=== PATIENT | male | born 1985 | race Caucasian/White ===

== ENCOUNTER 2020-07-16 12:15 | Emergency (ER) | payer MEDICAID, SELFPAY ==
[2020-07-16 12:56] VITALS: BP 149/74; PULSE 115; RESP 18; TEMP 36.8; O2SAT 96; BMI 38.0
[2020-07-16 13:19] LABS: Glucose Urine UA NEG (NEG); Leukocyte Esterase Urine NEG (NEG); Nitrite Urine NEG (NEG); Specific Gravity - Urine 1.025 (1.005-1.025); Urine Blood TRACE (NEG); Urine Ketones NEG (NEG); Urine Protein 1+ MG/DL (NEG-TRACE)
[2020-07-16 13:23] LABS: Appearance Urine HAZY; Color Urine YELLOW
[2020-07-16 13:30] LABS: Mucus Urine TRACE /LPF; RBC Urine 0-2 /HPF (0); Squamous Epithelial Cell Urine TRACE /LPF
--- NOTE | 2020-07-16 13:32 | ED_ITS ---
HPI - Male Genitourinary General Chief complaint: Urogenital-Male Stated complaint: penile discharge Time Seen by Provider: 07/16/20 13:25 Source: patient Mode of arrival: ambulatory Limitations: no limitations History of Present Illness HPI Narrative: 34-year-old male here with penile discharge and dysuria x3 days. No testicular pain, nausea, vomiting, fevers, chills. Had unprotected sex 2 weeks ago and is concerned for STD exposure MD Complaint: penile discharge and dysuria Onset (ago): day(s) Duration: intermittent Relieving factors: none Exacerbating factors: urination Associated symptoms: Reports discharge Related Data Previous Rx's Medication Instructions Recorded doxycycline monohydrate 100 mg PO BID #14 cap 07/16/20 Allergies Allergy/AdvReac Type Severity Reaction Status Date / Time No Known Allergies Allergy Verified 07/16/20 12:56 [No Known Allergies*] Review of Systems Review of Systems: Yes all other systems are reviewed and are negative Constitutional: Constitutional: Reports no additional constitutional complaints, Denies body ache(s), Denies chills, Denies fever(s), Denies headache(s) and Denies weakness Eyes: Eyes: Reports no additional eye complaints and Denies change in vision ENT: Reports system reviewed and no additional complaints, except as do cumented, Denies dizziness, Denies headache(s), Denies nasal congestion, Denies nasal discharge and Denies neck pain Cardiovascular: Cardiovascular: Reports no additional cardiovascular complaints, Denies chest pain, Denies leg edema and Denies dyspnea Respiratory: Respiratory: Reports no additional respiratory complaints, Denies cough and Denies dyspnea Gastrointestinal: Gastrointestinal: Reports no additional gastrointestinal complaints, Denies abdominal pain, Denies diarrhea, Denies nausea and Denies vomiting Genitourinary: Genitourinary: Reports dysuria, Denies flank pain, Reports penile discharge, Denies testicular pain, Denies urinary frequency, Denies urinary hesitancy, Denies urinary incontinence and Denies urinary urgency Musculoskeletal: Musculoskeletal: Reports no additional musculoskeletal complaints, Denies back pain, Denies arthralgias, Denies joint swelling, Denies neck pain, Denies numbness and Denies tingling Integumentary/Breasts: Skin/Breast: Reports system reviewed and no additional complaints, except as docu and Denies rash Neurologic: Reports system reviewed and no additional complaints, except as documented, Denies Abnormal speech present, Denies dizziness, Denies headache(s), Denies numbness, Denies tingling and Denies weakness PMFSH Past Medical History Attestation statement: The following information was validated with the patient. Source: old records reviewed and nursing notes reviewed Medical History HTN (hypertension) Social History Social History Advance Directives: No Advance Directives Information Provided: No Physical Exam Vital Signs: Vital Signs: Last Vital Signs Temp 98.3 F 07/16/20 12:56 Pulse 115 H 07/16/20 12:56 Resp 18 07/16/20 12:56 BP 149/74 H 07/16/20 12:56 Pulse Ox 96 07/16/20 12:56 Body Mass Index 38.0 Const: General: cooperative, healthy appearing, comfortable and no acute distress Orientation/consciousness: patient oriented x3 Limitations: no limitations HENMT: Head: Yes normal to inspection Ears: hearing grossly normal bilaterally General nose exam: Normal external nose present Face and sinus: Yes normal facial exam Mouth: Normal oral and palatal mucosa present Throat: Yes posterior oropharynx normal Eyes: General: appearance normal, both eyes and all related structures Pupils: Equal, round and reactive pupils present Neck: Neck: Yes normal visual inspection Chest: Chest palpation & inspection: normal inspection of the chest Resp: Effort & Inspection: normal respiratory effort Auscultation: clear to auscultation bilaterally Cardio: Rate: regular rate Rhythm: regular rhythm Peripheral pulses: Peripheral pulses 2+ throughout GI: Inspection: Yes normal to inspection Palpation (GI): Soft to palpation and nontender Auscultation: normal bowel sounds : Other: Deferred exam Back/Spine/Pelvis: Thoracic/Lumbar Spine: thoracic and lumbar spine normal to inspection Skin: General skin exam: no rashes or lesions noted Neuro: General: patient oriented x3, no focal motor deficits and normal sensation to monofilament Cranial nerves: Yes Equal, round and reactive pupils present Cognition (Neuro): normal cognition Speech: No Abnormal speech present Gait exam (Neuro): Normal gait present Motor exam (neuro): 5/5 motor strength present throughout Extrem: General: Yes normal to inspection Course Course Course Narrative: 34-year-old male here with penile discharge and dysuria x3 days. UA and STD testing sent. Deferrred exam. Treated with ceftriaxone 500mg IM, doxycyline 100mg PO. Sent home with doxycycline 100 mg twice daily for 7 days. Reviewed worrisome signs and symptoms of when to return to the emergency department. Comfortable discharge home. MDM - Male Genitourinary Medical Records Attestation: I reviewed the patient's medical records. Lab Data Attestation: I reviewed the patient's lab results. Labs: Lab Results 07/16/20 Range/Units 13:01 Urine Color YELLOW Urine Appearance HAZY Urine pH 6.0 (5.0-8.0) Ur Specific [place] 1.025 (1.005-1.025) Urine Protein 1+ H (NEG-TRACE) MG/DL Urine Glucose (UA) NEG (NEG) MG/DL Urine Ketones NEG (NEG) MG/DL Urine Blood TRACE (NEG) Urine Nitrite NEG (NEG) Ur Leukocyte Esterase NEG (NEG) Urine RBC 0-2 (0) /HPF Urine WBC 1-4 (0-4) /HPF Ur Squamous Epith Cells TRACE /LPF Urine Bacteria NONE /LPF Urine Mucus TRACE /LPF Discharge Plan Discharge Clinical Impression: Concern about STD in male without diagnosis Patient Disposition: Home, Self-Care Instructions: Sexually Transmitted Diseases (ED) Additional Instructions: We will call you in 1-2 days if your results are positive. If her test result is positive I recommend doing a repeat test in 7 days at [facility] to make sure that you have cleared the infection No sex for 7 days Take all of the antibiotics until gone Prescriptions: New doxycycline monohydrate 100 mg capsule 100 mg PO BID Qty: 14 RF: 0 Referrals: [facility] [Primary Care Provider] - 2 days Interventions: ED Discharge Assessment Last Done: 07/16/20 13:47 Discharge Date/Time: 07/16/20 13:48
[2020-07-16] MEDS: cefTRIAXone sodium 500 MG VIAL IM (13:37)
[2020-07-17 21:42] LABS: C. trachomatis RNA TMA NOT DETECTED (NOT DETECTED); N. gonorrhoeae RNA TMA NOT DETECTED (NOT DETECTED)
== END 2020-07-16 13:48 | disposition home or self-care (01) ==
PROVIDERS: Emergency Provider Emergency Medicine
DX: Z20.2 Contact with and (suspected) exposure to infections with a predominantly sexual mode of transmission (principal); R36.9 Urethral discharge, unspecified; R30.0 Dysuria
CPT/HCPCS: 36415; 81001; 87491; 87591; 96372; 99283; 99284; J0696

== ENCOUNTER 2020-08-02 11:31 | Inpatient (IN) | payer MEDICAID, SELFPAY ==
[2020-08-02] VITALS (11 sets, daily range): BP systolic 113–137; BP diastolic 68–100; PULSE 11–132; RESP 16–29; TEMP 36.6–37.9; O2SAT 90–99; BMI 30.4
--- NOTE | 2020-08-02 | CT_ITS ---
EXAMINATION: CT CHEST WITHOUT CONTRAST CLINICAL INFORMATION: Pneumonia COMPARISON: Chest film dated 08/02/2020 TECHNIQUE: Multidetector volumetric CT imaging of the chest was done. Axial MIP volume rendering provided. Sagittal and coronal reformatted images were obtained. This CT examination was performed using dose optimization techniques as appropriate, variously including the following: *Automated exposure control *Adjustment of mA and/or kV according to patient size (this includes techniques or standardized protocols for targeted exams where dose is matched to indication/reason for exam; i.e. extremities or head) *Use of iterative reconstruction technique DLP: 354 mGy-cm FINDINGS: [employer]: Unremarkable LUNGS: There are scattered areas of groundglass change. Left greater than right lung. MEDIASTINUM: No bulky adenopathy. Some shotty nodes. PLEURA: There is no pleural effusion. No pleural mass or thickening. AXILLA: No lymphadenopathy. UPPER ABDOMEN: Low attenuation in the visualized liver likely fatty change. OSSEOUS STRUCTURES: Unremarkable. CT/CT chest wo con IMPRESSION: Exam does demonstrate scattered areas of groundglass opacity in the left greater than right lung. Certainly atypical pneumonitis viral would be a consideration.
--- NOTE | 2020-08-02 12:24 | ED.ABDPAIN ---
HPI - Abdominal Pain General Chief Complaint: Abdominal Pain Stated Complaint: abd pain Time Seen by Provider: 08/02/20 12:03 Source: patient Mode of arrival: ambulatory Limitations: no limitations History of Present Illness HPI narrative: 34 yo male previously healthy here with complaints of nausea, vomiting, diarrhea, abdominal cramping x4 days. Initially had tactile temps and chills but that is not resolved. Is feeling general malaise and lightheadedness with position changes. No sob, cough, chest pain, body aches, rash. Tested negative for COVID 2 days ago. at home has similar symptoms and she also tested negative. MD elicited complaint: abdominal pain Onset (ago): day(s) Pain Consistency: intermittent Location: diffuse (abdomen ) Severity: mild Quality: cramping Radiation: none Migration to: no migration Exacerbating factors: eating Relieving factors: nothing Associated symptoms: nausea, vomiting and diarrhea Related Data Home Medications Medication Instructions Recorded Confirmed hydroxyzine HCl 25 mg PO DAILY PRN 08/02/20 08/02/20 lisinopril 20 mg PO DAILY 08/02/20 08/02/20 metoprolol succinate [Toprol XL] 50 mg PO DAILY 08/02/20 08/02/20 sertraline 100 mg PO DAILY 08/02/20 08/02/20 Allergies Allergy/AdvReac Type Severity Reaction Status Date / Time No Known Allergies Allergy Verified 07/16/20 12:56 [No Known Allergies*] Review of Systems Review of Systems Yes all other systems are reviewed and are negative Constitutional: Reports no additional constitutional complaints, Denies body ache(s), Reports chills, Denies fever(s), Denies headache(s) and Denies weakness Eyes: Reports no additional eye complaints and Denies change in vision Reports system reviewed and no additional complaints, except as documented, Reports dizziness (lightheadeness ), Denies headache(s), Denies nasal congestion, Denies nasal discharge and Denies neck pain Cardiovascular: Reports no additional cardiovascular complaints, Denies chest pain, Denies leg edema and Denies dyspnea Respiratory: Reports no additional respiratory complaints, Denies cough and Denies dyspnea Gastrointestinal: Reports no additional gastrointestinal complaints, Reports abdominal pain, Reports diarrhea, Reports nausea and Reports vomiting Genitourinary: Denies urinary incontinence Musculoskeletal: Reports no additional musculoskeletal complaints, Denies back pain, Denies arthralgias, Denies joint swelling, Denies neck pain, Denies numbness and Denies tingling Skin/Breast: Reports system reviewed and no additional complaints, except as docu and Denies rash Reports system reviewed and no additional complaints, except as documented, Denies Abnormal speech present, Reports dizziness (lightheadeness ), Denies headache(s), Denies numbness, Denies tingling and Denies weakness Physical Exam Vital Signs: Vital Signs: Last Vital Signs Temp 98.2 F 08/02/20 17:49 Pulse 113 H 08/02/20 17:49 Resp 18 08/02/20 17:49 BP 113/75 08/02/20 17:49 Pulse Ox 97 08/02/20 17:49 Body Mass Index 30.4 Const: General: cooperative, healthy appearing, comfortable and no acute distress Orientation/consciousness: patient oriented x3 Limitations: no limitations HENMT: Head: Yes normal to inspection Ears: hearing grossly normal bilaterally General nose exam: Normal external nose present Face and sinus: Yes normal facial exam Mouth: Normal oral and palatal mucosa present Throat: Yes posterior oropharynx normal Eyes: General: appearance normal, both eyes and all related structures Pupils: Equal, round and reactive pupils present Neck: Neck: Yes normal visual inspection Chest: Chest palpation & inspection: normal inspection of the chest Resp: Effort & Inspection: normal respiratory effort Auscultation: clear to auscultation bilaterally Cardio: Rate: regular rate Rhythm: regular rhythm Peripheral pulses: Peripheral pulses 2+ throughout GI: Other: Mild diffuse tenderness. No focal tenderness, rebound or guarding Inspection: Yes normal to inspection Palpation (GI): Soft to palpation Auscultation: normal bowel sounds Back/Spine/Pelvis: Thoracic/Lumbar Spine: thoracic and lumbar spine normal to inspection Skin: General skin exam: no rashes or lesions noted Neuro: General: patient oriented x3, no focal motor deficits and normal sensation to monofilament Cranial nerves: Yes Equal, round and reactive pupils present Cognition (Neuro): normal cognition Speech: No Abnormal speech present Gait exam (Neuro): Normal gait present Motor exam (neuro): 5/5 motor strength present throughout Extrem: General: Yes normal to inspection Course Course Course Narrative: 34-year-old male here with intermittent abdominal cramping, vomiting, diarrhea x4 days. Initially had fevers and chills which are now resolved. Is complaining of malaise and lightheadedness with position changes. at home has similar symptoms. Tested negative for COVID 2 days ago. Will check labs, UA, orthostatic vital signs. No focal abdominal pain on exam. Likely viral. Drinking in the room during exam. 1300-+orthostatics. NSB ordered. 1345-glucose 1025. No history of diabetes. Elevated gap with bicarb 15. Corrected sodium 139. ALBERT. Add on VBG and acetone, blood cultures, lactic acid, troponin. Chest x-ray and UA to rule out infection. COVID swab for admission. Additional 1 L normal saline bolus ordered. Potassium is sufficient so 10 of IV insulin was ordered. 1540-chest x-ray unremarkable. UA negative for infection. Troponin less than 3.5 with no EKG changes. Lactic acid 2.1 secondary to dehydration and not underlying infection. Discussed patient with Dr. Amado from ICU. Insulin drip ordered. 1610-COVID Positive. Nursing aware. MDM - Abdominal Pain MDM Narrative Medical decision making narrative: Viral syndrome, viral gastroenteritis, electrolyte abnormality, orthostatic hypotension, new onset diabetes, acs, underlying infectious process Medical Records Attestation: I reviewed the patient's medical records. Lab Data Attestation: I reviewed the patient's lab results. Result diagrams: 08/02/20 17:41 08/02/20 17:41 Labs: Lab Results 08/02/20 08/02/20 08/02/20 Range/Units 12:53 12:53 12:53 WBC 7.4 (4.8-10.8) X10*3/uL RBC 5.64 (4.60-5.80) X10*6/uL Hgb 15.1 (14.0-18.0) g/dl Hct 47.8 (42-52) % MCV 84.8 (80-98) fL MCH 26.8 L (27.0-33.0) pg MCHC 31.6 (31.0-36.0) g/dl RDW 13.4 (11.0-16.0) % Plt Count 196 (160-400) X10*3/uL MPV 11.2 (9.4-12.4) fL Immature Gran % (Auto) 0.7 H (0.0-0.4) % Neut % (Auto) 69.8 (45-73) % Lymph % (Auto) 18.5 L (20-40) % Chambers % (Auto) 10.7 (2-11) % Eos % (Auto) 0.0 (0-4) % Baso % (Auto) 0.3 (0-2) % Lymph # (Auto) 1.4 (1.2-4.9) X10*3/uL Chambers # (Auto) 0.8 (0.1-1.2) X10*3/uL Eos # (Auto) 0.0 (0.0-0.4) X10*3/uL Baso # (Auto) 0.0 (0.0-0.2) X10*3/uL Abs Immat Gran (auto) 0.05 H (0.00-0.03) X10*3/uL Absolute Neuts (auto) 5.1 (2.0-8.3) X10*3/uL Absolute Nucleated RBC 0.000 (0.0-0.012) X10*3/uL Nucleated RBC % (auto) 0.0 (0.0-0.2) /100WBC D-Dimer NG/ML Hold Blue Top SEE NOTE VBG pH (7.32-7.43) VBG pCO2 mmHg VBG pO2 mmHg VBG HCO3 mmol/L VBG O2 Saturation % VBG Base Excess mmol/L Sodium 124 L (135-145) mmol/L Potassium 5.7 H (3.3-5.1) mmol/l Chloride 81 L (96-108) mmol/L Carbon Dioxide 15 L (22-29) mmol/L Anion Gap 34 H (12-20) BUN 52 H (9-16) mg/dL Creatinine 2.90 H (0.5-1.4) mg/dL Estim Creat Clear Calc 38.8 Estimated GFR 25 POC Glucose (60-115) mg/dL Random Glucose 1025 H* (60-115) mg/dL Lactic Acid (0.5-2.0) mmol/L Lactic Acid Fup @ 2Hr (0.5-2.0) mmol/L Calcium 9.0 (8.4-10.2) mg/dL Phosphorus (2.7-4.5) mg/dL Magnesium 3.3 H (1.6-2.6) mg/dL Total Bilirubin 0.4 (0.0-1.0) mg/dL Direct Bilirubin 0.2 (0.0-0.5) mg/dL AST 43 H (5-37) U/L ALT 83 H (0-40) U/L Alkaline Phosphatase 102 (39-117) U/L Lactate Dehydrogenase (118-273) U/L Total Creatine Kinase (38-174) U/L Troponin I High Sens (<3.5-35.0) ng/L C-Reactive Protein (< or = 0.50) mg/dL Total Protein 8.4 H (6.5-8.0) g/dL Albumin 4.4 (3.5-5.0) g/dL Procalcitonin ng/mL Urine Color Urine Appearance Urine pH (5.0-8.0) Ur Specific [place] (1.005-1.025) Urine Protein (NEG-TRACE) MG/DL Urine Glucose (UA) (NEG) MG/DL Urine Ketones (NEG) MG/DL Urine Blood (NEG) Urine Nitrite (NEG) Ur Leukocyte Esterase (NEG) Urine RBC (0) /HPF Urine WBC (0-4) /HPF Ur Squamous Epith Cells /LPF Urine Bacteria /LPF Urine Opiates Screen (Not Detect) Ur Barbiturates Screen (Not Detect) Ur Phencyclidine Scrn (Not Detect) Ur Amphetamines Screen (Not Detect) U Benzodiazepines Scrn (Not Detect) Urine Cocaine Screen (Not Detect) U Marijuana (THC) Screen (Not Detect) Acetone, Qual (Negative) Coronavirus (PCR) (Negative) COVID-19 (ENE) COVID-19 Clin Com Influenza Type A (PCR) (Negative) Influenza Type B (PCR) (Negative) RSV RNA Qual (PCR) (Negative) 08/02/20 08/02/20 08/02/20 Range/Units 12:59 13:11 14:43 WBC (4.8-10.8) X10*3/uL RBC (4.60-5.80) X10*6/uL Hgb (14.0-18.0) g/dl Hct (42-52) % MCV (80-98) fL MCH (27.0-33.0) pg MCHC (31.0-36.0) g/dl RDW (11.0-16.0) % Plt Count (160-400) X10*3/uL MPV (9.4-12.4) fL Immature Gran % (Auto) (0.0-0.4) % Neut % (Auto) (45-73) % Lymph % (Auto) (20-40) % Chambers % (Auto) (2-11) % Eos % (Auto) (0-4) % Baso % (Auto) (0-2) % Lymph # (Auto) (1.2-4.9) X10*3/uL Chambers # (Auto) (0.1-1.2) X10*3/uL Eos # (Auto) (0.0-0.4) X10*3/uL Baso # (Auto) (0.0-0.2) X10*3/uL Abs Immat Gran (auto) (0.00-0.03) X10*3/uL Absolute Neuts (auto) (2.0-8.3) X10*3/uL Absolute Nucleated RBC (0.0-0.012) X10*3/uL Nucleated RBC % (auto) (0.0-0.2) /100WBC D-Dimer NG/ML Hold Blue Top VBG pH (7.32-7.43) VBG pCO2 mmHg VBG pO2 mmHg VBG HCO3 mmol/L VBG O2 Saturation % VBG Base Excess mmol/L Sodium (135-145) mmol/L Potassium (3.3-5.1) mmol/l Chloride (96-108) mmol/L Carbon Dioxide (22-29) mmol/L Anion Gap (12-20) BUN (9-16) mg/dL Creatinine (0.5-1.4) mg/dL Estim Creat Clear Calc Estimated GFR POC Glucose (60-115) mg/dL Random Glucose (60-115) mg/dL Lactic Acid (0.5-2.0) mmol/L Lactic Acid Fup @ 2Hr (0.5-2.0) mmol/L Calcium (8.4-10.2) mg/dL Phosphorus (2.7-4.5) mg/dL Magnesium (1.6-2.6) mg/dL Total Bilirubin (0.0-1.0) mg/dL Direct Bilirubin (0.0-0.5) mg/dL AST (5-37) U/L ALT (0-40) U/L Alkaline Phosphatase (39-117) U/L Lactate Dehydrogenase (118-273) U/L Total Creatine Kinase (38-174) U/L Troponin I High Sens (<3.5-35.0) ng/L C-Reactive Protein (< or = 0.50) mg/dL Total Protein (6.5-8.0) g/dL Albumin (3.5-5.0) g/dL Procalcitonin ng/mL Urine Color YELLOW Urine Appearance CLEAR Urine pH 5.5 (5.0-8.0) Ur Specific [place] 1.010 (1.005-1.025) Urine Protein NEG (NEG-TRACE) MG/DL Urine Glucose (UA) >=1000 H (NEG) MG/DL Urine Ketones 40 (NEG) MG/DL Urine Blood TRACE (NEG) Urine Nitrite NEG (NEG) Ur Leukocyte Esterase NEG (NEG) Urine RBC 0-2 (0) /HPF Urine WBC 0-2 (0-4) /HPF Ur Squamous Epith Cells TRACE /LPF Urine Bacteria TRACE /LPF Urine Opiates Screen (Not Detect) Ur Barbiturates Screen (Not Detect) Ur Phencyclidine Scrn (Not Detect) Ur Amphetamines Screen (Not Detect) U Benzodiazepines Scrn (Not Detect) Urine Cocaine Screen (Not Detect) U Marijuana (THC) Screen (Not Detect) Acetone, Qual Moderate H (Negative) Coronavirus (PCR) (Negative) COVID-19 (ENE) Cancelled COVID-19 Clin Com Cancelled Influenza Type A (PCR) (Negative) Influenza Type B (PCR) (Negative) RSV RNA Qual (PCR) (Negative) 08/02/20 08/02/20 08/02/20 Range/Units 14:43 14:43 14:43 WBC (4.8-10.8) X10*3/uL RBC (4.60-5.80) X10*6/uL Hgb (14.0-18.0) g/dl Hct (42-52) % MCV (80-98) fL MCH (27.0-33.0) pg MCHC (31.0-36.0) g/dl RDW (11.0-16.0) % Plt Count (160-400) X10*3/uL MPV (9.4-12.4) fL Immature Gran % (Auto) (0.0-0.4) % Neut % (Auto) (45-73) % Lymph % (Auto) (20-40) % Chambers % (Auto) (2-11) % Eos % (Auto) (0-4) % Baso % (Auto) (0-2) % Lymph # (Auto) (1.2-4.9) X10*3/uL Chambers # (Auto) (0.1-1.2) X10*3/uL Eos # (Auto) (0.0-0.4) X10*3/uL Baso # (Auto) (0.0-0.2) X10*3/uL Abs Immat Gran (auto) (0.00-0.03) X10*3/uL Absolute Neuts (auto) (2.0-8.3) X10*3/uL Absolute Nucleated RBC (0.0-0.012) X10*3/uL Nucleated RBC % (auto) (0.0-0.2) /100WBC D-Dimer NG/ML Hold Blue Top VBG pH 7.21 L (7.32-7.43) VBG pCO2 31 mmHg VBG pO2 46 mmHg VBG HCO3 13 mmol/L VBG O2 Saturation 70.0 % VBG Base Excess -13.5 mmol/L Sodium (135-145) mmol/L Potassium (3.3-5.1) mmol/l Chloride (96-108) mmol/L Carbon Dioxide (22-29) mmol/L Anion Gap (12-20) BUN (9-16) mg/dL Creatinine (0.5-1.4) mg/dL Estim Creat Clear Calc Estimated GFR POC Glucose (60-115) mg/dL Random Glucose (60-115) mg/dL Lactic Acid 2.1 H* (0.5-2.0) mmol/L Lactic Acid Fup @ 2Hr (0.5-2.0) mmol/L Calcium (8.4-10.2) mg/dL Phosphorus (2.7-4.5) mg/dL Magnesium (1.6-2.6) mg/dL Total Bilirubin (0.0-1.0) mg/dL Direct Bilirubin (0.0-0.5) mg/dL AST (5-37) U/L ALT (0-40) U/L Alkaline Phosphatase (39-117) U/L Lactate Dehydrogenase (118-273) U/L Total Creatine Kinase (38-174) U/L Troponin I High Sens < 3.5 (<3.5-35.0) ng/L C-Reactive Protein (< or = 0.50) mg/dL Total Protein (6.5-8.0) g/dL Albumin (3.5-5.0) g/dL Procalcitonin ng/mL Urine Color Urine Appearance Urine pH (5.0-8.0) Ur Specific [place] (1.005-1.025) Urine Protein (NEG-TRACE) MG/DL Urine Glucose (UA) (NEG) MG/DL Urine Ketones (NEG) MG/DL Urine Blood (NEG) Urine Nitrite (NEG) Ur Leukocyte Esterase (NEG) Urine RBC (0) /HPF Urine WBC (0-4) /HPF Ur Squamous Epith Cells /LPF Urine Bacteria /LPF Urine Opiates Screen (Not Detect) Ur Barbiturates Screen (Not Detect) Ur Phencyclidine Scrn (Not Detect) Ur Amphetamines Screen (Not Detect) U Benzodiazepines Scrn (Not Detect) Urine Cocaine Screen (Not Detect) U Marijuana (THC) Screen (Not Detect) Acetone, Qual (Negative) Coronavirus (PCR) (Negative) COVID-19 (ENE) COVID-19 Clin Com Influenza Type A (PCR) (Negative) Influenza Type B (PCR) (Negative) RSV RNA Qual (PCR) (Negative) 08/02/20 08/02/20 08/02/20 Range/Units 15:07 15:52 17:03 WBC (4.8-10.8) X10*3/uL RBC (4.60-5.80) X10*6/uL Hgb (14.0-18.0) g/dl Hct (42-52) % MCV (80-98) fL MCH (27.0-33.0) pg MCHC (31.0-36.0) g/dl RDW (11.0-16.0) % Plt Count (160-400) X10*3/uL MPV (9.4-12.4) fL Immature Gran % (Auto) (0.0-0.4) % Neut % (Auto) (45-73) % Lymph % (Auto) (20-40) % Chambers % (Auto) (2-11) % Eos % (Auto) (0-4) % Baso % (Auto) (0-2) % Lymph # (Auto) (1.2-4.9) X10*3/uL Chambers # (Auto) (0.1-1.2) X10*3/uL Eos # (Auto) (0.0-0.4) X10*3/uL Baso # (Auto) (0.0-0.2) X10*3/uL Abs Immat Gran (auto) (0.00-0.03) X10*3/uL Absolute Neuts (auto) (2.0-8.3) X10*3/uL Absolute Nucleated RBC (0.0-0.012) X10*3/uL Nucleated RBC % (auto) (0.0-0.2) /100WBC D-Dimer NG/ML Hold Blue Top VBG pH (7.32-7.43) VBG pCO2 mmHg VBG pO2 mmHg VBG HCO3 mmol/L VBG O2 Saturation % VBG Base Excess mmol/L Sodium (135-145) mmol/L Potassium (3.3-5.1) mmol/l Chloride (96-108) mmol/L Carbon Dioxide (22-29) mmol/L Anion Gap (12-20) BUN (9-16) mg/dL Creatinine (0.5-1.4) mg/dL Estim Creat Clear Calc Estimated GFR POC Glucose > 600 H* > 600 H* (60-115) mg/dL Random Glucose (60-115) mg/dL Lactic Acid (0.5-2.0) mmol/L Lactic Acid Fup @ 2Hr (0.5-2.0) mmol/L Calcium (8.4-10.2) mg/dL Phosphorus (2.7-4.5) mg/dL Magnesium (1.6-2.6) mg/dL Total Bilirubin (0.0-1.0) mg/dL Direct Bilirubin (0.0-0.5) mg/dL AST (5-37) U/L ALT (0-40) U/L Alkaline Phosphatase (39-117) U/L Lactate Dehydrogenase (118-273) U/L Total Creatine Kinase (38-174) U/L Troponin I High Sens (<3.5-35.0) ng/L C-Reactive Protein (< or = 0.50) mg/dL Total Protein (6.5-8.0) g/dL Albumin (3.5-5.0) g/dL Procalcitonin ng/mL Urine Color Urine Appearance Urine pH (5.0-8.0) Ur Specific [place] (1.005-1.025) Urine Protein (NEG-TRACE) MG/DL Urine Glucose (UA) (NEG) MG/DL Urine Ketones (NEG) MG/DL Urine Blood (NEG) Urine Nitrite (NEG) Ur Leukocyte Esterase (NEG) Urine RBC (0) /HPF Urine WBC (0-4) /HPF Ur Squamous Epith Cells /LPF Urine Bacteria /LPF Urine Opiates Screen (Not Detect) Ur Barbiturates Screen (Not Detect) Ur Phencyclidine Scrn (Not Detect) Ur Amphetamines Screen (Not Detect) U Benzodiazepines Scrn (Not Detect) Urine Cocaine Screen (Not Detect) U Marijuana (THC) Screen (Not Detect) Acetone, Qual (Negative) Coronavirus (PCR) POSITIVE A (Negative) COVID-19 (ENE) COVID-19 Clin Com Influenza Type A (PCR) NEGATIVE (Negative) Influenza Type B (PCR) NEGATIVE (Negative) RSV RNA Qual (PCR) NEGATIVE (Negative) 08/02/20 08/02/20 08/02/20 Range/Units 17:41 17:41 17:41 WBC 8.2 (4.8-10.8) X10*3/uL RBC 5.51 (4.60-5.80) X10*6/uL Hgb 14.8 (14.0-18.0) g/dl Hct 44.8 (42-52) % MCV 81.3 (80-98) fL MCH 26.9 L (27.0-33.0) pg MCHC 33.0 (31.0-36.0) g/dl RDW 13.2 (11.0-16.0) % Plt Count 199 (160-400) X10*3/uL MPV 10.8 (9.4-12.4) fL Immature Gran % (Auto) 0.5 H (0.0-0.4) % Neut % (Auto) 69.2 (45-73) % Lymph % (Auto) 24.2 (20-40) % Chambers % (Auto) 5.8 (2-11) % Eos % (Auto) 0.1 (0-4) % Baso % (Auto) 0.2 (0-2) % Lymph # (Auto) 2.0 (1.2-4.9) X10*3/uL Chambers # (Auto) 0.5 (0.1-1.2) X10*3/uL Eos # (Auto) 0.0 (0.0-0.4) X10*3/uL Baso # (Auto) 0.0 (0.0-0.2) X10*3/uL Abs Immat Gran (auto) 0.04 H (0.00-0.03) X10*3/uL Absolute Neuts (auto) 5.7 (2.0-8.3) X10*3/uL Absolute Nucleated RBC 0.000 (0.0-0.012) X10*3/uL Nucleated RBC % (auto) 0.0 (0.0-0.2) /100WBC D-Dimer 377 NG/ML Hold Blue Top VBG pH (7.32-7.43) VBG pCO2 mmHg VBG pO2 mmHg VBG HCO3 mmol/L VBG O2 Saturation % VBG Base Excess mmol/L Sodium (135-145) mmol/L Potassium (3.3-5.1) mmol/l Chloride (96-108) mmol/L Carbon Dioxide (22-29) mmol/L Anion Gap (12-20) BUN (9-16) mg/dL Creatinine (0.5-1.4) mg/dL Estim Creat Clear Calc Estimated GFR POC Glucose (60-115) mg/dL Random Glucose Cancelled (60-115) mg/dL Lactic Acid (0.5-2.0) mmol/L Lactic Acid Fup @ 2Hr (0.5-2.0) mmol/L Calcium (8.4-10.2) mg/dL Phosphorus 4.4 (2.7-4.5) mg/dL Magnesium 3.3 H (1.6-2.6) mg/dL Total Bilirubin (0.0-1.0) mg/dL Direct Bilirubin (0.0-0.5) mg/dL AST (5-37) U/L ALT (0-40) U/L Alkaline Phosphatase (39-117) U/L Lactate Dehydrogenase 192 (118-273) U/L Total Creatine Kinase 173 (38-174) U/L Troponin I High Sens (<3.5-35.0) ng/L C-Reactive Protein 2.76 H (< or = 0.50) mg/dL Total Protein (6.5-8.0) g/dL Albumin (3.5-5.0) g/dL Procalcitonin ng/mL Urine Color Urine Appearance Urine pH (5.0-8.0) Ur Specific [place] (1.005-1.025) Urine Protein (NEG-TRACE) MG/DL Urine Glucose (UA) (NEG) MG/DL Urine Ketones (NEG) MG/DL Urine Blood (NEG) Urine Nitrite (NEG) Ur Leukocyte Esterase (NEG) Urine RBC (0) /HPF Urine WBC (0-4) /HPF Ur Squamous Epith Cells /LPF Urine Bacteria /LPF Urine Opiates Screen (Not Detect) Ur Barbiturates Screen (Not Detect) Ur Phencyclidine Scrn (Not Detect) Ur Amphetamines Screen (Not Detect) U Benzodiazepines Scrn (Not Detect) Urine Cocaine Screen (Not Detect) U Marijuana (THC) Screen (Not Detect) Acetone, Qual (Negative) Coronavirus (PCR) (Negative) COVID-19 (ENE) COVID-19 Clin Com Influenza Type A (PCR) (Negative) Influenza Type B (PCR) (Negative) RSV RNA Qual (PCR) (Negative) 08/02/20 08/02/20 08/02/20 Range/Units 17:41 17:41 17:41 WBC (4.8-10.8) X10*3/uL RBC (4.60-5.80) X10*6/uL Hgb (14.0-18.0) g/dl Hct (42-52) % MCV (80-98) fL MCH (27.0-33.0) pg MCHC (31.0-36.0) g/dl RDW (11.0-16.0) % Plt Count (160-400) X10*3/uL MPV (9.4-12.4) fL Immature Gran % (Auto) (0.0-0.4) % Neut % (Auto) (45-73) % Lymph % (Auto) (20-40) % Chambers % (Auto) (2-11) % Eos % (Auto) (0-4) % Baso % (Auto) (0-2) % Lymph # (Auto) (1.2-4.9) X10*3/uL Chambers # (Auto) (0.1-1.2) X10*3/uL Eos # (Auto) (0.0-0.4) X10*3/uL Baso # (Auto) (0.0-0.2) X10*3/uL Abs Immat Gran (auto) (0.00-0.03) X10*3/uL Absolute Neuts (auto) (2.0-8.3) X10*3/uL Absolute Nucleated RBC (0.0-0.012) X10*3/uL Nucleated RBC % (auto) (0.0-0.2) /100WBC D-Dimer NG/ML Hold Blue Top VBG pH (7.32-7.43) VBG pCO2 mmHg VBG pO2 mmHg VBG HCO3 mmol/L VBG O2 Saturation % VBG Base Excess mmol/L Sodium 130 L (135-145) mmol/L Potassium 5.0 (3.3-5.1) mmol/l Chloride 92 L (96-108) mmol/L Carbon Dioxide 16 L (22-29) mmol/L Anion Gap 27 H (12-20) BUN 45 H (9-16) mg/dL Creatinine 2.45 H (0.5-1.4) mg/dL Estim Creat Clear Calc 46.0 Estimated GFR 30 POC Glucose (60-115) mg/dL Random Glucose 684 H* (60-115) mg/dL Lactic Acid (0.5-2.0) mmol/L Lactic Acid Fup @ 2Hr 1.7 (0.5-2.0) mmol/L Calcium 8.7 (8.4-10.2) mg/dL Phosphorus (2.7-4.5) mg/dL Magnesium (1.6-2.6) mg/dL Total Bilirubin (0.0-1.0) mg/dL Direct Bilirubin (0.0-0.5) mg/dL AST (5-37) U/L ALT (0-40) U/L Alkaline Phosphatase (39-117) U/L Lactate Dehydrogenase (118-273) U/L Total Creatine Kinase (38-174) U/L Troponin I High Sens (<3.5-35.0) ng/L C-Reactive Protein (< or = 0.50) mg/dL Total Protein (6.5-8.0) g/dL Albumin (3.5-5.0) g/dL Procalcitonin 0.54 ng/mL Urine Color Urine Appearance Urine pH (5.0-8.0) Ur Specific [place] (1.005-1.025) Urine Protein (NEG-TRACE) MG/DL Urine Glucose (UA) (NEG) MG/DL Urine Ketones (NEG) MG/DL Urine Blood (NEG) Urine Nitrite (NEG) Ur Leukocyte Esterase (NEG) Urine RBC (0) /HPF Urine WBC (0-4) /HPF Ur Squamous Epith Cells /LPF Urine Bacteria /LPF Urine Opiates Screen (Not Detect) Ur Barbiturates Screen (Not Detect) Ur Phencyclidine Scrn (Not Detect) Ur Amphetamines Screen (Not Detect) U Benzodiazepines Scrn (Not Detect) Urine Cocaine Screen (Not Detect) U Marijuana (THC) Screen (Not Detect) Acetone, Qual (Negative) Coronavirus (PCR) (Negative) COVID-19 (ENE) COVID-19 Clin Com Influenza Type A (PCR) (Negative) Influenza Type B (PCR) (Negative) RSV RNA Qual (PCR) (Negative) 08/02/20 08/02/20 Range/Units 17:41 18:22 WBC (4.8-10.8) X10*3/uL RBC (4.60-5.80) X10*6/uL Hgb (14.0-18.0) g/dl Hct (42-52) % MCV (80-98) fL MCH (27.0-33.0) pg MCHC (31.0-36.0) g/dl RDW (11.0-16.0) % Plt Count (160-400) X10*3/uL MPV (9.4-12.4) fL Immature Gran % (Auto) (0.0-0.4) % Neut % (Auto) (45-73) % Lymph % (Auto) (20-40) % Chambers % (Auto) (2-11) % Eos % (Auto) (0-4) % Baso % (Auto) (0-2) % Lymph # (Auto) (1.2-4.9) X10*3/uL [place] # (Auto) (0.1-1.2) X10*3/uL Eos # (Auto) (0.0-0.4) X10*3/uL Baso # (Auto) (0.0-0.2) X10*3/uL Abs Immat Gran (auto) (0.00-0.03) X10*3/uL Absolute Neuts (auto) (2.0-8.3) X10*3/uL Absolute Nucleated RBC (0.0-0.012) X10*3/uL Nucleated RBC % (auto) (0.0-0.2) /100WBC D-Dimer NG/ML Hold Blue Top VBG pH (7.32-7.43) VBG pCO2 mmHg VBG pO2 mmHg VBG HCO3 mmol/L VBG O2 Saturation % VBG Base Excess mmol/L Sodium (135-145) mmol/L Potassium (3.3-5.1) mmol/l Chloride (96-108) mmol/L Carbon Dioxide (22-29) mmol/L Anion Gap (12-20) BUN (9-16) mg/dL Creatinine (0.5-1.4) mg/dL Estim Creat Clear Calc Estimated GFR POC Glucose > 600 H* (60-115) mg/dL Random Glucose (60-115) mg/dL Lactic Acid (0.5-2.0) mmol/L Lactic Acid Fup @ 2Hr (0.5-2.0) mmol/L Calcium (8.4-10.2) mg/dL Phosphorus (2.7-4.5) mg/dL Magnesium (1.6-2.6) mg/dL Total Bilirubin (0.0-1.0) mg/dL Direct Bilirubin (0.0-0.5) mg/dL AST (5-37) U/L ALT (0-40) U/L Alkaline Phosphatase (39-117) U/L Lactate Dehydrogenase (118-273) U/L Total Creatine Kinase (38-174) U/L Troponin I High Sens (<3.5-35.0) ng/L C-Reactive Protein (< or = 0.50) mg/dL Total Protein (6.5-8.0) g/dL Albumin (3.5-5.0) g/dL Procalcitonin ng/mL Urine Color Urine Appearance Urine pH (5.0-8.0) Ur Specific [place] (1.005-1.025) Urine Protein (NEG-TRACE) MG/DL Urine Glucose (UA) (NEG) MG/DL Urine Ketones (NEG) MG/DL Urine Blood (NEG) Urine Nitrite (NEG) Ur Leukocyte Esterase (NEG) Urine RBC (0) /HPF Urine WBC (0-4) /HPF Ur Squamous Epith Cells /LPF Urine Bacteria /LPF Urine Opiates Screen Not Detected (Not Detect) Ur Barbiturates Screen Not Detected (Not Detect) Ur Phencyclidine Scrn Not Detected (Not Detect) Ur Amphetamines Screen Not Detected (Not Detect) U Benzodiazepines Scrn Not Detected (Not Detect) Urine Cocaine Screen Not Detected (Not Detect) U Marijuana (THC) Screen Not Detected (Not Detect) Acetone, Qual (Negative) Coronavirus (PCR) (Negative) COVID-19 (ENE) COVID-19 Clin Com Influenza Type A (PCR) (Negative) Influenza Type B (PCR) (Negative) RSV RNA Qual (PCR) (Negative) Imaging Data Chest x-ray: Attestation: I personally reviewed and interpreted this imaging study as follows: Radiologist's impression: EXAMINATION: XR CHEST CLINICAL INFORMATION: Rule out pneumonia COMPARISON: Previous chest x-ray most recent October 2017 TECHNIQUE: 2 views of the chest were obtained. FINDINGS: The right hemidiaphragm is elevated. The cardiac and mediastinal contours are unremarkable. The lungs are clear. There is no pleural effusion or pneumothorax. There are degenerative changes of the spine. XR/XR chest 2V IMPRESSION: Elevated right hemidiaphragm. No evidence of pneumonia. ECG Data Attestation: I personally reviewed and interpreted this ECG as follows: ECG interpretation date: 08/02/20 ECG interpretation time: 14:21 Interpretation: Normal sinus rhythm with a rate of 86,early repolarization, normal MD, normal QRS, normal QT Critical Care Time Critical Care Time Critical Care Time: Yes Total Critical Care Time: 30 Attestation: Abnormal renal function with fluid management, normal glucose with management with insulin drip, discussion with septic cleaner for admission Discharge Plan Discharge Clinical Impression: Diabetic ketoacidosis associated with diabetes mellitus due to underlying condition, Acute renal failure, COVID-19 Patient Disposition: Admitted As Inpatient [facility] Past Medical History Attestation statement: The following information was validated with the patient. Source: old records reviewed and nursing notes reviewed Medical History HTN (hypertension) Social History Social History Alcohol intake: never Smoking Status: Never smoker Use of substances other than those prescribed or required for medical reasons: No Advance Directives: No Advance Directives Information Provided: No
[2020-08-02] MEDS: Dicyclomine HCl 10 MG CAPSULE 20 MG PO (12:58)
[2020-08-02] MEDS: 0.9 % Sodium Chloride 1,000 ML 999 ML IV ×2 (12:58→14:33)
[2020-08-02] MEDS: ondansetron HCL 4 MG/2 ML VIAL IVPUSH (12:58)
[2020-08-02 13:01] LABS: MANUAL DIFF FLAG NO
[2020-08-02 13:06] LABS: Basophils Percent Auto 0.3 % (0-2); Hematocrit 47.8 % (42-52); Hemoglobin 15.1 g/dl (14.0-18.0); Imm Gran Abs Auto 0.05 X10*3/uL (0.00-0.03); Imm Gran Pct Auto 0.7 % (0.0-0.4); Lymphocytes Absolute Auto 1.4 X10*3/uL (1.2-4.9); Lymphocytes Percent Auto 18.5 % (20-40); Mean Corpuscular HGB Conc 31.6 g/dl (31.0-36.0); Mean Corpuscular Hemoglobin 26.8 pg (27.0-33.0); Mean Corpuscular Volume 84.8 fL (80-98); Mean Platelet Volume 11.2 fL (9.4-12.4); Monocytes Absolute Auto 0.8 X10*3/uL (0.1-1.2); Monocytes Percent Auto 10.7 % (2-11); Neutrophils Absolute Auto 5.1 X10*3/uL (2.0-8.3); Neutrophils Percent Auto 69.8 % (45-73); Platelet Count 196 X10*3/uL (160-400); Red Blood Count 5.64 X10*6/uL (4.60-5.80); Red Cell Distribution Width 13.4 % (11.0-16.0); White Blood Count 7.4 X10*3/uL (4.8-10.8)
--- NOTE | 2020-08-02 13:08 | PC.NURSE ---
iv inserted, labs drawn, orthostats performed, urine obtained, pt medicated per order,will continue to monitor.
[2020-08-02 13:24] LABS: Glucose Urine UA >=1000 MG/DL (NEG); Leukocyte Esterase Urine NEG (NEG); Nitrite Urine NEG (NEG); PH 5.5 (5.0-8.0); Urine Blood TRACE (NEG); Urine Ketones 40 MG/DL (NEG); Urine Protein NEG (NEG-TRACE)
[2020-08-02 13:31] LABS: Appearance Urine CLEAR; Color Urine YELLOW
[2020-08-02 13:37] LABS: Bacteria Urine TRACE /LPF; RBC Urine 0-2 /HPF (0); Squamous Epithelial Cell Urine TRACE /LPF; WBC Urine 0-2 /HPF (0-4)
[2020-08-02 13:48] LABS: Alanine Aminotransferase 83 U/L (0-40); Albumin Level 4.4 g/dL (3.5-5.0); Alkaline Phosphatase 102 U/L (39-117); Anion Gap 34 (12-20); Aspartate Amino Transferase 43 U/L (5-37); Bilirubin Direct 0.2 mg/dL (0.0-0.5); Bilirubin Total 0.4 mg/dL (0.0-1.0); Blood Urea Nitrogen 52 mg/dL (9-16); Carbon Dioxide 15 mmol/L (22-29); Chloride 81 mmol/L (96-108); Creatinine Clr Calc Pharmacy 38.8; Estimated Glomerular Filt Rate 25; Glucose Random 1025 mg/dL (60-115); Magnesium 3.3 mg/dL (1.6-2.6); Potassium 5.7 mmol/l (3.3-5.1); Sodium 124 mmol/L (135-145); Total Protein 8.4 g/dL (6.5-8.0)
--- NOTE | 2020-08-02 13:53 | ECG_ITS ---
Test Reason : DIZZYNESS Blood Pressure : / mmHG Vent. Rate : 086 BPM Atrial Rate : 086 BPM P-R Int : 132 ms QRS Dur : 092 ms QT Int : 362 ms P-R-T Axes : 056 026 026 degrees QTc Int : 433 ms Normal sinus rhythm Early repolarization Normal ECG When compared with ECG of 04-NOV-2017 20:54, No significant change was found Referred By: Mariam Santacruz Electronically Signed By:BRENNAN MCCORMICK
--- NOTE | 2020-08-02 13:53 | XR_ITS ---
EXAMINATION: XR CHEST CLINICAL INFORMATION: Rule out pneumonia COMPARISON: Previous chest x-ray most recent October 2017 TECHNIQUE: 2 views of the chest were obtained. FINDINGS: The right hemidiaphragm is elevated. The cardiac and mediastinal contours are unremarkable. The lungs are clear. There is no pleural effusion or pneumothorax. There are degenerative changes of the spine. XR/XR chest 2V IMPRESSION: Elevated right hemidiaphragm. No evidence of pneumonia.
[2020-08-02 14:20] LABS: Acetone, serum QL Moderate (Negative)
[2020-08-02] MEDS: Insulin Regular, Human 100 UNIT/ML 3 ML VIAL 10 UNIT IVPUSH (14:33)
--- NOTE | 2020-08-02 14:48 | PC.NURSE ---
ekg performed, labs drawn, pt medicated per order, will continue to monitor.
[2020-08-02 14:59] LABS: Base Excess VBG -13.5 mmol/L; HCO3 VBG 13 mmol/L; PCO2 VBG 31 mmHg; PO2 VBG 46 mmHg; pH VBG 7.21 (7.32-7.43)
[2020-08-02 15:24] LABS: Lactic Acid 2.1 mmol/L (0.5-2.0)
[2020-08-02 15:26] LABS: Troponin-I High Sensitivity < 3.5 ng/L (<3.5-35.0)
[2020-08-02 15:49] LABS: Influenza A PCR NEGATIVE (Negative); Influenza B PCR NEGATIVE (Negative); Resp Syncy Virus RNA Qual PCR NEGATIVE (Negative); SARS COV2 PCR INHOUSE POSITIVE (Negative)
[2020-08-02] MEDS: Insulin Regular/NS 100 UNIT/100 ML PLAST..BAG 10 UNIT IVCONT (16:00)
--- NOTE | 2020-08-02 16:05 | PC.NURSE ---
INSULIN DRIP STARTED PER ORDER
[2020-08-02 16:06] LABS: Glucose, Whole Blood > 600 mg/dL (60-115)
--- NOTE | 2020-08-02 16:22 | PM.CCHP ---
History of Present Illness Date of Service: 08/02/20 Chief Complaint: Fever chills abdominal discomfort 34-year-old male with new onset of fever chills abdominal discomfort and weakness and and on blood work was found to have hyponatremia and hyperkalemia with marked hyperglycemia at a 1000 and by calculation is both hyperosmolar and has a positive anion gap metabolic acidosis along with moderate acetone consistent with diabetic ketoacidosis and therefore is a new onset diabetic with both complications The COVID PCR is positive and therefore he has a dry CT scan of his chest that is pending apparently not at this point hypoxic In addition he is in acute stage III renal failure with current creatinine at 2.9 BUN in 52 and of course pseudo hyponatremia which fully corrects to 140 Review of Systems Review of Systems: Yes all other systems are reviewed and are negative [facility] Past Medical History Medical History HTN (hypertension) Social History Social History Alcohol intake: never Smoking Status: Never smoker Use of substances other than those prescribed or required for medical reasons: No Advance Directives: No Advance Directives Information Provided: No Meds Allergies Allergy/AdvReac Type Severity Reaction Status Date / Time No Known Allergies Allergy Verified 07/16/20 12:56 [No Known Allergies*] Home Medications Medication Instructions Recorded Confirmed Type hydroxyzine HCl 25 mg PO DAILY PRN 08/02/20 08/02/20 History lisinopril 20 mg PO DAILY 08/02/20 08/02/20 History metoprolol succinate [Toprol XL] 50 mg PO DAILY 08/02/20 08/02/20 History sertraline 100 mg PO DAILY 08/02/20 08/02/20 History Physical Exam Vital Signs: Vital Signs: Last Vital Signs Temp 98.2 F 08/02/20 13:12 Pulse 96 08/02/20 13:12 Resp 18 08/02/20 13:12 BP 128/72 08/02/20 13:12 Pulse Ox 96 08/02/20 13:12 Body Mass Index 30.4 On physical exam he is awake and alert and nonfocal neurologically Neck veins flat with adequate bilateral carotid upstrokes but status post 2 L of IV normal saline and has no underlying murmurs or gallops Chest percussed equally no clinical pleural effusion no adventitious sounds Abdomen benign nondistended with bowel sounds no organomegaly Skin is intact no peripheral edema no acrocyanosis Results Labs CBC and Chem 7: 08/02/20 12:53 08/02/20 12:53 Labs: Laboratory Results - last 24 hr 08/02/20 08/02/20 08/02/20 12:53 12:53 12:53 MCV 84.8 MCH 26.8 L MCHC 31.6 RDW 13.4 Plt Count 196 MPV 11.2 Immature Gran % (Auto) 0.7 H Neut % (Auto) 69.8 Lymph % (Auto) 18.5 L [place] % (Auto) 10.7 Eos % (Auto) 0.0 Baso % (Auto) 0.3 Lymph # (Auto) 1.4 [place] # (Auto) 0.8 Eos # (Auto) 0.0 Baso # (Auto) 0.0 Abs Immat Gran (auto) 0.05 H Absolute Neuts (auto) 5.1 Absolute Nucleated RBC 0.000 Nucleated RBC % (auto) 0.0 Hold Blue Top SEE NOTE VBG pH VBG pCO2 VBG pO2 VBG HCO3 VBG O2 Saturation VBG Base Excess Anion Gap 34 H Estim Creat Clear Calc 38.8 Estimated GFR 25 POC Glucose Random Glucose 1025 H* Lactic Acid Calcium 9.0 Magnesium 3.3 H Total Bilirubin 0.4 Direct Bilirubin 0.2 AST 43 H ALT 83 H Alkaline Phosphatase 102 Troponin I High Sens Total Protein 8.4 H Albumin 4.4 Urine Color Urine Appearance Urine pH Ur Specific [place] Urine Protein Urine Glucose (UA) Urine Ketones Urine Blood Urine Nitrite Ur Leukocyte Esterase Urine RBC Urine WBC Ur Squamous Epith Cells Urine Bacteria Acetone, Qual Coronavirus (PCR) COVID-19 (ENE) COVID-19 Clin Com Influenza Type A (PCR) Influenza Type B (PCR) RSV RNA Qual (PCR) 08/02/20 08/02/20 08/02/20 12:59 13:11 14:43 MCV MCH MCHC RDW Plt Count MPV Immature Gran % (Auto) Neut % (Auto) Lymph % (Auto) [place] % (Auto) Eos % (Auto) Baso % (Auto) Lymph # (Auto) [place] # (Auto) Eos # (Auto) Baso # (Auto) Abs Immat Gran (auto) Absolute Neuts (auto) Absolute Nucleated RBC Nucleated RBC % (auto) Hold Blue Top VBG pH VBG pCO2 VBG pO2 VBG HCO3 VBG O2 Saturation VBG Base Excess Anion Gap Estim Creat Clear Calc Estimated GFR POC Glucose Random Glucose Lactic Acid Calcium Magnesium Total Bilirubin Direct Bilirubin AST ALT Alkaline Phosphatase Troponin I High Sens Total Protein Albumin Urine Color YELLOW Urine Appearance CLEAR Urine pH 5.5 Ur Specific [place] 1.010 Urine Protein NEG Urine Glucose (UA) >=1000 H Urine Ketones 40 Urine Blood TRACE Urine Nitrite NEG Ur Leukocyte Esterase NEG Urine RBC 0-2 Urine WBC 0-2 Ur Squamous Epith Cells TRACE Urine Bacteria TRACE Acetone, Qual Moderate H Coronavirus (PCR) COVID-19 (ENE) Cancelled COVID-19 Clin Com Cancelled Influenza Type A (PCR) Influenza Type B (PCR) RSV RNA Qual (PCR) 08/02/20 08/02/20 08/02/20 14:43 14:43 14:43 MCV MCH MCHC RDW Plt Count MPV Immature Gran % (Auto) Neut % (Auto) Lymph % (Auto) [place] % (Auto) Eos % (Auto) Baso % (Auto) Lymph # (Auto) [place] # (Auto) Eos # (Auto) Baso # (Auto) Abs Immat Gran (auto) Absolute Neuts (auto) Absolute Nucleated RBC Nucleated RBC % (auto) Hold Blue Top VBG pH 7.21 L VBG pCO2 31 VBG pO2 46 VBG HCO3 13 VBG O2 Saturation 70.0 VBG Base Excess -13.5 Anion Gap Estim Creat Clear Calc Estimated GFR POC Glucose Random Glucose Lactic Acid 2.1 H* Calcium Magnesium Total Bilirubin Direct Bilirubin AST ALT Alkaline Phosphatase Troponin I High Sens < 3.5 Total Protein Albumin Urine Color Urine Appearance Urine pH Ur Specific [place] Urine Protein Urine Glucose (UA) Urine Ketones Urine Blood Urine Nitrite Ur Leukocyte Esterase Urine RBC Urine WBC Ur Squamous Epith Cells Urine Bacteria Acetone, Qual Coronavirus (PCR) COVID-19 (ENE) COVID-19 Clin Com Influenza Type A (PCR) Influenza Type B (PCR) RSV RNA Qual (PCR) 08/02/20 08/02/20 15:07 15:52 MCV MCH MCHC RDW Plt Count MPV Immature Gran % (Auto) Neut % (Auto) Lymph % (Auto) [place] % (Auto) Eos % (Auto) Baso % (Auto) Lymph # (Auto) [place] # (Auto) Eos # (Auto) Baso # (Auto) Abs Immat Gran (auto) Absolute Neuts (auto) Absolute Nucleated RBC Nucleated RBC % (auto) Hold Blue Top VBG pH VBG pCO2 VBG pO2 VBG HCO3 VBG O2 Saturation VBG Base Excess Anion Gap Estim Creat Clear Calc Estimated GFR POC Glucose > 600 H* Random Glucose Lactic Acid Calcium Magnesium Total Bilirubin Direct Bilirubin AST ALT Alkaline Phosphatase Troponin I High Sens Total Protein Albumin Urine Color Urine Appearance Urine pH Ur Specific [place] Urine Protein Urine Glucose (UA) Urine Ketones Urine Blood Urine Nitrite Ur Leukocyte Esterase Urine RBC Urine WBC Ur Squamous Epith Cells Urine Bacteria Acetone, Qual Coronavirus (PCR) POSITIVE A COVID-19 (ENE) COVID-19 Clin Com Influenza Type A (PCR) NEGATIVE Influenza Type B (PCR) NEGATIVE RSV RNA Qual (PCR) NEGATIVE Imaging Radiologist's Impressions: Impressions Chest X-Ray 08/02/20 13:53 IMPRESSION: Elevated right hemidiaphragm. No evidence of pneumonia. Assessment and Plan (1) Diabetic ketoacidosis associated with diabetes mellitus due to underlying condition: Status: Acute (2) Hyperosmolar hyponatremia: Status: Acute (3) Hyponatremia: Status: Acute (4) Hyperkalemia: Status: Acute (5) Acute renal failure: Status: Acute (6) COVID-19: Status: Acute At this point and will continue with normal saline watching for development of hyperchloremia will recheck every 4-6 hours on his chemistry and his venous blood gas and will obtain a dry CT scan and at this point to check for early signs of COVID pneumonitis but will hold off on any definitive treatment pending results of the chest CT scan and as well as awaiting resolution of his renal insufficiency So he will remain on normal saline at an aggressive level along with IV insulin therapy
[2020-08-02 16:50] LABS: Reflex Lactate? Lactic Acid Added
[2020-08-02 17:23] LABS: Glucose, Whole Blood > 600 mg/dL (60-115)
[2020-08-02] MEDS: 0.9 % Sodium Chloride 1,000 ML 150 ML IVCONT ×2 (17:43→23:40)
[2020-08-02 17:48] LABS: MANUAL DIFF FLAG NO
[2020-08-02 17:49] LABS: Basophils Percent Auto 0.2 % (0-2); Eosinophils Percent Auto 0.1 % (0-4); Hematocrit 44.8 % (42-52); Hemoglobin 14.8 g/dl (14.0-18.0); Imm Gran Abs Auto 0.04 X10*3/uL (0.00-0.03); Imm Gran Pct Auto 0.5 % (0.0-0.4); Lymphocytes Percent Auto 24.2 % (20-40); Mean Corpuscular Hemoglobin 26.9 pg (27.0-33.0); Mean Corpuscular Volume 81.3 fL (80-98); Mean Platelet Volume 10.8 fL (9.4-12.4); Monocytes Absolute Auto 0.5 X10*3/uL (0.1-1.2); Monocytes Percent Auto 5.8 % (2-11); Neutrophils Absolute Auto 5.7 X10*3/uL (2.0-8.3); Neutrophils Percent Auto 69.2 % (45-73); Platelet Count 199 X10*3/uL (160-400); Red Blood Count 5.51 X10*6/uL (4.60-5.80); Red Cell Distribution Width 13.2 % (11.0-16.0); White Blood Count 8.2 X10*3/uL (4.8-10.8)
--- NOTE | 2020-08-02 17:50 | PC.NURSE ---
labs drawn, urine obtained, vss, ivf started per order, will continue to monitor.
[2020-08-02 17:59] LABS: D Dimer 377 NG/ML
[2020-08-02 18:03] LABS: ~Lactic Acid-LAB USE ONLY 1.7 mmol/L (0.5-2.0)
[2020-08-02 18:19] LABS: Amphetamine Screen Urine Not Detected (Not Detect); Barbiturates, Urine Not Detected (Not Detect); Benzodiazepines Screen Urine Not Detected (Not Detect); C Reactive Protein 2.76 mg/dL (< or = 0.50); Cannabinoid Screen Urine Not Detected (Not Detect); Cocaine Screen Urine Not Detected (Not Detect); Lactate Dehydrogenase 192 U/L (118-273); Magnesium 3.3 mg/dL (1.6-2.6); Opiate Screen Urine Not Detected (Not Detect); Phencyclidine Screen Urine Not Detected (Not Detect); Phosphorus 4.4 mg/dL (2.7-4.5)
[2020-08-02 18:25] LABS: Glucose, Whole Blood > 600 mg/dL (60-115)
[2020-08-02 18:29] LABS: Anion Gap 27 (12-20); Blood Urea Nitrogen 45 mg/dL (9-16); Calcium 8.7 mg/dL (8.4-10.2); Carbon Dioxide 16 mmol/L (22-29); Chloride 92 mmol/L (96-108); Estimated Glomerular Filt Rate 30; Procalcitonin 0.54 ng/mL; Sodium 130 mmol/L (135-145)
[2020-08-02 18:31] LABS: Glucose Random 684 mg/dL (60-115)
[2020-08-02] MEDS: Thiamine HCL 200 MG in 0.9 % Sodium Chloride 100 ML 204 MG IV (18:55)
[2020-08-02] MEDS: Enoxaparin Sodium 40 MG/0.4 ML SYRINGE SUBCUT (18:59)
--- NOTE | 2020-08-02 19:49 | PC.NURSE ---
ICU CALLED, WILL CALL US BACK TO GET REPORT
--- NOTE | 2020-08-02 20:01 | PC.NURSE ---
insulin drip changed to 8ml/hr
--- NOTE | 2020-08-02 20:04 | PC.NURSE ---
patient a&ox3, watching tv, associate designer sinus tach, vss, will continue to monitor.
[2020-08-02 20:33] LABS: Glucose, Whole Blood 486 mg/dL (60-115)
--- NOTE | 2020-08-02 20:53 | PC.NURSE ---
report called to icu
[2020-08-02 22:11] LABS: Glucose, Whole Blood 422 mg/dL (60-115)
[2020-08-02 22:25] LABS: Base Excess VBG -7.5 mmol/L; HCO3 VBG 18 mmol/L; PCO2 VBG 37 mmHg; PO2 VBG 54 mmHg; pH VBG 7.29 (7.32-7.43)
[2020-08-02 22:54] LABS: Glucose, Whole Blood 402 mg/dL (60-115)
[2020-08-02 23:26] LABS: Anion Gap 21 (12-20); Blood Urea Nitrogen 36 mg/dL (9-16); Calcium 8.4 mg/dL (8.4-10.2); Carbon Dioxide 18 mmol/L (22-29); Chloride 99 mmol/L (96-108); Creatinine Clr Calc Pharmacy 56.3; Estimated Glomerular Filt Rate 38; Glucose Random 438 mg/dL (60-115); Phosphorus 2.6 mg/dL (2.7-4.5); Potassium 4.2 mmol/l (3.3-5.1); Sodium 134 mmol/L (135-145)
[2020-08-02] MEDS: 0.9 % Sodium Chloride Flush 3 ML SYRINGE IVFLUSH (23:40)
[2020-08-02 23:50] LABS: Glucose, Whole Blood 333 mg/dL (60-115)
[2020-08-03] VITALS (24 sets, daily range): BP systolic 104–142; BP diastolic 52–86; PULSE 87–132; RESP 13–36; TEMP 37.3–37.8; O2SAT 89–96; BMI 39.5; BMI 40.0
[2020-08-03 01:05] LABS: Glucose, Whole Blood 308 mg/dL (60-115)
[2020-08-03 02:16] LABS: Glucose, Whole Blood 304 mg/dL (60-115)
[2020-08-03] MEDS: Insulin Regular/NS 100 UNIT/100 ML PLAST..BAG 6 UNIT IVCONT (03:36)
[2020-08-03 03:52] LABS: Glucose, Whole Blood 273 mg/dL (60-115)
[2020-08-03] MEDS: Acetaminophen 325 MG TABLET 650 MG PO ×2 (04:35→17:42)
[2020-08-03] MEDS: Insulin Regular/NS 100 UNIT/100 ML PLAST..BAG 7 UNIT IVCONT (05:42)
[2020-08-03 05:49] LABS: Glucose, Whole Blood 193 mg/dL (60-115)
[2020-08-03] MEDS: Omeprazole 40 MG CAPSULE.DR PO (05:49)
[2020-08-03] MEDS: 0.9 % Sodium Chloride 1,000 ML 150 ML IVCONT (05:49)
[2020-08-03] MEDS: Thiamine HCL 200 MG in 0.9 % Sodium Chloride 100 ML 204 MG IV ×2 (05:50→17:15)
--- NOTE | 2020-08-03 06:34 | PC.NURSE ---
PT TO ICU AT 2130 IN NO ACUTE DISTRESS, A&O X3. INSULIN DRIP AT 10 UNITS/HR. POC 422 AND DRIP DECREASED TO 8 UNITS/HR. NS INFUSING AT 150 ML/HR. PT DENIES COMPLAINTS. NO N/V/D. NO ABD PAIN OR CRAMPING. VITALS STABLE. INSULIN DRIP DOWN TO 6 UNITS/HR AT 2330 WHEN POC 308, DOWN FROM 422 AT 2230. DRIP CONTINUED AT 6 UNITS/HR UNTIL 0400 WHEN POC 273 AND WAS INCREASED TO 9 UNITS/HR. AT 0540, POC 193 AND DRIP DOWN TO 7 UNITS/HR AND IV NS CHANGED TO D51/2NS. PA YUKO AWARE OF CHANGES AND OF LABS DRAWN AT 2200, BMPF, PHOS ANF VBG'S WHICH WERE ALL IMPROVED. PT TAKING PO H20 WITHOUT ILL EFFECT. SLEPT MOSTLY IN NAPS. TYLENOL GIVEN FOR HEADACHE WITH GOOD EFFECT. VITAL SIGNS STABLE. LEVOPHED WEANED FROM 0.7 MCG/KG/MIN TO 0.04 MCG/KG/MIN.
[2020-08-03 06:53] LABS: Glucose, Whole Blood 201 mg/dL (60-115)
[2020-08-03 06:57] LABS: MANUAL DIFF FLAG NO
[2020-08-03 07:15] LABS: Basophils Percent Auto 0.1 % (0-2); Eosinophils Percent Auto 0.5 % (0-4); Hematocrit 38.1 % (42-52); Hemoglobin 12.8 g/dl (14.0-18.0); Imm Gran Abs Auto 0.03 X10*3/uL (0.00-0.03); Imm Gran Pct Auto 0.4 % (0.0-0.4); Lymphocytes Absolute Auto 2.2 X10*3/uL (1.2-4.9); Lymphocytes Percent Auto 27.3 % (20-40); Mean Corpuscular HGB Conc 33.6 g/dl (31.0-36.0); Mean Corpuscular Hemoglobin 27.1 pg (27.0-33.0); Mean Corpuscular Volume 80.5 fL (80-98); Mean Platelet Volume 10.6 fL (9.4-12.4); Monocytes Absolute Auto 0.8 X10*3/uL (0.1-1.2); Monocytes Percent Auto 9.7 % (2-11); Neutrophils Absolute Auto 4.9 X10*3/uL (2.0-8.3); Platelet Count 170 X10*3/uL (160-400); Red Blood Count 4.73 X10*6/uL (4.60-5.80); Red Cell Distribution Width 13.3 % (11.0-16.0); White Blood Count 7.9 X10*3/uL (4.8-10.8)
[2020-08-03] MEDS: KCl 20 mEq in 0.45% Sod 20 MEQ/1,000 ML IV.SOLN 125 MEQ IVCONT ×3 (07:34→22:19)
[2020-08-03 07:39] LABS: D Dimer 388 NG/ML
[2020-08-03 07:45] LABS: C Reactive Protein 3.09 mg/dL (< or = 0.50); Glucose Random 199 mg/dL (60-115); Lactate Dehydrogenase 171 U/L (118-273); Magnesium 2.5 mg/dL (1.6-2.6)
[2020-08-03 07:52] LABS: Glucose, Whole Blood 213 mg/dL (60-115)
[2020-08-03 07:58] LABS: Phosphorus 2.1 mg/dL (2.7-4.5)
[2020-08-03 08:14] LABS: Procalcitonin 0.41 ng/mL
[2020-08-03] MEDS: 0.9 % Sodium Chloride Flush 3 ML SYRINGE IVFLUSH ×2 (08:27→17:13)
[2020-08-03 08:57] LABS: Glucose, Whole Blood 185 mg/dL (60-115)
[2020-08-03 09:39] LABS: Base Excess VBG -3.1 mmol/L; HCO3 VBG 22 mmol/L; PCO2 VBG 40 mmHg; PO2 VBG 101 mmHg; pH VBG 7.34 (7.32-7.43)
[2020-08-03 09:44] LABS: INTERNATIONAL NORM RATIO 1.1 (0.9-1.1); Prothrombin Time 12.9 SEC (10.8-13.0)
[2020-08-03 10:00] LABS: Glucose, Whole Blood 260 mg/dL (60-115)
[2020-08-03 10:05] LABS: Alanine Aminotransferase 57 U/L (0-40); Albumin Level 3.7 g/dL (3.5-5.0); Anion Gap 14 (12-20); Aspartate Amino Transferase 38 U/L (5-37); Bilirubin Direct 0.2 mg/dL (0.0-0.5); Bilirubin Total 0.3 mg/dL (0.0-1.0); Blood Urea Nitrogen 22 mg/dL (9-16); Carbon Dioxide 22 mmol/L (22-29); Chloride 105 mmol/L (96-108); Creatinine Clr Calc Pharmacy 87.5; Estimated Glomerular Filt Rate 54; Glucose Random 198 mg/dL (60-115); Potassium 3.7 mmol/l (3.3-5.1); Sodium 137 mmol/L (135-145)
[2020-08-03 10:15] LABS: Alkaline Phosphatase 68 U/L (39-117); Calcium 7.5 mg/dL (8.4-10.2); Total Protein 6.7 g/dL (6.5-8.0)
[2020-08-03 11:49] LABS: Glucose, Whole Blood 330 mg/dL (60-115)
[2020-08-03 12:11] LABS: Glucose, Whole Blood 369 mg/dL (60-115)
[2020-08-03 13:18] LABS: Glucose, Whole Blood 353 mg/dL (60-115)
[2020-08-03] MEDS: Insulin Regular/NS 100 UNIT/100 ML PLAST..BAG 20 UNIT IVCONT ×2 (13:32→17:32)
[2020-08-03] MEDS: Remdesivir 200 MG in 0.9 % Sodium Chloride 210 ML 105 MG IV (13:33)
[2020-08-03 14:09] LABS: Glucose, Whole Blood 338 mg/dL (60-115)
[2020-08-03 15:35] LABS: Glucose, Whole Blood 289 mg/dL (60-115)
--- NOTE | 2020-08-03 15:58 | PM.CCPN ---
Subjective Subjective Date of Service: 08/03/20 Interval History: 34-year-old presenting with new onset diabetes manifested by both diabetic ketoacidosis and hyperosmolarity and glucose over a 1000 and the inciting issue apparently a febrile illness for 2 days resulting in COVID-[address] of his chest indicating bilateral ground-glass nodular infiltrates but initially not hypoxic but O2 saturations today were slowly dropping on room air down to about 90% and he was placed on supplemental nasal cannula and remdesivir was started and Decadron was started and his negative base excess today has dropped down to 3.1 pH is 7.34 so he is nearly completely compensated but his anion gap is only 14 Physical Exam Vital Signs: Vital Signs: Last Vital Signs Temp 100.0 F 08/03/20 11:00 Pulse 109 H 08/03/20 15:00 Resp 21 H 08/03/20 15:00 BP 128/80 08/03/20 15:00 Pulse Ox 91 L 08/03/20 15:00 Body Mass Index 40.0 Const: Other: Awake alert nonfocal neurologically Cardiovascular normal with normal S1 and normal S2 and no gallops no murmurs no gap and no neck vein distension and good bilateral carotid upstrokes Abdomen benign with no organomegaly good bowel sounds Chest clear with no adventitious sounds Skin intact no cellulitis no acrocyanosis Objective Data Labs CBC & Chem 7: 08/03/20 06:45 08/03/20 09:30 Labs: Laboratory Results - last 24 hr 08/02/20 08/02/20 08/02/20 15:52 17:03 17:41 WBC 8.2 RBC 5.51 Hgb 14.8 Hct 44.8 MCV 81.3 MCH 26.9 L MCHC 33.0 RDW 13.2 Plt Count 199 MPV 10.8 Immature Gran % (Auto) 0.5 H Neut % (Auto) 69.2 Lymph % (Auto) 24.2 Banks % (Auto) 5.8 Eos % (Auto) 0.1 Baso % (Auto) 0.2 Lymph # (Auto) 2.0 Banks # (Auto) 0.5 Eos # (Auto) 0.0 Baso # (Auto) 0.0 Abs Immat Gran (auto) 0.04 H Absolute Neuts (auto) 5.7 Absolute Nucleated RBC 0.000 Nucleated RBC % (auto) 0.0 PT INR D-Dimer VBG pH VBG pCO2 VBG pO2 VBG HCO3 VBG O2 Saturation VBG Base Excess Sodium Potassium Chloride Carbon Dioxide Anion Gap BUN Creatinine Estim Creat Clear Calc Estimated GFR POC Glucose > 600 H* > 600 H* Random Glucose Lactic Acid Fup @ 2Hr Calcium Phosphorus Magnesium Total Bilirubin Direct Bilirubin AST ALT Alkaline Phosphatase Lactate Dehydrogenase Total Creatine Kinase C-Reactive Protein Total Protein Albumin Procalcitonin Urine Opiates Screen Ur Barbiturates Screen Ur Phencyclidine Scrn Ur Amphetamines Screen U Benzodiazepines Scrn Urine Cocaine Screen U Marijuana (THC) Screen 08/02/20 08/02/20 08/02/20 17:41 17:41 17:41 WBC RBC Hgb Hct MCV MCH MCHC RDW Plt Count MPV Immature Gran % (Auto) Neut % (Auto) Lymph % (Auto) Banks % (Auto) Eos % (Auto) Baso % (Auto) Lymph # (Auto) Banks # (Auto) Eos # (Auto) Baso # (Auto) Abs Immat Gran (auto) Absolute Neuts (auto) Absolute Nucleated RBC Nucleated RBC % (auto) PT INR D-Dimer 377 VBG pH VBG pCO2 VBG pO2 VBG HCO3 VBG O2 Saturation VBG Base Excess Sodium Potassium Chloride Carbon Dioxide Anion Gap BUN Creatinine Estim Creat Clear Calc Estimated GFR POC Glucose Random Glucose Cancelled Lactic Acid Fup @ 2Hr Calcium Phosphorus 4.4 Magnesium 3.3 H Total Bilirubin Direct Bilirubin AST ALT Alkaline Phosphatase Lactate Dehydrogenase 192 Total Creatine Kinase 173 C-Reactive Protein 2.76 H Total Protein Albumin Procalcitonin 0.54 Urine Opiates Screen Ur Barbiturates Screen Ur Phencyclidine Scrn Ur Amphetamines Screen U Benzodiazepines Scrn Urine Cocaine Screen U Marijuana (THC) Screen 08/02/20 08/02/20 08/02/20 17:41 17:41 17:41 WBC RBC Hgb Hct MCV MCH MCHC RDW Plt Count MPV Immature Gran % (Auto) Neut % (Auto) Lymph % (Auto) Banks % (Auto) Eos % (Auto) Baso % (Auto) Lymph # (Auto) Banks # (Auto) Eos # (Auto) Baso # (Auto) Abs Immat Gran (auto) Absolute Neuts (auto) Absolute Nucleated RBC Nucleated RBC % (auto) PT INR D-Dimer VBG pH VBG pCO2 VBG pO2 VBG HCO3 VBG O2 Saturation VBG Base Excess Sodium 130 L Potassium 5.0 Chloride 92 L Carbon Dioxide 16 L Anion Gap 27 H BUN 45 H Creatinine 2.45 H Estim Creat Clear Calc 46.0 Estimated GFR 30 POC Glucose Random Glucose 684 H* Lactic Acid Fup @ 2Hr 1.7 Calcium 8.7 Phosphorus Magnesium Total Bilirubin Direct Bilirubin AST ALT Alkaline Phosphatase Lactate Dehydrogenase Total Creatine Kinase C-Reactive Protein Total Protein Albumin Procalcitonin Urine Opiates Screen Not Detected Ur Barbiturates Screen Not Detected Ur Phencyclidine Scrn Not Detected Ur Amphetamines Screen Not Detected U Benzodiazepines Scrn Not Detected Urine Cocaine Screen Not Detected U Marijuana (THC) Screen Not Detected 08/02/20 08/02/20 08/02/20 18:22 19:47 21:35 WBC RBC Hgb Hct MCV MCH MCHC RDW Plt Count MPV Immature Gran % (Auto) Neut % (Auto) Lymph % (Auto) Banks % (Auto) Eos % (Auto) Baso % (Auto) Lymph # (Auto) Banks # (Auto) Eos # (Auto) Baso # (Auto) Abs Immat Gran (auto) Absolute Neuts (auto) Absolute Nucleated RBC Nucleated RBC % (auto) PT INR D-Dimer VBG pH VBG pCO2 VBG pO2 VBG HCO3 VBG O2 Saturation VBG Base Excess Sodium Potassium Chloride Carbon Dioxide Anion Gap BUN Creatinine Estim Creat Clear Calc Estimated GFR POC Glucose > 600 H* 486 H* 422 H* Random Glucose Lactic Acid Fup @ 2Hr Calcium Phosphorus Magnesium Total Bilirubin Direct Bilirubin AST ALT Alkaline Phosphatase Lactate Dehydrogenase Total Creatine Kinase C-Reactive Protein Total Protein Albumin Procalcitonin Urine Opiates Screen Ur Barbiturates Screen Ur Phencyclidine Scrn Ur Amphetamines Screen U Benzodiazepines Scrn Urine Cocaine Screen U Marijuana (THC) Screen 08/02/20 08/02/20 08/02/20 22:15 22:15 22:35 WBC RBC Hgb Hct MCV MCH MCHC RDW Plt Count MPV Immature Gran % (Auto) Neut % (Auto) Lymph % (Auto) Banks % (Auto) Eos % (Auto) Baso % (Auto) Lymph # (Auto) Banks # (Auto) Eos # (Auto) Baso # (Auto) Abs Immat Gran (auto) Absolute Neuts (auto) Absolute Nucleated RBC Nucleated RBC % (auto) PT INR D-Dimer VBG pH 7.29 L VBG pCO2 37 VBG pO2 54 VBG HCO3 18 VBG O2 Saturation 83.0 VBG Base Excess -7.5 Sodium 134 L Potassium 4.2 Chloride 99 Carbon Dioxide 18 L Anion Gap 21 H BUN 36 H Creatinine 2.00 H Estim Creat Clear Calc 56.3 Estimated GFR 38 POC Glucose 402 H* Random Glucose 438 H* Lactic Acid Fup @ 2Hr Calcium 8.4 Phosphorus 2.6 L Magnesium 3.0 H Total Bilirubin Direct Bilirubin AST ALT Alkaline Phosphatase Lactate Dehydrogenase Total Creatine Kinase C-Reactive Protein Total Protein Albumin Procalcitonin Urine Opiates Screen Ur Barbiturates Screen Ur Phencyclidine Scrn Ur Amphetamines Screen U Benzodiazepines Scrn Urine Cocaine Screen U Marijuana (THC) Screen 08/02/20 08/03/20 08/03/20 23:43 00:56 02:09 WBC RBC Hgb Hct MCV MCH MCHC RDW Plt Count MPV Immature Gran % (Auto) Neut % (Auto) Lymph % (Auto) Banks % (Auto) Eos % (Auto) Baso % (Auto) Lymph # (Auto) Banks # (Auto) Eos # (Auto) Baso # (Auto) Abs Immat Gran (auto) Absolute Neuts (auto) Absolute Nucleated RBC Nucleated RBC % (auto) PT INR D-Dimer VBG pH VBG pCO2 VBG pO2 VBG HCO3 VBG O2 Saturation VBG Base Excess Sodium Potassium Chloride Carbon Dioxide Anion Gap BUN Creatinine Estim Creat Clear Calc Estimated GFR POC Glucose 333 H 308 H 304 H Random Glucose Lactic Acid Fup @ 2Hr Calcium Phosphorus Magnesium Total Bilirubin Direct Bilirubin AST ALT Alkaline Phosphatase Lactate Dehydrogenase Total Creatine Kinase C-Reactive Protein Total Protein Albumin Procalcitonin Urine Opiates Screen Ur Barbiturates Screen Ur Phencyclidine Scrn Ur Amphetamines Screen U Benzodiazepines Scrn Urine Cocaine Screen U Marijuana (THC) Screen 08/03/20 08/03/20 08/03/20 03:46 05:44 06:44 WBC RBC Hgb Hct MCV MCH MCHC RDW Plt Count MPV Immature Gran % (Auto) Neut % (Auto) Lymph % (Auto) Banks % (Auto) Eos % (Auto) Baso % (Auto) Lymph # (Auto) Banks # (Auto) Eos # (Auto) Baso # (Auto) Abs Immat Gran (auto) Absolute Neuts (auto) Absolute Nucleated RBC Nucleated RBC % (auto) PT INR D-Dimer VBG pH VBG pCO2 VBG pO2 VBG HCO3 VBG O2 Saturation VBG Base Excess Sodium Potassium Chloride Carbon Dioxide Anion Gap BUN Creatinine Estim Creat Clear Calc Estimated GFR POC Glucose 273 H 193 H Random Glucose Lactic Acid Fup @ 2Hr Calcium Phosphorus Magnesium Total Bilirubin Direct Bilirubin AST ALT Alkaline Phosphatase Lactate Dehydrogenase Total Creatine Kinase C-Reactive Protein Total Protein Albumin Procalcitonin 0.41 Urine Opiates Screen Ur Barbiturates Screen Ur Phencyclidine Scrn Ur Amphetamines Screen U Benzodiazepines Scrn Urine Cocaine Screen U Marijuana (THC) Screen 08/03/20 08/03/20 08/03/20 06:45 06:45 06:45 WBC 7.9 RBC 4.73 Hgb 12.8 L Hct 38.1 L MCV 80.5 MCH 27.1 MCHC 33.6 RDW 13.3 Plt Count 170 MPV 10.6 Immature Gran % (Auto) 0.4 Neut % (Auto) 62.0 Lymph % (Auto) 27.3 Banks % (Auto) 9.7 Eos % (Auto) 0.5 Baso % (Auto) 0.1 Lymph # (Auto) 2.2 Banks # (Auto) 0.8 Eos # (Auto) 0.0 Baso # (Auto) 0.0 Abs Immat Gran (auto) 0.03 Absolute Neuts (auto) 4.9 Absolute Nucleated RBC 0.000 Nucleated RBC % (auto) 0.0 PT INR D-Dimer 388 VBG pH VBG pCO2 VBG pO2 VBG HCO3 VBG O2 Saturation VBG Base Excess Sodium Potassium Chloride Carbon Dioxide Anion Gap BUN Creatinine Estim Creat Clear Calc Estimated GFR POC Glucose Random Glucose 199 H D Lactic Acid Fup @ 2Hr Calcium Phosphorus 2.1 L Magnesium 2.5 Total Bilirubin Direct Bilirubin AST ALT Alkaline Phosphatase Lactate Dehydrogenase 171 Total Creatine Kinase 512 H D C-Reactive Protein 3.09 H Total Protein Albumin Procalcitonin Urine Opiates Screen Ur Barbiturates Screen Ur Phencyclidine Scrn Ur Amphetamines Screen U Benzodiazepines Scrn Urine Cocaine Screen U Marijuana (THC) Screen 08/03/20 08/03/20 08/03/20 06:49 07:49 08:53 WBC RBC Hgb Hct MCV MCH MCHC RDW Plt Count MPV Immature Gran % (Auto) Neut % (Auto) Lymph % (Auto) Banks % (Auto) Eos % (Auto) Baso % (Auto) Lymph # (Auto) Banks # (Auto) Eos # (Auto) Baso # (Auto) Abs Immat Gran (auto) Absolute Neuts (auto) Absolute Nucleated RBC Nucleated RBC % (auto) PT INR D-Dimer VBG pH VBG pCO2 VBG pO2 VBG HCO3 VBG O2 Saturation VBG Base Excess Sodium Potassium Chloride Carbon Dioxide Anion Gap BUN Creatinine Estim Creat Clear Calc Estimated GFR POC Glucose 201 H 213 H 185 H Random Glucose Lactic Acid Fup @ 2Hr Calcium Phosphorus Magnesium Total Bilirubin Direct Bilirubin AST ALT Alkaline Phosphatase Lactate Dehydrogenase Total Creatine Kinase C-Reactive Protein Total Protein Albumin Procalcitonin Urine Opiates Screen Ur Barbiturates Screen Ur Phencyclidine Scrn Ur Amphetamines Screen U Benzodiazepines Scrn Urine Cocaine Screen U Marijuana (THC) Screen 08/03/20 08/03/20 08/03/20 09:30 09:30 09:30 WBC RBC Hgb Hct MCV MCH MCHC RDW Plt Count MPV Immature Gran % (Auto) Neut % (Auto) Lymph % (Auto) Banks % (Auto) Eos % (Auto) Baso % (Auto) Lymph # (Auto) Banks # (Auto) Eos # (Auto) Baso # (Auto) Abs Immat Gran (auto) Absolute Neuts (auto) Absolute Nucleated RBC Nucleated RBC % (auto) PT 12.9 INR 1.1 D-Dimer VBG pH 7.34 VBG pCO2 40 VBG pO2 101 VBG HCO3 22 VBG O2 Saturation 98.0 VBG Base Excess -3.1 Sodium 137 Potassium 3.7 Chloride 105 Carbon Dioxide 22 Anion Gap 14 BUN 22 H Creatinine 1.48 H Estim Creat Clear Calc 87.5 Estimated GFR 54 POC Glucose Random Glucose 198 H Lactic Acid Fup @ 2Hr Calcium 7.5 L D Phosphorus Magnesium Total Bilirubin 0.3 Direct Bilirubin 0.2 AST 38 H ALT 57 H Alkaline Phosphatase 68 D Lactate Dehydrogenase Total Creatine Kinase C-Reactive Protein Total Protein 6.7 D Albumin 3.7 Procalcitonin Urine Opiates Screen Ur Barbiturates Screen Ur Phencyclidine Scrn Ur Amphetamines Screen U Benzodiazepines Scrn Urine Cocaine Screen U Marijuana (THC) Screen 08/03/20 08/03/20 08/03/20 09:54 11:03 12:05 WBC RBC Hgb Hct MCV MCH MCHC RDW Plt Count MPV Immature Gran % (Auto) Neut % (Auto) Lymph % (Auto) Banks % (Auto) Eos % (Auto) Baso % (Auto) Lymph # (Auto) Banks # (Auto) Eos # (Auto) Baso # (Auto) Abs Immat Gran (auto) Absolute Neuts (auto) Absolute Nucleated RBC Nucleated RBC % (auto) PT INR D-Dimer VBG pH VBG pCO2 VBG pO2 VBG HCO3 VBG O2 Saturation VBG Base Excess Sodium Potassium Chloride Carbon Dioxide Anion Gap BUN Creatinine Estim Creat Clear Calc Estimated GFR POC Glucose 260 H 330 H 369 H* Random Glucose Lactic Acid Fup @ 2Hr Calcium Phosphorus Magnesium Total Bilirubin Direct Bilirubin AST ALT Alkaline Phosphatase Lactate Dehydrogenase Total Creatine Kinase C-Reactive Protein Total Protein Albumin Procalcitonin Urine Opiates Screen Ur Barbiturates Screen Ur Phencyclidine Scrn Ur Amphetamines Screen U Benzodiazepines Scrn Urine Cocaine Screen U Marijuana (THC) Screen 08/03/20 08/03/20 08/03/20 13:14 14:04 15:30 WBC RBC Hgb Hct MCV MCH MCHC RDW Plt Count MPV Immature Gran % (Auto) Neut % (Auto) Lymph % (Auto) Banks % (Auto) Eos % (Auto) Baso % (Auto) Lymph # (Auto) Banks # (Auto) Eos # (Auto) Baso # (Auto) Abs Immat Gran (auto) Absolute Neuts (auto) Absolute Nucleated RBC Nucleated RBC % (auto) PT INR D-Dimer VBG pH VBG pCO2 VBG pO2 VBG HCO3 VBG O2 Saturation VBG Base Excess Sodium Potassium Chloride Carbon Dioxide Anion Gap BUN Creatinine Estim Creat Clear Calc Estimated GFR POC Glucose 353 H* 338 H 289 H Random Glucose Lactic Acid Fup @ 2Hr Calcium Phosphorus Magnesium Total Bilirubin Direct Bilirubin AST ALT Alkaline Phosphatase Lactate Dehydrogenase Total Creatine Kinase C-Reactive Protein Total Protein Albumin Procalcitonin Urine Opiates Screen Ur Barbiturates Screen Ur Phencyclidine Scrn Ur Amphetamines Screen U Benzodiazepines Scrn Urine Cocaine Screen U Marijuana (THC) Screen Progress Note: A&P Assessment and plan (1) COVID-19: Status: Acute (2) Acute renal failure: Status: Acute (3) Hyperkalemia: Status: Acute (4) Hyponatremia: Status: Acute (5) Hyperosmolar hyponatremia: Status: Acute (6) Diabetic ketoacidosis associated with diabetes mellitus due to underlying condition: Status: Acute Assessment and Plan: Were continuing with hydration and potassium maintenance and very high dose IV insulin drip and over 20 units/hour because of intractable hyperglycemia and today introducing remdesivir and Decadron Time Spent With Patient Time: Total time spent is greater than 50% in coordination of care (as documented) at patient's floor/unit and/or counseling patient: Total time spent with greater than 50% in coordination of care (as documented) at patient's floor/unit and/or counseling patient:: 34
[2020-08-03 16:33] LABS: PCO2 VBG 36 mmHg; PO2 VBG 155 mmHg; pH VBG 7.36 (7.32-7.43)
[2020-08-03 16:34] LABS: Base Excess VBG -3.7 mmol/L; HCO3 VBG 21 mmol/L
[2020-08-03 16:45] LABS: Glucose, Whole Blood 265 mg/dL (60-115)
[2020-08-03 16:49] LABS: Anion Gap 12 (12-20); Blood Urea Nitrogen 19 mg/dL (9-16); Calcium 7.3 mg/dL (8.4-10.2); Carbon Dioxide 22 mmol/L (22-29); Chloride 102 mmol/L (96-108); Creatinine Clr Calc Pharmacy 89.3; Estimated Glomerular Filt Rate 55; Glucose Random 280 mg/dL (60-115); Potassium 3.7 mmol/l (3.3-5.1); Sodium 132 mmol/L (135-145)
[2020-08-03] MEDS: dexAMETHasone sod phosphate 4 MG/ML VIAL 6 MG IVPUSH (17:12)
[2020-08-03] MEDS: Enoxaparin Sodium 40 MG/0.4 ML SYRINGE SUBCUT (17:15)
[2020-08-03 17:43] LABS: Glucose, Whole Blood 310 mg/dL (60-115)
--- NOTE | 2020-08-03 18:15 | PC.NURSE ---
Patient remains on insulin gtt. Anion gap closed. Patient started on diet, tolerating food. Vitals stable. T max 100.1F. Started on Remdesevir and decadron. Will continue to monitor.
[2020-08-03 18:32] LABS: Glucose, Whole Blood 329 mg/dL (60-115)
[2020-08-03 19:28] LABS: Glucose, Whole Blood 274 mg/dL (60-115)
[2020-08-03] MEDS: Insulin Regular/NS 100 UNIT/100 ML PLAST..BAG 26 UNIT IVCONT (20:32)
[2020-08-03 20:50] LABS: Glucose, Whole Blood 206 mg/dL (60-115)
[2020-08-03] MEDS: Insulin Regular, Human 100 UNIT/ML 3 ML VIAL IVPUSH (22:04)
[2020-08-03] MEDS: Insulin Glargine,Hum.rec.anlog 100 UNIT/ML 10 ML VIAL 60 UNIT SUBCUT (22:05)
[2020-08-03 22:07] LABS: Glucose, Whole Blood 212 mg/dL (60-115)
--- NOTE | 2020-08-03 22:14 | P.CNID_ITS ---
History of Present Illness Data of Consult Service Date: 08/03/20 Requesting physician: Latha Amado Primary Care Provider: [facility] Reason for consult: COVID,DKA He presents to hospital with nausea,vomiting and diarrhea for four days He has negative COVID test 2 days ago with similar symptoms and negative too. He was found to have DKA and transferred to ICU COVID test positive 08/02 Review of Systems Respiratory: Respiratory: Reports cough PMFSH Past Medical History Medical History HTN (hypertension) Family History Family history: reviewed and not pertinent Social History Social History Household Members: Significant Other Alcohol intake: never Smoking Status: Never smoker Second Hand Smoke Exposure: No service: No Current occupational status: unemployed Meds Allergies Allergy/AdvReac Type Severity Reaction Status Date / Time No Known Allergies Allergy Verified 07/16/20 12:56 [No Known Allergies*] Home Medications Medication Instructions Recorded Confirmed Type hydroxyzine HCl 25 mg PO DAILY PRN 08/02/20 08/02/20 History lisinopril 20 mg PO DAILY 08/02/20 08/02/20 History metoprolol succinate [Toprol XL] 50 mg PO DAILY 08/02/20 08/02/20 History sertraline 100 mg PO DAILY 08/02/20 08/02/20 History Physical Exam Vital Signs: Vital Signs: Last Vital Signs Temp 99.2 F 08/03/20 20:00 Pulse 105 H 08/03/20 21:00 Resp 26 H 08/03/20 21:00 BP 104/52 L 08/03/20 21:00 Pulse Ox 94 08/03/20 21:00 Body Mass Index 40.0 Const: General: cooperative HENMT: Head: Yes normal to inspection Mouth: Normal oral and palatal mucosa present Eyes: General: appearance normal, both eyes and all related structures Resp: Effort & Inspection: nasal flaring and respiratory distress Cardio: Rate: regular rate Rhythm: regular rhythm GI: Palpation (GI): Soft to palpation and nontender Skin: General skin exam: no rashes or lesions noted Assessment and Plan (1) COVID-19: Status: Acute Would continue Remdesivir Would give Dexamethasone as can improve mortality Oxygen supplementation (2) Diabetic ketoacidosis associated with diabetes mellitus due to underlying condition: Status: Acute Results Labs CBC & Chem 7: 08/06/20 05:23 08/06/20 05:23 Labs: Short CBC 08/03/20 Range/Units 06:45 WBC 7.9 (4.8-10.8) X10*3/uL Hgb 12.8 L (14.0-18.0) g/dl Hct 38.1 L (42-52) % Plt Count 170 (160-400) X10*3/uL BMP 08/02/20 08/03/20 08/03/20 22:15 09:30 16:10 Sodium 134 L 137 132 L Potassium 4.2 3.7 3.7 Chloride 99 105 102 Carbon Dioxide 18 L 22 22 BUN 36 H 22 H 19 H Creatinine 2.00 H 1.48 H 1.45 H Calcium 8.4 7.5 L D 7.3 L Cardiac Enzymes 08/03/20 Range/Units 06:45 Total Creatine Kinase 512 H D (38-174) U/L Liver Function 08/03/20 Range/Units 09:30 Total Bilirubin 0.3 (0.0-1.0) mg/dL Direct Bilirubin 0.2 (0.0-0.5) mg/dL AST 38 H (5-37) U/L ALT 57 H (0-40) U/L Alkaline Phosphatase 68 D (39-117) U/L Albumin 3.7 (3.5-5.0) g/dL Microbiology Microbiology Results: Microbiology 08/02/20 15:07 Blood - Venous Blood Culture - Preliminary No growth after 24 hours. 08/02/20 14:43 Blood - Venous Blood Culture - Preliminary No growth after 24 hours.
[2020-08-03 23:44] LABS: Glucose, Whole Blood 190 mg/dL (60-115)
[2020-08-04] VITALS (23 sets, daily range): BP systolic 116–164; BP diastolic 74–110; PULSE 82–129; RESP 16–33; TEMP 36.6–37.3; O2SAT 89–97; BMI 41.4
[2020-08-04 02:13] LABS: Glucose, Whole Blood 315 mg/dL (60-115)
[2020-08-04] MEDS: Insulin Regular, Human 100 UNIT/ML 3 ML VIAL IVPUSH (02:15)
[2020-08-04] MEDS: 0.9 % Sodium Chloride Flush 3 ML SYRINGE IVFLUSH ×3 (02:27→15:32)
--- NOTE | 2020-08-04 02:43 | PC.NURSE ---
ASSUMED CARE OF PT AT 190. ON INSULIN DRIP AT THIS TIME AT A RATE OF 24 UNITS/HR. POC AT 1922...274 AND DRIP INCREASED TO 26 UNITS/HR. AT 2034, POC 206. MADAN ROJO AWARE OF POC AND DIRECTING INSULIN DRIP. AT 2145, POC WAS 212 AND MADAN HUNTLEY ORDERED DRIP D/C'D AND LANTUS 60 UNITS SQ GIVEN WITH A BOLUS OF REG INSULIN 5 UNITS IV. POC AT 2344 WAS 190...NO CHANGES. NEXT ORDERED AT 020...315 AND ANOTHER 5 UNITS REG INSULIN IV GIVEN. WILL REPEAT POC IN 1 HOUR. TEACHING DONE ALONG THE WAY WITH PT REGARDING INSULIN ADMINISTRATION. DIFFERENT SITES REVIEWED WITH PT AND THE DIFFERENCES IN LANTUS AND REG INSULIN. REINFORCEMENT AND FURTHER INSTRUCTION NEEDED.
[2020-08-04 03:20] LABS: Glucose, Whole Blood 352 mg/dL (60-115)
[2020-08-04] MEDS: Insulin Regular, Human 100 UNIT/ML 3 ML VIAL 8 UNIT IVPUSH (03:20)
--- NOTE | 2020-08-04 05:00 | XR_ITS ---
EXAMINATION: XR CHEST CLINICAL INFORMATION: Covid COMPARISON: 08/02/2020 TECHNIQUE: Frontal view of the chest was obtained. FINDINGS: Redemonstrated mild elevation of the right hemidiaphragm. There is mild patchy opacity in the left upper lung, though overall the scattered groundglass opacities seen on recent CT are not as well demonstrated radiographically. No evidence of pneumothorax, pleural effusion, or pulmonary edema. The cardiomediastinal contour is unremarkable. No acute osseous findings are seen. XR/XR chest 1V IMPRESSION: Mild patchy opacity in the left upper lung, though overall the scattered groundglass opacities seen on recent CT are not as well demonstrated radiographically, and there has been no significant interval change.
[2020-08-04] MEDS: Insulin Regular, Human 100 UNIT/ML 3 ML VIAL 10 UNIT IVPUSH (05:05)
[2020-08-04 05:07] LABS: Glucose, Whole Blood 377 mg/dL (60-115)
[2020-08-04 05:33] LABS: MANUAL DIFF FLAG NO
[2020-08-04] MEDS: Thiamine HCL 200 MG in 0.9 % Sodium Chloride 100 ML 204 MG IV (05:33)
[2020-08-04] MEDS: Omeprazole 40 MG CAPSULE.DR PO (05:33)
[2020-08-04 05:35] LABS: Base Excess VBG -7.2 mmol/L; HCO3 VBG 16 mmol/L; PCO2 VBG 29 mmHg; PO2 VBG 75 mmHg; pH VBG 7.35 (7.32-7.43)
[2020-08-04 05:40] LABS: Hematocrit 36.6 % (42-52); Hemoglobin 12.1 g/dl (14.0-18.0); Imm Gran Abs Auto 0.05 X10*3/uL (0.00-0.03); Imm Gran Pct Auto 0.8 % (0.0-0.4); Lymphocytes Percent Auto 16.5 % (20-40); Mean Corpuscular HGB Conc 33.1 g/dl (31.0-36.0); Mean Corpuscular Hemoglobin 26.6 pg (27.0-33.0); Mean Corpuscular Volume 80.4 fL (80-98); Mean Platelet Volume 10.6 fL (9.4-12.4); Monocytes Absolute Auto 0.1 X10*3/uL (0.1-1.2); Monocytes Percent Auto 2.1 % (2-11); Neutrophils Absolute Auto 4.9 X10*3/uL (2.0-8.3); Neutrophils Percent Auto 80.6 % (45-73); Platelet Count 142 X10*3/uL (160-400); Red Blood Count 4.55 X10*6/uL (4.60-5.80); Red Cell Distribution Width 13.1 % (11.0-16.0); White Blood Count 6.1 X10*3/uL (4.8-10.8)
[2020-08-04 05:54] LABS: D Dimer 495 NG/ML
[2020-08-04 06:06] LABS: Estimated Average Glucose 321 mg/dL; Hemoglobin A1c % 12.8 %
[2020-08-04 06:18] LABS: Anion Gap 16 (12-20); Blood Urea Nitrogen 14 mg/dL (9-16); Calcium 7.5 mg/dL (8.4-10.2); Carbon Dioxide 16 mmol/L (22-29); Chloride 103 mmol/L (96-108); Creatinine Clr Calc Pharmacy 110.7; Estimated Glomerular Filt Rate > 60; Glucose Random 372 mg/dL (60-115); Lactate Dehydrogenase 195 U/L (118-273); Magnesium 1.9 mg/dL (1.6-2.6); Phosphorus 1.2 mg/dL (2.7-4.5); Sodium 131 mmol/L (135-145)
[2020-08-04] MEDS: KCl 20 mEq in 0.45% Sod 20 MEQ/1,000 ML IV.SOLN 125 MEQ IVCONT (06:21)
[2020-08-04 06:50] LABS: Glucose, Whole Blood 334 mg/dL (60-115)
[2020-08-04 07:14] LABS: Ferritin 2366 ng/mL (20-250)
--- NOTE | 2020-08-04 07:16 | PC.NURSE ---
PT REMAINS OFF INSULIN DRIP. PLEASE REFER TO INSULIN INFUSION FLOW SHEET. POC OVER 300 AND PT HAS BEEN GETTING BOLUSES OF REGULAR INSULIN IV. PT SLEPT IN NAPS. DENIES C/O PAIN OR NAUSEA. 1/2 NS WITH 20 MEQ KCL INFUSING ORDERED. U/O GOOD. VETAL SIGNS STABLE. BP CREEPING UP. WILL QUESTION ABOUT RESTARTING PT'S BP MEDS AT HOME.
[2020-08-04] MEDS: Lactated Ringers 1,000 ML 125 ML IVCONT ×3 (08:03→21:55)
[2020-08-04 08:07] LABS: Glucose, Whole Blood 295 mg/dL (60-115)
[2020-08-04] MEDS: dexAMETHasone sod phosphate 4 MG/ML VIAL 6 MG IVPUSH (08:17)
[2020-08-04 09:00] LABS: Glucose, Whole Blood 291 mg/dL (60-115)
[2020-08-04] MEDS: Metoprolol Tartrate 25 MG TABLET PO ×2 (09:33→21:53)
[2020-08-04] MEDS: Insulin Regular/NS 100 UNIT/100 ML PLAST..BAG 15 UNIT IVCONT (09:37)
[2020-08-04 09:38] LABS: Alanine Aminotransferase 46 U/L (0-40); Albumin Level 3.5 g/dL (3.5-5.0); Alkaline Phosphatase 65 U/L (39-117); Aspartate Amino Transferase 34 U/L (5-37); Bilirubin Direct 0.2 mg/dL (0.0-0.5); Bilirubin Total 0.3 mg/dL (0.0-1.0); Total Protein 6.2 g/dL (6.5-8.0)
[2020-08-04 10:03] LABS: Glucose, Whole Blood 368 mg/dL (60-115)
[2020-08-04 10:58] LABS: Glucose, Whole Blood 361 mg/dL (60-115)
[2020-08-04 10:58] LABS: Glucose, Whole Blood 365 mg/dL (60-115)
[2020-08-04] MEDS: Remdesivir 100 MG in 0.9 % Sodium Chloride 230 ML 115 MG IV (11:08)
[2020-08-04 11:57] LABS: Glucose, Whole Blood 289 mg/dL (60-115)
[2020-08-04 12:45] LABS: Anion Gap 15 (12-20); Blood Urea Nitrogen 13 mg/dL (9-16); Calcium 7.7 mg/dL (8.4-10.2); Carbon Dioxide 22 mmol/L (22-29); Chloride 103 mmol/L (96-108); Creatinine Clr Calc Pharmacy 123.3; Estimated Glomerular Filt Rate > 60; Glucose Random 293 mg/dL (60-115); Potassium 3.8 mmol/l (3.3-5.1); Sodium 136 mmol/L (135-145)
[2020-08-04 12:57] LABS: Glucose, Whole Blood 257 mg/dL (60-115)
[2020-08-04] MEDS: Potassium Phosphate 30 MMOL in 0.9 % Sodium Chloride 500 ML 85 MMOL IV (13:53)
[2020-08-04 13:58] LABS: Glucose, Whole Blood 325 mg/dL (60-115)
[2020-08-04] MEDS: Insulin Regular/NS 100 UNIT/100 ML PLAST..BAG 25 UNIT IVCONT ×2 (14:12→17:54)
--- NOTE | 2020-08-04 14:35 | P.PNCC_ITS ---
Subjective Subjective Date of Service: 08/04/20 Interval History: 34-year-old presented as new onset diabetes with both ketoacidosis as well as hyperosmolarity and a glucose over a 1000 with the inciting issue being a 2-day-old febrile illness which we now know is COVID-19 pneumonitis and on the 1st day in the hospital started to develop a drop in his oxygen saturation still within a comfortable range but support was added with 2 L of nasal cannula oxygen and therefore remdesivir was introduced and he was started on DVT VT prophylaxis with heparin and part of the presentation was an acute stage III renal failure which has since resolved with volume and his anion gap has closed and is hyperosmolarity has resolved but he still requires high dose nearly 25 units/hour of IV insulin and continued hydration and today were using Ringer's lactate but last night's attempt at changing his insulin from IV to subcutaneous resulted in recurrent acidosis so that has now been corrected Physical Exam Vital Signs: Vital Signs: Last Vital Signs Temp 98.5 F 08/04/20 12:00 Pulse 96 08/04/20 14:00 Resp 25 H 08/04/20 14:00 BP 129/78 08/04/20 14:00 Pulse Ox 94 08/04/20 14:00 Body Mass Index 41.4 Const: Other: Awake and oriented and nonfocal neurologically Cardiac Krupa exam with no gallops and he has no neck vein distension but has good bilateral carotid upstrokes Chest no adventitious sounds and percusses equally Abdomen benign with no organomegaly and good bowel sounds and nondistended Skin intact Objective Data Labs CBC & Chem 7: 08/04/20 05:25 08/04/20 12:15 Labs: Laboratory Results - last 24 hr 08/03/20 08/03/20 08/03/20 15:30 16:10 16:10 WBC RBC Hgb Hct MCV MCH MCHC RDW Plt Count MPV Immature Gran % (Auto) Neut % (Auto) Lymph % (Auto) [place] % (Auto) Eos % (Auto) Baso % (Auto) Lymph # (Auto) [place] # (Auto) Eos # (Auto) Baso # (Auto) Abs Immat Gran (auto) Absolute Neuts (auto) Absolute Nucleated RBC Nucleated RBC % (auto) D-Dimer VBG pH 7.36 VBG pCO2 36 VBG pO2 155 VBG HCO3 21 VBG O2 Saturation 99.0 VBG Base Excess -3.7 Sodium 132 L Potassium 3.7 Chloride 102 Carbon Dioxide 22 Anion Gap 12 BUN 19 H Creatinine 1.45 H Estim Creat Clear Calc 89.3 Estimated GFR 55 POC Glucose 289 H Random Glucose 280 H D Estimat Average Glucose Hemoglobin A1c % Calcium 7.3 L Phosphorus Magnesium Ferritin Total Bilirubin Direct Bilirubin AST ALT Alkaline Phosphatase Lactate Dehydrogenase Total Protein Albumin 08/03/20 08/03/20 08/03/20 16:33 17:27 18:26 WBC RBC Hgb Hct MCV MCH MCHC RDW Plt Count MPV Immature Gran % (Auto) Neut % (Auto) Lymph % (Auto) [place] % (Auto) Eos % (Auto) Baso % (Auto) Lymph # (Auto) [place] # (Auto) Eos # (Auto) Baso # (Auto) Abs Immat Gran (auto) Absolute Neuts (auto) Absolute Nucleated RBC Nucleated RBC % (auto) D-Dimer VBG pH VBG pCO2 VBG pO2 VBG HCO3 VBG O2 Saturation VBG Base Excess Sodium Potassium Chloride Carbon Dioxide Anion Gap BUN Creatinine Estim Creat Clear Calc Estimated GFR POC Glucose 265 H 310 H 329 H Random Glucose Estimat Average Glucose Hemoglobin A1c % Calcium Phosphorus Magnesium Ferritin Total Bilirubin Direct Bilirubin AST ALT Alkaline Phosphatase Lactate Dehydrogenase Total Protein Albumin 08/03/20 08/03/20 08/03/20 19:23 20:35 21:46 WBC RBC Hgb Hct MCV MCH MCHC RDW Plt Count MPV Immature Gran % (Auto) Neut % (Auto) Lymph % (Auto) [place] % (Auto) Eos % (Auto) Baso % (Auto) Lymph # (Auto) [place] # (Auto) Eos # (Auto) Baso # (Auto) Abs Immat Gran (auto) Absolute Neuts (auto) Absolute Nucleated RBC Nucleated RBC % (auto) D-Dimer VBG pH VBG pCO2 VBG pO2 VBG HCO3 VBG O2 Saturation VBG Base Excess Sodium Potassium Chloride Carbon Dioxide Anion Gap BUN Creatinine Estim Creat Clear Calc Estimated GFR POC Glucose 274 H 206 H 212 H Random Glucose Estimat Average Glucose Hemoglobin A1c % Calcium Phosphorus Magnesium Ferritin Total Bilirubin Direct Bilirubin AST ALT Alkaline Phosphatase Lactate Dehydrogenase Total Protein Albumin 08/03/20 08/04/20 08/04/20 23:36 02:01 03:11 WBC RBC Hgb Hct MCV MCH MCHC RDW Plt Count MPV Immature Gran % (Auto) Neut % (Auto) Lymph % (Auto) [place] % (Auto) Eos % (Auto) Baso % (Auto) Lymph # (Auto) [place] # (Auto) Eos # (Auto) Baso # (Auto) Abs Immat Gran (auto) Absolute Neuts (auto) Absolute Nucleated RBC Nucleated RBC % (auto) D-Dimer VBG pH VBG pCO2 VBG pO2 VBG HCO3 VBG O2 Saturation VBG Base Excess Sodium Potassium Chloride Carbon Dioxide Anion Gap BUN Creatinine Estim Creat Clear Calc Estimated GFR POC Glucose 190 H 315 H 352 H* Random Glucose Estimat Average Glucose Hemoglobin A1c % Calcium Phosphorus Magnesium Ferritin Total Bilirubin Direct Bilirubin AST ALT Alkaline Phosphatase Lactate Dehydrogenase Total Protein Albumin 08/04/20 08/04/20 08/04/20 04:58 05:25 05:25 WBC 6.1 RBC 4.55 L Hgb 12.1 L Hct 36.6 L MCV 80.4 MCH 26.6 L MCHC 33.1 RDW 13.1 Plt Count 142 L MPV 10.6 Immature Gran % (Auto) 0.8 H Neut % (Auto) 80.6 H Lymph % (Auto) 16.5 L [place] % (Auto) 2.1 Eos % (Auto) 0.0 Baso % (Auto) 0.0 Lymph # (Auto) 1.0 L [place] # (Auto) 0.1 Eos # (Auto) 0.0 Baso # (Auto) 0.0 Abs Immat Gran (auto) 0.05 H Absolute Neuts (auto) 4.9 Absolute Nucleated RBC 0.000 Nucleated RBC % (auto) 0.0 D-Dimer 495 VBG pH VBG pCO2 VBG pO2 VBG HCO3 VBG O2 Saturation VBG Base Excess Sodium Potassium Chloride Carbon Dioxide Anion Gap BUN Creatinine Estim Creat Clear Calc Estimated GFR POC Glucose 377 H* Random Glucose Estimat Average Glucose Hemoglobin A1c % Calcium Phosphorus Magnesium Ferritin Total Bilirubin Direct Bilirubin AST ALT Alkaline Phosphatase Lactate Dehydrogenase Total Protein Albumin 08/04/20 08/04/20 08/04/20 05:25 05:25 05:25 WBC RBC Hgb Hct MCV MCH MCHC RDW Plt Count MPV Immature Gran % (Auto) Neut % (Auto) Lymph % (Auto) [place] % (Auto) Eos % (Auto) Baso % (Auto) Lymph # (Auto) [place] # (Auto) Eos # (Auto) Baso # (Auto) Abs Immat Gran (auto) Absolute Neuts (auto) Absolute Nucleated RBC Nucleated RBC % (auto) D-Dimer VBG pH 7.35 VBG pCO2 29 VBG pO2 75 VBG HCO3 16 VBG O2 Saturation 96.0 VBG Base Excess -7.2 Sodium 131 L Potassium 4.0 Chloride 103 Carbon Dioxide 16 L Anion Gap 16 BUN 14 Creatinine 1.17 Estim Creat Clear Calc 110.7 Estimated GFR > 60 POC Glucose Random Glucose 372 H* Estimat Average Glucose 321 Hemoglobin A1c % 12.8 Calcium 7.5 L Phosphorus 1.2 L Magnesium 1.9 Ferritin 2366 H Total Bilirubin 0.3 Direct Bilirubin 0.2 AST 34 ALT 46 H Alkaline Phosphatase 65 Lactate Dehydrogenase 195 Total Protein 6.2 L Albumin 3.5 08/04/20 08/04/20 08/04/20 06:24 08:03 08:56 WBC RBC Hgb Hct MCV MCH MCHC RDW Plt Count MPV Immature Gran % (Auto) Neut % (Auto) Lymph % (Auto) [place] % (Auto) Eos % (Auto) Baso % (Auto) Lymph # (Auto) [place] # (Auto) Eos # (Auto) Baso # (Auto) Abs Immat Gran (auto) Absolute Neuts (auto) Absolute Nucleated RBC Nucleated RBC % (auto) D-Dimer VBG pH VBG pCO2 VBG pO2 VBG HCO3 VBG O2 Saturation VBG Base Excess Sodium Potassium Chloride Carbon Dioxide Anion Gap BUN Creatinine Estim Creat Clear Calc Estimated GFR POC Glucose 334 H 295 H 291 H Random Glucose Estimat Average Glucose Hemoglobin A1c % Calcium Phosphorus Magnesium Ferritin Total Bilirubin Direct Bilirubin AST ALT Alkaline Phosphatase Lactate Dehydrogenase Total Protein Albumin 08/04/20 08/04/20 08/04/20 09:59 10:53 10:55 WBC RBC Hgb Hct MCV MCH MCHC RDW Plt Count MPV Immature Gran % (Auto) Neut % (Auto) Lymph % (Auto) [place] % (Auto) Eos % (Auto) Baso % (Auto) Lymph # (Auto) [place] # (Auto) Eos # (Auto) Baso # (Auto) Abs Immat Gran (auto) Absolute Neuts (auto) Absolute Nucleated RBC Nucleated RBC % (auto) D-Dimer VBG pH VBG pCO2 VBG pO2 VBG HCO3 VBG O2 Saturation VBG Base Excess Sodium Potassium Chloride Carbon Dioxide Anion Gap BUN Creatinine Estim Creat Clear Calc Estimated GFR POC Glucose 368 H* 365 H* 361 H* Random Glucose Estimat Average Glucose Hemoglobin A1c % Calcium Phosphorus Magnesium Ferritin Total Bilirubin Direct Bilirubin AST ALT Alkaline Phosphatase Lactate Dehydrogenase Total Protein Albumin 08/04/20 08/04/20 08/04/20 11:53 12:15 12:53 WBC RBC Hgb Hct MCV MCH MCHC RDW Plt Count MPV Immature Gran % (Auto) Neut % (Auto) Lymph % (Auto) [place] % (Auto) Eos % (Auto) Baso % (Auto) Lymph # (Auto) [place] # (Auto) Eos # (Auto) Baso # (Auto) Abs Immat Gran (auto) Absolute Neuts (auto) Absolute Nucleated RBC Nucleated RBC % (auto) D-Dimer VBG pH VBG pCO2 VBG pO2 VBG HCO3 VBG O2 Saturation VBG Base Excess Sodium 136 Potassium 3.8 Chloride 103 Carbon Dioxide 22 Anion Gap 15 BUN 13 Creatinine 1.07 Estim Creat Clear Calc 123.3 Estimated GFR > 60 POC Glucose 289 H 257 H Random Glucose 293 H Estimat Average Glucose Hemoglobin A1c % Calcium 7.7 L Phosphorus Magnesium Ferritin Total Bilirubin Direct Bilirubin AST ALT Alkaline Phosphatase Lactate Dehydrogenase Total Protein Albumin 08/04/20 13:53 WBC RBC Hgb Hct MCV MCH MCHC RDW Plt Count MPV Immature Gran % (Auto) Neut % (Auto) Lymph % (Auto) [place] % (Auto) Eos % (Auto) Baso % (Auto) Lymph # (Auto) [place] # (Auto) Eos # (Auto) Baso # (Auto) Abs Immat Gran (auto) Absolute Neuts (auto) Absolute Nucleated RBC Nucleated RBC % (auto) D-Dimer VBG pH VBG pCO2 VBG pO2 VBG HCO3 VBG O2 Saturation VBG Base Excess Sodium Potassium Chloride Carbon Dioxide Anion Gap BUN Creatinine Estim Creat Clear Calc Estimated GFR POC Glucose 325 H Random Glucose Estimat Average Glucose Hemoglobin A1c % Calcium Phosphorus Magnesium Ferritin Total Bilirubin Direct Bilirubin AST ALT Alkaline Phosphatase Lactate Dehydrogenase Total Protein Albumin Microbiology Microbiology Results: Microbiology 08/02/20 15:07 Blood - Venous Blood Culture - Preliminary No growth after 24 hours. 08/02/20 14:43 Blood - Venous Blood Culture - Preliminary No growth after 24 hours. Progress Note: A&P Assessment and plan (1) COVID-19: Problem details: He has tachypnea and is starting to have oxygen requirements He has no signs of bacterial infection Status: Acute (2) Acute renal failure: Status: Acute (3) Hyperkalemia: Status: Acute (4) Hyponatremia: Status: Acute (5) Hyperosmolar hyponatremia: Status: Acute (6) Diabetic ketoacidosis associated with diabetes mellitus due to underlying condition: Status: Acute Assessment and Plan: Plan for now we is to continue the IV insulin drip as he has very high insulin requirements and possibly convert to subcutaneous in the morning when his metabolic state is more secure Time Spent With Patient Time: Total time spent is greater than 50% in coordination of care (as documented) at patient's floor/unit and/or counseling patient: Total time spent with greater than 50% in coordination of care (as documented) at patient's floor/unit and/or counseling patient:: 30
[2020-08-04 15:46] LABS: Glucose, Whole Blood 253 mg/dL (60-115)
[2020-08-04 17:12] LABS: Glucose, Whole Blood 290 mg/dL (60-115)
[2020-08-04 17:37] LABS: Glucose, Whole Blood 298 mg/dL (60-115)
[2020-08-04] MEDS: Enoxaparin Sodium 40 MG/0.4 ML SYRINGE SUBCUT (17:54)
[2020-08-04] MEDS: Thiamine HCL 200 MG in 0.9 % Sodium Chloride 100 ML 102 MG IV (17:54)
--- NOTE | 2020-08-04 18:13 | PC.NURSE ---
Patient more acidotic today. LR started. Remains on insulin gtt for high blood sugars. MD did not want to start Lantus today. Tolerating diet. Diabetes teaching done today. This nurse provided patient with info on type 1 DM and DKA and discussed. Further education would be beneficial. Patient started back on home dose of metoprolol and lisinopril. Will continue to monitor.
[2020-08-04 18:29] LABS: Glucose, Whole Blood 279 mg/dL (60-115)
[2020-08-04 19:02] LABS: Glucose, Whole Blood 293 mg/dL (60-115)
[2020-08-04 20:33] LABS: Anion Gap 14 (12-20); Blood Urea Nitrogen 13 mg/dL (9-16); Calcium 7.7 mg/dL (8.4-10.2); Carbon Dioxide 21 mmol/L (22-29); Chloride 105 mmol/L (96-108); Creatinine Clr Calc Pharmacy 129.4; Estimated Glomerular Filt Rate > 60; Glucose Random 293 mg/dL (60-115); Potassium 4.2 mmol/l (3.3-5.1); Sodium 136 mmol/L (135-145)
[2020-08-04 21:19] LABS: Glucose, Whole Blood 262 mg/dL (60-115)
[2020-08-04] MEDS: Insulin Regular/NS 100 UNIT/100 ML PLAST..BAG 30 UNIT IVCONT (21:54)
[2020-08-04] MEDS: Acetaminophen 325 MG TABLET 650 MG PO (22:09)
[2020-08-04 22:37] LABS: Glucose, Whole Blood 230 mg/dL (60-115)
[2020-08-04] MEDS: Insulin Regular/NS 100 UNIT/100 ML PLAST..BAG 32 UNIT IVCONT (22:54)
[2020-08-05] VITALS (17 sets, daily range): BP systolic 124–172; BP diastolic 75–121; PULSE 82–105; RESP 13–30; TEMP 36.1–36.9; O2SAT 92–99; BMI 42.1
[2020-08-05 00:18] LABS: Glucose, Whole Blood 192 mg/dL (60-115)
[2020-08-05 00:20] LABS: D Dimer 493 NG/ML
[2020-08-05] MEDS: Insulin Regular/NS 100 UNIT/100 ML PLAST..BAG 32 UNIT IVCONT (00:49)
[2020-08-05] MEDS: Dextrose 5 % and Lactated Ring 1,000 ML 125 ML IVCONT (02:20)
[2020-08-05 02:27] LABS: Glucose, Whole Blood 109 mg/dL (60-115)
[2020-08-05 03:06] LABS: Glucose, Whole Blood 87 mg/dL (60-115)
[2020-08-05] MEDS: Insulin Regular/NS 100 UNIT/100 ML PLAST..BAG 14 UNIT IVCONT (03:18)
--- NOTE | 2020-08-05 04:44 | PC.NURSE ---
CARE ASSUMED 23;15...AWAKE..ALERT..ORIENTED X3..SKIN WARM/DRY...RESPIRATIONS EASY ON ROOM AIR..AT HS LR 125 CC/HR AND ISULIN DRIP 32 UNITS/HR (SEE EMAR/PAPER FLOW-SHEET)..2AM POC [id number]=950 ...ASYMPTOMATIC ICU PA PRESENT..INSULIN DRIP TO 28 UNITS/HR AND IV CHANGED TO D5LR 125 CC/HR...3AM POC=81...ASYMPTOMATIC...PER PA INSULIN DRIP TO 14 UNITS/HR AND SNACK OF JUANITA CRACKERS AND APPLEJUICE...04:15 POC ICLQUIA=335...INSULIN MAINTAINED 12 UNITS/HR...FOR AM BLOOD-WORK PER CPOE...RESTFUL..DENIES/OFFERS NO COMPLAINTS
[2020-08-05 05:16] LABS: Glucose, Whole Blood 165 mg/dL (60-115)
[2020-08-05 05:16] LABS: Glucose, Whole Blood 150 mg/dL (60-115)
[2020-08-05 05:37] LABS: Base Excess VBG -1.2 mmol/L; HCO3 VBG 22 mmol/L; PCO2 VBG 35 mmHg; PO2 VBG 69 mmHg; pH VBG 7.41 (7.32-7.43)
[2020-08-05 05:39] LABS: Basophils Percent Auto 0.2 % (0-2); Hematocrit 37.6 % (42-52); Hemoglobin 12.5 g/dl (14.0-18.0); Imm Gran Abs Auto 0.18 X10*3/uL (0.00-0.03); Imm Gran Pct Auto 1.8 % (0.0-0.4); Lymphocytes Absolute Auto 2.4 X10*3/uL (1.2-4.9); Lymphocytes Percent Auto 24.3 % (20-40); MANUAL DIFF FLAG NO; Mean Corpuscular HGB Conc 33.2 g/dl (31.0-36.0); Mean Corpuscular Hemoglobin 26.6 pg (27.0-33.0); Monocytes Percent Auto 10.1 % (2-11); Neutrophils Absolute Auto 6.4 X10*3/uL (2.0-8.3); Neutrophils Percent Auto 63.6 % (45-73); Platelet Count 179 X10*3/uL (160-400); Red Cell Distribution Width 13.2 % (11.0-16.0)
[2020-08-05 06:22] LABS: Anion Gap 16 (12-20); Blood Urea Nitrogen 11 mg/dL (9-16); Calcium 7.9 mg/dL (8.4-10.2); Carbon Dioxide 21 mmol/L (22-29); Chloride 106 mmol/L (96-108); Creatinine Clr Calc Pharmacy 155.3; Estimated Glomerular Filt Rate > 60; Glucose Random 166 mg/dL (60-115); Phosphorus 1.9 mg/dL (2.7-4.5); Potassium 3.6 mmol/l (3.3-5.1); Sodium 139 mmol/L (135-145)
[2020-08-05 07:02] LABS: Glucose, Whole Blood 173 mg/dL (60-115)
[2020-08-05 07:56] LABS: Glucose, Whole Blood 162 mg/dL (60-115)
[2020-08-05 08:05] LABS: Glucose, Whole Blood 367 mg/dL (60-115)
[2020-08-05 08:08] LABS: Glucose, Whole Blood > 600 mg/dL (60-115)
[2020-08-05] MEDS: Thiamine HCL 200 MG in 0.9 % Sodium Chloride 100 ML 102 MG IV (08:23)
[2020-08-05] MEDS: dexAMETHasone sod phosphate 4 MG/ML VIAL 6 MG IVPUSH (08:24)
[2020-08-05] MEDS: Omeprazole 40 MG CAPSULE.DR PO (08:24)
[2020-08-05] MEDS: Metoprolol Tartrate 25 MG TABLET PO (08:24)
[2020-08-05] MEDS: 0.9 % Sodium Chloride Flush 3 ML SYRINGE IVFLUSH ×2 (08:28→13:50)
[2020-08-05] MEDS: Insulin Glargine,Hum.rec.anlog 100 UNIT/ML 10 ML VIAL 50 UNIT SUBCUT (08:29)
[2020-08-05 08:55] LABS: Glucose, Whole Blood 140 mg/dL (60-115)
[2020-08-05 10:01] LABS: Glucose, Whole Blood 179 mg/dL (60-115)
[2020-08-05] MEDS: Remdesivir 100 MG in 0.9 % Sodium Chloride 230 ML 115 MG IV (10:57)
[2020-08-05 11:40] LABS: Glucose, Whole Blood 381 mg/dL (60-115)
[2020-08-05] MEDS: Insulin Lispro 100 UNIT/ML 3 ML VIAL SUBCUT ×3 (11:59→20:41)
--- NOTE | 2020-08-05 12:09 | PC.NURSE ---
Addendum entered by Cielo Carrillo RN 08/05/20 17:45: 1630 POC 381. NOTIFIED VIA [facility]. INSTRUCTED TO GIVE 12 UNITS OF SLIDING SCALE INSULIN. WILL CONTINUE TO MONITOR. AFEBRILE. VSS. SR/ST ON TELE. OOB TO RECLINER MOST OF THE DAY. ATE 100% OF MEALS X 3. VOIDING IN URINAL AND BM X 2 ON COMMODE. C/O VERY MILD ABDOMINAL PAIN. 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 Addendum entered by Cielo Carrillo RN 08/05/20 13:19: 1200 LABS - CRITICAL GLUCOSE 464MD NOTIFIED. ADDITIONAL 10 UNITS OF LANTUS ORDERED AND ADMINISTERED. Original Note: D5LR TURNED OFF AT 0830. LANTUS 50 UNITS ADMINISTERED AT 0840. INSULIN GTT TURNED OFF AT 0930. POC AT 1130 = 381, NOTIFIED. 12 UNITS OF SLIDING SCALE INSULIN ADMINISTERED. 1200 LABS TO BE DRAWN. WILL CONTINUE TO MONITOR.
[2020-08-05 12:58] LABS: Anion Gap 14 (12-20); Blood Urea Nitrogen 12 mg/dL (9-16); Calcium 7.5 mg/dL (8.4-10.2); Carbon Dioxide 21 mmol/L (22-29); Chloride 104 mmol/L (96-108); Creatinine Clr Calc Pharmacy 144.8; Estimated Glomerular Filt Rate > 60; Glucose Random 464 mg/dL (60-115); Potassium 3.9 mmol/l (3.3-5.1); Sodium 135 mmol/L (135-145)
[2020-08-05] MEDS: Insulin Glargine,Hum.rec.anlog 100 UNIT/ML 10 ML VIAL 10 UNIT SUBCUT (13:24)
--- NOTE | 2020-08-05 13:37 | MHC.CM.PN ---
Call placed to pt to discuss d/c planning: Pt states he resides with family and is independent with all care needs: He does not have services or use medical equipment at this time. Pt goes to [facility] - he cannot recall the name of his PCP but states she's female. Call placed to make a complex pt appointment and to verify MD. Message left: awaiting callback Pt states he may need transportation home - discussed his inability to transfer home with Uber or taxi d/t his + COVID dx. CM will follow for ? assistance.
--- NOTE | 2020-08-05 14:01 | PM.CCPN ---
Subjective Subjective Date of Service: 08/05/20 Interval History: 34-year-old gentleman with underlying obesity hypertension admitted on 08/01/2020 with abdominal discomfort secondary to newly diagnosed diabetes ketoacidosis further complicated by acute kidney injury and COVID-19 requiring insulin drip intensive care level of monitoring. He has been treated with remdesivir and dexamethasone secondary to acute hypoxic respiratory failure. No events overnight. This a.m. titrated off insulin drip. Tolerating p.o. diet. Physical Exam Vital Signs: Vital Signs: Last Vital Signs Temp 97.1 F 08/05/20 12:00 Pulse 99 08/05/20 13:00 Resp 25 H 08/05/20 13:00 BP 127/75 08/05/20 13:00 Pulse Ox 92 08/05/20 13:00 Body Mass Index 42.1 Const: General: no acute distress, alert and awake Eyes: Sclerae: sclerae normal EOM: EOMs intact bilaterally Neck: Neck: Yes no lymphadenopathy, Yes trachea midline and Yes supple Resp: Effort & Inspection: normal respiratory effort and no respiratory distress Auscultation: clear to auscultation bilaterally Cardio: Rate: regular rate Rhythm: regular rhythm Heart sounds: no gallops, no murmurs and no rubs GI: Palpation (GI): Soft to palpation and Other GI palpation findings present ( Nontender) Auscultation: normal bowel sounds Extrem: General: Yes no pedal edema, No clubbing and No cyanosis Objective Data Labs CBC & Chem 7: 08/05/20 05:22 08/05/20 12:07 Labs: Laboratory Results - last 24 hr 08/02/20 08/03/20 08/04/20 15:53 12:06 15:40 WBC RBC Hgb Hct MCV MCH MCHC RDW Plt Count MPV Immature Gran % (Auto) Neut % (Auto) Lymph % (Auto) [place] % (Auto) Eos % (Auto) Baso % (Auto) Lymph # (Auto) [place] # (Auto) Eos # (Auto) Baso # (Auto) Abs Immat Gran (auto) Absolute Neuts (auto) Absolute Nucleated RBC Nucleated RBC % (auto) D-Dimer VBG pH VBG pCO2 VBG pO2 VBG HCO3 VBG O2 Saturation VBG Base Excess Sodium Potassium Chloride Carbon Dioxide Anion Gap BUN Creatinine Estim Creat Clear Calc Estimated GFR POC Glucose > 600 H* 367 H* 253 H Random Glucose Calcium Phosphorus Magnesium 08/04/20 08/04/20 08/04/20 16:30 17:31 18:25 WBC RBC Hgb Hct MCV MCH MCHC RDW Plt Count MPV Immature Gran % (Auto) Neut % (Auto) Lymph % (Auto) [place] % (Auto) Eos % (Auto) Baso % (Auto) Lymph # (Auto) [place] # (Auto) Eos # (Auto) Baso # (Auto) Abs Immat Gran (auto) Absolute Neuts (auto) Absolute Nucleated RBC Nucleated RBC % (auto) D-Dimer VBG pH VBG pCO2 VBG pO2 VBG HCO3 VBG O2 Saturation VBG Base Excess Sodium Potassium Chloride Carbon Dioxide Anion Gap BUN Creatinine Estim Creat Clear Calc Estimated GFR POC Glucose 290 H 298 H 279 H Random Glucose Calcium Phosphorus Magnesium 08/04/20 08/04/20 08/04/20 18:58 19:34 21:12 WBC RBC Hgb Hct MCV MCH MCHC RDW Plt Count MPV Immature Gran % (Auto) Neut % (Auto) Lymph % (Auto) [place] % (Auto) Eos % (Auto) Baso % (Auto) Lymph # (Auto) [place] # (Auto) Eos # (Auto) Baso # (Auto) Abs Immat Gran (auto) Absolute Neuts (auto) Absolute Nucleated RBC Nucleated RBC % (auto) D-Dimer VBG pH VBG pCO2 VBG pO2 VBG HCO3 VBG O2 Saturation VBG Base Excess Sodium 136 Potassium 4.2 Chloride 105 Carbon Dioxide 21 L Anion Gap 14 BUN 13 Creatinine 1.02 Estim Creat Clear Calc 129.4 Estimated GFR > 60 POC Glucose 293 H 262 H Random Glucose 293 H Calcium 7.7 L Phosphorus Magnesium 08/04/20 08/04/20 08/04/20 22:03 23:40 23:59 WBC RBC Hgb Hct MCV MCH MCHC RDW Plt Count MPV Immature Gran % (Auto) Neut % (Auto) Lymph % (Auto) [place] % (Auto) Eos % (Auto) Baso % (Auto) Lymph # (Auto) [place] # (Auto) Eos # (Auto) Baso # (Auto) Abs Immat Gran (auto) Absolute Neuts (auto) Absolute Nucleated RBC Nucleated RBC % (auto) D-Dimer 493 VBG pH VBG pCO2 VBG pO2 VBG HCO3 VBG O2 Saturation VBG Base Excess Sodium Potassium Chloride Carbon Dioxide Anion Gap BUN Creatinine Estim Creat Clear Calc Estimated GFR POC Glucose 230 H 192 H Random Glucose Calcium Phosphorus Magnesium 08/05/20 08/05/20 08/05/20 02:00 02:55 04:12 WBC RBC Hgb Hct MCV MCH MCHC RDW Plt Count MPV Immature Gran % (Auto) Neut % (Auto) Lymph % (Auto) [place] % (Auto) Eos % (Auto) Baso % (Auto) Lymph # (Auto) [place] # (Auto) Eos # (Auto) Baso # (Auto) Abs Immat Gran (auto) Absolute Neuts (auto) Absolute Nucleated RBC Nucleated RBC % (auto) D-Dimer VBG pH VBG pCO2 VBG pO2 VBG HCO3 VBG O2 Saturation VBG Base Excess Sodium Potassium Chloride Carbon Dioxide Anion Gap BUN Creatinine Estim Creat Clear Calc Estimated GFR POC Glucose 109 87 150 H Random Glucose Calcium Phosphorus Magnesium 08/05/20 08/05/20 08/05/20 05:07 05:22 05:22 WBC 10.0 RBC 4.70 Hgb 12.5 L Hct 37.6 L MCV 80.0 MCH 26.6 L MCHC 33.2 RDW 13.2 Plt Count 179 D MPV 11.0 Immature Gran % (Auto) 1.8 H Neut % (Auto) 63.6 Lymph % (Auto) 24.3 [place] % (Auto) 10.1 Eos % (Auto) 0.0 Baso % (Auto) 0.2 Lymph # (Auto) 2.4 [place] # (Auto) 1.0 Eos # (Auto) 0.0 Baso # (Auto) 0.0 Abs Immat Gran (auto) 0.18 H Absolute Neuts (auto) 6.4 Absolute Nucleated RBC 0.000 Nucleated RBC % (auto) 0.0 D-Dimer VBG pH VBG pCO2 VBG pO2 VBG HCO3 VBG O2 Saturation VBG Base Excess Sodium 139 Potassium 3.6 Chloride 106 Carbon Dioxide 21 L Anion Gap 16 BUN 11 Creatinine 0.85 Estim Creat Clear Calc 155.3 Estimated GFR > 60 POC Glucose 165 H Random Glucose 166 H D Calcium 7.9 L Phosphorus 1.9 L Magnesium 2.0 08/05/20 08/05/20 08/05/20 05:22 06:59 07:52 WBC RBC Hgb Hct MCV MCH MCHC RDW Plt Count MPV Immature Gran % (Auto) Neut % (Auto) Lymph % (Auto) [place] % (Auto) Eos % (Auto) Baso % (Auto) Lymph # (Auto) [place] # (Auto) Eos # (Auto) Baso # (Auto) Abs Immat Gran (auto) Absolute Neuts (auto) Absolute Nucleated RBC Nucleated RBC % (auto) D-Dimer VBG pH 7.41 VBG pCO2 35 VBG pO2 69 VBG HCO3 22 VBG O2 Saturation 95.0 VBG Base Excess -1.2 Sodium Potassium Chloride Carbon Dioxide Anion Gap BUN Creatinine Estim Creat Clear Calc Estimated GFR POC Glucose 173 H 162 H Random Glucose Calcium Phosphorus Magnesium 08/05/20 08/05/20 08/05/20 08:51 09:50 11:35 WBC RBC Hgb Hct MCV MCH MCHC RDW Plt Count MPV Immature Gran % (Auto) Neut % (Auto) Lymph % (Auto) [place] % (Auto) Eos % (Auto) Baso % (Auto) Lymph # (Auto) [place] # (Auto) Eos # (Auto) Baso # (Auto) Abs Immat Gran (auto) Absolute Neuts (auto) Absolute Nucleated RBC Nucleated RBC % (auto) D-Dimer VBG pH VBG pCO2 VBG pO2 VBG HCO3 VBG O2 Saturation VBG Base Excess Sodium Potassium Chloride Carbon Dioxide Anion Gap BUN Creatinine Estim Creat Clear Calc Estimated GFR POC Glucose 140 H 179 H 381 H* Random Glucose Calcium Phosphorus Magnesium 08/05/20 12:07 WBC RBC Hgb Hct MCV MCH MCHC RDW Plt Count MPV Immature Gran % (Auto) Neut % (Auto) Lymph % (Auto) [place] % (Auto) Eos % (Auto) Baso % (Auto) Lymph # (Auto) [place] # (Auto) Eos # (Auto) Baso # (Auto) Abs Immat Gran (auto) Absolute Neuts (auto) Absolute Nucleated RBC Nucleated RBC % (auto) D-Dimer VBG pH VBG pCO2 VBG pO2 VBG HCO3 VBG O2 Saturation VBG Base Excess Sodium 135 Potassium 3.9 Chloride 104 Carbon Dioxide 21 L Anion Gap 14 BUN 12 Creatinine 0.92 Estim Creat Clear Calc 144.8 Estimated GFR > 60 POC Glucose Random Glucose 464 H* Calcium 7.5 L Phosphorus Magnesium Microbiology Microbiology Results: Microbiology 08/02/20 15:07 Blood - Venous Blood Culture - Preliminary No growth after 48 hours. 08/02/20 14:43 Blood - Venous Blood Culture - Preliminary No growth after 48 hours. Progress Note: A&P Assessment and plan (1) Diabetic ketoacidosis associated with diabetes mellitus due to underlying condition: Status: Acute Assessment and Plan: Assessment: 34-year-old gentleman with new diagnosis of diabetic ketoacidosis now titrated off insulin drip, hospital course further complicated by acute kidney injury, COVID-19, and hypertension. Plan: Neuro: No acute issues. Cardiac: Hypertension, increase lisinopril to 40 mg daily. Pulmonary: COVID-19, improving slowly, acute hypoxic respiratory failure resolved. Now on room air. Renal: Acute renal failure secondary to diabetic ketoacidosis, resolved. Endo: Diabetic ketoacidosis, resolved, gap closed. Titrated off insulin drip. GI: No acute issues. ID: COVID [id number], to complete 10 days of dexamethasone and 5 doses of remdesivir, now on day 3for both. Heme/Onc: No acute issues. Psych: No acute issues. Miscellaneous: No acute issues. Prophylaxis: Lovenox Diet: Diabetic Critical care time spent: 0 (2) COVID-19: Status: Acute (3) Acute renal failure: Status: Acute Time Spent With Patient Total time spent with greater than 50% in coordination of care (as documented) at patient's floor/unit and/or counseling patient:: 40
[2020-08-05 14:33] LABS: Glucose, Whole Blood 353 mg/dL (60-115)
[2020-08-05 16:33] LABS: Glucose, Whole Blood 381 mg/dL (60-115)
[2020-08-05] MEDS: Enoxaparin Sodium 40 MG/0.4 ML SYRINGE SUBCUT (17:31)
[2020-08-05] MEDS: Insulin Glargine,Hum.rec.anlog 100 UNIT/ML 10 ML VIAL 60 UNIT SUBCUT (20:41)
[2020-08-05 23:41] LABS: Glucose, Whole Blood 384 mg/dL (60-115)
[2020-08-06] VITALS (7 sets, daily range): BP systolic 125–169; BP diastolic 56–102; PULSE 78–110; RESP 16–22; TEMP 36.4–37; O2SAT 90–94; BMI 41.7
[2020-08-06 05:35] LABS: MANUAL DIFF FLAG NO
[2020-08-06 05:44] LABS: Basophils Percent Auto 0.2 % (0-2); Eosinophils Percent Auto 0.3 % (0-4); Hematocrit 35.3 % (42-52); Hemoglobin 11.7 g/dl (14.0-18.0); Imm Gran Abs Auto 0.21 X10*3/uL (0.00-0.03); Imm Gran Pct Auto 2.4 % (0.0-0.4); Lymphocytes Absolute Auto 3.1 X10*3/uL (1.2-4.9); Mean Corpuscular HGB Conc 33.1 g/dl (31.0-36.0); Mean Corpuscular Hemoglobin 26.8 pg (27.0-33.0); Mean Corpuscular Volume 80.8 fL (80-98); Mean Platelet Volume 11.2 fL (9.4-12.4); Monocytes Absolute Auto 0.8 X10*3/uL (0.1-1.2); Monocytes Percent Auto 8.7 % (2-11); Neutrophils Absolute Auto 4.7 X10*3/uL (2.0-8.3); Neutrophils Percent Auto 53.4 % (45-73); Platelet Count 190 X10*3/uL (160-400); Red Blood Count 4.37 X10*6/uL (4.60-5.80); Red Cell Distribution Width 13.4 % (11.0-16.0); White Blood Count 8.7 X10*3/uL (4.8-10.8)
[2020-08-06] MEDS: Omeprazole 40 MG CAPSULE.DR PO (05:47)
[2020-08-06 06:15] LABS: Anion Gap 14 (12-20); Blood Urea Nitrogen 14 mg/dL (9-16); Calcium 7.2 mg/dL (8.4-10.2); Carbon Dioxide 23 mmol/L (22-29); Chloride 105 mmol/L (96-108); Estimated Glomerular Filt Rate > 60; Glucose Random 245 mg/dL (60-115); Magnesium 2.1 mg/dL (1.6-2.6); Phosphorus 2.3 mg/dL (2.7-4.5); Potassium 3.4 mmol/l (3.3-5.1); Sodium 139 mmol/L (135-145)
[2020-08-06 07:16] LABS: Glucose, Whole Blood 216 mg/dL (60-115)
[2020-08-06] MEDS: Insulin Lispro 100 UNIT/ML 3 ML VIAL SUBCUT ×4 (07:40→20:12)
[2020-08-06] MEDS: dexAMETHasone sod phosphate 4 MG/ML VIAL IVPUSH (07:40)
[2020-08-06] MEDS: 0.9 % Sodium Chloride Flush 3 ML SYRINGE IVFLUSH ×2 (07:43→15:23)
[2020-08-06] MEDS: Insulin Glargine,Hum.rec.anlog 100 UNIT/ML 10 ML VIAL 60 UNIT SUBCUT ×2 (07:43→20:12)
[2020-08-06] MEDS: Remdesivir 100 MG in 0.9 % Sodium Chloride 230 ML 115 MG IV (10:25)
[2020-08-06 11:52] LABS: Glucose, Whole Blood 321 mg/dL (60-115)
--- NOTE | 2020-08-06 14:31 | P.PNIM_ITS ---
Subjective Subjective Date of Service: 08/06/20 Interval History: New onset diabetic/hyperglycemia, COVID infection Review of Systems Says shortness of breath santa seems improving, has some cough otherwise denies any chest pain or abdominal pain or fever chills. Physical Exam Vital Signs: Vital Signs: Last Vital Signs Temp 98.6 F 08/06/20 12:00 Pulse 98 08/06/20 12:00 Resp 18 08/06/20 12:00 BP 143/92 H 08/06/20 12:00 Pulse Ox 93 08/06/20 12:00 Body Mass Index 41.7 Physical exam: Constitutional: Not in acute distress Eyes anicteric, no discharge Cvs: rrr, [id number] , no murmur res: clear to auscultation ,no rhonchii or wheezing abd: no rebound or guarding ,nt, bs present. ext :pulses present , no cyanosis neuro: axo3 , nonfocal. Objective Data Current Medications Generic Name Dose Route Start Last Admin Trade Name Freq PRN Reason Stop Dose Admin Acetaminophen 650 mg 08/03/20 04:07 08/04/20 22:09 Acetaminophen 325 Mg Tablet PO 650 mg Q6H PRN Administration Headache Dexamethasone Sodium Phosphate 4 mg 08/06/20 09:00 08/06/20 07:40 Dexamethasone Sod Phosphate 4 Mg/Ml Vial IVPUSH 4 mg DAILY ADRIANA Administration Enoxaparin Sodium 40 mg 08/02/20 18:00 08/05/20 17:31 Enoxaparin Sodium 40 Mg/0.4 Ml Syringe SUBCUT 40 mg Q24H ADRIANA Administration Remdesivir 100 mg/ Sodium 230 mls @ 115 mls/hr 08/04/20 11:00 08/06/20 12:34 Chloride IV 08/07/20 12:59 Infused Q24H ADRIANA Infusion Insulin Glargine 60 unit 08/05/20 21:00 08/06/20 07:43 Insulin Glargine,Hum.Rec.Anlog 100 Unit/Ml 10 Ml Vial SUBCUT 60 unit BID ADRIANA Administration Insulin Human Lispro 0 unit 08/05/20 16:30 08/06/20 12:15 Insulin Lispro 100 Unit/Ml 3 Ml Vial SUBCUT 8 unit QIDACHS ADRIANA Administration Protocol Lisinopril 40 mg 08/06/20 09:00 08/06/20 07:41 Lisinopril 40 Mg Tablet PO 40 mg DAILY [facility] Administration Protocol Omeprazole 40 mg 08/03/20 06:30 08/06/20 05:47 Omeprazole 40 Mg Capsule.Dr PO 40 mg DAILY@0630 [facility] Administration Pharmacy Consult 1 each 08/02/20 13:49 Consult Rx Perform Med Rec MISCELLANE ONCE PRN Consult order Sodium Chloride 3 ml 08/03/20 00:00 08/06/20 07:43 0.9 % Sodium Chloride Flush 3 Ml Syringe IVFLUSH 3 ml QSHIFT [facility] Administration Labs CBC & Chem 7: 08/06/20 05:23 08/06/20 05:23 Microbiology Microbiology Results: Microbiology 08/02/20 15:07 Blood - Venous Blood Culture - Preliminary No growth after 48 hours. 08/02/20 14:43 Blood - Venous Blood Culture - Preliminary No growth after 48 hours. Assessment and Plan (1) COVID-19: Status: Acute (2) Acute renal failure: Status: Acute (3) Diabetic ketoacidosis associated with diabetes mellitus due to underlying condition: Status: Acute Assessment and Plan: 1. covid pna: sob seems improving Taper oxygen, dexamethasone , remdesvir . 2. New onset diabetes:uncontrolled: 200-300 range Treated in ICU with insulin drip for diabetic ketoacidosis, seem improved. Continue Lantus and sliding scale coverage. 3. Elevated Blood pressure acceptable on lisinopril .
[2020-08-06 17:01] LABS: Glucose, Whole Blood 368 mg/dL (60-115)
[2020-08-06] MEDS: Enoxaparin Sodium 40 MG/0.4 ML SYRINGE SUBCUT (17:28)
--- NOTE | 2020-08-06 18:00 | PC.NURSE ---
Throughout nursing shift patient educated on new diagnosis of Diabetes. Educated patient on disease process, indication/difference between Lantus and Humlalog, signs/symptoms of hyperglycemia and hypoglycemia, how to check blood sugars and how often. Educated patient on how to self-administer insulin. Patient verbalized understanding and provided return demonstration of insulin administration. Reinforcement needed as this is a new condition for the patient. Notified that diabetes education was initiated. Will continue to educate patient and evaluate learning needs.
[2020-08-06 20:07] LABS: Glucose, Whole Blood 354 mg/dL (60-115)
[2020-08-07] VITALS (8 sets, daily range): BP systolic 135–148; BP diastolic 91–99; PULSE 90–125; RESP 18–24; TEMP 36–37; O2SAT 90–95
[2020-08-07] MEDS: 0.9 % Sodium Chloride Flush 3 ML SYRINGE IVFLUSH (01:13)
[2020-08-07] MEDS: Acetaminophen 325 MG TABLET 650 MG PO (01:17)
[2020-08-07] MEDS: hydrOXYzine HCL 25 MG TABLET PO (01:17)
[2020-08-07] MEDS: Sertraline HCL 100 MG TABLET PO ×2 (01:17→07:41)
--- NOTE | 2020-08-07 05:00 | PC.NURSE ---
CARE ASSUMED 23:15...AWAKE..ALERT..ORIENTED X3..RESPIRATIONS EASY ON ROOM AIR...NSR..NO ECTOPY...VOIDING YELLOW URINE...C/O MILD LOW BACK ACHE FROM PROLONGED BEDREST & MILD ANXIETY..PRN TYLENOL GIVEN---ATARAX AND SERTRALINE TAKEN AT HOME REORDERED BY ...RESTFUL POST TYLENOL/ATARAX/SERTRALINE...DENIED ANY DISCOMFORT...DENIES/OFFERS NO COMPLAINTS AT PRESENT
[2020-08-07 07:21] LABS: Glucose, Whole Blood 168 mg/dL (60-115)
[2020-08-07] MEDS: Omeprazole 40 MG CAPSULE.DR PO (07:41)
[2020-08-07] MEDS: dexAMETHasone sod phosphate 4 MG/ML VIAL IVPUSH (07:41)
[2020-08-07] MEDS: Insulin Lispro 100 UNIT/ML 3 ML VIAL SUBCUT ×2 (07:42→12:05)
[2020-08-07] MEDS: Insulin Glargine,Hum.rec.anlog 100 UNIT/ML 10 ML VIAL 60 UNIT SUBCUT (07:42)
[2020-08-07 11:02] LABS: Glucose, Whole Blood 276 mg/dL (60-115)
[2020-08-07] MEDS: Remdesivir 100 MG in 0.9 % Sodium Chloride 230 ML 115 MG IV (12:32)
[2020-08-07] MEDS: Metoprolol Tartrate 50 MG TABLET PO (13:56)
--- NOTE | 2020-08-07 15:30 | PC.NURSE ---
Throughout nursing shift this RN continued to provide patient educated on new diagnosis of Diabetes. Educated patient on disease process, indication/difference between Lantus and Humlalog, signs/symptoms of hyperglycemia and hypoglycemia, how to check blood sugars and how often as well as when to administer Insulin. Expressed importance of calling doctor or coming back to ED for hyperglycemia. Expressed importance of not administering insulin for low blood sugars and to report them to his doctor. Educated patient on how to self-administer insulin. Patient verbalized understanding and provided return demonstration of insulin administration. Reinforcement needed as this is a new condition for the patient. Notified that diabetes education was continued and more education was needed. This RN coordinated setting up an appointment with new PCP at [facility] for Diabetes management with case management. Appointment was made with Batsheva Pike on 08/12/20 at 1:30 pm via telephone. This RN gave appointment information to patient and patient verbalized understanding of importance of follow up appointment. Patient previously provided with printed diabetes education. Will continue to educate patient and evaluate learning needs, patient pending discharge per . Will Report off to oncoming RN.
--- NOTE | 2020-08-08 11:54 | PM.DS ---
DS: Providers Provider Date of Service: 08/08/20 Date of admission: 08/02/20 19:13 Primary care physician: [facility] Consults: 08/02/20 17:22 Consult to Infectious Diseases Stat Consulting Provider: Carmen Seay Reason for consultation: start remdesevir for pneumonia Has provider been notified: Yes DS: Diagnosis Discharge Diagnosis (1) COVID-19: Status: Acute (2) Acute renal failure: Status: Acute (3) Diabetic ketoacidosis associated with diabetes mellitus due to underlying condition: Status: Acute DS: Medications Discharge Medications Home Medications: Home Medications Medication Instructions Recorded Confirmed hydroxyzine HCl 25 mg PO DAILY PRN 08/02/20 08/02/20 lisinopril 20 mg PO DAILY 08/02/20 08/02/20 metoprolol succinate [Toprol XL] 50 mg PO DAILY 08/02/20 08/02/20 sertraline 100 mg PO DAILY 08/02/20 08/02/20 Previous Rx's Medication Instructions Recorded dexamethasone 4 mg PO DAILY #5 tab 08/07/20 insulin glargine [Lantus U-100 60 unit SUBCUT BID #40 ml 08/07/20 Insulin] insulin lispro [Humalog U-100 1 unit SUBCUT QIDACHS #10 ml 08/07/20 Insulin] omeprazole 40 mg PO DAILY@0630 #30 cap 08/07/20 DS: Summary Hospital Course Hospital Course: 34-year-old male with new onset of fever chills abdominal discomfort and weakness and and on blood work was found to have hyponatremia and hyperkalemia with marked hyperglycemia at a 1000 and by calculation is both hyperosmolar and has a positive anion gap metabolic acidosis along with moderate acetone consistent with diabetic ketoacidosis and therefore is a new onset diabetic with both complications The COVID PCR is positive and therefore he has a dry CT scan of his chest that is pending apparently not at this point hypoxic In addition he is in acute stage III renal failure with current creatinine at 2.9 BUN in 52 and of course pseudo hyponatremia which fully corrects to 140. hosptial course problem [place]: Patient came with hypoxemic respiratory failure secondary to COVID infection and also found to have DKA with new onset diabetes. Subsequently patient was started on IV insulin as well as com remdesivir and dexamethasone for COVID. Patient completed remdesivir, breathing fine not on any oxygen walking in the room fine. His DKA and ALBERT also resolved with IV insulin and hydration. Patient is going to go home with will Musa-he was advised to follow diabetic diet and diabetic education was given. Patient's prescriptions and diabetic supplies were conveyed to patient's pharmacy by calling them over the phone. Also made them aware that we are sending dexamethasone prescription. Patient also has PCP appointment, monitor renal function and electrolytes outpatient with PCP. Above management discussed with the patient in detail length he understand and in agreement with the above plan, time spent 50 minutes and 50% time spent on counseling. Significant findings: As above. Procedures performed: None. Treatment and response: As above. Complications: None. Time Spent with Patient Time attestation: Total time spent providing and/or coordinating discharge services: Discharge coordination time: Greater than 30 minutes Physical Exam Vital Signs: Vital Signs: Last Vital Signs Temp 98.6 F 08/07/20 15:44 Pulse 93 08/07/20 15:44 Resp 18 08/07/20 15:44 BP 141/99 H 08/07/20 15:44 Pulse Ox 93 08/07/20 15:44 Body Mass Index 41.7 Physical exam: Constitutional: Not in acute distress Cvs: [id number], [id number] , no murmur res: clear to auscultation ,no rhonchii or wheezing abd: no rebound or guarding ,nt, bs present. ext pulses present , no cyanosis neuro: axo3 , nonfocal. DS: Data Data Completed and Pending Labs on day of discharge: Laboratory Tests 08/02/20 08/02/20 08/02/20 12:53 12:53 12:53 WBC 7.4 RBC 5.64 Hgb 15.1 Hct 47.8 MCV 84.8 MCH 26.8 L MCHC 31.6 RDW 13.4 Plt Count 196 MPV 11.2 Immature Gran % (Auto) 0.7 H Neut % (Auto) 69.8 Lymph % (Auto) 18.5 L [place] % (Auto) 10.7 Eos % (Auto) 0.0 Baso % (Auto) 0.3 Lymph # (Auto) 1.4 [place] # (Auto) 0.8 Eos # (Auto) 0.0 Baso # (Auto) 0.0 Abs Immat Gran (auto) 0.05 H Absolute Neuts (auto) 5.1 Absolute Nucleated RBC 0.000 Nucleated RBC % (auto) 0.0 PT INR D-Dimer Hold Blue Top SEE NOTE VBG pH VBG pCO2 VBG pO2 VBG HCO3 VBG O2 Saturation VBG Base Excess Sodium 124 L Potassium 5.7 H Chloride 81 L Carbon Dioxide 15 L Anion Gap 34 H BUN 52 H Creatinine 2.90 H Estim Creat Clear Calc 38.8 Estimated GFR 25 POC Glucose Random Glucose 1025 H* Estimat Average Glucose Hemoglobin A1c % Lactic Acid Lactic Acid Fup @ 2Hr Calcium 9.0 Phosphorus Magnesium 3.3 H Ferritin Total Bilirubin 0.4 Direct Bilirubin 0.2 AST 43 H ALT 83 H Alkaline Phosphatase 102 Lactate Dehydrogenase Total Creatine Kinase Troponin I High Sens C-Reactive Protein Total Protein 8.4 H Albumin 4.4 Procalcitonin Urine Color Urine Appearance Urine pH Ur Specific [place] Urine Protein Urine Glucose (UA) Urine Ketones Urine Blood Urine Nitrite Ur Leukocyte Esterase Urine RBC Urine WBC Ur Squamous Epith Cells Urine Bacteria Urine Opiates Screen Ur Barbiturates Screen Ur Phencyclidine Scrn Ur Amphetamines Screen U Benzodiazepines Scrn Urine Cocaine Screen U Marijuana (THC) Screen Acetone, Qual Coronavirus (PCR) COVID-19 (ENE) COVID-19 Clin Com Influenza Type A (PCR) Influenza Type B (PCR) RSV RNA Qual (PCR) 08/02/20 08/02/20 08/02/20 12:59 13:11 14:43 WBC RBC Hgb Hct MCV MCH MCHC RDW Plt Count MPV Immature Gran % (Auto) Neut % (Auto) Lymph % (Auto) [place] % (Auto) Eos % (Auto) Baso % (Auto) Lymph # (Auto) [place] # (Auto) Eos # (Auto) Baso # (Auto) Abs Immat Gran (auto) Absolute Neuts (auto) Absolute Nucleated RBC Nucleated RBC % (auto) PT INR D-Dimer Hold Blue Top VBG pH VBG pCO2 VBG pO2 VBG HCO3 VBG O2 Saturation VBG Base Excess Sodium Potassium Chloride Carbon Dioxide Anion Gap BUN Creatinine Estim Creat Clear Calc Estimated GFR POC Glucose Random Glucose Estimat Average Glucose Hemoglobin A1c % Lactic Acid Lactic Acid Fup @ 2Hr Calcium Phosphorus Magnesium Ferritin Total Bilirubin Direct Bilirubin AST ALT Alkaline Phosphatase Lactate Dehydrogenase Total Creatine Kinase Troponin I High Sens C-Reactive Protein Total Protein Albumin Procalcitonin Urine Color YELLOW Urine Appearance CLEAR Urine pH 5.5 Ur Specific [place] 1.010 Urine Protein NEG Urine Glucose (UA) >=1000 H Urine Ketones 40 Urine Blood TRACE Urine Nitrite NEG Ur Leukocyte Esterase NEG Urine RBC 0-2 Urine WBC 0-2 Ur Squamous Epith Cells TRACE Urine Bacteria TRACE Urine Opiates Screen Ur Barbiturates Screen Ur Phencyclidine Scrn Ur Amphetamines Screen U Benzodiazepines Scrn Urine Cocaine Screen U Marijuana (THC) Screen Acetone, Qual Moderate H Coronavirus (PCR) COVID-19 (ENE) Cancelled COVID-19 Clin Com Cancelled Influenza Type A (PCR) Influenza Type B (PCR) RSV RNA Qual (PCR) 08/02/20 08/02/20 08/02/20 14:43 14:43 14:43 WBC RBC Hgb Hct MCV MCH MCHC RDW Plt Count MPV Immature Gran % (Auto) Neut % (Auto) Lymph % (Auto) [place] % (Auto) Eos % (Auto) Baso % (Auto) Lymph # (Auto) [place] # (Auto) Eos # (Auto) Baso # (Auto) Abs Immat Gran (auto) Absolute Neuts (auto) Absolute Nucleated RBC Nucleated RBC % (auto) PT INR D-Dimer Hold Blue Top VBG pH 7.21 L VBG pCO2 31 VBG pO2 46 VBG HCO3 13 VBG O2 Saturation 70.0 VBG Base Excess -13.5 Sodium Potassium Chloride Carbon Dioxide Anion Gap BUN Creatinine Estim Creat Clear Calc Estimated GFR POC Glucose Random Glucose Estimat Average Glucose Hemoglobin A1c % Lactic Acid 2.1 H* Lactic Acid Fup @ 2Hr Calcium Phosphorus Magnesium Ferritin Total Bilirubin Direct Bilirubin AST ALT Alkaline Phosphatase Lactate Dehydrogenase Total Creatine Kinase Troponin I High Sens < 3.5 C-Reactive Protein Total Protein Albumin Procalcitonin Urine Color Urine Appearance Urine pH Ur Specific [place] Urine Protein Urine Glucose (UA) Urine Ketones Urine Blood Urine Nitrite Ur Leukocyte Esterase Urine RBC Urine WBC Ur Squamous Epith Cells Urine Bacteria Urine Opiates Screen Ur Barbiturates Screen Ur Phencyclidine Scrn Ur Amphetamines Screen U Benzodiazepines Scrn Urine Cocaine Screen U Marijuana (THC) Screen Acetone, Qual Coronavirus (PCR) COVID-19 (ENE) COVID-19 Clin Com Influenza Type A (PCR) Influenza Type B (PCR) RSV RNA Qual (PCR) 08/02/20 08/02/20 08/02/20 15:07 15:52 15:53 WBC RBC Hgb Hct MCV MCH MCHC RDW Plt Count MPV Immature Gran % (Auto) Neut % (Auto) Lymph % (Auto) [place] % (Auto) Eos % (Auto) Baso % (Auto) Lymph # (Auto) [place] # (Auto) Eos # (Auto) Baso # (Auto) Abs Immat Gran (auto) Absolute Neuts (auto) Absolute Nucleated RBC Nucleated RBC % (auto) PT INR D-Dimer Hold Blue Top VBG pH VBG pCO2 VBG pO2 VBG HCO3 VBG O2 Saturation VBG Base Excess Sodium Potassium Chloride Carbon Dioxide Anion Gap BUN Creatinine Estim Creat Clear Calc Estimated GFR POC Glucose > 600 H* > 600 H* Random Glucose Estimat Average Glucose Hemoglobin A1c % Lactic Acid Lactic Acid Fup @ 2Hr Calcium Phosphorus Magnesium Ferritin Total Bilirubin Direct Bilirubin AST ALT Alkaline Phosphatase Lactate Dehydrogenase Total Creatine Kinase Troponin I High Sens C-Reactive Protein Total Protein Albumin Procalcitonin Urine Color Urine Appearance Urine pH Ur Specific [place] Urine Protein Urine Glucose (UA) Urine Ketones Urine Blood Urine Nitrite Ur Leukocyte Esterase Urine RBC Urine WBC Ur Squamous Epith Cells Urine Bacteria Urine Opiates Screen Ur Barbiturates Screen Ur Phencyclidine Scrn Ur Amphetamines Screen U Benzodiazepines Scrn Urine Cocaine Screen U Marijuana (THC) Screen Acetone, Qual Coronavirus (PCR) POSITIVE A COVID-19 (ENE) COVID-19 Clin Com Influenza Type A (PCR) NEGATIVE Influenza Type B (PCR) NEGATIVE RSV RNA Qual (PCR) NEGATIVE 08/02/20 08/02/20 08/02/20 17:03 17:41 17:41 WBC 8.2 RBC 5.51 Hgb 14.8 Hct 44.8 MCV 81.3 MCH 26.9 L MCHC 33.0 RDW 13.2 Plt Count 199 MPV 10.8 Immature Gran % (Auto) 0.5 H Neut % (Auto) 69.2 Lymph % (Auto) 24.2 [place] % (Auto) 5.8 Eos % (Auto) 0.1 Baso % (Auto) 0.2 Lymph # (Auto) 2.0 [place] # (Auto) 0.5 Eos # (Auto) 0.0 Baso # (Auto) 0.0 Abs Immat Gran (auto) 0.04 H Absolute Neuts (auto) 5.7 Absolute Nucleated RBC 0.000 Nucleated RBC % (auto) 0.0 PT INR D-Dimer 377 Hold Blue Top VBG pH VBG pCO2 VBG pO2 VBG HCO3 VBG O2 Saturation VBG Base Excess Sodium Potassium Chloride Carbon Dioxide Anion Gap BUN Creatinine Estim Creat Clear Calc Estimated GFR POC Glucose > 600 H* Random Glucose Estimat Average Glucose Hemoglobin A1c % Lactic Acid Lactic Acid Fup @ 2Hr Calcium Phosphorus Magnesium Ferritin Total Bilirubin Direct Bilirubin AST ALT Alkaline Phosphatase Lactate Dehydrogenase Total Creatine Kinase Troponin I High Sens C-Reactive Protein Total Protein Albumin Procalcitonin Urine Color Urine Appearance Urine pH Ur Specific [place] Urine Protein Urine Glucose (UA) Urine Ketones Urine Blood Urine Nitrite Ur Leukocyte Esterase Urine RBC Urine WBC Ur Squamous Epith Cells Urine Bacteria Urine Opiates Screen Ur Barbiturates Screen Ur Phencyclidine Scrn Ur Amphetamines Screen U Benzodiazepines Scrn Urine Cocaine Screen U Marijuana (THC) Screen Acetone, Qual Coronavirus (PCR) COVID-19 (ENE) COVID-19 Clin Com Influenza Type A (PCR) Influenza Type B (PCR) RSV RNA Qual (PCR) 08/02/20 08/02/20 08/02/20 17:41 17:41 17:41 WBC RBC Hgb Hct MCV MCH MCHC RDW Plt Count MPV Immature Gran % (Auto) Neut % (Auto) Lymph % (Auto) [place] % (Auto) Eos % (Auto) Baso % (Auto) Lymph # (Auto) [place] # (Auto) Eos # (Auto) Baso # (Auto) Abs Immat Gran (auto) Absolute Neuts (auto) Absolute Nucleated RBC Nucleated RBC % (auto) PT INR D-Dimer Hold Blue Top VBG pH VBG pCO2 VBG pO2 VBG HCO3 VBG O2 Saturation VBG Base Excess Sodium Potassium Chloride Carbon Dioxide Anion Gap BUN Creatinine Estim Creat Clear Calc Estimated GFR POC Glucose Random Glucose Cancelled Estimat Average Glucose Hemoglobin A1c % Lactic Acid Lactic Acid Fup @ 2Hr 1.7 Calcium Phosphorus 4.4 Magnesium 3.3 H Ferritin Total Bilirubin Direct Bilirubin AST ALT Alkaline Phosphatase Lactate Dehydrogenase 192 Total Creatine Kinase 173 Troponin I High Sens C-Reactive Protein 2.76 H Total Protein Albumin Procalcitonin 0.54 Urine Color Urine Appearance Urine pH Ur Specific [place] Urine Protein Urine Glucose (UA) Urine Ketones Urine Blood Urine Nitrite Ur Leukocyte Esterase Urine RBC Urine WBC Ur Squamous Epith Cells Urine Bacteria Urine Opiates Screen Ur Barbiturates Screen Ur Phencyclidine Scrn Ur Amphetamines Screen U Benzodiazepines Scrn Urine Cocaine Screen U Marijuana (THC) Screen Acetone, Qual Coronavirus (PCR) COVID-19 (ENE) COVID-19 Clin Com Influenza Type A (PCR) Influenza Type B (PCR) RSV RNA Qual (PCR) 08/02/20 08/02/20 08/02/20 17:41 17:41 18:22 WBC RBC Hgb Hct MCV MCH MCHC RDW Plt Count MPV Immature Gran % (Auto) Neut % (Auto) Lymph % (Auto) [place] % (Auto) Eos % (Auto) Baso % (Auto) Lymph # (Auto) [place] # (Auto) Eos # (Auto) Baso # (Auto) Abs Immat Gran (auto) Absolute Neuts (auto) Absolute Nucleated RBC Nucleated RBC % (auto) PT INR D-Dimer Hold Blue Top VBG pH VBG pCO2 VBG pO2 VBG HCO3 VBG O2 Saturation VBG Base Excess Sodium 130 L Potassium 5.0 Chloride 92 L Carbon Dioxide 16 L Anion Gap 27 H BUN 45 H Creatinine 2.45 H Estim Creat Clear Calc 46.0 Estimated GFR 30 POC Glucose > 600 H* Random Glucose 684 H* Estimat Average Glucose Hemoglobin A1c % Lactic Acid Lactic Acid Fup @ 2Hr Calcium 8.7 Phosphorus Magnesium Ferritin Total Bilirubin Direct Bilirubin AST ALT Alkaline Phosphatase Lactate Dehydrogenase Total Creatine Kinase Troponin I High Sens C-Reactive Protein Total Protein Albumin Procalcitonin Urine Color Urine Appearance Urine pH Ur Specific [place] Urine Protein Urine Glucose (UA) Urine Ketones Urine Blood Urine Nitrite Ur Leukocyte Esterase Urine RBC Urine WBC Ur Squamous Epith Cells Urine Bacteria Urine Opiates Screen Not Detected Ur Barbiturates Screen Not Detected Ur Phencyclidine Scrn Not Detected Ur Amphetamines Screen Not Detected U Benzodiazepines Scrn Not Detected Urine Cocaine Screen Not Detected U Marijuana (THC) Screen Not Detected Acetone, Qual Coronavirus (PCR) COVID-19 (ENE) COVID-19 Clin Com Influenza Type A (PCR) Influenza Type B (PCR) RSV RNA Qual (PCR) 08/02/20 08/02/20 08/02/20 19:47 21:35 22:15 WBC RBC Hgb Hct MCV MCH MCHC RDW Plt Count MPV Immature Gran % (Auto) Neut % (Auto) Lymph % (Auto) [place] % (Auto) Eos % (Auto) Baso % (Auto) Lymph # (Auto) [place] # (Auto) Eos # (Auto) Baso # (Auto) Abs Immat Gran (auto) Absolute Neuts (auto) Absolute Nucleated RBC Nucleated RBC % (auto) PT INR D-Dimer Hold Blue Top VBG pH VBG pCO2 VBG pO2 VBG HCO3 VBG O2 Saturation VBG Base Excess Sodium 134 L Potassium 4.2 Chloride 99 Carbon Dioxide 18 L Anion Gap 21 H BUN 36 H Creatinine 2.00 H Estim Creat Clear Calc 56.3 Estimated GFR 38 POC Glucose 486 H* 422 H* Random Glucose 438 H* Estimat Average Glucose Hemoglobin A1c % Lactic Acid Lactic Acid Fup @ 2Hr Calcium 8.4 Phosphorus 2.6 L Magnesium 3.0 H Ferritin Total Bilirubin Direct Bilirubin AST ALT Alkaline Phosphatase Lactate Dehydrogenase Total Creatine Kinase Troponin I High Sens C-Reactive Protein Total Protein Albumin Procalcitonin Urine Color Urine Appearance Urine pH Ur Specific [place] Urine Protein Urine Glucose (UA) Urine Ketones Urine Blood Urine Nitrite Ur Leukocyte Esterase Urine RBC Urine WBC Ur Squamous Epith Cells Urine Bacteria Urine Opiates Screen Ur Barbiturates Screen Ur Phencyclidine Scrn Ur Amphetamines Screen U Benzodiazepines Scrn Urine Cocaine Screen U Marijuana (THC) Screen Acetone, Qual Coronavirus (PCR) COVID-19 (ENE) COVID-19 Clin Com Influenza Type A (PCR) Influenza Type B (PCR) RSV RNA Qual (PCR) 08/02/20 08/02/20 08/02/20 22:15 22:35 23:43 WBC RBC Hgb Hct MCV MCH MCHC RDW Plt Count MPV Immature Gran % (Auto) Neut % (Auto) Lymph % (Auto) [place] % (Auto) Eos % (Auto) Baso % (Auto) Lymph # (Auto) [place] # (Auto) Eos # (Auto) Baso # (Auto) Abs Immat Gran (auto) Absolute Neuts (auto) Absolute Nucleated RBC Nucleated RBC % (auto) PT INR D-Dimer Hold Blue Top VBG pH 7.29 L VBG pCO2 37 VBG pO2 54 VBG HCO3 18 VBG O2 Saturation 83.0 VBG Base Excess -7.5 Sodium Potassium Chloride Carbon Dioxide Anion Gap BUN Creatinine Estim Creat Clear Calc Estimated GFR POC Glucose 402 H* 333 H Random Glucose Estimat Average Glucose Hemoglobin A1c % Lactic Acid Lactic Acid Fup @ 2Hr Calcium Phosphorus Magnesium Ferritin Total Bilirubin Direct Bilirubin AST ALT Alkaline Phosphatase Lactate Dehydrogenase Total Creatine Kinase Troponin I High Sens C-Reactive Protein Total Protein Albumin Procalcitonin Urine Color Urine Appearance Urine pH Ur Specific [place] Urine Protein Urine Glucose (UA) Urine Ketones Urine Blood Urine Nitrite Ur Leukocyte Esterase Urine RBC Urine WBC Ur Squamous Epith Cells Urine Bacteria Urine Opiates Screen Ur Barbiturates Screen Ur Phencyclidine Scrn Ur Amphetamines Screen U Benzodiazepines Scrn Urine Cocaine Screen U Marijuana (THC) Screen Acetone, Qual Coronavirus (PCR) COVID-19 (ENE) COVID-19 Clin Com Influenza Type A (PCR) Influenza Type B (PCR) RSV RNA Qual (PCR) 08/03/20 08/03/20 08/03/20 00:56 02:09 03:46 WBC RBC Hgb Hct MCV MCH MCHC RDW Plt Count MPV Immature Gran % (Auto) Neut % (Auto) Lymph % (Auto) [place] % (Auto) Eos % (Auto) Baso % (Auto) Lymph # (Auto) [place] # (Auto) Eos # (Auto) Baso # (Auto) Abs Immat Gran (auto) Absolute Neuts (auto) Absolute Nucleated RBC Nucleated RBC % (auto) PT INR D-Dimer Hold Blue Top VBG pH VBG pCO2 VBG pO2 VBG HCO3 VBG O2 Saturation VBG Base Excess Sodium Potassium Chloride Carbon Dioxide Anion Gap BUN Creatinine Estim Creat Clear Calc Estimated GFR POC Glucose 308 H 304 H 273 H Random Glucose Estimat Average Glucose Hemoglobin A1c % Lactic Acid Lactic Acid Fup @ 2Hr Calcium Phosphorus Magnesium Ferritin Total Bilirubin Direct Bilirubin AST ALT Alkaline Phosphatase Lactate Dehydrogenase Total Creatine Kinase Troponin I High Sens C-Reactive Protein Total Protein Albumin Procalcitonin Urine Color Urine Appearance Urine pH Ur Specific [place] Urine Protein Urine Glucose (UA) Urine Ketones Urine Blood Urine Nitrite Ur Leukocyte Esterase Urine RBC Urine WBC Ur Squamous Epith Cells Urine Bacteria Urine Opiates Screen Ur Barbiturates Screen Ur Phencyclidine Scrn Ur Amphetamines Screen U Benzodiazepines Scrn Urine Cocaine Screen U Marijuana (THC) Screen Acetone, Qual Coronavirus (PCR) COVID-19 (ENE) COVID-19 Clin Com Influenza Type A (PCR) Influenza Type B (PCR) RSV RNA Qual (PCR) 08/03/20 08/03/20 08/03/20 05:44 06:44 06:45 WBC 7.9 RBC 4.73 Hgb 12.8 L Hct 38.1 L MCV 80.5 MCH 27.1 MCHC 33.6 RDW 13.3 Plt Count 170 MPV 10.6 Immature Gran % (Auto) 0.4 Neut % (Auto) 62.0 Lymph % (Auto) 27.3 [place] % (Auto) 9.7 Eos % (Auto) 0.5 Baso % (Auto) 0.1 Lymph # (Auto) 2.2 [place] # (Auto) 0.8 Eos # (Auto) 0.0 Baso # (Auto) 0.0 Abs Immat Gran (auto) 0.03 Absolute Neuts (auto) 4.9 Absolute Nucleated RBC 0.000 Nucleated RBC % (auto) 0.0 PT INR D-Dimer Hold Blue Top VBG pH VBG pCO2 VBG pO2 VBG HCO3 VBG O2 Saturation VBG Base Excess Sodium Potassium Chloride Carbon Dioxide Anion Gap BUN Creatinine Estim Creat Clear Calc Estimated GFR POC Glucose 193 H Random Glucose Estimat Average Glucose Hemoglobin A1c % Lactic Acid Lactic Acid Fup @ 2Hr Calcium Phosphorus Magnesium Ferritin Total Bilirubin Direct Bilirubin AST ALT Alkaline Phosphatase Lactate Dehydrogenase Total Creatine Kinase Troponin I High Sens C-Reactive Protein Total Protein Albumin Procalcitonin 0.41 Urine Color Urine Appearance Urine pH Ur Specific [place] Urine Protein Urine Glucose (UA) Urine Ketones Urine Blood Urine Nitrite Ur Leukocyte Esterase Urine RBC Urine WBC Ur Squamous Epith Cells Urine Bacteria Urine Opiates Screen Ur Barbiturates Screen Ur Phencyclidine Scrn Ur Amphetamines Screen U Benzodiazepines Scrn Urine Cocaine Screen U Marijuana (THC) Screen Acetone, Qual Coronavirus (PCR) COVID-19 (ENE) COVID-19 Clin Com Influenza Type A (PCR) Influenza Type B (PCR) RSV RNA Qual (PCR) 08/03/20 08/03/20 08/03/20 06:45 06:45 06:49 WBC RBC Hgb Hct MCV MCH MCHC RDW Plt Count MPV Immature Gran % (Auto) Neut % (Auto) Lymph % (Auto) [place] % (Auto) Eos % (Auto) Baso % (Auto) Lymph # (Auto) [place] # (Auto) Eos # (Auto) Baso # (Auto) Abs Immat Gran (auto) Absolute Neuts (auto) Absolute Nucleated RBC Nucleated RBC % (auto) PT INR D-Dimer 388 Hold Blue Top VBG pH VBG pCO2 VBG pO2 VBG HCO3 VBG O2 Saturation VBG Base Excess Sodium Potassium Chloride Carbon Dioxide Anion Gap BUN Creatinine Estim Creat Clear Calc Estimated GFR POC Glucose 201 H Random Glucose 199 H D Estimat Average Glucose Hemoglobin A1c % Lactic Acid Lactic Acid Fup @ 2Hr Calcium Phosphorus 2.1 L Magnesium 2.5 Ferritin Total Bilirubin Direct Bilirubin AST ALT Alkaline Phosphatase Lactate Dehydrogenase 171 Total Creatine Kinase 512 H D Troponin I High Sens C-Reactive Protein 3.09 H Total Protein Albumin Procalcitonin Urine Color Urine Appearance Urine pH Ur Specific [place] Urine Protein Urine Glucose (UA) Urine Ketones Urine Blood Urine Nitrite Ur Leukocyte Esterase Urine RBC Urine WBC Ur Squamous Epith Cells Urine Bacteria Urine Opiates Screen Ur Barbiturates Screen Ur Phencyclidine Scrn Ur Amphetamines Screen U Benzodiazepines Scrn Urine Cocaine Screen U Marijuana (THC) Screen Acetone, Qual Coronavirus (PCR) COVID-19 (ENE) COVID-19 Clin Com Influenza Type A (PCR) Influenza Type B (PCR) RSV RNA Qual (PCR) 08/03/20 08/03/20 08/03/20 07:49 08:53 09:30 WBC RBC Hgb Hct MCV MCH MCHC RDW Plt Count MPV Immature Gran % (Auto) Neut % (Auto) Lymph % (Auto) [place] % (Auto) Eos % (Auto) Baso % (Auto) Lymph # (Auto) [place] # (Auto) Eos # (Auto) Baso # (Auto) Abs Immat Gran (auto) Absolute Neuts (auto) Absolute Nucleated RBC Nucleated RBC % (auto) PT INR D-Dimer Hold Blue Top VBG pH VBG pCO2 VBG pO2 VBG HCO3 VBG O2 Saturation VBG Base Excess Sodium 137 Potassium 3.7 Chloride 105 Carbon Dioxide 22 Anion Gap 14 BUN 22 H Creatinine 1.48 H Estim Creat Clear Calc 87.5 Estimated GFR 54 POC Glucose 213 H 185 H Random Glucose 198 H Estimat Average Glucose Hemoglobin A1c % Lactic Acid Lactic Acid Fup @ 2Hr Calcium 7.5 L D Phosphorus Magnesium Ferritin Total Bilirubin 0.3 Direct Bilirubin 0.2 AST 38 H ALT 57 H Alkaline Phosphatase 68 D Lactate Dehydrogenase Total Creatine Kinase Troponin I High Sens C-Reactive Protein Total Protein 6.7 D Albumin 3.7 Procalcitonin Urine Color Urine Appearance Urine pH Ur Specific [place] Urine Protein Urine Glucose (UA) Urine Ketones Urine Blood Urine Nitrite Ur Leukocyte Esterase Urine RBC Urine WBC Ur Squamous Epith Cells Urine Bacteria Urine Opiates Screen Ur Barbiturates Screen Ur Phencyclidine Scrn Ur Amphetamines Screen U Benzodiazepines Scrn Urine Cocaine Screen U Marijuana (THC) Screen Acetone, Qual Coronavirus (PCR) COVID-19 (ENE) COVID-19 Clin Com Influenza Type A (PCR) Influenza Type B (PCR) RSV RNA Qual (PCR) 08/03/20 08/03/20 08/03/20 09:30 09:30 09:54 WBC RBC Hgb Hct MCV MCH MCHC RDW Plt Count MPV Immature Gran % (Auto) Neut % (Auto) Lymph % (Auto) [place] % (Auto) Eos % (Auto) Baso % (Auto) Lymph # (Auto) [place] # (Auto) Eos # (Auto) Baso # (Auto) Abs Immat Gran (auto) Absolute Neuts (auto) Absolute Nucleated RBC Nucleated RBC % (auto) PT 12.9 INR 1.1 D-Dimer Hold Blue Top VBG pH 7.34 VBG pCO2 40 VBG pO2 101 VBG HCO3 22 VBG O2 Saturation 98.0 VBG Base Excess -3.1 Sodium Potassium Chloride Carbon Dioxide Anion Gap BUN Creatinine Estim Creat Clear Calc Estimated GFR POC Glucose 260 H Random Glucose Estimat Average Glucose Hemoglobin A1c % Lactic Acid Lactic Acid Fup @ 2Hr Calcium Phosphorus Magnesium Ferritin Total Bilirubin Direct Bilirubin AST ALT Alkaline Phosphatase Lactate Dehydrogenase Total Creatine Kinase Troponin I High Sens C-Reactive Protein Total Protein Albumin Procalcitonin Urine Color Urine Appearance Urine pH Ur Specific [place] Urine Protein Urine Glucose (UA) Urine Ketones Urine Blood Urine Nitrite Ur Leukocyte Esterase Urine RBC Urine WBC Ur Squamous Epith Cells Urine Bacteria Urine Opiates Screen Ur Barbiturates Screen Ur Phencyclidine Scrn Ur Amphetamines Screen U Benzodiazepines Scrn Urine Cocaine Screen U Marijuana (THC) Screen Acetone, Qual Coronavirus (PCR) COVID-19 (ENE) COVID-19 Clin Com Influenza Type A (PCR) Influenza Type B (PCR) RSV RNA Qual (PCR) 08/03/20 08/03/20 08/03/20 11:03 12:05 12:06 WBC RBC Hgb Hct MCV MCH MCHC RDW Plt Count MPV Immature Gran % (Auto) Neut % (Auto) Lymph % (Auto) [place] % (Auto) Eos % (Auto) Baso % (Auto) Lymph # (Auto) [place] # (Auto) Eos # (Auto) Baso # (Auto) Abs Immat Gran (auto) Absolute Neuts (auto) Absolute Nucleated RBC Nucleated RBC % (auto) PT INR D-Dimer Hold Blue Top VBG pH VBG pCO2 VBG pO2 VBG HCO3 VBG O2 Saturation VBG Base Excess Sodium Potassium Chloride Carbon Dioxide Anion Gap BUN Creatinine Estim Creat Clear Calc Estimated GFR POC Glucose 330 H 369 H* 367 H* Random Glucose Estimat Average Glucose Hemoglobin A1c % Lactic Acid Lactic Acid Fup @ 2Hr Calcium Phosphorus Magnesium Ferritin Total Bilirubin Direct Bilirubin AST ALT Alkaline Phosphatase Lactate Dehydrogenase Total Creatine Kinase Troponin I High Sens C-Reactive Protein Total Protein Albumin Procalcitonin Urine Color Urine Appearance Urine pH Ur Specific [place] Urine Protein Urine Glucose (UA) Urine Ketones Urine Blood Urine Nitrite Ur Leukocyte Esterase Urine RBC Urine WBC Ur Squamous Epith Cells Urine Bacteria Urine Opiates Screen Ur Barbiturates Screen Ur Phencyclidine Scrn Ur Amphetamines Screen U Benzodiazepines Scrn Urine Cocaine Screen U Marijuana (THC) Screen Acetone, Qual Coronavirus (PCR) COVID-19 (ENE) COVID-19 Clin Com Influenza Type A (PCR) Influenza Type B (PCR) RSV RNA Qual (PCR) 08/03/20 08/03/20 08/03/20 13:14 14:04 15:30 WBC RBC Hgb Hct MCV MCH MCHC RDW Plt Count MPV Immature Gran % (Auto) Neut % (Auto) Lymph % (Auto) [place] % (Auto) Eos % (Auto) Baso % (Auto) Lymph # (Auto) [place] # (Auto) Eos # (Auto) Baso # (Auto) Abs Immat Gran (auto) Absolute Neuts (auto) Absolute Nucleated RBC Nucleated RBC % (auto) PT INR D-Dimer Hold Blue Top VBG pH VBG pCO2 VBG pO2 VBG HCO3 VBG O2 Saturation VBG Base Excess Sodium Potassium Chloride Carbon Dioxide Anion Gap BUN Creatinine Estim Creat Clear Calc Estimated GFR POC Glucose 353 H* 338 H 289 H Random Glucose Estimat Average Glucose Hemoglobin A1c % Lactic Acid Lactic Acid Fup @ 2Hr Calcium Phosphorus Magnesium Ferritin Total Bilirubin Direct Bilirubin AST ALT Alkaline Phosphatase Lactate Dehydrogenase Total Creatine Kinase Troponin I High Sens C-Reactive Protein Total Protein Albumin Procalcitonin Urine Color Urine Appearance Urine pH Ur Specific [place] Urine Protein Urine Glucose (UA) Urine Ketones Urine Blood Urine Nitrite Ur Leukocyte Esterase Urine RBC Urine WBC Ur Squamous Epith Cells Urine Bacteria Urine Opiates Screen Ur Barbiturates Screen Ur Phencyclidine Scrn Ur Amphetamines Screen U Benzodiazepines Scrn Urine Cocaine Screen U Marijuana (THC) Screen Acetone, Qual Coronavirus (PCR) COVID-19 (ENE) COVID-19 Clin Com Influenza Type A (PCR) Influenza Type B (PCR) RSV RNA Qual (PCR) 08/03/20 08/03/20 08/03/20 16:10 16:10 16:33 WBC RBC Hgb Hct MCV MCH MCHC RDW Plt Count MPV Immature Gran % (Auto) Neut % (Auto) Lymph % (Auto) [place] % (Auto) Eos % (Auto) Baso % (Auto) Lymph # (Auto) [place] # (Auto) Eos # (Auto) Baso # (Auto) Abs Immat Gran (auto) Absolute Neuts (auto) Absolute Nucleated RBC Nucleated RBC % (auto) PT INR D-Dimer Hold Blue Top VBG pH 7.36 VBG pCO2 36 VBG pO2 155 VBG HCO3 21 VBG O2 Saturation 99.0 VBG Base Excess -3.7 Sodium 132 L Potassium 3.7 Chloride 102 Carbon Dioxide 22 Anion Gap 12 BUN 19 H Creatinine 1.45 H Estim Creat Clear Calc 89.3 Estimated GFR 55 POC Glucose 265 H Random Glucose 280 H D Estimat Average Glucose Hemoglobin A1c % Lactic Acid Lactic Acid Fup @ 2Hr Calcium 7.3 L Phosphorus Magnesium Ferritin Total Bilirubin Direct Bilirubin AST ALT Alkaline Phosphatase Lactate Dehydrogenase Total Creatine Kinase Troponin I High Sens C-Reactive Protein Total Protein Albumin Procalcitonin Urine Color Urine Appearance Urine pH Ur Specific [place] Urine Protein Urine Glucose (UA) Urine Ketones Urine Blood Urine Nitrite Ur Leukocyte Esterase Urine RBC Urine WBC Ur Squamous Epith Cells Urine Bacteria Urine Opiates Screen Ur Barbiturates Screen Ur Phencyclidine Scrn Ur Amphetamines Screen U Benzodiazepines Scrn Urine Cocaine Screen U Marijuana (THC) Screen Acetone, Qual Coronavirus (PCR) COVID-19 (ENE) COVID-19 Clin Com Influenza Type A (PCR) Influenza Type B (PCR) RSV RNA Qual (PCR) 08/03/20 08/03/20 08/03/20 17:27 18:26 19:23 WBC RBC Hgb Hct MCV MCH MCHC RDW Plt Count MPV Immature Gran % (Auto) Neut % (Auto) Lymph % (Auto) [place] % (Auto) Eos % (Auto) Baso % (Auto) Lymph # (Auto) [place] # (Auto) Eos # (Auto) Baso # (Auto) Abs Immat Gran (auto) Absolute Neuts (auto) Absolute Nucleated RBC Nucleated RBC % (auto) PT INR D-Dimer Hold Blue Top VBG pH VBG pCO2 VBG pO2 VBG HCO3 VBG O2 Saturation VBG Base Excess Sodium Potassium Chloride Carbon Dioxide Anion Gap BUN Creatinine Estim Creat Clear Calc Estimated GFR POC Glucose 310 H 329 H 274 H Random Glucose Estimat Average Glucose Hemoglobin A1c % Lactic Acid Lactic Acid Fup @ 2Hr Calcium Phosphorus Magnesium Ferritin Total Bilirubin Direct Bilirubin AST ALT Alkaline Phosphatase Lactate Dehydrogenase Total Creatine Kinase Troponin I High Sens C-Reactive Protein Total Protein Albumin Procalcitonin Urine Color Urine Appearance Urine pH Ur Specific [place] Urine Protein Urine Glucose (UA) Urine Ketones Urine Blood Urine Nitrite Ur Leukocyte Esterase Urine RBC Urine WBC Ur Squamous Epith Cells Urine Bacteria Urine Opiates Screen Ur Barbiturates Screen Ur Phencyclidine Scrn Ur Amphetamines Screen U Benzodiazepines Scrn Urine Cocaine Screen U Marijuana (THC) Screen Acetone, Qual Coronavirus (PCR) COVID-19 (ENE) COVID-19 Clin Com Influenza Type A (PCR) Influenza Type B (PCR) RSV RNA Qual (PCR) 08/03/20 08/03/20 08/03/20 20:35 21:46 23:36 WBC RBC Hgb Hct MCV MCH MCHC RDW Plt Count MPV Immature Gran % (Auto) Neut % (Auto) Lymph % (Auto) [place] % (Auto) Eos % (Auto) Baso % (Auto) Lymph # (Auto) [place] # (Auto) Eos # (Auto) Baso # (Auto) Abs Immat Gran (auto) Absolute Neuts (auto) Absolute Nucleated RBC Nucleated RBC % (auto) PT INR D-Dimer Hold Blue Top VBG pH VBG pCO2 VBG pO2 VBG HCO3 VBG O2 Saturation VBG Base Excess Sodium Potassium Chloride Carbon Dioxide Anion Gap BUN Creatinine Estim Creat Clear Calc Estimated GFR POC Glucose 206 H 212 H 190 H Random Glucose Estimat Average Glucose Hemoglobin A1c % Lactic Acid Lactic Acid Fup @ 2Hr Calcium Phosphorus Magnesium Ferritin Total Bilirubin Direct Bilirubin AST ALT Alkaline Phosphatase Lactate Dehydrogenase Total Creatine Kinase Troponin I High Sens C-Reactive Protein Total Protein Albumin Procalcitonin Urine Color Urine Appearance Urine pH Ur Specific [place] Urine Protein Urine Glucose (UA) Urine Ketones Urine Blood Urine Nitrite Ur Leukocyte Esterase Urine RBC Urine WBC Ur Squamous Epith Cells Urine Bacteria Urine Opiates Screen Ur Barbiturates Screen Ur Phencyclidine Scrn Ur Amphetamines Screen U Benzodiazepines Scrn Urine Cocaine Screen U Marijuana (THC) Screen Acetone, Qual Coronavirus (PCR) COVID-19 (ENE) COVID-19 Clin Com Influenza Type A (PCR) Influenza Type B (PCR) RSV RNA Qual (PCR) 08/04/20 08/04/20 08/04/20 02:01 03:11 04:58 WBC RBC Hgb Hct MCV MCH MCHC RDW Plt Count MPV Immature Gran % (Auto) Neut % (Auto) Lymph % (Auto) [place] % (Auto) Eos % (Auto) Baso % (Auto) Lymph # (Auto) [place] # (Auto) Eos # (Auto) Baso # (Auto) Abs Immat Gran (auto) Absolute Neuts (auto) Absolute Nucleated RBC Nucleated RBC % (auto) PT INR D-Dimer Hold Blue Top VBG pH VBG pCO2 VBG pO2 VBG HCO3 VBG O2 Saturation VBG Base Excess Sodium Potassium Chloride Carbon Dioxide Anion Gap BUN Creatinine Estim Creat Clear Calc Estimated GFR POC Glucose 315 H 352 H* 377 H* Random Glucose Estimat Average Glucose Hemoglobin A1c % Lactic Acid Lactic Acid Fup @ 2Hr Calcium Phosphorus Magnesium Ferritin Total Bilirubin Direct Bilirubin AST ALT Alkaline Phosphatase Lactate Dehydrogenase Total Creatine Kinase Troponin I High Sens C-Reactive Protein Total Protein Albumin Procalcitonin Urine Color Urine Appearance Urine pH Ur Specific [place] Urine Protein Urine Glucose (UA) Urine Ketones Urine Blood Urine Nitrite Ur Leukocyte Esterase Urine RBC Urine WBC Ur Squamous Epith Cells Urine Bacteria Urine Opiates Screen Ur Barbiturates Screen Ur Phencyclidine Scrn Ur Amphetamines Screen U Benzodiazepines Scrn Urine Cocaine Screen U Marijuana (THC) Screen Acetone, Qual Coronavirus (PCR) COVID-19 (ENE) COVID-19 Clin Com Influenza Type A (PCR) Influenza Type B (PCR) RSV RNA Qual (PCR) 08/04/20 08/04/20 08/04/20 05:25 05:25 05:25 WBC 6.1 RBC 4.55 L Hgb 12.1 L Hct 36.6 L MCV 80.4 MCH 26.6 L MCHC 33.1 RDW 13.1 Plt Count 142 L MPV 10.6 Immature Gran % (Auto) 0.8 H Neut % (Auto) 80.6 H Lymph % (Auto) 16.5 L [place] % (Auto) 2.1 Eos % (Auto) 0.0 Baso % (Auto) 0.0 Lymph # (Auto) 1.0 L [place] # (Auto) 0.1 Eos # (Auto) 0.0 Baso # (Auto) 0.0 Abs Immat Gran (auto) 0.05 H Absolute Neuts (auto) 4.9 Absolute Nucleated RBC 0.000 Nucleated RBC % (auto) 0.0 PT INR D-Dimer 495 Hold Blue Top VBG pH VBG pCO2 VBG pO2 VBG HCO3 VBG O2 Saturation VBG Base Excess Sodium 131 L Potassium 4.0 Chloride 103 Carbon Dioxide 16 L Anion Gap 16 BUN 14 Creatinine 1.17 Estim Creat Clear Calc 110.7 Estimated GFR > 60 POC Glucose Random Glucose 372 H* Estimat Average Glucose Hemoglobin A1c % Lactic Acid Lactic Acid Fup @ 2Hr Calcium 7.5 L Phosphorus 1.2 L Magnesium 1.9 Ferritin 2366 H Total Bilirubin 0.3 Direct Bilirubin 0.2 AST 34 ALT 46 H Alkaline Phosphatase 65 Lactate Dehydrogenase 195 Total Creatine Kinase Troponin I High Sens C-Reactive Protein Total Protein 6.2 L Albumin 3.5 Procalcitonin Urine Color Urine Appearance Urine pH Ur Specific [place] Urine Protein Urine Glucose (UA) Urine Ketones Urine Blood Urine Nitrite Ur Leukocyte Esterase Urine RBC Urine WBC Ur Squamous Epith Cells Urine Bacteria Urine Opiates Screen Ur Barbiturates Screen Ur Phencyclidine Scrn Ur Amphetamines Screen U Benzodiazepines Scrn Urine Cocaine Screen U Marijuana (THC) Screen Acetone, Qual Coronavirus (PCR) COVID-19 (ENE) COVID-19 Clin Com Influenza Type A (PCR) Influenza Type B (PCR) RSV RNA Qual (PCR) 08/04/20 08/04/20 08/04/20 05:25 05:25 06:24 WBC RBC Hgb Hct MCV MCH MCHC RDW Plt Count MPV Immature Gran % (Auto) Neut % (Auto) Lymph % (Auto) [place] % (Auto) Eos % (Auto) Baso % (Auto) Lymph # (Auto) [place] # (Auto) Eos # (Auto) Baso # (Auto) Abs Immat Gran (auto) Absolute Neuts (auto) Absolute Nucleated RBC Nucleated RBC % (auto) PT INR D-Dimer Hold Blue Top VBG pH 7.35 VBG pCO2 29 VBG pO2 75 VBG HCO3 16 VBG O2 Saturation 96.0 VBG Base Excess -7.2 Sodium Potassium Chloride Carbon Dioxide Anion Gap BUN Creatinine Estim Creat Clear Calc Estimated GFR POC Glucose 334 H Random Glucose Estimat Average Glucose 321 Hemoglobin A1c % 12.8 Lactic Acid Lactic Acid Fup @ 2Hr Calcium Phosphorus Magnesium Ferritin Total Bilirubin Direct Bilirubin AST ALT Alkaline Phosphatase Lactate Dehydrogenase Total Creatine Kinase Troponin I High Sens C-Reactive Protein Total Protein Albumin Procalcitonin Urine Color Urine Appearance Urine pH Ur Specific [place] Urine Protein Urine Glucose (UA) Urine Ketones Urine Blood Urine Nitrite Ur Leukocyte Esterase Urine RBC Urine WBC Ur Squamous Epith Cells Urine Bacteria Urine Opiates Screen Ur Barbiturates Screen Ur Phencyclidine Scrn Ur Amphetamines Screen U Benzodiazepines Scrn Urine Cocaine Screen U Marijuana (THC) Screen Acetone, Qual Coronavirus (PCR) COVID-19 (ENE) COVID-19 Clin Com Influenza Type A (PCR) Influenza Type B (PCR) RSV RNA Qual (PCR) 08/04/20 08/04/20 08/04/20 08:03 08:56 09:59 WBC RBC Hgb Hct MCV MCH MCHC RDW Plt Count MPV Immature Gran % (Auto) Neut % (Auto) Lymph % (Auto) [place] % (Auto) Eos % (Auto) Baso % (Auto) Lymph # (Auto) [place] # (Auto) Eos # (Auto) Baso # (Auto) Abs Immat Gran (auto) Absolute Neuts (auto) Absolute Nucleated RBC Nucleated RBC % (auto) PT INR D-Dimer Hold Blue Top VBG pH VBG pCO2 VBG pO2 VBG HCO3 VBG O2 Saturation VBG Base Excess Sodium Potassium Chloride Carbon Dioxide Anion Gap BUN Creatinine Estim Creat Clear Calc Estimated GFR POC Glucose 295 H 291 H 368 H* Random Glucose Estimat Average Glucose Hemoglobin A1c % Lactic Acid Lactic Acid Fup @ 2Hr Calcium Phosphorus Magnesium Ferritin Total Bilirubin Direct Bilirubin AST ALT Alkaline Phosphatase Lactate Dehydrogenase Total Creatine Kinase Troponin I High Sens C-Reactive Protein Total Protein Albumin Procalcitonin Urine Color Urine Appearance Urine pH Ur Specific [place] Urine Protein Urine Glucose (UA) Urine Ketones Urine Blood Urine Nitrite Ur Leukocyte Esterase Urine RBC Urine WBC Ur Squamous Epith Cells Urine Bacteria Urine Opiates Screen Ur Barbiturates Screen Ur Phencyclidine Scrn Ur Amphetamines Screen U Benzodiazepines Scrn Urine Cocaine Screen U Marijuana (THC) Screen Acetone, Qual Coronavirus (PCR) COVID-19 (ENE) COVID-19 Clin Com Influenza Type A (PCR) Influenza Type B (PCR) RSV RNA Qual (PCR) 08/04/20 08/04/20 08/04/20 10:53 10:55 11:53 WBC RBC Hgb Hct MCV MCH MCHC RDW Plt Count MPV Immature Gran % (Auto) Neut % (Auto) Lymph % (Auto) [place] % (Auto) Eos % (Auto) Baso % (Auto) Lymph # (Auto) [place] # (Auto) Eos # (Auto) Baso # (Auto) Abs Immat Gran (auto) Absolute Neuts (auto) Absolute Nucleated RBC Nucleated RBC % (auto) PT INR D-Dimer Hold Blue Top VBG pH VBG pCO2 VBG pO2 VBG HCO3 VBG O2 Saturation VBG Base Excess Sodium Potassium Chloride Carbon Dioxide Anion Gap BUN Creatinine Estim Creat Clear Calc Estimated GFR POC Glucose 365 H* 361 H* 289 H Random Glucose Estimat Average Glucose Hemoglobin A1c % Lactic Acid Lactic Acid Fup @ 2Hr Calcium Phosphorus Magnesium Ferritin Total Bilirubin Direct Bilirubin AST ALT Alkaline Phosphatase Lactate Dehydrogenase Total Creatine Kinase Troponin I High Sens C-Reactive Protein Total Protein Albumin Procalcitonin Urine Color Urine Appearance Urine pH Ur Specific [place] Urine Protein Urine Glucose (UA) Urine Ketones Urine Blood Urine Nitrite Ur Leukocyte Esterase Urine RBC Urine WBC Ur Squamous Epith Cells Urine Bacteria Urine Opiates Screen Ur Barbiturates Screen Ur Phencyclidine Scrn Ur Amphetamines Screen U Benzodiazepines Scrn Urine Cocaine Screen U Marijuana (THC) Screen Acetone, Qual Coronavirus (PCR) COVID-19 (ENE) COVID-19 Clin Com Influenza Type A (PCR) Influenza Type B (PCR) RSV RNA Qual (PCR) 08/04/20 08/04/20 08/04/20 12:15 12:53 13:53 WBC RBC Hgb Hct MCV MCH MCHC RDW Plt Count MPV Immature Gran % (Auto) Neut % (Auto) Lymph % (Auto) [place] % (Auto) Eos % (Auto) Baso % (Auto) Lymph # (Auto) [place] # (Auto) Eos # (Auto) Baso # (Auto) Abs Immat Gran (auto) Absolute Neuts (auto) Absolute Nucleated RBC Nucleated RBC % (auto) PT INR D-Dimer Hold Blue Top VBG pH VBG pCO2 VBG pO2 VBG HCO3 VBG O2 Saturation VBG Base Excess Sodium 136 Potassium 3.8 Chloride 103 Carbon Dioxide 22 Anion Gap 15 BUN 13 Creatinine 1.07 Estim Creat Clear Calc 123.3 Estimated GFR > 60 POC Glucose 257 H 325 H Random Glucose 293 H Estimat Average Glucose Hemoglobin A1c % Lactic Acid Lactic Acid Fup @ 2Hr Calcium 7.7 L Phosphorus Magnesium Ferritin Total Bilirubin Direct Bilirubin AST ALT Alkaline Phosphatase Lactate Dehydrogenase Total Creatine Kinase Troponin I High Sens C-Reactive Protein Total Protein Albumin Procalcitonin Urine Color Urine Appearance Urine pH Ur Specific [place] Urine Protein Urine Glucose (UA) Urine Ketones Urine Blood Urine Nitrite Ur Leukocyte Esterase Urine RBC Urine WBC Ur Squamous Epith Cells Urine Bacteria Urine Opiates Screen Ur Barbiturates Screen Ur Phencyclidine Scrn Ur Amphetamines Screen U Benzodiazepines Scrn Urine Cocaine Screen U Marijuana (THC) Screen Acetone, Qual Coronavirus (PCR) COVID-19 (ENE) COVID-19 Clin Com Influenza Type A (PCR) Influenza Type B (PCR) RSV RNA Qual (PCR) 08/04/20 08/04/20 08/04/20 15:40 16:30 17:31 WBC RBC Hgb Hct MCV MCH MCHC RDW Plt Count MPV Immature Gran % (Auto) Neut % (Auto) Lymph % (Auto) [place] % (Auto) Eos % (Auto) Baso % (Auto) Lymph # (Auto) [place] # (Auto) Eos # (Auto) Baso # (Auto) Abs Immat Gran (auto) Absolute Neuts (auto) Absolute Nucleated RBC Nucleated RBC % (auto) PT INR D-Dimer Hold Blue Top VBG pH VBG pCO2 VBG pO2 VBG HCO3 VBG O2 Saturation VBG Base Excess Sodium Potassium Chloride Carbon Dioxide Anion Gap BUN Creatinine Estim Creat Clear Calc Estimated GFR POC Glucose 253 H 290 H 298 H Random Glucose Estimat Average Glucose Hemoglobin A1c % Lactic Acid Lactic Acid Fup @ 2Hr Calcium Phosphorus Magnesium Ferritin Total Bilirubin Direct Bilirubin AST ALT Alkaline Phosphatase Lactate Dehydrogenase Total Creatine Kinase Troponin I High Sens C-Reactive Protein Total Protein Albumin Procalcitonin Urine Color Urine Appearance Urine pH Ur Specific [place] Urine Protein Urine Glucose (UA) Urine Ketones Urine Blood Urine Nitrite Ur Leukocyte Esterase Urine RBC Urine WBC Ur Squamous Epith Cells Urine Bacteria Urine Opiates Screen Ur Barbiturates Screen Ur Phencyclidine Scrn Ur Amphetamines Screen U Benzodiazepines Scrn Urine Cocaine Screen U Marijuana (THC) Screen Acetone, Qual Coronavirus (PCR) COVID-19 (ENE) COVID-19 Clin Com Influenza Type A (PCR) Influenza Type B (PCR) RSV RNA Qual (PCR) 08/04/20 08/04/20 08/04/20 18:25 18:58 19:34 WBC RBC Hgb Hct MCV MCH MCHC RDW Plt Count MPV Immature Gran % (Auto) Neut % (Auto) Lymph % (Auto) [place] % (Auto) Eos % (Auto) Baso % (Auto) Lymph # (Auto) [place] # (Auto) Eos # (Auto) Baso # (Auto) Abs Immat Gran (auto) Absolute Neuts (auto) Absolute Nucleated RBC Nucleated RBC % (auto) PT INR D-Dimer Hold Blue Top VBG pH VBG pCO2 VBG pO2 VBG HCO3 VBG O2 Saturation VBG Base Excess Sodium 136 Potassium 4.2 Chloride 105 Carbon Dioxide 21 L Anion Gap 14 BUN 13 Creatinine 1.02 Estim Creat Clear Calc 129.4 Estimated GFR > 60 POC Glucose 279 H 293 H Random Glucose 293 H Estimat Average Glucose Hemoglobin A1c % Lactic Acid Lactic Acid Fup @ 2Hr Calcium 7.7 L Phosphorus Magnesium Ferritin Total Bilirubin Direct Bilirubin AST ALT Alkaline Phosphatase Lactate Dehydrogenase Total Creatine Kinase Troponin I High Sens C-Reactive Protein Total Protein Albumin Procalcitonin Urine Color Urine Appearance Urine pH Ur Specific [place] Urine Protein Urine Glucose (UA) Urine Ketones Urine Blood Urine Nitrite Ur Leukocyte Esterase Urine RBC Urine WBC Ur Squamous Epith Cells Urine Bacteria Urine Opiates Screen Ur Barbiturates Screen Ur Phencyclidine Scrn Ur Amphetamines Screen U Benzodiazepines Scrn Urine Cocaine Screen U Marijuana (THC) Screen Acetone, Qual Coronavirus (PCR) COVID-19 (ENE) COVID-19 Clin Com Influenza Type A (PCR) Influenza Type B (PCR) RSV RNA Qual (PCR) 08/04/20 08/04/20 08/04/20 21:12 22:03 23:40 WBC RBC Hgb Hct MCV MCH MCHC RDW Plt Count MPV Immature Gran % (Auto) Neut % (Auto) Lymph % (Auto) [place] % (Auto) Eos % (Auto) Baso % (Auto) Lymph # (Auto) [place] # (Auto) Eos # (Auto) Baso # (Auto) Abs Immat Gran (auto) Absolute Neuts (auto) Absolute Nucleated RBC Nucleated RBC % (auto) PT INR D-Dimer 493 Hold Blue Top VBG pH VBG pCO2 VBG pO2 VBG HCO3 VBG O2 Saturation VBG Base Excess Sodium Potassium Chloride Carbon Dioxide Anion Gap BUN Creatinine Estim Creat Clear Calc Estimated GFR POC Glucose 262 H 230 H Random Glucose Estimat Average Glucose Hemoglobin A1c % Lactic Acid Lactic Acid Fup @ 2Hr Calcium Phosphorus Magnesium Ferritin Total Bilirubin Direct Bilirubin AST ALT Alkaline Phosphatase Lactate Dehydrogenase Total Creatine Kinase Troponin I High Sens C-Reactive Protein Total Protein Albumin Procalcitonin Urine Color Urine Appearance Urine pH Ur Specific [place] Urine Protein Urine Glucose (UA) Urine Ketones Urine Blood Urine Nitrite Ur Leukocyte Esterase Urine RBC Urine WBC Ur Squamous Epith Cells Urine Bacteria Urine Opiates Screen Ur Barbiturates Screen Ur Phencyclidine Scrn Ur Amphetamines Screen U Benzodiazepines Scrn Urine Cocaine Screen U Marijuana (THC) Screen Acetone, Qual Coronavirus (PCR) COVID-19 (ENE) COVID-19 Clin Com Influenza Type A (PCR) Influenza Type B (PCR) RSV RNA Qual (PCR) 08/04/20 08/05/20 08/05/20 23:59 02:00 02:55 WBC RBC Hgb Hct MCV MCH MCHC RDW Plt Count MPV Immature Gran % (Auto) Neut % (Auto) Lymph % (Auto) [place] % (Auto) Eos % (Auto) Baso % (Auto) Lymph # (Auto) [place] # (Auto) Eos # (Auto) Baso # (Auto) Abs Immat Gran (auto) Absolute Neuts (auto) Absolute Nucleated RBC Nucleated RBC % (auto) PT INR D-Dimer Hold Blue Top VBG pH VBG pCO2 VBG pO2 VBG HCO3 VBG O2 Saturation VBG Base Excess Sodium Potassium Chloride Carbon Dioxide Anion Gap BUN Creatinine Estim Creat Clear Calc Estimated GFR POC Glucose 192 H 109 87 Random Glucose Estimat Average Glucose Hemoglobin A1c % Lactic Acid Lactic Acid Fup @ 2Hr Calcium Phosphorus Magnesium Ferritin Total Bilirubin Direct Bilirubin AST ALT Alkaline Phosphatase Lactate Dehydrogenase Total Creatine Kinase Troponin I High Sens C-Reactive Protein Total Protein Albumin Procalcitonin Urine Color Urine Appearance Urine pH Ur Specific [place] Urine Protein Urine Glucose (UA) Urine Ketones Urine Blood Urine Nitrite Ur Leukocyte Esterase Urine RBC Urine WBC Ur Squamous Epith Cells Urine Bacteria Urine Opiates Screen Ur Barbiturates Screen Ur Phencyclidine Scrn Ur Amphetamines Screen U Benzodiazepines Scrn Urine Cocaine Screen U Marijuana (THC) Screen Acetone, Qual Coronavirus (PCR) COVID-19 (ENE) COVID-19 Clin Com Influenza Type A (PCR) Influenza Type B (PCR) RSV RNA Qual (PCR) 08/05/20 08/05/20 08/05/20 04:12 05:07 05:22 WBC 10.0 RBC 4.70 Hgb 12.5 L Hct 37.6 L MCV 80.0 MCH 26.6 L MCHC 33.2 RDW 13.2 Plt Count 179 D MPV 11.0 Immature Gran % (Auto) 1.8 H Neut % (Auto) 63.6 Lymph % (Auto) 24.3 [place] % (Auto) 10.1 Eos % (Auto) 0.0 Baso % (Auto) 0.2 Lymph # (Auto) 2.4 [place] # (Auto) 1.0 Eos # (Auto) 0.0 Baso # (Auto) 0.0 Abs Immat Gran (auto) 0.18 H Absolute Neuts (auto) 6.4 Absolute Nucleated RBC 0.000 Nucleated RBC % (auto) 0.0 PT INR D-Dimer Hold Blue Top VBG pH VBG pCO2 VBG pO2 VBG HCO3 VBG O2 Saturation VBG Base Excess Sodium Potassium Chloride Carbon Dioxide Anion Gap BUN Creatinine Estim Creat Clear Calc Estimated GFR POC Glucose 150 H 165 H Random Glucose Estimat Average Glucose Hemoglobin A1c % Lactic Acid Lactic Acid Fup @ 2Hr Calcium Phosphorus Magnesium Ferritin Total Bilirubin Direct Bilirubin AST ALT Alkaline Phosphatase Lactate Dehydrogenase Total Creatine Kinase Troponin I High Sens C-Reactive Protein Total Protein Albumin Procalcitonin Urine Color Urine Appearance Urine pH Ur Specific [place] Urine Protein Urine Glucose (UA) Urine Ketones Urine Blood Urine Nitrite Ur Leukocyte Esterase Urine RBC Urine WBC Ur Squamous Epith Cells Urine Bacteria Urine Opiates Screen Ur Barbiturates Screen Ur Phencyclidine Scrn Ur Amphetamines Screen U Benzodiazepines Scrn Urine Cocaine Screen U Marijuana (THC) Screen Acetone, Qual Coronavirus (PCR) COVID-19 (ENE) COVID-19 Clin Com Influenza Type A (PCR) Influenza Type B (PCR) RSV RNA Qual (PCR) 08/05/20 08/05/20 08/05/20 05:22 05:22 06:59 WBC RBC Hgb Hct MCV MCH MCHC RDW Plt Count MPV Immature Gran % (Auto) Neut % (Auto) Lymph % (Auto) [place] % (Auto) Eos % (Auto) Baso % (Auto) Lymph # (Auto) [place] # (Auto) Eos # (Auto) Baso # (Auto) Abs Immat Gran (auto) Absolute Neuts (auto) Absolute Nucleated RBC Nucleated RBC % (auto) PT INR D-Dimer Hold Blue Top VBG pH 7.41 VBG pCO2 35 VBG pO2 69 VBG HCO3 22 VBG O2 Saturation 95.0 VBG Base Excess -1.2 Sodium 139 Potassium 3.6 Chloride 106 Carbon Dioxide 21 L Anion Gap 16 BUN 11 Creatinine 0.85 Estim Creat Clear Calc 155.3 Estimated GFR > 60 POC Glucose 173 H Random Glucose 166 H D Estimat Average Glucose Hemoglobin A1c % Lactic Acid Lactic Acid Fup @ 2Hr Calcium 7.9 L Phosphorus 1.9 L Magnesium 2.0 Ferritin Total Bilirubin Direct Bilirubin AST ALT Alkaline Phosphatase Lactate Dehydrogenase Total Creatine Kinase Troponin I High Sens C-Reactive Protein Total Protein Albumin Procalcitonin Urine Color Urine Appearance Urine pH Ur Specific [place] Urine Protein Urine Glucose (UA) Urine Ketones Urine Blood Urine Nitrite Ur Leukocyte Esterase Urine RBC Urine WBC Ur Squamous Epith Cells Urine Bacteria Urine Opiates Screen Ur Barbiturates Screen Ur Phencyclidine Scrn Ur Amphetamines Screen U Benzodiazepines Scrn Urine Cocaine Screen U Marijuana (THC) Screen Acetone, Qual Coronavirus (PCR) COVID-19 (ENE) COVID-19 Clin [facility] Influenza Type A (PCR) Influenza Type B (PCR) RSV RNA Qual (PCR) 08/05/20 08/05/20 08/05/20 07:52 08:51 09:50 WBC RBC Hgb Hct MCV MCH MCHC RDW Plt Count MPV Immature Gran % (Auto) Neut % (Auto) Lymph % (Auto) [place] % (Auto) Eos % (Auto) Baso % (Auto) Lymph # (Auto) [place] # (Auto) Eos # (Auto) Baso # (Auto) Abs Immat Gran (auto) Absolute Neuts (auto) Absolute Nucleated RBC Nucleated RBC % (auto) PT INR D-Dimer Hold Blue Top VBG pH VBG pCO2 VBG pO2 VBG HCO3 VBG O2 Saturation VBG Base Excess Sodium Potassium Chloride Carbon Dioxide Anion Gap BUN Creatinine Estim Creat Clear Calc Estimated GFR POC Glucose 162 H 140 H 179 H Random Glucose Estimat Average Glucose Hemoglobin A1c % Lactic Acid Lactic Acid Fup @ 2Hr Calcium Phosphorus Magnesium Ferritin Total Bilirubin Direct Bilirubin AST ALT Alkaline Phosphatase Lactate Dehydrogenase Total Creatine Kinase Troponin I High Sens C-Reactive Protein Total Protein Albumin Procalcitonin Urine Color Urine Appearance Urine pH Ur Specific [place] Urine Protein Urine Glucose (UA) Urine Ketones Urine Blood Urine Nitrite Ur Leukocyte Esterase Urine RBC Urine WBC Ur Squamous Epith Cells Urine Bacteria Urine Opiates Screen Ur Barbiturates Screen Ur Phencyclidine Scrn Ur Amphetamines Screen U Benzodiazepines Scrn Urine Cocaine Screen U Marijuana (THC) Screen Acetone, Qual Coronavirus (PCR) COVID-19 (ENE) COVID-19 Clin Com Influenza Type A (PCR) Influenza Type B (PCR) RSV RNA Qual (PCR) 08/05/20 08/05/20 08/05/20 11:35 11:36 12:07 WBC RBC Hgb Hct MCV MCH MCHC RDW Plt Count MPV Immature Gran % (Auto) Neut % (Auto) Lymph % (Auto) [place] % (Auto) Eos % (Auto) Baso % (Auto) Lymph # (Auto) [place] # (Auto) Eos # (Auto) Baso # (Auto) Abs Immat Gran (auto) Absolute Neuts (auto) Absolute Nucleated RBC Nucleated RBC % (auto) PT INR D-Dimer Hold Blue Top VBG pH VBG pCO2 VBG pO2 VBG HCO3 VBG O2 Saturation VBG Base Excess Sodium 135 Potassium 3.9 Chloride 104 Carbon Dioxide 21 L Anion Gap 14 BUN 12 Creatinine 0.92 Estim Creat Clear Calc 144.8 Estimated GFR > 60 POC Glucose 381 H* 353 H* Random Glucose 464 H* Estimat Average Glucose Hemoglobin A1c % Lactic Acid Lactic Acid Fup @ 2Hr Calcium 7.5 L Phosphorus Magnesium Ferritin Total Bilirubin Direct Bilirubin AST ALT Alkaline Phosphatase Lactate Dehydrogenase Total Creatine Kinase Troponin I High Sens C-Reactive Protein Total Protein Albumin Procalcitonin Urine Color Urine Appearance Urine pH Ur Specific [place] Urine Protein Urine Glucose (UA) Urine Ketones Urine Blood Urine Nitrite Ur Leukocyte Esterase Urine RBC Urine WBC Ur Squamous Epith Cells Urine Bacteria Urine Opiates Screen Ur Barbiturates Screen Ur Phencyclidine Scrn Ur Amphetamines Screen U Benzodiazepines Scrn Urine Cocaine Screen U Marijuana (THC) Screen Acetone, Qual Coronavirus (PCR) COVID-19 (ENE) COVID-19 Clin Com Influenza Type A (PCR) Influenza Type B (PCR) RSV RNA Qual (PCR) 08/05/20 08/05/20 08/06/20 16:29 20:45 05:23 WBC 8.7 RBC 4.37 L Hgb 11.7 L Hct 35.3 L MCV 80.8 MCH 26.8 L MCHC 33.1 RDW 13.4 Plt Count 190 MPV 11.2 Immature Gran % (Auto) 2.4 H Neut % (Auto) 53.4 Lymph % (Auto) 35.0 [place] % (Auto) 8.7 Eos % (Auto) 0.3 Baso % (Auto) 0.2 Lymph # (Auto) 3.1 [place] # (Auto) 0.8 Eos # (Auto) 0.0 Baso # (Auto) 0.0 Abs Immat Gran (auto) 0.21 H Absolute Neuts (auto) 4.7 Absolute Nucleated RBC 0.000 Nucleated RBC % (auto) 0.0 PT INR D-Dimer Hold Blue Top VBG pH VBG pCO2 VBG pO2 VBG HCO3 VBG O2 Saturation VBG Base Excess Sodium Potassium Chloride Carbon Dioxide Anion Gap BUN Creatinine Estim Creat Clear Calc Estimated GFR POC Glucose 381 H* 384 H* Random Glucose Estimat Average Glucose Hemoglobin A1c % Lactic Acid Lactic Acid Fup @ 2Hr Calcium Phosphorus Magnesium Ferritin Total Bilirubin Direct Bilirubin AST ALT Alkaline Phosphatase Lactate Dehydrogenase Total Creatine Kinase Troponin I High Sens C-Reactive Protein Total Protein Albumin Procalcitonin Urine Color Urine Appearance Urine pH Ur Specific [place] Urine Protein Urine Glucose (UA) Urine Ketones Urine Blood Urine Nitrite Ur Leukocyte Esterase Urine RBC Urine WBC Ur Squamous Epith Cells Urine Bacteria Urine Opiates Screen Ur Barbiturates Screen Ur Phencyclidine Scrn Ur Amphetamines Screen U Benzodiazepines Scrn Urine Cocaine Screen U Marijuana (THC) Screen Acetone, Qual Coronavirus (PCR) COVID-19 (ENE) COVID-19 Clin Com Influenza Type A (PCR) Influenza Type B (PCR) RSV RNA Qual (PCR) 08/06/20 08/06/20 08/06/20 05:23 07:09 11:45 WBC RBC Hgb Hct MCV MCH MCHC RDW Plt Count MPV Immature Gran % (Auto) Neut % (Auto) Lymph % (Auto) [place] % (Auto) Eos % (Auto) Baso % (Auto) Lymph # (Auto) [place] # (Auto) Eos # (Auto) Baso # (Auto) Abs Immat Gran (auto) Absolute Neuts (auto) Absolute Nucleated RBC Nucleated RBC % (auto) PT INR D-Dimer Hold Blue Top VBG pH VBG pCO2 VBG pO2 VBG HCO3 VBG O2 Saturation VBG Base Excess Sodium 139 Potassium 3.4 Chloride 105 Carbon Dioxide 23 Anion Gap 14 BUN 14 Creatinine 0.77 Estim Creat Clear Calc 173.0 Estimated GFR > 60 POC Glucose 216 H 321 H Random Glucose 245 H D Estimat Average Glucose Hemoglobin A1c % Lactic Acid Lactic Acid Fup @ 2Hr Calcium 7.2 L Phosphorus 2.3 L Magnesium 2.1 Ferritin Total Bilirubin Direct Bilirubin AST ALT Alkaline Phosphatase Lactate Dehydrogenase Total Creatine Kinase Troponin I High Sens C-Reactive Protein Total Protein Albumin Procalcitonin Urine Color Urine Appearance Urine pH Ur Specific [place] Urine Protein Urine Glucose (UA) Urine Ketones Urine Blood Urine Nitrite Ur Leukocyte Esterase Urine RBC Urine WBC Ur Squamous Epith Cells Urine Bacteria Urine Opiates Screen Ur Barbiturates Screen Ur Phencyclidine Scrn Ur Amphetamines Screen U Benzodiazepines Scrn Urine Cocaine Screen U Marijuana (THC) Screen Acetone, Qual Coronavirus (PCR) COVID-19 (ENE) COVID-19 Clin Com Influenza Type A (PCR) Influenza Type B (PCR) RSV RNA Qual (PCR) 08/06/20 08/06/20 08/07/20 16:53 20:04 07:11 WBC RBC Hgb Hct MCV MCH MCHC RDW Plt Count MPV Immature Gran % (Auto) Neut % (Auto) Lymph % (Auto) [place] % (Auto) Eos % (Auto) Baso % (Auto) Lymph # (Auto) [place] # (Auto) Eos # (Auto) Baso # (Auto) Abs Immat Gran (auto) Absolute Neuts (auto) Absolute Nucleated RBC Nucleated RBC % (auto) PT INR D-Dimer Hold Blue Top VBG pH VBG pCO2 VBG pO2 VBG HCO3 VBG O2 Saturation VBG Base Excess Sodium Potassium Chloride Carbon Dioxide Anion Gap BUN Creatinine Estim Creat Clear Calc Estimated GFR POC Glucose 368 H* 354 H* 168 H Random Glucose Estimat Average Glucose Hemoglobin A1c % Lactic Acid Lactic Acid Fup @ 2Hr Calcium Phosphorus Magnesium Ferritin Total Bilirubin Direct Bilirubin AST ALT Alkaline Phosphatase Lactate Dehydrogenase Total Creatine Kinase Troponin I High Sens C-Reactive Protein Total Protein Albumin Procalcitonin Urine Color Urine Appearance Urine pH Ur Specific [place] Urine Protein Urine Glucose (UA) Urine Ketones Urine Blood Urine Nitrite Ur Leukocyte Esterase Urine RBC Urine WBC Ur Squamous Epith Cells Urine Bacteria Urine Opiates Screen Ur Barbiturates Screen Ur Phencyclidine Scrn Ur Amphetamines Screen U Benzodiazepines Scrn Urine Cocaine Screen U Marijuana (THC) Screen Acetone, Qual Coronavirus (PCR) COVID-19 (ENE) COVID-19 Clin Com Influenza Type A (PCR) Influenza Type B (PCR) RSV RNA Qual (PCR) 08/07/20 10:53 WBC RBC Hgb Hct MCV MCH MCHC RDW Plt Count MPV Immature Gran % (Auto) Neut % (Auto) Lymph % (Auto) [place] % (Auto) Eos % (Auto) Baso % (Auto) Lymph # (Auto) [place] # (Auto) Eos # (Auto) Baso # (Auto) Abs Immat Gran (auto) Absolute Neuts (auto) Absolute Nucleated RBC Nucleated RBC % (auto) PT INR D-Dimer Hold Blue Top VBG pH VBG pCO2 VBG pO2 VBG HCO3 VBG O2 Saturation VBG Base Excess Sodium Potassium Chloride Carbon Dioxide Anion Gap BUN Creatinine Estim Creat Clear Calc Estimated GFR POC Glucose 276 H Random Glucose Estimat Average Glucose Hemoglobin A1c % Lactic Acid Lactic Acid Fup @ 2Hr Calcium Phosphorus Magnesium Ferritin Total Bilirubin Direct Bilirubin AST ALT Alkaline Phosphatase Lactate Dehydrogenase Total Creatine Kinase Troponin I High Sens C-Reactive Protein Total Protein Albumin Procalcitonin Urine Color Urine Appearance Urine pH Ur Specific [place] Urine Protein Urine Glucose (UA) Urine Ketones Urine Blood Urine Nitrite Ur Leukocyte Esterase Urine RBC Urine WBC Ur Squamous Epith Cells Urine Bacteria Urine Opiates Screen Ur Barbiturates Screen Ur Phencyclidine Scrn Ur Amphetamines Screen U Benzodiazepines Scrn Urine Cocaine Screen U Marijuana (THC) Screen Acetone, Qual Coronavirus (PCR) COVID-19 (ENE) COVID-19 Clin Com Influenza Type A (PCR) Influenza Type B (PCR) RSV RNA Qual (PCR) Discharge Plan Discharge Patient Disposition: Home, Self-Care Referrals: Batsheva Farmer, [facility] [Nurse Practitioner] - 1 Week (TELE VISIT 08/12/20 with Tray Solomon NP. [facility] will call you to discuss your hospital stay.) Discharge Medications: New omeprazole 40 mg Capsule,Delayed Release(Dr/Ec) 40 mg PO DAILY@0630 Qty: 30 RF: 0 Lantus U-100 Insulin 100 unit/mL Solution 60 unit subcut BID Qty: 40 RF: 0 insulin lispro [Humalog U-100 Insulin] 100 unit/mL Solution 1 unit subcut QIDACHS Qty: 10 RF: 0 dexamethasone 4 mg tablet 4 mg PO DAILY Qty: 5 RF: 0 Continued metoprolol succinate [Toprol XL] 50 mg Tablet Extended Release 24 Hr 50 mg PO DAILY RF: 0 lisinopril 20 mg Tablet 20 mg PO DAILY RF: 0 sertraline 100 mg Tablet 100 mg PO DAILY RF: 0 hydroxyzine HCl 25 mg Tablet 25 mg PO DAILY PRN (Reason: Anxiety) RF: 0 Discharge Orders: Discharge Order (Routine); Ordered 08/07/20 Ordered By: Marcelo Eastman Diet: advance to usual diet and diabetic diet Activity on Discharge: As tolerated Stand Alone Forms: Patient Portal Discharge page Visit Report Forms: Patient Portal Discharge page Care Plan Goals: Patient came with hypoxemic respiratory failure secondary to COVID infection and also found to have DKA with new onset diabetes. Subsequently patient was started on IV insulin as well as com remdesivir and dexamethasone for COVID. Patient completed remdesivir, breathing fine not on any oxygen walking in the room fine. His DKA and ALBERT also resolved with IV insulin and hydration. Patient is going to go home with will Lanieus-he was advised to follow diabetic diet and diabetic education was given. Patient's prescriptions and diabetic supplies were conveyed to patient's pharmacy by calling them over the phone. Also made them aware that we are sending dexamethasone prescription. Patient also has PCP appointment, monitor renal function and electrolytes outpatient with PCP. Health Concerns: As above. Plan of Treatment: As above. Discharge Date/Time: 08/07/20 16:40
== END 2020-08-07 16:40 | disposition home or self-care (01) | DRG 137 ==
LOC: HO.ED 16:42 → HO.ICU 19:34
PROVIDERS: Internal Medicine Pulmonary Disease; Nurse Practitioner Family; Physician Assistant; Admitting Provider Internal Medicine Cardiovascular Disease; Emergency Provider Internal Medicine; PCP Registered Nurse; Visit Provider Internal Medicine
DX: U07.1 COVID-19 (principal); J12.82 Pneumonia due to coronavirus disease 2019; E11.10 Type 2 diabetes mellitus with ketoacidosis without coma; E86.0 Dehydration; N17.9 Acute kidney failure, unspecified; E87.1 Hypo-osmolality and hyponatremia; E87.5 Hyperkalemia; Z79.4 Long term (current) use of insulin; Z79.899 Other long term (current) drug therapy
CPT/HCPCS: 0241U; 36415; 71045; 71046; 71250; 80048; 80076; 80307; 81001; 82009; 82550; 82728; 82803; 82947; 83036; 83605; 83615; 83735; 84100; 84145; 84484; 85025; 85379; 85610; 86140; 87040; 87635; 93005; 96361; 96365; 96366; 96375; 99285; 99291; C1758; J1100; J1650; J2405; J3411; J3490

== ENCOUNTER → 2020-09-18 14:53 | Outpatient (REF) | payer MEDICAID, SELFPAY | LOC: HO.SL 14:53 | PROVIDERS: Visit Provider Emergency Medicine | DX: G47.9 Sleep disorder, unspecified (principal) | CPT/HCPCS: 95806 ==

== ENCOUNTER 2020-11-04 08:42 | Emergency (ER) | payer MEDICAID, SELFPAY ==
--- NOTE | ~2020-11-04 | XR_ITS ---
EXAMINATION: XR CHEST CLINICAL INFORMATION: Chest pain COMPARISON: Chest x-ray 08/04/2020. CT chest 08/02/2020. TECHNIQUE: Frontal view of the chest was obtained. FINDINGS: Stable cardiac and mediastinal silhouette. Stable right hemidiaphragm elevation. Mild central vascular prominence, unchanged from previous. No overt pulmonary edema. Patchy opacity in the left upper lung, slightly improved from previous.. Additional scattered opacities seen on the prior CT scan are not evident on x-ray. No pneumothorax. XR/XR chest 1V IMPRESSION: Patchy opacity in the left upper lung, slightly improved from previous, with the additional scattered groundglass opacities seen on the prior CT scan not evident by radiograph.
--- NOTE | 2020-11-04 08:48 | ECG_ITS ---
Test Reason : CHEST PAIN Blood Pressure : / mmHG Vent. Rate : 085 BPM Atrial Rate : 085 BPM P-R Int : 144 ms QRS Dur : 086 ms QT Int : 336 ms P-R-T Axes : 048 019 027 degrees QTc Int : 399 ms Normal sinus rhythm Early repolarization Normal ECG When compared with ECG of 02-AUG-2020 14:21, No significant change was found Referred By: Phuong Nguyễn Electronically Signed By:HELENA RASMUSSEN MD
--- NOTE | 2020-11-04 08:56 | ED_ITS ---
HPI - Chest Pain General Chief Complaint: Chest Pain Stated Complaint: chest pain Time Seen by Provider: 11/04/20 08:49 Source: patient and old records reviewed Mode of arrival: ambulatory Limitations: no limitations History of Present Illness HPI narrative: 35 yo male with hx of DM, COVID in July resulting in DKA and ALBERT that resolved comes in today with c/o chest pain that started at 530AM with no associated dyspnea/n/v it is worse with moving or lifting, no fam hx of CAD in family in 30s he denies cocaine abuse MD complaint: chest pain Onset (ago): hour(s) (530am) Timing of current episode: constant Onset: during rest Pain location: left chest Pain radiation: none Severity: moderate Quality: aching Relieving factors: nothing Exacerbating factors: palpation and movement Treatment prior to arrival: none Related Data Home Medications Medication Instructions Recorded Confirmed hydroxyzine HCl 25 mg PO DAILY PRN 08/02/20 08/02/20 lisinopril 20 mg PO DAILY 08/02/20 08/02/20 metoprolol succinate [Toprol XL] 50 mg PO DAILY 08/02/20 08/02/20 sertraline 100 mg PO DAILY 08/02/20 08/02/20 Previous Rx's Medication Instructions Recorded dexamethasone 4 mg PO DAILY #5 tab 08/07/20 insulin glargine [Lantus U-100 60 unit SUBCUT BID #40 ml 08/07/20 Insulin] insulin lispro [Humalog U-100 1 unit SUBCUT QIDACHS #10 ml 08/07/20 Insulin] omeprazole 40 mg PO DAILY@0630 #30 cap 08/07/20 cyclobenzaprine 10 mg PO TID PRN #14 tab 11/04/20 doxycycline hyclate 100 mg PO BID 7 Days #14 cap 11/04/20 Allergies Allergy/AdvReac Type Severity Reaction Status Date / Time No Known Allergies Allergy Verified 07/16/20 12:56 [No Known Allergies*] Review of Systems Review of Systems: Constitutional : No Weight loss, No Fever, No Chills ENT/Mouth : No sore throat, No Rhinorrhea Eyes: No Eye Pain, No Swelling Cardiovascular : pos Chest Pain, no SOB, no Dyspnea on Exertion, No Orthopnea, No Edema, No Palpitations Respiratory : No Cough, No Sputum Gastrointestinal : no Nausea, No Vomiting, No Diarrhea, No abdominal Pain, No Hematochezia, No Melena Genitourinary : No Dysuria, No Urinary Frequency Musculoskeletal : No joint pain, No Myalgias, No Joint Swelling Skin : No Skin Lesions, No rash Neuro : No Weakness, No Numbness, No Dizziness, No Headache Psych : No Anxiety/Panic, No Depression Heme/Lymph: No Bruising, No Lymphadenopathy Endocrine : No Polyuria, No Polydipsia All other systems reviewed and are negative REPLACED BY [facility] Past Medical History Attestation statement: The following information was validated with the patient. Medical History Diabetes HTN (hypertension) Social History Social History Household Members: Significant Other Alcohol intake: never Smoking Status: Never smoker Second Hand Smoke Exposure: No Advance Directives: No Advance Directives Information Provided: No service: No Current occupational status: unemployed Physical Exam Vital Signs: Vital Signs: Last Vital Signs Temp 98 F 11/04/20 08:57 Pulse 66 11/04/20 10:19 Resp 21 H 11/04/20 10:19 BP 123/82 11/04/20 10:19 Pulse Ox 97 11/04/20 10:19 Body Mass Index 38.0 Appearance: Alert. Oriented X3. No acute distress. Eyes: Pupils equal, round and reactive to light. ENT: Pharynx normal. Neck: Normal inspection. Neck supple. CVS: Normal heart rate and rhythm. Pulses normal. Chest: ttp along L chest wall that reproduces pain, pain with ROM of L arm Respiratory: No respiratory distress. Breath sounds normal. Abdomen: Soft and nontender. Fem pulses intact and symmetric Skin: Skin warm and dry. Normal skin color. Normal skin turgor. Extremities: No lower extremity edema. No calf ttp Neuro: Oriented X 3. No motor deficit. No sensory deficit. Course Course Course Narrative: patient also c/o penile drainage after unprotected sex, no other rashes wants treatment for STI - given rocephin and doxy will send off G+C improved CXR, negative troponin x 2 stable for DC MDM - Chest Pain MDM Narrative Medical decision making narrative: 35 yo male with hx of DM, COVID in July resulting in DKA and ALBERT that resolved comes in today with c/o chest pain that started at 530AM with no associated dyspnea/n/v it is worse with moving or lifting, no fam hx of CAD in family in 30s he denies cocaine abuse at this time will need labs troponin x 2, CXR, PERC negative, fem pulses intact not toxic appearing doubt dissection, seems MSK in nature Lab Data Result diagrams: 11/04/20 09:13 11/04/20 09:13 Labs: Lab Results 11/04/20 11/04/20 11/04/20 Range/Units 09:13 09:13 09:13 WBC 6.9 (4.8-10.8) X10*3/uL RBC 5.19 (4.60-5.80) X10*6/uL Hgb 13.7 L (14.0-18.0) g/dl Hct 42.4 D (42-52) % MCV 81.7 (80-98) fL MCH 26.4 L (27.0-33.0) pg MCHC 32.3 (31.0-36.0) g/dl RDW 13.2 (11.0-16.0) % Plt Count 275 D (160-400) X10*3/uL MPV 9.2 L (9.4-12.4) fL Immature Gran % (Auto) 0.4 (0.0-0.4) % Neut % (Auto) 54.3 (45-73) % Lymph % (Auto) 35.2 (20-40) % [place] % (Auto) 8.9 (2-11) % Eos % (Auto) 0.9 (0-4) % Baso % (Auto) 0.3 (0-2) % Lymph # (Auto) 2.4 (1.2-4.9) X10*3/uL [place] # (Auto) 0.6 (0.1-1.2) X10*3/uL Eos # (Auto) 0.1 (0.0-0.4) X10*3/uL Baso # (Auto) 0.0 (0.0-0.2) X10*3/uL Abs Immat Gran (auto) 0.03 (0.00-0.03) X10*3/uL Absolute Neuts (auto) 3.7 (2.0-8.3) X10*3/uL Absolute Nucleated RBC 0.000 (0.0-0.012) X10*3/uL Nucleated RBC % (auto) 0.0 (0.0-0.2) /100WBC Hold Blue Top SEE NOTE Sodium 139 (135-145) mmol/L Potassium 4.4 (3.3-5.1) mmol/L Chloride 103 (96-108) mmol/L Carbon Dioxide 29 (22-29) mmol/L Anion Gap 11 L (12-20) BUN 14 (9-16) mg/dL Creatinine 0.77 (0.5-1.4) mg/dL Estim Creat Clear Calc 162.0 Estimated GFR > 60 Random Glucose 63 D (60-115) mg/dL Calcium 10.0 D (8.4-10.2) mg/dL Troponin I High Sens (<3.5-35.0) ng/L 11/04/20 11/04/20 Range/Units 09:13 10:32 WBC (4.8-10.8) X10*3/uL RBC (4.60-5.80) X10*6/uL Hgb (14.0-18.0) g/dl Hct (42-52) % MCV (80-98) fL MCH (27.0-33.0) pg MCHC (31.0-36.0) g/dl RDW (11.0-16.0) % Plt Count (160-400) X10*3/uL MPV (9.4-12.4) fL Immature Gran % (Auto) (0.0-0.4) % Neut % (Auto) (45-73) % Lymph % (Auto) (20-40) % [place] % (Auto) (2-11) % Eos % (Auto) (0-4) % Baso % (Auto) (0-2) % Lymph # (Auto) (1.2-4.9) X10*3/uL [place] # (Auto) (0.1-1.2) X10*3/uL Eos # (Auto) (0.0-0.4) X10*3/uL Baso # (Auto) (0.0-0.2) X10*3/uL Abs Immat Gran (auto) (0.00-0.03) X10*3/uL Absolute Neuts (auto) (2.0-8.3) X10*3/uL Absolute Nucleated RBC (0.0-0.012) X10*3/uL Nucleated RBC % (auto) (0.0-0.2) /100WBC Hold Blue Top Sodium (135-145) mmol/L Potassium (3.3-5.1) mmol/L Chloride (96-108) mmol/L Carbon Dioxide (22-29) mmol/L Anion Gap (12-20) BUN (9-16) mg/dL Creatinine (0.5-1.4) mg/dL Estim Creat Clear Calc Estimated GFR Random Glucose (60-115) mg/dL Calcium (8.4-10.2) mg/dL Troponin I High Sens < 3.5 < 3.5 (<3.5-35.0) ng/L ECG Data ECG #1: Attestation: I personally reviewed and interpreted this ECG as follows: ECG interpretation date: 11/04/20 ECG interpretation time: 09:08 Interpretation: Rate: 85 Rhythm: NSR [place]: normal Normal P waves. Normal [place]. Normal QRS complex. ST T wave : early repolarization qTC: normal prior studies: no acute ischemia no change 2020 The study has been interpreted contemporaneously by me. . Discharge Plan Discharge Clinical Impression: Atypical chest pain, Exposure to STD Patient Disposition: Home, Self-Care Instructions: Chest Pain (ED), Sexually Transmitted Diseases (ED) Additional Instructions: return to ED for any worsening symptoms or concerns Prescriptions: New cyclobenzaprine 10 mg tablet 10 mg PO TID PRN (Reason: muscle spasm) Qty: 14 RF: 0 doxycycline hyclate 100 mg capsule 100 mg PO BID 7 Days Qty: 14 RF: 0 No Action metoprolol succinate [Toprol XL] 50 mg Tablet Extended Release 24 Hr 50 mg PO DAILY RF: 0 lisinopril 20 mg Tablet 20 mg PO DAILY RF: 0 sertraline 100 mg Tablet 100 mg PO DAILY RF: 0 hydroxyzine HCl 25 mg Tablet 25 mg PO DAILY PRN (Reason: Anxiety) RF: 0 omeprazole 40 mg Capsule,Delayed Release(Dr/Ec) 40 mg PO DAILY@0630 Qty: 30 RF: 0 Lantus U-100 Insulin 100 unit/mL Solution 60 unit subcut BID Qty: 40 RF: 0 insulin lispro [Humalog U-100 Insulin] 100 unit/mL Solution 1 unit subcut QIDACHS Qty: 10 RF: 0 dexamethasone 4 mg tablet 4 mg PO DAILY Qty: 5 RF: 0 Referrals: [facility] [Primary Care Provider] - 2 days (you still have some evidence of damage to your lungs repeat CT scan post COVID) Stand Alone Forms: Work/School Release
[2020-11-04 08:57] VITALS: BP 131/84; PULSE 90; RESP 14; TEMP 36.6; O2SAT 96; BMI 38.0
[2020-11-04 09:17] LABS: MANUAL DIFF FLAG NO
[2020-11-04 09:18] LABS: Eosinophils Percent Auto 0.9 % (0-4); Hematocrit 42.4 % (42-52); Hemoglobin 13.7 g/dl (14.0-18.0); Imm Gran Pct Auto 0.4 % (0.0-0.4); Lymphocytes Percent Auto 35.2 % (20-40); Mean Corpuscular HGB Conc 32.3 g/dl (31.0-36.0); Mean Corpuscular Hemoglobin 26.4 pg (27.0-33.0); Mean Corpuscular Volume 81.7 fL (80-98); Mean Platelet Volume 9.2 fL (9.4-12.4); Monocytes Percent Auto 8.9 % (2-11); Neutrophils Percent Auto 54.3 % (45-73); Platelet Count 275 X10*3/uL (160-400); Red Blood Count 5.19 X10*6/uL (4.60-5.80); Red Cell Distribution Width 13.2 % (11.0-16.0); White Blood Count 6.9 X10*3/uL (4.8-10.8)
[2020-11-04 09:19] LABS: Basophils Percent Auto 0.3 % (0-2); Eosinophils Absolute Auto 0.1 X10*3/uL (0.0-0.4); Imm Gran Abs Auto 0.03 X10*3/uL (0.00-0.03); Lymphocytes Absolute Auto 2.4 X10*3/uL (1.2-4.9); Monocytes Absolute Auto 0.6 X10*3/uL (0.1-1.2); Neutrophils Absolute Auto 3.7 X10*3/uL (2.0-8.3)
[2020-11-04] MEDS: cefTRIAXone sodium 500 MG, Lidocaine HCl 1 % MPF 1 ML IM (09:23)
[2020-11-04] MEDS: Cyclobenzaprine HCl 10 MG TABLET PO (09:24)
[2020-11-04 09:47] LABS: Anion Gap 11 (12-20); Blood Urea Nitrogen 14 mg/dL (9-16); Carbon Dioxide 29 mmol/L (22-29); Chloride 103 mmol/L (96-108); Estimated Glomerular Filt Rate > 60; Glucose Random 63 mg/dL (60-115); Potassium 4.4 mmol/L (3.3-5.1); Sodium 139 mmol/L (135-145)
[2020-11-04 09:52] LABS: Troponin-I High Sensitivity < 3.5 ng/L (<3.5-35.0)
[2020-11-04 10:19] VITALS: BP 123/82; PULSE 66; RESP 21; O2SAT 97
[2020-11-04 11:09] LABS: Troponin-I High Sensitivity < 3.5 ng/L (<3.5-35.0)
[2020-11-04 12:36] LABS: CT PCR NOT DETECTED (Not Detect.); NG PCR NOT DETECTED (Not Detect.)
== END 2020-11-04 11:31 | disposition home or self-care (01) ==
PROVIDERS: Emergency Provider Emergency Medicine
DX: R07.89 Other chest pain (principal); Z11.3 Encounter for screening for infections with a predominantly sexual mode of transmission; E11.9 Type 2 diabetes mellitus without complications; I10 Essential (primary) hypertension; Z86.16 Personal history of COVID-19
CPT/HCPCS: 36415; 71045; 80048; 84484; 85025; 87491; 87591; 93005; 96372; 99284; 99285; J0696

== ENCOUNTER 2021-02-04 07:23 | Emergency (ER) | payer MEDICAID, SELFPAY ==
--- NOTE | 2021-02-04 | ECG_ITS ---
Test Reason : DIZZINESS Blood Pressure : / mmHG Vent. Rate : 089 BPM Atrial Rate : 089 BPM P-R Int : 136 ms QRS Dur : 082 ms QT Int : 334 ms P-R-T Axes : 043 013 023 degrees QTc Int : 406 ms Normal sinus rhythm Normal ECG When compared with ECG of 04-NOV-2020 08:52, No significant change was found Referred By: Generic ED Physician Electronically Signed By:BRENNAN MCCORMICK
[2021-02-04 09:22] VITALS: BP 126/76; PULSE 91; RESP 19; TEMP 36.6; O2SAT 100; BMI 38.0
[2021-02-04 10:19] VITALS: BP 128/69; PULSE 88; RESP 17; O2SAT 97
--- NOTE | 2021-02-04 10:19 | ED_ITS ---
HPI - General Adult General Chief complaint: Dizziness Stated complaint: dizziness Time Seen by Provider: 02/04/21 10:05 Source: patient Mode of arrival: ambulatory Limitations: no limitations History of Present Illness HPI narrative: 35-year-old male who presents emergency department for evaluation of dizziness, chest pain, abdominal pain and diarrhea. The patient states that he has been experiencing intermittent, left-sided chest pain for 1 month. He states that the pain is a sharp stabbing pain that will last seconds. He states he will get multiple episodes a day. He states that he has had 3-4 episodes over the last 2 days. Patient also states that over the past 2 days he has had a lightheaded sensation the feels like the room is spinning. This is not related to position change. He does not feel off balance. Patient states that he ate some hamburger meat that his [id number] apparent last night. He states that 4:00 a.m. he developed diarrhea. He describes the diarrhea as watery with no blood in it. He has had at least 4-5 episodes of diarrhea. Is also complaining of abdominal pain. He points was left lower quadrant when asked to localize the pain. The pain is a constant, sharp pain which is 8/10 at its worst. He denied fever, chills, shortness of breath, dyspnea on exertion, nausea or vomiting, frequency, urgency or dysuria. Related Data Home Medications Medication Instructions Recorded Confirmed hydroxyzine HCl 25 mg PO DAILY PRN 08/02/20 08/02/20 lisinopril 20 mg PO DAILY 08/02/20 08/02/20 metoprolol succinate [Toprol XL] 50 mg PO DAILY 08/02/20 08/02/20 sertraline 100 mg PO DAILY 08/02/20 08/02/20 Previous Rx's Medication Instructions Recorded dexamethasone 4 mg PO DAILY #5 tab 08/07/20 insulin glargine [Lantus U-100 60 unit SUBCUT BID #40 ml 08/07/20 Insulin] insulin lispro [Humalog U-100 1 unit SUBCUT QIDACHS #10 ml 08/07/20 Insulin] omeprazole 40 mg PO DAILY@0630 #30 cap 08/07/20 cyclobenzaprine 10 mg PO TID PRN #14 tab 11/04/20 doxycycline hyclate 100 mg PO BID 7 Days #14 cap 11/04/20 Allergies Allergy/AdvReac Type Severity Reaction Status Date / Time No Known Allergies Allergy Verified 02/04/21 09:21 [No Known Allergies*] Review of Systems Review of Systems: Yes all other systems are reviewed and are negative [facility] Past Medical History [facility] Narrative: Past medical history: Diabetes, DKA, hypertension, electrolyte abnormalities (hypokalemia, hypomagnesemia . Social history: Patient is . He denies tobacco, alcohol and drug use. Medical History Diabetes HTN (hypertension) Social History Social History Household Members: Significant Other Household Members Other:: GIRLFRIEND Do you presently have visiting nurse or other home services: No Alcohol intake: never Patient Tobacco Use Status: Never used Tobacco Second Hand Smoke Exposure: No Use of substances other than those prescribed or required for medical reasons: No Advance Directives: No Advance Directives Information Provided: No service: No Current occupational status: unemployed Physical Exam Vital Signs: Vital Signs: Last Vital Signs Temp 97.9 F 02/04/21 09:22 Pulse 96 02/04/21 13:07 Resp 16 02/04/21 13:07 BP 124/78 02/04/21 13:07 Pulse Ox 99 02/04/21 13:07 Body Mass Index 38.0 Const: General: cooperative and healthy appearing Orientation/consciousness: oriented to person and oriented to place Limitations: no limitations HENMT: Head: Yes normal to inspection, Yes normocephalic and Yes atraumatic Ears: external ears normal General nose exam: Normal external nose present Face and sinus: Yes normal facial exam Mouth: Normal oral and palatal mucosa present Throat: Yes posterior oropharynx normal Eyes: Periorbital: periorbital findings normal Eyelids: Yes eyelids normal Conjunctivae: conjunctivae normal Sclerae: sclerae normal Corneas: corneas normal Pupils: Equal, round and reactive pupils present Direct Ophthalmoscopy: normal light reflex Neck: Neck: Yes full ROM, Yes no lymphadenopathy, Yes no meningeal signs, Yes trachea midline and Yes supple Chest: Chest palpation & inspection: normal inspection of the chest and normal palpation of entire chest wall Resp: Effort & Inspection: normal respiratory effort and able to speak in complete sentences Auscultation: clear to auscultation bilaterally Cardio: Rate: regular rate Rhythm: regular rhythm Heart sounds: S1 normal heart sound present, S2 normal heart sound present and no murmurs GI: Inspection: Yes normal to inspection Palpation (GI): Soft to palpation, nontender, no guarding, not rigid and No hepatosplenomegaly present : General: Yes no CVA tenderness Back/Spine/Pelvis: Back: no CVA tenderness Cervical Spine: normal cervical lordosis Thoracic/Lumbar Spine: thoracic and lumbar spine normal to i nspection Skin: Lesions: no lesions Rashes: no rashes Wounds: no wounds Neuro: General: oriented to person, oriented to place and no meningeal signs Cranial nerves: Yes CN's II-XII intact bilaterally and Yes Equal, round and reactive pupils present Cognition (Neuro): normal cognition Motor exam (neuro): 5/5 motor strength present throughout Extrem: General: Yes normal to inspection and Yes full ROM Psych: Appearance: well kempt Mental Status: mental status grossly normal Speech and movement: Normal speech and movement present Affect: normal affect Attitude: cooperative Thought process: Normal thought process pr esent Thought content: Normal thought content present Course Course Course Narrative: 35-year-old male who presents emergency department for evaluation of multiple complaints including dizziness, left-sided chest pain, lower abdominal pain, and diarrhea. Patient's vital signs were normal. Physical examination was unremarkable. I did order a CBC, CMP, lipase, troponin and urinalysis. Patient's abdominal pain will be treated with Toradol 15 mg IV and normal saline x1 L. 1328: The patient's laboratory evaluation was unremarkable except for a low glucose of 57. The patient was asymptomatic and he was given some food to eat to bring up his glucose. Patient's troponin was below detectable limits. Twelve EKG was unremarkable and unchanged from his previous EKG. Patient is feeling better after the above treatment. Patient most likely has a viral syndrome versus food poisoning is the cause of his symptoms. I did discuss this with the patient. The patient has not had any diarrhea since he has been in the emergency department. He was advised to take Imodium as directed for continued diarrhea. The patient was given verbal and printed instructions prior to discha rge. The patient was advised to follow-up with his PCP in 2 days and to return to the emergency department if his symptoms get worse or if they develop any new symptoms that are concerning to him. Medical Decision Making Lab Data Result diagrams: 02/04/21 10:22 02/04/21 10:22 Labs: Lab Results 02/04/21 02/04/21 02/04/21 Range/Units 10:22 10:22 10:22 WBC 9.3 (4.8-10.8) X10*3/uL RBC 5.66 (4.60-5.80) X10*6/uL Hgb 14.4 (14.0-18.0) g/dl Hct 45.4 (42-52) % MCV 80.2 (80-98) fL MCH 25.4 L (27.0-33.0) pg MCHC 31.7 (31.0-36.0) g/dl RDW 14.1 (11.0-16.0) % Plt Count 256 (160-400) X10*3/uL MPV 9.5 (9.4-12.4) fL Immature Gran % (Auto) 0.3 (0.0-0.4) % Neut % (Auto) 77.4 H (45-73) % Lymph % (Auto) 12.9 L (20-40) % [place] % (Auto) 8.4 (2-11) % Eos % (Auto) 0.8 (0-4) % Baso % (Auto) 0.2 (0-2) % Lymph # (Auto) 1.2 (1.2-4.9) X10*3/uL [place] # (Auto) 0.8 (0.1-1.2) X10*3/uL Eos # (Auto) 0.1 (0.0-0.4) X10*3/uL Baso # (Auto) 0.0 (0.0-0.2) X10*3/uL Abs Immat Gran (auto) 0.03 (0.00-0.03) X10*3/uL Absolute Neuts (auto) 7.2 (2.0-8.3) X10*3/uL Absolute Nucleated RBC 0.000 (0.0-0.012) X10*3/uL Nucleated RBC % (auto) 0.0 (0.0-0.2) /100WBC Sodium 140 (135-145) mmol/L Potassium 4.7 (3.3-5.1) mmol/L Chloride 103 (96-108) mmol/L Carbon Dioxide 29 (22-29) mmol/L Anion Gap 13 (12-20) BUN 14 (9-16) mg/dL Creatinine 0.89 (0.5-1.4) mg/dL Estim Creat Clear Calc 140.2 Estimated GFR > 60 Random Glucose 57 L* (60-115) mg/dL Calcium 9.9 (8.4-10.2) mg/dL Total Bilirubin 0.4 (0.0-1.0) mg/dL AST 21 (5-37) U/L ALT 14 (0-40) U/L Alkaline Phosphatase 67 (39-117) U/L Troponin I High Sens < 3.5 (<3.5-35.0) ng/L Total Protein 8.4 H D (6.5-8.0) g/dL Albumin 4.7 D (3.5-5.0) g/dL Lipase 32 (8-78) U/L ECG Data Attestation: I personally reviewed and interpreted this ECG as follows: Interpretation: 0933: Normal sinus rhythm with a rate of 89, normal NC interval, QRS duration and QTC interval, no ST segment elevation, no ST segment depression, no PACs or PVCs, compared to EKG dated 11/04/2020 no significant change noted. Discharge Plan Discharge Clinical Impression: Dizziness, Acute dehydration Diarrhea Qualifiers: Diarrhea type: unspecified type Qualified Code(s): R19.7 - Diarrhea, unspecified Patient Disposition: Home, Self-Care Instructions: Loperamide (By mouth), Acute Diarrhea (ED) Additional Instructions: Your laboratory evaluation was unremarkable except for a slightly low glucose of 57. Your symptoms are consistent with either a viral infection or food poisoning. Do not eat any of the hamburger if you have any left over. Increase your fluid intake. Take Imodium as directed on the package if you continue to have diarrhea. Follow-up with your doctor in 2 days. Please return to the emergency department if your symptoms get worse or if you develop any symptoms that are concerning to you. Prescriptions: No Action cyclobenzaprine 10 mg tablet 10 mg PO TID PRN (Reason: muscle spasm) Qty: 14 RF: 0 doxycycline hyclate 100 mg capsule 100 mg PO BID 7 Days Qty: 14 RF: 0 metoprolol succinate [Toprol XL] 50 mg Tablet Extended Release 24 Hr 50 mg PO DAILY RF: 0 lisinopril 20 mg Tablet 20 mg PO DAILY RF: 0 sertraline 100 mg Tablet 100 mg PO DAILY RF: 0 hydroxyzine HCl 25 mg Tablet 25 mg PO DAILY PRN (Reason: Anxiety) RF: 0 omeprazole 40 mg Capsule,Delayed Release(Dr/Ec) 40 mg PO DAILY@0630 Qty: 30 RF: 0 Lantus U-100 Insulin 100 unit/mL Solution 60 unit subcut BID Qty: 40 RF: 0 insulin lispro [Humalog U-100 Insulin] 100 unit/mL Solution 1 unit subcut QIDACHS Qty: 10 RF: 0 dexamethasone 4 mg tablet 4 mg PO DAILY Qty: 5 RF: 0 Stand Alone Forms: Work/School Release
[2021-02-04] MEDS: 0.9 % Sodium Chloride 1,000 ML 999 ML IV (10:30)
[2021-02-04] MEDS: Ketorolac Tromethamine 15 MG/ML VIAL IVPUSH (10:34)
[2021-02-04 10:35] LABS: MANUAL DIFF FLAG NO
[2021-02-04 10:39] LABS: Basophils Percent Auto 0.2 % (0-2); Eosinophils Absolute Auto 0.1 X10*3/uL (0.0-0.4); Eosinophils Percent Auto 0.8 % (0-4); Hematocrit 45.4 % (42-52); Hemoglobin 14.4 g/dl (14.0-18.0); Imm Gran Abs Auto 0.03 X10*3/uL (0.00-0.03); Imm Gran Pct Auto 0.3 % (0.0-0.4); Lymphocytes Absolute Auto 1.2 X10*3/uL (1.2-4.9); Lymphocytes Percent Auto 12.9 % (20-40); Mean Corpuscular HGB Conc 31.7 g/dl (31.0-36.0); Mean Corpuscular Hemoglobin 25.4 pg (27.0-33.0); Mean Corpuscular Volume 80.2 fL (80-98); Mean Platelet Volume 9.5 fL (9.4-12.4); Monocytes Absolute Auto 0.8 X10*3/uL (0.1-1.2); Monocytes Percent Auto 8.4 % (2-11); Neutrophils Absolute Auto 7.2 X10*3/uL (2.0-8.3); Neutrophils Percent Auto 77.4 % (45-73); Platelet Count 256 X10*3/uL (160-400); Red Blood Count 5.66 X10*6/uL (4.60-5.80); Red Cell Distribution Width 14.1 % (11.0-16.0); White Blood Count 9.3 X10*3/uL (4.8-10.8)
--- NOTE | 2021-02-04 11:11 | PC.NURSE ---
Patient states he is not dizzy currently. pt does complain of lower abdominal pain. Patient also requesting something to eat. Pt encouraged to wait for test results.
[2021-02-04 11:12] LABS: Troponin-I High Sensitivity < 3.5 ng/L (<3.5-35.0)
--- NOTE | 2021-02-04 11:14 | PC.NURSE ---
Lab called with critical lab result of a glusose reading of 57. Pt is alert and oriented. A sandwich and juice given. Doctor notified of results
[2021-02-04 11:17] LABS: Anion Gap 13 (12-20); Blood Urea Nitrogen 14 mg/dL (9-16); Carbon Dioxide 29 mmol/L (22-29); Chloride 103 mmol/L (96-108); Potassium 4.7 mmol/L (3.3-5.1); Sodium 140 mmol/L (135-145)
[2021-02-04 11:18] LABS: Alanine Aminotransferase 14 U/L (0-40); Albumin Level 4.7 g/dL (3.5-5.0); Alkaline Phosphatase 67 U/L (39-117); Aspartate Amino Transferase 21 U/L (5-37); Bilirubin Total 0.4 mg/dL (0.0-1.0); Calcium 9.9 mg/dL (8.4-10.2); Creatinine Clr Calc Pharmacy 140.2; Estimated Glomerular Filt Rate > 60; Glucose Random 57 mg/dL (60-115); Lipase 32 U/L (8-78); Total Protein 8.4 g/dL (6.5-8.0)
[2021-02-04 11:35] VITALS: BP 125/78; PULSE 99; RESP 18; O2SAT 98
--- NOTE | 2021-02-04 13:06 | PC.NURSE ---
Patient remains alert and oriented. Denies dizziness. Pt eating a sandwich and drinking milk after fsbs 76
[2021-02-04 13:07] VITALS: BP 124/78; PULSE 96; RESP 16; O2SAT 99
[2021-02-04 13:39] LABS: Glucose, Whole Blood 88 mg/dL (60-115)
[2021-02-04 13:39] LABS: Glucose, Whole Blood 76 mg/dL (60-115)
== END 2021-02-04 14:13 | disposition home or self-care (01) ==
PROVIDERS: Emergency Provider Emergency Medicine Emergency Medical Services
DX: R42 Dizziness and giddiness (principal); R19.7 Diarrhea, unspecified; E86.0 Dehydration; E11.9 Type 2 diabetes mellitus without complications; I10 Essential (primary) hypertension; Z79.4 Long term (current) use of insulin; Z79.899 Other long term (current) drug therapy
CPT/HCPCS: 36415; 80053; 82947; 83690; 84484; 85025; 93005; 96361; 96374; 99285; J1885

== ENCOUNTER 2021-04-22 06:30 | Emergency (ER) | payer MEDICAID, SELFPAY ==
[2021-04-22 06:37] VITALS: BP 141/94; PULSE 109; RESP 18; TEMP 36; O2SAT 97; BMI 41.1
--- NOTE | 2021-04-22 07:23 | ED_ITS ---
HPI - Extremity Injury (Lower) General Chief Complaint: Extremity Injury, Lower Stated Complaint: Leg Swelling/Pain Time Seen by Provider: 04/22/21 07:23 Source: patient Mode of arrival: ambulatory Limitations: no limitations History of Present Illness MD complaint: leg injury Onset (ago): day(s) (3) Type of Injury: other (works on feet alot) Place: work Severity: mild Relieving factors: nothing Exacerbating factors: weight bearing Context: other (on his feet all night) Associated symptoms: other (hurts at work) Other symptoms: none Related Data Home Medications Medication Instructions Recorded Confirmed hydroxyzine HCl 25 mg tablet 25 mg PO DAILY PRN 08/02/20 08/02/20 lisinopril 20 mg tablet 20 mg PO DAILY 08/02/20 08/02/20 metoprolol succinate 50 mg 50 mg PO DAILY 08/02/20 08/02/20 tablet,extended release 24 hr (Toprol XL) sertraline 100 mg tablet 100 mg PO DAILY 08/02/20 08/02/20 Previous Rx's Medication Instructions Recorded dexamethasone 4 mg tablet 4 mg PO DAILY #5 tab 08/07/20 insulin glargine 100 unit/mL 60 unit SUBCUT BID #40 ml 08/07/20 subcutaneous solution (Lantus U-100 Insulin) insulin lispro 100 unit/mL 1 unit SUBCUT QIDACHS #10 ml 08/07/20 subcutaneous solution (Humalog U-100 Insulin) omeprazole 40 mg capsule,delayed 40 mg PO DAILY@0630 #30 cap 08/07/20 release cyclobenzaprine 10 mg tablet 10 mg PO TID PRN #14 tab 11/04/20 doxycycline hyclate 100 mg capsule 100 mg PO BID 7 Days #14 cap 11/04/20 Allergies Allergy/AdvReac Type Severity Reaction Status Date / Time No Known Allergies Allergy Verified 02/04/21 09:21 [No Known Allergies*] Review of Systems Review of Systems: Constitutional : No Fever, No Chills Cardiovascular : No Chest Pain, No SOB Respiratory : No Cough, No Dyspnea Gastrointestinal : No Nausea, No Vomiting, No Diarrhea, No abdominal Pain Genitourinary : No Dysuria, No Hematuria Musculoskeletal : no joint pain, pos Myalgias, No Joint Swelling Skin : No Skin lacerations, No rash Neuro : No Weakness, No Numbness, No Loss of Consciousness, No All other systems reviewed and are negative [facility] Past Medical History Attestation statement: The following information was validated with the patient. Medical History Diabetes HTN (hypertension) Social History Social History Household Members: Significant Other Household Members Other:: GIRLFRIEND Do you presently have visiting nurse or other home services: No Alcohol intake: never Patient Tobacco Use Status: Never used Tobacco Second Hand Smoke Exposure: No Advance Directives: No Advance Directives Information Provided: No service: No Current occupational status: unemployed Physical Exam Vital Signs: Vital Signs: Last Vital Signs Temp 96.8 F 04/22/21 06:37 Pulse 109 H 04/22/21 06:37 Resp 18 04/22/21 06:37 BP 141/94 H 04/22/21 06:37 Pulse Ox 97 04/22/21 06:37 Body Mass Index 41.1 Appearance: Alert. Oriented X3. No acute distress. Eyes: Pupils equal, round and reactive to light. ENT: Pharynx normal. Neck: Normal inspection. Neck supple. CVS: Normal heart rate and rhythm. Pulses normal. Respiratory: No respiratory distress. Breath sounds normal. Abdomen: Soft and nontender. Skin: Skin warm and dry. Normal skin color. Normal skin turgor. Extremities: No lower extremity edema. No calf ttp L leg reports pain over anterior tibia but no color changes, normal skin, distal NV intact, no engorged veins no swelling normal exam no posterior complaints Neuro: Oriented X 3. No motor deficit. No sensory deficit. MDM - Extremity Injury (Lower) MDM Narrative Medical decision making narrative: 35 yo male with 3 days of intermittent L anterior mota pain while at work - no posterior issues no celllulitis doubt DVT - likely poor shoes at work causing strain stable for DC. NO trauma reported, distal NV intact Discharge Plan Discharge Clinical Impression: Muscle strain of left lower extremity Qualifiers: Encounter type: initial encounter Qualified Code(s): S86.912A - Strain of unspecified muscle(s) and tendon(s) at lower leg level, left leg, initial encounter Patient Disposition: Home, Self-Care Instructions: Muscle Strain (ED) Additional Instructions: return to ED for any worsening symptoms or concerns you need more supportive shoes at work Prescriptions: No Action cyclobenzaprine 10 mg tablet 10 mg PO TID PRN (Reason: muscle spasm) Qty: 14 RF: 0 doxycycline hyclate 100 mg capsule 100 mg PO BID 7 Days Qty: 14 RF: 0 metoprolol succinate [Toprol XL] 50 mg Tablet Extended Release 24 Hr 50 mg PO DAILY RF: 0 lisinopril 20 mg Tablet 20 mg PO DAILY RF: 0 sertraline 100 mg Tablet 100 mg PO DAILY RF: 0 hydroxyzine HCl 25 mg Tablet 25 mg PO DAILY PRN (Reason: Anxiety) RF: 0 omeprazole 40 mg Capsule,Delayed Release(Dr/Ec) 40 mg PO DAILY@0630 Qty: 30 RF: 0 Lantus U-100 Insulin 100 unit/mL Solution 60 unit subcut BID Qty: 40 RF: 0 insulin lispro [Humalog U-100 Insulin] 100 unit/mL Solution 1 unit subcut QIDACHS Qty: 10 RF: 0 dexamethasone 4 mg tablet 4 mg PO DAILY Qty: 5 RF: 0 Stand Alone Forms: Work/School Release
== END 2021-04-22 07:35 | disposition home or self-care (01) ==
PROVIDERS: Emergency Provider Emergency Medicine
DX: S86.912A Strain of unspecified muscle(s) and tendon(s) at lower leg level, left leg, initial encounter (principal); R60.0 Localized edema; X50.3XXA Overexertion from repetitive movements, initial encounter; M79.605 Pain in left leg; Y93.9 Activity, unspecified; Y92.9 Unspecified place or not applicable; Y99.0 Civilian activity done for income or pay; Z79.899 Other long term (current) drug therapy
CPT/HCPCS: 99283

== ENCOUNTER 2021-05-01 13:19 | Outpatient (REF) | payer MEDICAID, SELFPAY ==
[2021-05-01 13:59] LABS: COVID-19 Test Negative (Negative)
== END 2021-05-01 13:20 | disposition home or self-care (01) ==
LOC: HO.LAB 13:19
PROVIDERS: Visit Provider Internal Medicine
DX: Z20.822 Contact with and (suspected) exposure to COVID-19 (principal)
CPT/HCPCS: 36415; 87635; C9803

== ENCOUNTER 2021-05-31 15:47 | Emergency (ER) | payer MEDICAID, SELFPAY ==
[2021-05-31 15:55] VITALS: BP 131/89; PULSE 101; RESP 18; TEMP 36.9; O2SAT 95; BMI 39.5
[2021-05-31 16:07] LABS: Glucose, Whole Blood 131 mg/dL (60-115)
--- NOTE | 2021-05-31 16:45 | ED_ITS ---
HPI - General Adult General Chief complaint: General Medical Stated complaint: Medication refill Time Seen by Provider: 05/31/21 16:45 History of Present Illness HPI narrative: Patient is a 35-year-old male presents today with having ran out of his Lantus insulin. Patient has a long history of diabetes. His prescription was sent to a different pharmacy does closed during the weekend. Patient presents to the emergency department for help with his prescription. He takes 60 units of Lantus insulin twice a day. He has no specific complaints. Related Data Home Medications Medication Instructions Recorded Confirmed hydroxyzine HCl 25 mg tablet 25 mg PO DAILY PRN 08/02/20 08/02/20 lisinopril 20 mg tablet 20 mg PO DAILY 08/02/20 08/02/20 metoprolol succinate 50 mg 50 mg PO DAILY 08/02/20 08/02/20 tablet,extended release 24 hr (Toprol XL) sertraline 100 mg tablet 100 mg PO DAILY 08/02/20 08/02/20 Previous Rx's Medication Instructions Recorded dexamethasone 4 mg tablet 4 mg PO DAILY #5 tab 08/07/20 omeprazole 40 mg capsule,delayed 40 mg PO DAILY@0630 #30 cap 08/07/20 release cyclobenzaprine 10 mg tablet 10 mg PO TID PRN #14 tab 11/04/20 doxycycline hyclate 100 mg capsule 100 mg PO BID 7 Days #14 cap 11/04/20 insulin glargine 100 unit/mL (3 60 unit (0.6 mL) SUBCUT BID 25 05/31/21 mL) subcutaneous pen (Lantus Days #30 ml Solostar U-100 Insulin) insulin glargine 100 unit/mL 60 unit (0.6 mL) SUBCUT BID #10 ml 05/31/21 subcutaneous solution (Lantus U-100 Insulin) insulin glargine 100 unit/mL 60 unit (0.6 mL) SUBCUT BID 30 05/31/21 subcutaneous solution (Lantus Days #36 ml U-100 Insulin) insulin lispro 100 unit/mL 1 unit SUBCUT QIDACHS #10 ml 05/31/21 subcutaneous solution (Humalog U-100 Insulin) insulin syringe-needle U-100 1 mL #100 ea 05/31/21 31 gauge x 5/16 (BD Insulin Syringe Ultra-Fine) Allergies Allergy/AdvReac Type Severity Reaction Status Date / Time No Known Allergies Allergy Verified 02/04/21 09:21 [No Known Allergies*] Review of Systems Review of Systems: No fever no chills no chest pain or shortness of breath no nausea no vomiting Yes all other systems are reviewed and are negative [facility] Past Medical History Attestation statement: The following information was validated with the patient. Medical History Diabetes Diabetes mellitus HTN (hypertension) Social History Social History Household Members: Significant Other Household Members Other:: GIRLFRIEND Do you presently have visiting nurse or other home services: No Alcohol intake: never Patient Tobacco Use Status: Never used Tobacco Second Hand Smoke Exposure: No Advance Directives: No Advance Directives Information Provided: Yes service: No Current occupational status: unemployed Physical Exam Vital Signs: Vital Signs: Last Vital Signs Temp 98.4 F 05/31/21 15:55 Pulse 101 H 05/31/21 15:55 Resp 18 05/31/21 15:55 BP 131/89 05/31/21 15:55 Pulse Ox 95 05/31/21 15:55 Body Mass Index 39.5 Appearance: Alert. Oriented X3. No acute distress. Eyes: Pupils equal, round and reactive to light. ENT: Pharynx normal. Neck: Normal inspection. Neck supple. No lymph nodes noted. No crepitus CVS: Normal heart rate and rhythm. Pulses normal. Normal S1 and S2 Respiratory: No respiratory distress. Breath sounds normal. No Wheezing. No rales Abdomen: Soft and nontender. No rigidity. No distention. good BS x4 Skin: Skin warm and dry. Normal skin color. Normal skin turgor. Extremities: No lower extremity edema. Neurovascular intact to all extremities. No Lacerations. No Rash Neuro: Oriented X 3. No motor deficit. No sensory deficit. Moving all extermities. No slurred speech Medical Decision Making MDM Narrative Medical decision making narrative: Will send patient's prescription to a different pharmacy and discharge patient. His sugars less than 200 patient is in stable condition. Lab Data Labs: Lab Results 05/31/21 Range/Units 16:04 POC Glucose 131 H (60-115) mg/dL Discharge Plan Discharge Clinical Impression: Diabetes mellitus Patient Disposition: Home, Self-Care Instructions: How to Give an Insulin Injection (ED), How to Check your Blood Sugar (ED) Prescriptions: New Lantus U-100 Insulin 100 unit/mL solution 60 unit subcut BID Qty: 10 RF: 0 No Action insulin lispro [Humalog U-100 Insulin] 100 unit/mL solution 1 unit subcut QIDACHS Qty: 10 RF: 0 Lantus U-100 Insulin 100 unit/mL solution 60 unit subcut BID 30 Days Qty: 36 RF: 0 (DME) insulin syringe-needle U-100 [BD Insulin Syringe Ultra-Fine] 1 mL 31 gauge x 5/16 syringe See Rx Instructions .Route Qty: 100 RF: 0 Lantus Solostar U-100 Insulin 100 unit/mL (3 mL) insulin pen 60 unit subcut BID 25 Days Qty: 30 RF: 0 cyclobenzaprine 10 mg tablet 10 mg PO TID PRN (Reason: muscle spasm) Qty: 14 RF: 0 doxycycline hyclate 100 mg capsule 100 mg PO BID 7 Days Qty: 14 RF: 0 metoprolol succinate [Toprol XL] 50 mg Tablet Extended Release 24 Hr 50 mg PO DAILY RF: 0 lisinopril 20 mg Tablet 20 mg PO DAILY RF: 0 sertraline 100 mg Tablet 100 mg PO DAILY RF: 0 hydroxyzine HCl 25 mg Tablet 25 mg PO DAILY PRN (Reason: Anxiety) RF: 0 omeprazole 40 mg Capsule,Delayed Release(Dr/Ec) 40 mg PO DAILY@0630 Qty: 30 RF: 0 dexamethasone 4 mg tablet 4 mg PO DAILY Qty: 5 RF: 0 Referrals: [facility] [Primary Care Provider] - 2 days
== END 2021-05-31 16:53 | disposition home or self-care (01) ==
PROVIDERS: Emergency Provider Emergency Medicine Emergency Medical Services
DX: Z76.0 Encounter for issue of repeat prescription (principal); E11.9 Type 2 diabetes mellitus without complications; I10 Essential (primary) hypertension
CPT/HCPCS: 82947; 99283

== ENCOUNTER 2021-06-01 20:03 | Emergency (ER) | payer MEDICAID, SELFPAY ==
[2021-06-01 20:07] VITALS: BP 140/83; PULSE 96; RESP 18; TEMP 36.8; O2SAT 97; BMI 39.5
[2021-06-01 20:30] LABS: Glucose, Whole Blood 163 mg/dL (60-115)
--- NOTE | 2021-06-01 20:41 | ED_ITS ---
HPI - General Adult General Chief complaint: General Medical <MADAN Cortes - Last Filed: 06/01/21 20:56> Stated complaint: pt does not have insulin <MADAN Cortes Last Filed: 06/01/21 20:56> Time Seen by Provider: 06/01/21 20:32 <MADAN Cortes - Last Filed: 06/01/21 20:56> Source: patient <MADAN Cortes - Last Filed: 06/01/21 20:56> Mode of arrival: ambulatory <MADAN Cortes Last Filed: 06/01/21 20:56> Limitations: no limitations <MADAN Cortes Last Filed: 06/01/21 20:56> History of Present Illness HPI narrative: Patient is a 35-year-old male presents today with having ran out of his Lantus insulin.? Patient has a long history of diabetes.? His prescription was sent to a different pharmacy does closed during the weekend.? Patient presents to the emergency department for help with his prescription.? He takes 60 units of Lantus insulin twice a day.? He has no specific complaints. He was seen here yesterday and still unable to successfully get his prescription <MADAN Cortes Last Filed: 06/01/21 20:56> Relieving factors: none <MADAN Cortes Last Filed: 06/01/21 20:56> Exacerbating factors: none <MADAN Cortes Last Filed: 06/01/21 20:56> Treatments prior to arrival: none <MADAN Cortes Last Filed: 06/01/21 20:56> Related Data Home medications: Home Medications Medication Instructions Recorded Confirmed hydroxyzine HCl 25 mg tablet 25 mg PO DAILY PRN 08/02/20 08/02/20 lisinopril 20 mg tablet 20 mg PO DAILY 08/02/20 08/02/20 metoprolol succinate 50 mg 50 mg PO DAILY 08/02/20 08/02/20 tablet,extended release 24 hr (Toprol XL) sertraline 100 mg tablet 100 mg PO DAILY 08/02/20 08/02/20 Previous Rx's Medication Instructions Recorded dexamethasone 4 mg tablet 4 mg PO DAILY #5 tab 08/07/20 omeprazole 40 mg capsule,delayed 40 mg PO DAILY@0630 #30 cap 08/07/20 release cyclobenzaprine 10 mg tablet 10 mg PO TID PRN #14 tab 11/04/20 doxycycline hyclate 100 mg capsule 100 mg PO BID 7 Days #14 cap 11/04/20 insulin glargine 100 unit/mL (3 60 unit (0.6 mL) SUBCUT BID 25 05/31/21 mL) subcutaneous pen (Lantus Days #30 ml Solostar U-100 Insulin) insulin glargine 100 unit/mL 60 unit (0.6 mL) SUBCUT BID #10 ml 05/31/21 subcutaneous solution (Lantus U-100 Insulin) insulin glargine 100 unit/mL 60 unit (0.6 mL) SUBCUT BID 30 05/31/21 subcutaneous solution (Lantus Days #36 ml U-100 Insulin) insulin lispro 100 unit/mL 1 unit SUBCUT QIDACHS #10 ml 05/31/21 subcutaneous solution (Humalog U-100 Insulin) insulin syringe-needle U-100 1 mL #100 ea 05/31/21 31 gauge x 5/16 (BD Insulin Syringe Ultra-Fine) insulin glargine 100 unit/mL 60 unit (0.6 mL) SUBCUT BID #10 ml 06/01/21 subcutaneous solution (Lantus U-100 Insulin) <MADAN Cortes - Last Filed: 06/01/21 20:56> Allergies/adverse reactions: Allergies Allergy/AdvReac Type Severity Reaction Status Date / Time No Known Allergies Allergy Verified 02/04/21 09:21 [No Known Allergies*] <MADNA Cortes - Last Filed: 06/01/21 20:56> Review of Systems Review of Systems: Constitutional : No Weight loss, No Fever, No Chills, No Fatigue, No Malaise ENT/Mouth : No sore throat, No Rhinorrhea Eyes: No Eye Pain, No Swelling, No Redness Cardiovascular : No Chest Pain, No SOB, No Dyspnea on Exertion, No Orthopnea, No Edema, No Palpitations Respiratory : No Cough, No Sputum, No Wheezing Gastrointestinal : No Nausea, No Vomiting, No Diarrhea, No Constipation, No abdominal Pain, No Hematochezia, No Melena Genitourinary : No Dysuria, No Urinary Frequency, No Hematuria, Musculoskeletal : No joint pain, No Myalgias, No Joint Swelling Skin : No Skin Lesions, No rash Neuro : No Weakness, No Numbness, No Dizziness, No Headache All other systems reviewed and are negative <MADAN Cortes - Last Filed: 06/01/21 20:56> [facility] Past Medical History Attestation statement: The following information was validated with the patient. <MADAN Cortes - Last Filed: 06/01/21 20:56> Source: old records reviewed and nursing notes reviewed <MADAN Cortes - Last Filed: 06/01/21 20:56> Medical History: Medical History Diabetes Diabetes mellitus HTN (hypertension) <MADAN Cortes - Last Filed: 06/01/21 20:56> Social History Social History: Social History Household Members: Significant Other Household Members Other:: GIRLFRIEND Do you presently have visiting nurse or other home services: No Alcohol intake: never Patient Tobacco Use Status: Never used Tobacco Second Hand Smoke Exposure: No Advance Directives: No Advance Directives Information Provided: Yes service: No Current occupational status: unemployed <MADAN Cortes - Last Filed: 06/01/21 20:56> Physical Exam Vital Signs: Vital Signs: Last Vital Signs Temp 98.3 F 06/01/21 20:07 Pulse 96 06/01/21 20:07 Resp 18 06/01/21 20:07 BP 140/83 H 06/01/21 20:07 Pulse Ox 97 06/01/21 20:07 Body Mass Index 39.5 <MADAN Cortes - Last Filed: 06/01/21 20:56> Vital Signs: Last Vital Signs Temp 98.3 F 06/01/21 20:07 Pulse 96 06/01/21 20:07 Resp 18 06/01/21 20:07 BP 140/83 H 06/01/21 20:07 Pulse Ox 97 06/01/21 20:07 Body Mass Index 39.5 <MADAN Plummer - Last Filed: 06/02/21 22:38> Appearance: Alert.? Oriented X3.? No acute distress.? Head: Normocephalic, atraumatic, no step-offs or deformities Eyes: Pupils equal, round and reactive to light.? ENT: Pharynx normal.? Neck: Normal inspection.? Neck supple.? CVS: Normal heart rate and rhythm.? Pulses normal.? Respiratory: No respiratory distress.? Breath sounds normal.? Abdomen: Soft and nontender.? Skin: Skin warm and dry.? Normal skin color.? Normal skin turgor.? Extremities: No lower extremity edema.? No calf ttp. 5/5 strength to bilateral upper and lower extremities Back: No midline tenderness, no C-spine tenderness, full range of motion, no CVA tenderness bilaterally Neuro: Oriented X 3.? No motor deficit.? No sensory deficit. <MADAN Cortes - Last Filed: 06/01/21 20:56> Course Course Course Narrative: agree with assessment and plan. paper Rx given <MADAN Plummer - Last Filed: 06/02/21 22:38> Reevaluation(s) Reevaluation #1: POC 163. No need for acute intervention at this time. <MADAN Cortes - Last Filed: 06/01/21 20:56> Time: 20:47 <MADAN Cortes - Last Filed: 06/01/21 20:56> Reevaluation #2: patient offers no complaints at this time. I have told patient that if he does not feel well, his sugars are uncontrolled, if he starts having abdominal pain, nausea, vomiting he should return to the emergency department. I have given him a hard copy of a printed script that way there will be no more technological issues. Patient is safe for discharge home with PCP follow-up tomorrow. <MADAN Cortes - Last Filed: 06/01/21 20:56> Time: 20:55 <MADAN Cortes - Last Filed: 06/01/21 20:56> Medical Decision Making MDM Narrative Medical decision making narrative: 2046 35-year-old male past medical history diabetes, hypertension coming to the e mergency department requesting a refill on his land his prescription. He states that his PCP did not send it to the correct pharmacy. He states he was seen yesterday and he is still unable to get the prescription. He has no specific complaints. He says since he stopped taking his insulin he has been feeling weird. Physical examination is benign. Plan at this time is to obtain a POC <MADAN Cortes - Last Filed: 06/01/21 20:56> Lab Data Labs: Lab Results 06/01/21 Range/Units 20:18 POC Glucose 163 H (60-115) mg/dL <MADAN Cortes - Last Filed: 06/01/21 20:56> Lab Results 06/01/21 Range/Units 20:18 POC Glucose 163 H (60-115) mg/dL <MADAN Plummer - Last Filed: 06/02/21 22:38> Critical Care Time Critical Care Time Critical Care Time: No <MADAN Cortes - Last Filed: 06/01/21 20:56> Discharge Plan Discharge Clinical Impression: Medication refill <MADAN Cortes - Last Filed: 06/01/21 20:56> Patient Disposition: Home, Self-Care <MADAN Cortes - Last Filed: 06/01/21 20:56> Additional Instructions: Take your medications as prescribed. Follow-up with your primary care provider tomorrow. Return to the emergency department with new or worsening symptoms. Such as vision changes, headaches, nausea, vomiting, abdominal pain, confusion and/or of your sugars are abnormal. In case of emergency call 911 <MADAN Cortes - Last Filed: 06/01/21 20:56> Prescriptions: New Lantus U-100 Insulin 100 unit/mL solution 60 unit subcut BID Qty: 10 RF: 0 No Action insulin lispro [Humalog U-100 Insulin] 100 unit/mL solution 1 unit subcut QIDACHS Qty: 10 RF: 0 Lantus U-100 Insulin 100 unit/mL solution 60 unit subcut BID 30 Days Qty: 36 RF: 0 (DME) insulin syringe-needle U-100 [BD Insulin Syringe Ultra-Fine] 1 mL 31 gauge x 5/16 syringe See Rx Instructions .Route Qty: 100 RF: 0 Lantus Solostar U-100 Insulin 100 unit/mL (3 mL) insulin pen 60 unit subcut BID 25 Days Qty: 30 RF: 0 cyclobenzaprine 10 mg tablet 10 mg PO TID PRN (Reason: muscle spasm) Qty: 14 RF: 0 doxycycline hyclate 100 mg capsule 100 mg PO BID 7 Days Qty: 14 RF: 0 metoprolol succinate [Toprol XL] 50 mg Tablet Extended Release 24 Hr 50 mg PO DAILY RF: 0 lisinopril 20 mg Tablet 20 mg PO DAILY RF: 0 sertraline 100 mg Tablet 100 mg PO DAILY RF: 0 hydroxyzine HCl 25 mg Tablet 25 mg PO DAILY PRN (Reason: Anxiety) RF: 0 omeprazole 40 mg Capsule,Delayed Release(Dr/Ec) 40 mg PO DAILY@0630 Qty: 30 RF: 0 dexamethasone 4 mg tablet 4 mg PO DAILY Qty: 5 RF: 0 Lantus U-100 Insulin 100 unit/mL solution 60 unit subcut BID Qty: 10 RF: 0 <MADAN Cortes - Last Filed: 06/01/21 20:56> Referrals: [facility] [Primary Care Provider] - 2 days <MADAN Cortes - Last Filed: 06/01/21 20:56> Stand Alone Forms: Work/School Release <MADAN Cortes - Last Filed: 06/01/21 20:56> Interventions: ED Discharge Assessment Last Done: 06/01/21 21:05 <MADAN Cortes - Last Filed: 06/01/21 20:56> Discharge Date/Time: 06/01/21 21:06 <MADAN Cortes - Last Filed: 06/01/21 20:56>
== END 2021-06-01 21:06 | disposition home or self-care (01) ==
PROVIDERS: Emergency Provider Emergency Medicine
DX: Z76.0 Encounter for issue of repeat prescription (principal); E11.9 Type 2 diabetes mellitus without complications; Z79.899 Other long term (current) drug therapy; Z79.4 Long term (current) use of insulin
CPT/HCPCS: 82947; 99283; 99284

== ENCOUNTER 2021-07-01 10:43 | Emergency (ER) | payer MEDICAID, SELFPAY ==
--- NOTE | ~2021-07-01 | XR_ITS ---
EXAMINATION: NR ANKLE, LEFT XR FOOT, LEFT CLINICAL INFORMATION: Pain ankle and foot COMPARISON: None TECHNIQUE: Left ankle is imaged in 3 views. The left foot is imaged in 3 separate views. There are total of 6 views. FINDINGS: The ankle shows no fracture or dislocation or destructive process. The malleoli are intact and the ankle mortise is symmetric. The talar dome shows no osteochondral lesion. No visible ankle capsular effusion. The subtalar joint is unremarkable. The retrocalcaneal recess is preserved. There is posterior calcaneal spur. The midfoot and forefoot show no fracture or dislocation or destructive process. There is no joint narrowing or erosive changes. XR/XR foot LT min 3V IMPRESSION: 1. No fracture, dislocation, or arthropathy. 2. Posterior calcaneal spur.
--- NOTE | ~2021-07-01 | XR_ITS ---
EXAMINATION: NR ANKLE, LEFT XR FOOT, LEFT CLINICAL INFORMATION: Pain ankle and foot COMPARISON: None TECHNIQUE: Left ankle is imaged in 3 views. The left foot is imaged in 3 separate views. There are total of 6 views. FINDINGS: The ankle shows no fracture or dislocation or destructive process. The malleoli are intact and the ankle mortise is symmetric. The talar dome shows no osteochondral lesion. No visible ankle capsular effusion. The subtalar joint is unremarkable. The retrocalcaneal recess is preserved. There is posterior calcaneal spur. The midfoot and forefoot show no fracture or dislocation or destructive process. There is no joint narrowing or erosive changes. XR/XR ankle LT 2V IMPRESSION: 1. No fracture, dislocation, or arthropathy. 2. Posterior calcaneal spur.
[2021-07-01 11:48] VITALS: BP 127/69; PULSE 98; RESP 17; TEMP 36.7; O2SAT 95; BMI 39.5
--- NOTE | 2021-07-01 11:52 | ED.GENADULT ---
HPI - General Adult General Chief complaint: Extremity Injury, Lower Stated complaint: Ankle pain Time Seen by Provider: 07/01/21 11:45 Source: patient History of Present Illness HPI narrative: Patient states for the past 2 and half weeks he has had left foot and ankle pain. He denies trauma. He denies twisting it. He states he works standing on his feet all day. He has been at this job for approximately 1 year and has had no recent activity changes. No prior history of foot pain in that area. He is an insulin-dependent diabetic for the past 6 months. He does not have a history of neuropathy. No fevers or chills. No change in skin color. No significant swelling. No weakness numbness or paresthesias No loss of sensation Related Data Home Medications Medication Instructions Recorded Confirmed hydroxyzine HCl 25 mg tablet 25 mg PO DAILY PRN 08/02/20 08/02/20 lisinopril 20 mg tablet 20 mg PO DAILY 08/02/20 08/02/20 metoprolol succinate 50 mg 50 mg PO DAILY 08/02/20 08/02/20 tablet,extended release 24 hr (Toprol XL) sertraline 100 mg tablet 100 mg PO DAILY 08/02/20 08/02/20 Previous Rx's Medication Instructions Recorded dexamethasone 4 mg tablet 4 mg PO DAILY #5 tab 08/07/20 omeprazole 40 mg capsule,delayed 40 mg PO DAILY@0630 #30 cap 08/07/20 release cyclobenzaprine 10 mg tablet 10 mg PO TID PRN #14 tab 11/04/20 doxycycline hyclate 100 mg capsule 100 mg PO BID 7 Days #14 cap 11/04/20 insulin glargine 100 unit/mL (3 60 unit (0.6 mL) SUBCUT BID 25 05/31/21 mL) subcutaneous pen (Lantus Days #30 ml Solostar U-100 Insulin) insulin glargine 100 unit/mL 60 unit (0.6 mL) SUBCUT BID #10 ml 05/31/21 subcutaneous solution (Lantus U-100 Insulin) insulin glargine 100 unit/mL 60 unit (0.6 mL) SUBCUT BID 30 05/31/21 subcutaneous solution (Lantus Days #36 ml U-100 Insulin) insulin lispro 100 unit/mL 1 unit SUBCUT QIDACHS #10 ml 05/31/21 subcutaneous solution (Humalog U-100 Insulin) insulin syringe-needle U-100 1 mL #100 ea 05/31/21 31 gauge x 5/16 (BD Insulin Syringe Ultra-Fine) insulin glargine 100 unit/mL 60 unit (0.6 mL) SUBCUT BID #10 ml 06/01/21 subcutaneous solution (Lantus U-100 Insulin) ibuprofen 800 mg tablet 800 mg PO Q8H PRN #20 tab 07/01/21 Allergies Allergy/AdvReac Type Severity Reaction Status Date / Time No Known Allergies Allergy Verified 02/04/21 09:21 [No Known Allergies*] Review of Systems Constitutional: Constitutional: Denies fatigue and Denies fever(s) Musculoskeletal: Comments: Left foot pain is described Integumentary/Breasts: Comments: No rash or skin color changes Neurologic: Comments: No weakness numbness or paresthesias Endocrine: Endocrine: Denies fatigue Hematologic/Lymphatic: Comments: No bruising or history of thromboembolic disease [facility] Past Medical History Medical History Diabetes Diabetes mellitus HTN (hypertension) Social History Social History Household Members: Significant Other Household Members Other:: GIRLFRIEND Do you presently have visiting nurse or other home services: No Alcohol intake: never Patient Tobacco Use Status: Never used Tobacco Second Hand Smoke Exposure: No Advance Directives: No Advance Directives Information Provided: No service: No Current occupational status: unemployed Physical Exam Vital Signs: Vital Signs: Last Vital Signs Temp 98.1 F 07/01/21 11:48 Pulse 98 07/01/21 11:48 Resp 17 07/01/21 11:48 BP 127/69 07/01/21 11:48 Pulse Ox 95 07/01/21 11:48 BMI result Body Mass Index 39.5 Const: Other: Awake alert no acute distress. Ambulatory Resp: Other: No respiratory distress Skin: Other: Warm pink and dry without rash. Skin over the affected foot and ankle is normal without increased warmth or erythema Neuro: Other: Distal circulation sensation and motor is intact Extrem: Other: Left foot with tenderness across the proximal dorsal forefoot into the lateral ankle. There is no crepitus deformity or swelling noted. Full range of motion of toes and ankle. Pain increases with weight-bearing but he is able to ambulate with minimal limp Course Course Course Narrative: Stress fracture from overuse Tendinitis from overuse No evidence of infection or neuropathy as cause of patient's symptoms. X-rays ordered 1:17 p.m.. X-rays show no evidence of fracture. Stable for discharge home with a final diagnosis of tendinitis secondary to overuse Discharge Plan Discharge Clinical Impression: Tendinitis of ankle or foot Patient Disposition: Home, Self-Care Instructions: Tendinitis (ED) Additional Instructions: Follow-up with spine and support. [phone] Prescriptions: New ibuprofen 800 mg tablet 800 mg PO Q8H PRN (Reason: pain) Qty: 20 RF: 0 No Action insulin lispro [Humalog U-100 Insulin] 100 unit/mL solution 1 unit subcut QIDACHS Qty: 10 RF: 0 Lantus U-100 Insulin 100 unit/mL solution 60 unit subcut BID 30 Days Qty: 36 RF: 0 (DME) insulin syringe-needle U-100 [BD Insulin Syringe Ultra-Fine] 1 mL 31 gauge x 5/16 syringe See Rx Instructions .Route Qty: 100 RF: 0 Lantus Solostar U-100 Insulin 100 unit/mL (3 mL) insulin pen 60 unit subcut BID 25 Days Qty: 30 RF: 0 cyclobenzaprine 10 mg tablet 10 mg PO TID PRN (Reason: muscle spasm) Qty: 14 RF: 0 doxycycline hyclate 100 mg capsule 100 mg PO BID 7 Days Qty: 14 RF: 0 metoprolol succinate [Toprol XL] 50 mg Tablet Extended Release 24 Hr 50 mg PO DAILY RF: 0 lisinopril 20 mg Tablet 20 mg PO DAILY RF: 0 sertraline 100 mg Tablet 100 mg PO DAILY RF: 0 hydroxyzine HCl 25 mg Tablet 25 mg PO DAILY PRN (Reason: Anxiety) RF: 0 omeprazole 40 mg Capsule,Delayed Release(Dr/Ec) 40 mg PO DAILY@0630 Qty: 30 RF: 0 dexamethasone 4 mg tablet 4 mg PO DAILY Qty: 5 RF: 0 Lantus U-100 Insulin 100 unit/mL solution 60 unit subcut BID Qty: 10 RF: 0 Lantus U-100 Insulin 100 unit/mL solution 60 unit subcut BID Qty: 10 RF: 0 Stand Alone Forms: Work/School Release Interventions: ED Discharge Assessment Last Done: 07/01/21 13:28 Discharge Date/Time: 07/01/21 13:28
== END 2021-07-01 13:28 | disposition home or self-care (01) ==
PROVIDERS: Emergency Provider Emergency Medicine
DX: M77.52 Other enthesopathy of left foot and ankle (principal); I10 Essential (primary) hypertension; E11.9 Type 2 diabetes mellitus without complications
CPT/HCPCS: 73600; 73630; 99282; 99283; 99284

== ENCOUNTER 2021-08-04 15:48 | Emergency (ER) | payer MEDICAID, SELFPAY ==
[2021-08-04 15:52] VITALS: BP 140/76; PULSE 97; RESP 18; TEMP 36.9; O2SAT 97; BMI 39.5
[2021-08-04 16:29] LABS: Appearance Urine CLEAR; Color Urine YELLOW; Glucose Urine UA 250 MG/DL (NEG); Leukocyte Esterase Urine 1+ (NEG); Nitrite Urine NEG (NEG); UACC Culture Trigger YES; Urine Blood NEG (NEG); Urine Ketones NEG (NEG); Urine Protein NEG (NEG-TRACE)
--- NOTE | 2021-08-04 16:35 | ED_ITS ---
HPI - General Adult General Chief complaint: Back Pain/Injury Stated complaint: Back pain, discharge from groin - since thur Time Seen by Provider: 08/04/21 16:08 Source: patient and police Mode of arrival: ambulatory Limitations: no limitations History of Present Illness HPI narrative: To recent female history of diabetes and chlamydia presents to ED for dysuria and peres penile discharge. Patient admits to recent unprotected sex with a new partner about a week ago and then started having symptoms. Patient secondary complaint is left-sided back pain that is worse on movement. 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 Patient denies any blunt trauma to the back, abdominal pain, nausea, vomiting, fever, hematuria or chills. Related Data Home Medications Medication Instructions Recorded Confirmed hydroxyzine HCl 25 mg tablet 25 mg PO DAILY PRN 08/02/20 08/02/20 lisinopril 20 mg tablet 20 mg PO DAILY 08/02/20 08/02/20 metoprolol succinate 50 mg 50 mg PO DAILY 08/02/20 08/02/20 tablet,extended release 24 hr (Toprol XL) sertraline 100 mg tablet 100 mg PO DAILY 08/02/20 08/02/20 Previous Rx's Medication Instructions Recorded dexamethasone 4 mg tablet 4 mg PO DAILY #5 tab 08/07/20 omeprazole 40 mg capsule,delayed 40 mg PO DAILY@0630 #30 cap 08/07/20 release cyclobenzaprine 10 mg tablet 10 mg PO TID PRN #14 tab 11/04/20 doxycycline hyclate 100 mg capsule 100 mg PO BID 7 Days #14 cap 11/04/20 insulin glargine 100 unit/mL (3 60 unit (0.6 mL) SUBCUT BID 25 05/31/21 mL) subcutaneous pen (Lantus Days #30 ml Solostar U-100 Insulin) insulin glargine 100 unit/mL 60 unit (0.6 mL) SUBCUT BID #10 05/31/21 ml subcutaneous solution (Lantus U-100 Insulin) insulin glargine 100 unit/mL 60 unit (0.6 mL) SUBCUT BID 30 05/31/21 subcutaneous solution (Lantus Days #36 ml U-100 Insulin) insulin lispro 100 unit/mL 1 unit SUBCUT QIDACHS #10 ml 05/31/21 subcutaneous solution (Humalog U-100 Insulin) insulin syringe-needle U-100 1 mL #100 ea 05/31/21 31 gauge x 5/16 (BD Insulin Syringe Ultra-Fine) insulin glargine 100 unit/mL 60 unit (0.6 mL) SUBCUT BID #10 06/01/21 ml subcutaneous solution (Lantus U-100 Insulin) ibuprofen 800 mg tablet 800 mg PO Q8H PRN #20 tab 07/01/21 doxycycline hyclate 100 mg tablet 100 mg PO BID 7 Days #14 tab 08/04/21 naproxen 500 mg tablet 500 mg PO BID PRN 10 Days #20 tab 08/04/21 Allergies Allergy/AdvReac Type Severity Reaction Status Date / Time No Known Allergies Allergy Verified 08/04/21 15:52 [No Known Allergies*] Review of Systems Verdana 4l Review of Systems: Verdana 4d Dysuria, penile discharge, Verdana 4d and back pain worse on movement Verdana 4d Yes all other systems are reviewed and are negative [facility] Past Medical History Medical History Diabetes Diabetes mellitus HTN (hypertension) Social History Social History Household Members: Significant Other Household Members Other:: GIRLFRIEND Do you presently have visiting nurse or other home services: No Alcohol intake: never Patient Tobacco Use Status: Never used Tobacco Second Hand Smoke Exposure: No Advance Directives: No Advance Directives Information Provided: Yes service: No Current occupational status: unemployed Physical Exam Verdana 4l Vital Signs: Verdana 4d Verdana 4d Vital Signs: Verdana 4d Verdana 4Bd Last Vital Signs Verdana 4d Emblem Cutter New 4d Emblem Cutter New 4d Temp 98.5 F 08/04/21 15:52 Emblem Cutter New 4d Pulse 97 08/04/21 15:52 Emblem Cutter NewNew 4d Resp 18 08/04/21 15:52 BP 140/76 H 08/04/21 15:52 Pulse Ox 97 08/04/21 15:52 BMI result Body Mass Index 39.5 Const: General: cooperative, healthy appearing, comfortable, no acute distress, well developed, alert, awake and Physically active Orientation/consciousness: oriented to person, oriented to place, oriented to time and patient oriented x3 HENMT: Head: Yes normal to inspection, Yes No palpable skull fracture present, Yes normocephalic and No atraumatic Eyes: General: appearance normal, both eyes and all related structures Neck: Neck: Yes normal visual inspection, Yes full ROM, Yes no lymphadenopathy and Yes no meningeal signs Chest: Chest palpation & inspection: normal inspection of the chest and normal palp ation of entire chest wall Resp: Effort & Inspection: normal respiratory effort and able to speak in complete sentences Auscultation: clear to auscultation bilaterally Cardio: Jugular venous distension: no JVD Heart sounds: S1 normal heart sound present and S2 normal heart sound present GI: Inspection: Yes normal to inspection and No abdominal wall ecchymosis Palpati on (GI): Soft to palpation, not firm, nontender and no guarding : General: Yes Bimanual renal exam normal bilaterally, No CVA tenderness and No no CVA tenderness Penis: normal penis and uncircumcised Meatus: meatal discharge (Peres clear) Scrotum: scrotum normal Testes: Testes normal Back/Spine/Pelvis: Other: Negative for spine tenderness Back: No no CVA tenderness, No CVA tenderness and back tenderness (Left paraspinous. Pain on range of motion.) Skin: General skin exam: no rashes or lesions noted and elasticity normal Neuro: General: oriented to person, oriented to place, oriented to time, patient orient ed x3, gait normal, no meningeal signs and CN's II-XI intact bilaterally Extrem: General: Yes normal to inspection and Yes full ROM Psych: Appearance: grossly normal, well kempt and not disheveled Course Course Course Narrative: Back patient moves quickly months going UA chlamydia gonorrhea test sent. Reevaluation(s) Reevaluation #1: Patient treated emperically for STI. Time: 18:01 Medical Decision Making [facility] Narrative Medical decision making narrative: Dysuria Lab Data Labs: Lab Results 08/04/21 Range/Units 16:10 Urine Color YELLOW Urine Appearance CLEAR Urine pH 6.0 (5.0-8.0) Ur Specific [place] 1.020 (1.005-1.025) Urine Protein NEG (NEG-TRACE) MG/DL Urine Glucose (UA) 250 H (NEG) MG/DL Urine Ketones NEG (NEG) MG/DL Urine Blood NEG (NEG) Urine Nitrite NEG (NEG) Ur Leukocyte Esterase 1+ H (NEG) Urine RBC 1-4 (0) /HPF Urine WBC 30-49 H (0-4) /HPF Ur Squamous Epith Cells NONE /LPF Urine Bacteria NONE /LPF Discharge Plan Discharge Clinical Impression: Dysuria, Concern about sexually transmitted disease in male without diagnosis, Back strain Patient Disposition: Home, Self-Care Instructions: Low Back Strain (ED), Dysuria (ED) Additional Instructions: Results take about 4-5 days to come back. You will be called if results are positive. Return to the ED for any abdominal pain, nausea, vomiting, fever, chills, penile lesions, testicular pain, testicular swelling flank pain, severe back pain, or any other concerning symptoms. Please follow-up with primary care provider Prescriptions: New naproxen 500 mg tablet 500 mg PO BID PRN (Reason: pain) 10 Days Qty: 20 RF: 0 doxycycline hyclate 100 mg tablet 100 mg PO BID 7 Days Qty: 14 RF: 0 No Action insulin lispro [Humalog U-100 Insulin] 100 unit/mL solution 1 unit subcut QIDACHS Qty: 10 RF: 0 Lantus U-100 Insulin 100 unit/mL solution 60 unit subcut BID 30 Days Qty: 36 RF: 0 (DME) insulin syringe-needle U-100 [BD Insulin Syringe Ultra-Fine] 1 mL 31 gauge x 5/16 syringe See Rx Instructions .Route Qty: 100 RF: 0 Lantus Solostar U-100 Insulin 100 unit/mL (3 mL) insulin pen 60 unit subcut BID 25 Days Qty: 30 RF: 0 cyclobenzaprine 10 mg tablet 10 mg PO TID PRN (Reason: muscle spasm) Qty: 14 RF: 0 doxycycline hyclate 100 mg capsule 100 mg PO BID 7 Days Qty: 14 RF: 0 metoprolol succinate [Toprol XL] 50 mg Tablet Extended Release 24 Hr 50 mg PO DAILY RF: 0 lisinopril 20 mg Tablet 20 mg PO DAILY RF: 0 sertraline 100 mg Tablet 100 mg PO DAILY RF: 0 hydroxyzine HCl 25 mg Tablet 25 mg PO DAILY PRN (Reason: Anxiety) RF: 0 omeprazole 40 mg Capsule,Delayed Release(Dr/Ec) 40 mg PO DAILY@0630 Qty: 30 RF: 0 dexamethasone 4 mg tablet 4 mg PO DAILY Qty: 5 RF: 0 Lantus U-100 Insulin 100 unit/mL solution 60 unit subcut BID Qty: 10 RF: 0 Lantus U-100 Insulin 100 unit/mL solution 60 unit subcut BID Qty: 10 RF: 0 ibuprofen 800 mg tablet 800 mg PO Q8H PRN (Reason: pain) Qty: 20 RF: 0 Interventions: ED Discharge Assessment Last Done: 08/04/21 18:25 Discharge Date/Time: 08/04/21 18:25 Print Language: [place]
[2021-08-04 17:56] LABS: UACC CULT YES; WBC Urine 30-49 /HPF (0-4)
[2021-08-04] MEDS: Ibuprofen 800 MG TABLET PO (17:59)
[2021-08-04] MEDS: Lidocaine HCl 1 % 20 ML VIAL SUBCUT (18:00)
[2021-08-04] MEDS: cefTRIAXone sodium 500 MG VIAL IM (18:00)
[2021-08-05 01:59] LABS: CT PCR NOT DETECTED (Not Detect.); NG PCR DETECTED (Not Detect.)
== END 2021-08-04 18:25 | disposition home or self-care (01) ==
PROVIDERS: Emergency Provider Emergency Medicine
DX: A54.09 Other gonococcal infection of lower genitourinary tract (principal); R30.0 Dysuria; S39.012A Strain of muscle, fascia and tendon of lower back, initial encounter; X58.XXXA Exposure to other specified factors, initial encounter; Y93.9 Activity, unspecified; Y92.9 Unspecified place or not applicable; Y99.9 Unspecified external cause status; E11.9 Type 2 diabetes mellitus without complications; I10 Essential (primary) hypertension; Z79.4 Long term (current) use of insulin
CPT/HCPCS: 81001; 87086; 87491; 87591; 96372; 99284; J0696

== ENCOUNTER 2021-09-17 12:14 | Emergency (ER) | payer MEDICAID, SELFPAY ==
[2021-09-17 12:18] VITALS: BP 138/88; PULSE 110; RESP 19; TEMP 37.2; O2SAT 98; BMI 39.5
--- NOTE | 2021-09-17 12:27 | ED.NAVMDI ---
HPI - Nausea/Vomiting/Diarrhea General Chief complaint: Nausea/Vomiting/Diarrhea Stated complaint: nausea headache Time Seen by Provider: 09/17/21 12:20 Source: patient Mode of arrival: ambulatory Limitations: no limitations History of Present Illness HPI Narrative: Patient comes to emergency room complaining of nausea, vomiting and diarrhea that started today. Patient also complaining of headache. Patient has not taking any medications. Patient denies visual changes, no chest pain or shortness of breath, no fever. Related Data Home Medications Medication Instructions Recorded Confirmed hydroxyzine HCl 25 mg tablet 25 mg PO DAILY PRN 08/02/20 08/02/20 lisinopril 20 mg tablet 20 mg PO DAILY 08/02/20 08/02/20 metoprolol succinate 50 mg 50 mg PO DAILY 08/02/20 08/02/20 tablet,extended release 24 hr (Toprol XL) sertraline 100 mg tablet 100 mg PO DAILY 08/02/20 08/02/20 Previous Rx's Medication Instructions Recorded dexamethasone 4 mg tablet 4 mg PO DAILY #5 tab 08/07/20 omeprazole 40 mg capsule,delayed 40 mg PO DAILY@0630 #30 cap 08/07/20 release cyclobenzaprine 10 mg tablet 10 mg PO TID PRN #14 tab 11/04/20 doxycycline hyclate 100 mg capsule 100 mg PO BID 7 Days #14 cap 11/04/20 insulin glargine 100 unit/mL 60 unit (0.6 mL) SUBCUT BID #10 ml 05/31/21 subcutaneous solution (Lantus U-100 Insulin) insulin glargine 100 unit/mL 60 unit (0.6 mL) SUBCUT BID 30 05/31/21 subcutaneous solution (Lantus Days #36 ml U-100 Insulin) insulin lispro 100 unit/mL 1 unit SUBCUT QIDACHS #10 ml 05/31/21 subcutaneous solution (Humalog U-100 Insulin) insulin syringe-needle U-100 1 mL #100 ea 05/31/21 31 gauge x 5/16 (BD Insulin Syringe Ultra-Fine) insulin glargine 100 unit/mL 60 unit (0.6 mL) SUBCUT BID #10 ml 06/01/21 subcutaneous solution (Lantus U-100 Insulin) ibuprofen 800 mg tablet 800 mg PO Q8H PRN #20 tab 07/01/21 doxycycline hyclate 100 mg tablet 100 mg PO BID 7 Days #14 tab 08/04/21 naproxen 500 mg tablet 500 mg PO BID PRN 10 Days #20 tab 08/04/21 insulin glargine 100 unit/mL (3 60 unit (0.6 mL) SUBCUT BID 25 09/12/21 mL) subcutaneous pen (Lantus Days #30 ml Solostar U-100 Insulin) ondansetron HCl 4 mg tablet 4 mg PO Q6H PRN #10 tab 09/17/21 Allergies Allergy/AdvReac Type Severity Reaction Status Date / Time No Known Allergies Allergy Verified 08/04/21 15:52 [No Known Allergies*] Review of Systems Review of Systems: Constitutional : No Weight loss, No Fever, No Chills, No Night Sweats, No Fatigue, No Malaise ENT/Mouth : No Hearing loss, No Ear Pain, No Nasal Congestion, No Sinus Pain, No Hoarseness, No sore throat, No Rhinorrhea, No Swallowing Difficulty Eyes: No Eye Pain, No Swelling, No Redness, No Foreign Body, No Discharge, No Vision Changes Cardiovascular : No Chest Pain, No SOB, No Dyspnea on Exertion, No Orthopnea, No Edema, No Palpitations Respiratory : No Cough, No Sputum, No Wheezing, No Smoke Exposure, No Dyspnea Gastrointestinal : Complaining of nausea and vomiting, 1 episode of diarrhea,No Constipation, No abdominal Pain, No Hematochezia, No Melena Genitourinary : no irregular bleeding, No Dysuria, No Urinary Frequency, No Hematuria, No Urinary Incontinence, No Urgency, No Flank Pain, No Urinary Flow Changes, No Hesitancy Musculoskeletal : No joint pain, No Myalgias, No Joint Swelling Skin : No Skin Lesions, No rash Neuro : No Weakness, No Numbness, No Paresthesias, No Loss of Consciousness, No Dizziness, No Headache Psych : No Anxiety/Panic, No Depression, No SI/HI/AH/VH, No Social Issues, Heme/Lymph: No Bruising, No Bleeding,No Lymphadenopathy Endocrine : No Polyuria, No Polydipsia, No Temperature Intolerance [facility] Past Medical History Medical History Diabetes Diabetes mellitus HTN (hypertension) Social History Social History Household Members: Significant Other Household Members Other:: GIRLFRIEND Do you presently have visiting nurse or other home services: No Alcohol intake: never Patient Tobacco Use Status: Never used Tobacco Second Hand Smoke Exposure: No Advance Directives: No Advance Directives Information Provided: No service: No Current occupational status: unemployed Physical Exam Vital Signs: Vital Signs: Last Vital Signs Temp 99 F 09/17/21 12:18 Pulse 110 H 09/17/21 12:28 Resp 19 09/17/21 12:18 BP 122/76 09/17/21 12:28 Pulse Ox 95 09/17/21 12:28 BMI result Body Mass Index 39.5 Const: Other: Appearance: Alert. Oriented X3. No acute distress. Well-appearing Eyes: Pupils equal, round and reactive to light. ENT: Pharynx normal. Neck: Normal inspection. Neck supple. No lymph nodes noted. No crepitus CVS: Normal heart rate and rhythm. Pulses normal. Normal S1 and S2 Respiratory: No respiratory distress. Breath sounds normal. No Wheezing. No rales Abdomen: Soft and nontender. No rigidity. No distention. Skin: Skin warm and dry. Normal skin color. Normal skin turgor. Extremities: No lower extremity edema. No Lacerations. No Rash Neuro: Oriented X 3. No motor deficit. No sensory deficit. Moving all extermities. No slurred speech. Course Course Course Narrative: Patient feeling better, likely viral syndrome. I discussed the labs with the patient. Patient is being discharged home MDM - Nausea/Vomiting/Diarrhea Lab Data Result diagrams: 09/17/21 12:35 09/17/21 12:35 Labs: Lab Results 09/17/21 09/17/21 Range/Units 12:35 12:35 WBC 7.9 (4.8-10.8) X10*3/uL RBC 5.49 (4.60-5.80) X10*6/uL Hgb 14.3 (14.0-18.0) g/dl Hct 44.4 (42.0-52.0) % MCV 80.9 (80.0-98.0) fL MCH 26.0 L (27.0-33.0) pg MCHC 32.2 (31.0-36.0) g/dl RDW 14.0 (11.0-16.0) % Plt Count 249 (160-400) X10*3/uL MPV 9.8 (9.4-12.4) fL Immature Gran % (Auto) 0.4 (0.0-0.4) % Neut % (Auto) 52.7 (45-73) % Lymph % (Auto) 35.6 (20-40) % [place] % (Auto) 9.4 (2-11) % Eos % (Auto) 1.4 (0-4) % Baso % (Auto) 0.5 (0-2) % Lymph # (Auto) 2.8 (1.2-4.9) X10*3/uL [place] # (Auto) 0.7 (0.1-1.2) X10*3/uL Eos # (Auto) 0.1 (0.0-0.4) X10*3/uL Baso # (Auto) 0.0 (0.0-0.2) X10*3/uL Abs Immat Gran (auto) 0.03 (0.00-0.03) X10*3/uL Absolute Neuts (auto) 4.2 (2.0-8.3) x10*3/uL Absolute Nucleated RBC 0.000 (0.0-0.012) X10*3/uL Nucleated RBC % (auto) 0.0 (0.0-0.2) /100WBC Sodium 138 (135-145) mmol/L Potassium 4.8 (3.3-5.1) mmol/L Chloride 101 (96-108) mmol/L Carbon Dioxide 31 H (22-29) mmol/L Anion Gap 11 L (12-20) BUN 14 (9-16) mg/dL Creatinine 0.95 (0.5-1.4) mg/dL Estim Creat Clear Calc 134.1 Estimated GFR > 60 Random Glucose 106 D (60-115) mg/dL Calcium 9.9 (8.4-10.2) mg/dL Total Bilirubin 0.3 (0.0-1.0) mg/dL Direct Bilirubin < 0.2 (0.0-0.5) mg/dL AST 23 (5-37) U/L ALT 22 (0-40) U/L Alkaline Phosphatase 72 (39-117) U/L Total Protein 8.1 H (6.5-8.0) g/dL Albumin 4.5 (3.5-5.0) g/dL Lipase 28 (8-78) U/L Discharge Plan Discharge Clinical Impression: Nausea vomiting and diarrhea, Acute tension headache Patient Disposition: Home, Self-Care Instructions: Acute Headache (ED), Acute Nausea and Vomiting (ED) Additional Instructions: Please follow-up with your primary care physician tomorrow. If you have any worsening or new symptoms, please return to the emergency room or call 911 Prescriptions: New ondansetron HCl 4 mg tablet 4 mg PO Q6H PRN (Reason: nausea and vomiting) Qty: 10 0RF No Action insulin lispro [Humalog U-100 Insulin] 100 unit/mL solution 1 unit subcut QIDACHS Qty: 10 0RF Protocol: Insulin Correction Scale Less than or equal to 110 ---- Give (units): 0 111 to 150 Give (units): 0 151 to 200 Give (units): 2 201 to 250 Give (units): 4 251 to 300 Give (units): 6 301 to 350 Give (units): 10 Greater than 350 Give (units): 12 Call MD if Blood Glucose > : 350 Lantus U-100 Insulin 100 unit/mL solution 60 unit subcut BID 30 Days Qty: 36 0RF (DME) insulin syringe-needle U-100 [BD Insulin Syringe Ultra-Fine] 1 mL 31 gauge x 5/16 syringe See Rx Instructions .Route Qty: 100 0RF Rx Instructions: Use 1 syringe twice a day Lantus Solostar U-100 Insulin 100 unit/mL (3 mL) insulin pen 60 unit subcut BID 25 Days Qty: 30 0RF cyclobenzaprine 10 mg tablet 10 mg PO TID PRN (Reason: muscle spasm) Qty: 14 0RF doxycycline hyclate 100 mg capsule 100 mg PO BID 7 Days Qty: 14 0RF metoprolol succinate [Toprol XL] 50 mg Tablet Extended Release 24 Hr 50 mg PO DAILY 0RF lisinopril 20 mg Tablet 20 mg PO DAILY 0RF sertraline 100 mg Tablet 100 mg PO DAILY 0RF hydroxyzine HCl 25 mg Tablet 25 mg PO DAILY PRN (Reason: Anxiety) 0RF omeprazole 40 mg Capsule,Delayed Release(Dr/Ec) 40 mg PO DAILY@0630 Qty: 30 0RF dexamethasone 4 mg tablet 4 mg PO DAILY Qty: 5 0RF Lantus U-100 Insulin 100 unit/mL solution 60 unit subcut BID Qty: 10 0RF Lantus U-100 Insulin 100 unit/mL solution 60 unit subcut BID Qty: 10 0RF naproxen 500 mg tablet 500 mg PO BID PRN (Reason: pain) 10 Days Qty: 20 0RF doxycycline hyclate 100 mg tablet 100 mg PO BID 7 Days Qty: 14 0RF ibuprofen 800 mg tablet 800 mg PO Q8H PRN (Reason: pain) Qty: 20 0RF
[2021-09-17 12:28] VITALS: BP 122/76; PULSE 110; O2SAT 95
[2021-09-17 12:39] LABS: MANUAL DIFF FLAG NO
[2021-09-17 12:43] LABS: Basophils Percent Auto 0.5 % (0-2); Eosinophils Absolute Auto 0.1 X10*3/uL (0.0-0.4); Eosinophils Percent Auto 1.4 % (0-4); Hematocrit 44.4 % (42.0-52.0); Hemoglobin 14.3 g/dl (14.0-18.0); Imm Gran Abs Auto 0.03 X10*3/uL (0.00-0.03); Imm Gran Pct Auto 0.4 % (0.0-0.4); Lymphocytes Absolute Auto 2.8 X10*3/uL (1.2-4.9); Lymphocytes Percent Auto 35.6 % (20-40); Mean Corpuscular HGB Conc 32.2 g/dl (31.0-36.0); Mean Corpuscular Volume 80.9 fL (80.0-98.0); Mean Platelet Volume 9.8 fL (9.4-12.4); Monocytes Absolute Auto 0.7 X10*3/uL (0.1-1.2); Monocytes Percent Auto 9.4 % (2-11); Neutrophils Absolute Auto 4.2 x10*3/uL (2.0-8.3); Neutrophils Percent Auto 52.7 % (45-73); Platelet Count 249 X10*3/uL (160-400); Red Blood Count 5.49 X10*6/uL (4.60-5.80); White Blood Count 7.9 X10*3/uL (4.8-10.8)
[2021-09-17 12:55] LABS: Alanine Aminotransferase 22 U/L (0-40); Albumin Level 4.5 g/dL (3.5-5.0); Alkaline Phosphatase 72 U/L (39-117); Anion Gap 11 (12-20); Aspartate Amino Transferase 23 U/L (5-37); Bilirubin Direct < 0.2 mg/dL (0.0-0.5); Bilirubin Total 0.3 mg/dL (0.0-1.0); Blood Urea Nitrogen 14 mg/dL (9-16); Calcium 9.9 mg/dL (8.4-10.2); Carbon Dioxide 31 mmol/L (22-29); Chloride 101 mmol/L (96-108); Creatinine Clr Calc Pharmacy 134.1; Estimated Glomerular Filt Rate > 60; Glucose Random 106 mg/dL (60-115); Lipase 28 U/L (8-78); Potassium 4.8 mmol/L (3.3-5.1); Sodium 138 mmol/L (135-145); Total Protein 8.1 g/dL (6.5-8.0)
[2021-09-17] MEDS: Acetaminophen 325 MG TABLET 650 MG PO (13:16)
[2021-09-17] MEDS: Ondansetron ODT 4 MG TAB.RAPDIS TRANSLINGU (13:16)
== END 2021-09-17 14:12 | disposition home or self-care (01) ==
PROVIDERS: Emergency Provider Emergency Medicine
DX: R11.2 Nausea with vomiting, unspecified (principal); R51.9 Headache, unspecified; E11.9 Type 2 diabetes mellitus without complications; Z79.899 Other long term (current) drug therapy; Z79.4 Long term (current) use of insulin
CPT/HCPCS: 36415; 80048; 80076; 83690; 85025; 99283; 99284

== ENCOUNTER 2021-10-07 06:50 | Emergency (ER) | payer MEDICAID, SELFPAY ==
--- NOTE | ~2021-10-07 | XR_ITS ---
EXAMINATION: XR CHEST CLINICAL INFORMATION: Chest pain COMPARISON: None TECHNIQUE: Frontal view of the chest was obtained. FINDINGS: No significant abnormality is noted involving the heart, lungs, mediastinum, bony thorax or soft tissues. XR/XR chest 1V IMPRESSION: Unremarkable chest examination.
[2021-10-07 07:13] VITALS: BP 132/92; PULSE 89; RESP 18; TEMP 36.5; O2SAT 96; BMI 39.5
--- NOTE | 2021-10-07 07:16 | ECG_ITS ---
Test Reason : cp Blood Pressure : / mmHG Vent. Rate : 091 BPM Atrial Rate : 091 BPM P-R Int : 132 ms QRS Dur : 086 ms QT Int : 344 ms P-R-T Axes : 039 014 018 degrees QTc Int : 423 ms Artifact in tracing Normal sinus rhythm Cannot rule out Anterior infarct , age undetermined Abnormal ECG When compared with ECG of 04-FEB-2021 09:33, No significant change was found Referred By: Generic ED Physician Electronically Signed By:BRENNAN MCCORMICK
--- NOTE | 2021-10-07 07:31 | ED.CHESTPAIN ---
HPI - Chest Pain General Chief Complaint: Chest Pain Stated Complaint: chest pain Time Seen by Provider: 10/07/21 06:56 Source: patient Mode of arrival: ambulatory Limitations: no limitations History of Present Illness MD complaint: chest pain Pertinent past history: other (HTN, DM) Onset (ago): day(s) (last night 7pm) Timing of current episode: constant Prior episodes: Yes Onset: during rest (playing video games) Pain location: left chest Pain radiation: none Severity: mild Quality: other (squeezing) Relieving factors: nothing Exacerbating factors: nothing Treatment prior to arrival: none Related Data Home Medications Medication Instructions Recorded Confirmed hydroxyzine HCl 25 mg tablet 25 mg PO DAILY PRN 08/02/20 08/02/20 lisinopril 20 mg tablet 20 mg PO DAILY 08/02/20 08/02/20 metoprolol succinate 50 mg 50 mg PO DAILY 08/02/20 08/02/20 tablet,extended release 24 hr (Toprol XL) sertraline 100 mg tablet 100 mg PO DAILY 08/02/20 08/02/20 Previous Rx's Medication Instructions Recorded dexamethasone 4 mg tablet 4 mg PO DAILY #5 tab 08/07/20 omeprazole 40 mg capsule,delayed 40 mg PO DAILY@0630 #30 cap 08/07/20 release cyclobenzaprine 10 mg tablet 10 mg PO TID PRN #14 tab 11/04/20 doxycycline hyclate 100 mg capsule 100 mg PO BID 7 Days #14 cap 11/04/20 insulin glargine 100 unit/mL 60 unit (0.6 mL) SUBCUT BID #10 ml 05/31/21 subcutaneous solution (Lantus U-100 Insulin) insulin glargine 100 unit/mL 60 unit (0.6 mL) SUBCUT BID 30 05/31/21 subcutaneous solution (Lantus Days #36 ml U-100 Insulin) insulin lispro 100 unit/mL 1 unit SUBCUT QIDACHS #10 ml 05/31/21 subcutaneous solution (Humalog U-100 Insulin) insulin syringe-needle U-100 1 mL #100 ea 05/31/21 31 gauge x 5/16 (BD Insulin Syringe Ultra-Fine) insulin glargine 100 unit/mL 60 unit (0.6 mL) SUBCUT BID #10 ml 06/01/21 subcutaneous solution (Lantus U-100 Insulin) ibuprofen 800 mg tablet 800 mg PO Q8H PRN #20 tab 07/01/21 doxycycline hyclate 100 mg tablet 100 mg PO BID 7 Days #14 tab 08/04/21 naproxen 500 mg tablet 500 mg PO BID PRN 10 Days #20 tab 08/04/21 insulin glargine 100 unit/mL (3 60 unit (0.6 mL) SUBCUT BID 25 09/12/21 mL) subcutaneous pen (Lantus Days #30 ml Solostar U-100 Insulin) ondansetron HCl 4 mg tablet 4 mg PO Q6H PRN #10 tab 09/17/21 Allergies Allergy/AdvReac Type Severity Reaction Status Date / Time No Known Allergies Allergy Verified 08/04/21 15:52 [No Known Allergies*] Review of Systems Review of Systems: Constitutional : No Weight loss, No Fever, No Chills ENT/Mouth : No sore throat, No Rhinorrhea Eyes: No Eye Pain, No Swelling Cardiovascular : pos Chest Pain, no SOB, no Dyspnea on Exertion, No Orthopnea, No Edema, No Palpitations Respiratory : No Cough, No Sputum Gastrointestinal : no Nausea, No Vomiting, No Diarrhea, No abdominal Pain, No Hematochezia, No Melena Genitourinary : No Dysuria, No Urinary Frequency Musculoskeletal : No joint pain, No Myalgias, No Joint Swelling Skin : No Skin Lesions, No rash Neuro : No Weakness, No Numbness, No Dizziness, No Headache Psych : No Anxiety/Panic, No Depression Heme/Lymph: No Bruising, No Lymphadenopathy Endocrine : No Polyuria, No Polydipsia All other systems reviewed and are negative [facility] Past Medical History Attestation statement: The following information was validated with the patient. Medical History Diabetes Diabetes mellitus HTN (hypertension) Social History Social History Household Members: Significant Other Household Members Other:: GIRLFRIEND Do you presently have visiting nurse or other home services: No Alcohol intake: never Patient Tobacco Use Status: Never used Tobacco Second Hand Smoke Exposure: No Advance Directives: No Advance Directives Information Provided: No service: No Current occupational status: unemployed Physical Exam Vital Signs: Vital Signs: Last Vital Signs Temp 97.7 F 10/07/21 07:13 Pulse 89 10/07/21 07:13 Resp 18 10/07/21 07:13 BP 132/92 H 10/07/21 07:13 Pulse Ox 96 10/07/21 07:13 BMI result Body Mass Index 39.5 Appearance: Alert. Oriented X3. No acute distress. Eyes: Pupils equal, round and reactive to light. ENT: Pharynx normal. Neck: Normal inspection. Neck supple. CVS: Normal heart rate and rhythm. Pulses normal. Respiratory: No respiratory distress. Breath sounds normal. Abdomen: Soft and non-tender. Skin: Skin warm and dry. Normal skin color. Normal skin turgor. Extremities: No lower extremity edema. No calf ttp Neuro: Oriented X 3. No motor deficit. No sensory deficit. Course Course Course Narrative: trop flat, CXR negative stable for DC MDM - Chest Pain MDM Narrative Medical decision making narrative: 35 yo male with hx of HTN, DM, no fam hx of CAD here with c/o L sided chest pain but no associated symptoms since playing video games at 7pm last night. Seems atypical in nature given lack of other symptoms has no exacerbating factors. Will obtain troponin x 1, CXR, EKG. He is PERC negative. In no distress - distal pulses intact doubt dissection. Dispo per results and findings. Lab Data Result diagrams: 10/07/21 08:19 Labs: Lab Results 10/07/21 10/07/21 10/07/21 Range/Units 08:19 08:19 08:19 WBC 8.0 (4.8-10.8) X10*3/uL RBC 5.47 (4.60-5.80) X10*6/uL Hgb 14.1 (14.0-18.0) g/dl Hct 43.7 (42.0-52.0) % MCV 79.9 L (80.0-98.0) fL MCH 25.8 L (27.0-33.0) pg MCHC 32.3 (31.0-36.0) g/dl RDW 13.8 (11.0-16.0) % Plt Count 243 (160-400) X10*3/uL MPV 9.6 (9.4-12.4) fL Absolute Nucleated RBC 0.000 (0.0-0.012) X10*3/uL Nucleated RBC % (auto) 0.0 (0.0-0.2) /100WBC Troponin I High Sens < 3.5 (<3.5-35.0) ng/L COVID-19 (ENE) Negative (Negative) COVID-19 Clin Com See Note ECG Data ECG #1: Attestation: I personally reviewed and interpreted this ECG as follows: ECG interpretation date: 10/07/21 ECG interpretation time: 07:32 Interpretation: Rate: 91 Rhythm: NSR [place]: normal Normal P waves. Normal [place]. Normal QRS complex. ST T wave : normal no YUDY artifact noted qTC: normal prior studies: no acute ischemia The study has been interpreted contemporaneously by me. . Discharge Plan Discharge Clinical Impression: Chest pain Qualifiers: Chest pain type: unspecified Qualified Code(s): R07.9 - Chest pain, unspecified Patient Disposition: Home, Self-Care Instructions: Chest Pain (ED) Additional Instructions: return to ED for any worsening symptoms or concerns follow up with your doctor for outpatient stress test Prescriptions: No Action insulin lispro [Humalog U-100 Insulin] 100 unit/mL solution 1 unit subcut QIDACHS Qty: 10 0RF Protocol: Insulin Correction Scale Less than or equal to 110 ---- Give (units): 0 111 to 150 Give (units): 0 151 to 200 Give (units): 2 201 to 250 Give (units): 4 251 to 300 Give (units): 6 301 to 350 Give (units): 10 Greater than 350 Give (units): 12 Call MD if Blood Glucose > : 350 Lantus U-100 Insulin 100 unit/mL solution 60 unit subcut BID 30 Days Qty: 36 0RF (DME) insulin syringe-needle U-100 [BD Insulin Syringe Ultra-Fine] 1 mL 31 gauge x 5/16 syringe See Rx Instructions .Route Qty: 100 0RF Rx Instructions: Use 1 syringe twice a day Lantus Solostar U-100 Insulin 100 unit/mL (3 mL) insulin pen 60 unit subcut BID 25 Days Qty: 30 0RF cyclobenzaprine 10 mg tablet 10 mg PO TID PRN (Reason: muscle spasm) Qty: 14 0RF doxycycline hyclate 100 mg capsule 100 mg PO BID 7 Days Qty: 14 0RF metoprolol succinate [Toprol XL] 50 mg Tablet Extended Release 24 Hr 50 mg PO DAILY 0RF lisinopril 20 mg Tablet 20 mg PO DAILY 0RF sertraline 100 mg Tablet 100 mg PO DAILY 0RF hydroxyzine HCl 25 mg Tablet 25 mg PO DAILY PRN (Reason: Anxiety) 0RF omeprazole 40 mg Capsule,Delayed Release(Dr/Ec) 40 mg PO DAILY@0630 Qty: 30 0RF dexamethasone 4 mg tablet 4 mg PO DAILY Qty: 5 0RF Lantus U-100 Insulin 100 unit/mL solution 60 unit subcut BID Qty: 10 0RF Lantus U-100 Insulin 100 unit/mL solution 60 unit subcut BID Qty: 10 0RF naproxen 500 mg tablet 500 mg PO BID PRN (Reason: pain) 10 Days Qty: 20 0RF doxycycline hyclate 100 mg tablet 100 mg PO BID 7 Days Qty: 14 0RF ondansetron HCl 4 mg tablet 4 mg PO Q6H PRN (Reason: nausea and vomiting) Qty: 10 0RF ibuprofen 800 mg tablet 800 mg PO Q8H PRN (Reason: pain) Qty: 20 0RF Referrals: [facility] [Primary Care Provider] - 2 days Stand Alone Forms: Work/School Release
[2021-10-07 08:26] LABS: Hematocrit 43.7 % (42.0-52.0); Hemoglobin 14.1 g/dl (14.0-18.0); Mean Corpuscular HGB Conc 32.3 g/dl (31.0-36.0); Mean Corpuscular Hemoglobin 25.8 pg (27.0-33.0); Mean Corpuscular Volume 79.9 fL (80.0-98.0); Mean Platelet Volume 9.6 fL (9.4-12.4); Platelet Count 243 X10*3/uL (160-400); Red Blood Count 5.47 X10*6/uL (4.60-5.80); Red Cell Distribution Width 13.8 % (11.0-16.0)
[2021-10-07] MEDS: Cyclobenzaprine HCl 10 MG TABLET PO (08:37)
[2021-10-07] MEDS: Acetaminophen 325 MG TABLET 650 MG PO (08:38)
[2021-10-07 08:53] LABS: COVID-19 Test Negative (Negative)
[2021-10-07 09:00] LABS: Troponin-I High Sensitivity < 3.5 ng/L (<3.5-35.0)
--- NOTE | 2021-10-07 09:22 | PC.NURSE ---
RN aware POC 69
[2021-10-07 09:26] LABS: Glucose, Whole Blood 70 mg/dL (60-115)
[2021-10-07 10:52] LABS: Anion Gap 14 (12-20); Blood Urea Nitrogen 13 mg/dL (9-16); Calcium 9.3 mg/dL (8.4-10.2); Carbon Dioxide 26 mmol/L (22-29); Chloride 104 mmol/L (96-108); Creatinine Clr Calc Pharmacy 153.5; Estimated Glomerular Filt Rate > 60; Glucose Random 73 mg/dL (60-115); Potassium 4.3 mmol/L (3.3-5.1); Sodium 140 mmol/L (135-145)
== END 2021-10-07 09:31 | disposition home or self-care (01) ==
PROVIDERS: Emergency Provider Emergency Medicine
DX: R07.9 Chest pain, unspecified (principal); I10 Essential (primary) hypertension; E11.9 Type 2 diabetes mellitus without complications; Z79.899 Other long term (current) drug therapy; Z20.822 Contact with and (suspected) exposure to COVID-19
CPT/HCPCS: 71045; 80048; 82947; 84484; 85027; 87635; 93005; 99283; 99284

== ENCOUNTER 2021-11-23 18:48 | Emergency (ER) | payer MEDICAID, SELFPAY ==
--- NOTE | ~2021-11-23 | XR_ITS ---
EXAMINATION: XR KNEE, RIGHT CLINICAL INFORMATION: Right knee pain. COMPARISON: None TECHNIQUE: Four views of the right knee. FINDINGS: No evidence of acute fracture or dislocation. Knee joint spaces are preserved. No significant degenerative changes are noted at the knee joint. No suprapatellar joint effusion. An oblong 2.8 x 0.7 x 1.0 cm sclerotic focus is noted along the posterior medial aspect of the distal femoral diaphysis. No dystrophic soft tissue calcifications. XR/XR knee RT 4V IMPRESSION: No acute osseous abnormality in the right knee. A sclerotic focus along the posterior medial cortex of the right distal femoral diaphysis has non-aggressive appearance. The finding may represent bone island or ossified fibroma. Recommend clinical correlation. If clinically deemed necessary, correlation with bone scan may be considered for further evaluation.
[2021-11-23 19:00] VITALS: BP 138/84; PULSE 110; RESP 18; TEMP 36; O2SAT 95; BMI 41.0
== END 2021-11-23 23:03 | disposition left against medical advice (07) ==
PROVIDERS: Emergency Provider Emergency Medicine
DX: M25.561 Pain in right knee (principal)
CPT/HCPCS: 73564; 99283

== ENCOUNTER 2021-12-01 06:36 | Emergency (ER) | payer MEDICAID, SELFPAY ==
[2021-12-01 06:42] VITALS: BP 124/70; PULSE 88; RESP 18; TEMP 37; O2SAT 98; BMI 39.5
--- NOTE | 2021-12-01 06:44 | ECG_ITS ---
Test Reason : chest pain Blood Pressure : / mmHG Vent. Rate : 086 BPM Atrial Rate : 086 BPM P-R Int : 138 ms QRS Dur : 096 ms QT Int : 342 ms P-R-T Axes : 138 -21 -14 degrees QTc Int : 409 ms Unusual P axis, possible ectopic atrial rhythm Abnormal ECG When compared with ECG of 07-OCT-2021 07:13, Ectopic atrial rhythm has replaced Sinus rhythm Minimal criteria for Anterior infarct are no longer Present Inverted T waves have replaced nonspecific T wave abnormality in Inferior leads Referred By: Generic ED Physician Electronically Signed By:Waqar Mcclelland
[2021-12-01 07:17] LABS: Hematocrit 43.5 % (42.0-52.0); Hemoglobin 13.9 g/dl (14.0-18.0); Mean Corpuscular Hemoglobin 25.6 pg (27.0-33.0); Mean Corpuscular Volume 80.1 fL (80.0-98.0); Mean Platelet Volume 9.7 fL (9.4-12.4); Platelet Count 247 X10*3/uL (160-400); Red Blood Count 5.43 X10*6/uL (4.60-5.80); White Blood Count 9.1 X10*3/uL (4.8-10.8)
[2021-12-01 07:33] LABS: Alanine Aminotransferase 27 U/L (0-40); Albumin Level 4.1 g/dL (3.5-5.0); Alkaline Phosphatase 68 U/L (39-117); Anion Gap 13 (12-20); Aspartate Amino Transferase 21 U/L (5-37); Bilirubin Total < 0.2 mg/dL (0.0-1.0); Blood Urea Nitrogen 14 mg/dL (9-16); Calcium 9.6 mg/dL (8.4-10.2); Carbon Dioxide 25 mmol/L (22-29); Chloride 105 mmol/L (96-108); Creatinine Clr Calc Pharmacy 157.8; Estimated Glomerular Filt Rate > 60; Glucose Random 96 mg/dL (60-115); Potassium 4.6 mmol/L (3.3-5.1); Sodium 138 mmol/L (135-145); Total Protein 7.8 g/dL (6.5-8.0)
[2021-12-01 07:36] LABS: Troponin-I High Sensitivity < 3.5 ng/L (<3.5-35.0)
--- NOTE | 2021-12-01 08:13 | ED_ITS ---
HPI - Chest Pain General Chief Complaint: Chest Pain Stated Complaint: Chest Pain Time Seen by Provider: 12/01/21 08:10 Source: patient Mode of arrival: ambulatory Limitations: no limitations History of Present Illness HPI narrative: 36-year-old male came in for evaluation of chest pain. Left-sided chest pain started since 03:00 o'clock in the morning, pain described as constant localized to the left side of his chest with no radiation, no shortness of breath, pain is worsening with movement, no recent travel, no lower extremity swelling or tenderness, pain is not exertional. Never had this pain before. Patient has a history of hypertension and diabetes, patient is nonsmoker. Related Data Home Medications Medication Instructions Recorded Confirmed hydroxyzine HCl 25 mg tablet 25 mg PO DAILY PRN 08/02/20 08/02/20 lisinopril 20 mg tablet 20 mg PO DAILY 08/02/20 08/02/20 metoprolol succinate 50 mg 50 mg PO DAILY 08/02/20 08/02/20 tablet,extended release 24 hr (Toprol XL) sertraline 100 mg tablet 100 mg PO DAILY 08/02/20 08/02/20 Previous Rx's Medication Instructions Recorded dexamethasone 4 mg tablet 4 mg PO DAILY #5 tab 08/07/20 omeprazole 40 mg capsule,delayed 40 mg PO DAILY@0630 #30 cap 08/07/20 release cyclobenzaprine 10 mg tablet 10 mg PO TID PRN #14 tab 11/04/20 doxycycline hyclate 100 mg capsule 100 mg PO BID 7 Days #14 cap 11/04/20 insulin glargine 100 unit/mL 60 unit (0.6 mL) SUBCUT BID #10 ml 05/31/21 subcutaneous solution (Lantus U-100 Insulin) insulin glargine 100 unit/mL 60 unit (0.6 mL) SUBCUT BID 30 05/31/21 subcutaneous solution (Lantus Days #36 ml U-100 Insulin) insulin lispro 100 unit/mL 1 unit SUBCUT QIDACHS #10 ml 05/31/21 subcutaneous solution (Humalog U-100 Insulin) insulin syringe-needle U-100 1 mL #100 ea 05/31/21 31 gauge x 5/16 (BD Insulin Syringe Ultra-Fine) insulin glargine 100 unit/mL 60 unit (0.6 mL) SUBCUT BID #10 ml 06/01/21 subcutaneous solution (Lantus U-100 Insulin) ibuprofen 800 mg tablet 800 mg PO Q8H PRN #20 tab 07/01/21 doxycycline hyclate 100 mg tablet 100 mg PO BID 7 Days #14 tab 08/04/21 naproxen 500 mg tablet 500 mg PO BID PRN 10 Days #20 tab 08/04/21 ondansetron HCl 4 mg tablet 4 mg PO Q6H PRN #10 tab 09/17/21 insulin glargine 100 unit/mL (3 60 unit (0.6 mL) SUBCUT BID 25 11/10/21 mL) subcutaneous pen (Lantus Days #30 ml Solostar U-100 Insulin) Allergies Allergy/AdvReac Type Severity Reaction Status Date / Time No Known Allergies Allergy Verified 08/04/21 15:52 [No Known Allergies*] Review of Systems Review of Systems: All other systems are reviewed and are negative Constitutional: Reports as per HPI and Reports no additional constitutional complaints Eyes: Reports as per HPI and Reports no additional eye complaints Reports system reviewed and no additional complaints, except as documented Cardiovascular: Reports as per HPI and Reports no additional cardiovascular complaints Respiratory: Reports as per HPI and Reports no additional respiratory complaints Gastrointestinal: Reports as per HPI and Reports no additional gastrointestinal complaints Genitourinary: Reports no additional female genitourinary complaints Musculoskeletal: Reports no additional musculoskeletal complaints Skin/Breast: Reports system reviewed and no additional complaints, except as docu Psychiatric: Reports no additional psychiatric complaints Endocrine: Reports no additional endocrine complaints Hematologic/Lymphatic: Reports no additional hematologic/lymphatic complaints Allergic/Immunologic: Reports no additional allergic/immunologic complaints Reports system reviewed and no additional complaints, except as documented and Reports Abnormal speech present [facility] Past Medical History Medical History Diabetes Diabetes mellitus HTN (hypertension) Social History Social History Household Members: Significant Other Household Members Other:: GIRLFRIEND Do you presently have visiting nurse or other home services: No Alcohol intake: never Patient Tobacco Use Status: Never used Tobacco Second Hand Smoke Exposure: No Advance Directives: No Advance Directives Information Provided: Yes service: No Current occupational status: unemployed Physical Exam Vital Signs: Vital Signs: Last Vital Signs Temp 98.2 F 12/01/21 11:23 Pulse 70 12/01/21 11:23 Resp 21 H 12/01/21 11:23 BP 120/84 12/01/21 11:23 Pulse Ox 97 12/01/21 11:23 BMI result Body Mass Index 39.5 Vital signs have been reviewed as appeared to be correct. Blood pressure normal. Heart rate normal. Respiration rate normal. Temperature normal. Oxygen saturation normal. Appearance: Alert. Oriented X3. No acute distress. Head: Normal external exam. Normocephalic. Atraumatic. No Sethi signs noted. No raccoon eyes noted Eyes: PERRLA. EOMI. Conjunctiva and sclera normal. Eyelids normal. ENT: TM's Normal. Pharynx normal. Uvula midline. Moist mucous membranes. No trismus noted. No drooling noted. No muffled voice noted. Neck: Normal inspection. Neck supple. FROM. No adenopathy. Thyroid Normal. No meningeal signs. No neck mass noted. CVS: Normal heart rate and rhythm. Heart sound normal. No murmurs noted. Pulses normal throughout. Respiratory: No respiratory distress. Painless inspiration. Breath sounds normal. No wheezes/rales/rhonchi noted. Chest area of reproducible tenderness in the left chest, no step-off or deformity.No accessory muscle usage noted or decreased air movement noted. Abdomen: Soft and nontender. Bowel sounds normal in all 4 quadrants. No distention noted. No organomegaly noted. No visible injury noted. Back: No CVA tenderness. Full range of motion noted. Skin: Skin warm and dry. Normal skin color. Normal skin turgor. No cely hes/lesions/lacerations noted. Extremities: No lower extremity edema. Extremities exhibit normal range of motion. Extremities nontender. Neuro: Oriented X 3. Cranial nerve exam: II-XII are grossly intact No motor deficit. No sensory deficit. Reflexes normal. Course Course Course Narrative: Assessment and plan. 36-year-old male came in with chest pain, physical exam is consistent with chest wall pain,HEART score is1, no risk for PE. Discharge and follow-up with PCP. [facility] - Chest Pain Lab Data Attestation: I reviewed the patient's lab results. Result diagrams: 12/01/21 07:10 12/01/21 07:10 Labs: Lab Results 12/01/21 12/01/21 12/01/21 Range/Units 07:10 07:10 07:10 WBC 9.1 (4.8-10.8) X10*3/uL RBC 5.43 (4.60-5.80) X10*6/uL Hgb 13.9 L (14.0-18.0) g/dl Hct 43.5 (42.0-52.0) % MCV 80.1 (80.0-98.0) fL MCH 25.6 L (27.0-33.0) pg MCHC 32.0 (31.0-36.0) g/dl RDW 14.0 (11.0-16.0) % Plt Count 247 (160-400) X10*3/uL MPV 9.7 (9.4-12.4) fL Absolute Nucleated RBC 0.000 (0.0-0.012) X10*3/uL Nucleated RBC % (auto) 0.0 (0.0-0.2) /100WBC Sodium 138 (135-145) mmol/L Potassium 4.6 (3.3-5.1) mmol/L Chloride 105 (96-108) mmol/L Carbon Dioxide 25 (22-29) mmol/L Anion Gap 13 (12-20) BUN 14 (9-16) mg/dL Creatinine 0.80 (0.5-1.4) mg/dL Estim Creat Clear Calc 157.8 Estimated GFR > 60 POC Glucose (60-115) mg/dL Random Glucose 96 (60-115) mg/dL Calcium 9.6 (8.4-10.2) mg/dL Total Bilirubin < 0.2 (0.0-1.0) mg/dL AST 21 (5-37) U/L ALT 27 (0-40) U/L Alkaline Phosphatase 68 (39-117) U/L Troponin I High Sens < 3.5 (<3.5-35.0) ng/L Total Protein 7.8 (6.5-8.0) g/dL Albumin 4.1 (3.5-5.0) g/dL 12/01/21 12/01/21 Range/Units 09:31 09:58 WBC (4.8-10.8) X10*3/uL RBC (4.60-5.80) X10*6/uL Hgb (14.0-18.0) g/dl Hct (42.0-52.0) % MCV (80.0-98.0) fL MCH (27.0-33.0) pg MCHC (31.0-36.0) g/dl RDW (11.0-16.0) % Plt Count (160-400) X10*3/uL MPV (9.4-12.4) fL Absolute Nucleated RBC (0.0-0.012) X10*3/uL Nucleated RBC % (auto) (0.0-0.2) /100WBC Sodium (135-145) mmol/L Potassium (3.3-5.1) mmol/L Chloride (96-108) mmol/L Carbon Dioxide (22-29) mmol/L Anion Gap (12-20) BUN (9-16) mg/dL Creatinine (0.5-1.4) mg/dL Estim Creat Clear Calc Estimated GFR POC Glucose 82 (60-115) mg/dL Random Glucose (60-115) mg/dL Calcium (8.4-10.2) mg/dL Total Bilirubin (0.0-1.0) mg/dL AST (5-37) U/L ALT (0-40) U/L Alkaline Phosphatase (39-117) U/L Troponin I High Sens < 3.5 (<3.5-35.0) ng/L Total Protein (6.5-8.0) g/dL Albumin (3.5-5.0) g/dL Imaging Data Chest x-ray: Attestation: I personally reviewed and interpreted this imaging study as follows: Radiologist's impression: No acute pathology. ECG Data ECG #1: Attestation: I personally reviewed and interpreted this ECG as follows: Interpretation: Normal sinus rhythm at 75 beats per minute, normal intervals, no ST-T changes. Discharge Plan Discharge Clinical Impression: Acute chest wall pain Patient Disposition: Home, Self-Care Instructions: Chest Wall Pain (ED) Prescriptions: No Action insulin lispro [Humalog U-100 Insulin] 100 unit/mL solution 1 unit subcut QIDACHS Qty: 10 0RF Protocol: Insulin Correction Scale Less than or equal to 110 ---- Give (units): 0 111 to 150 Give (units): 0 151 to 200 Give (units): 2 201 to 250 Give (units): 4 251 to 300 Give (units): 6 301 to 350 Give (units): 10 Greater than 350 Give (units): 12 Call MD if Blood Glucose > : 350 Lantus U-100 Insulin 100 unit/mL solution 60 unit subcut BID 30 Days Qty: 36 0RF (DME) insulin syringe-needle U-100 [BD Insulin Syringe Ultra-Fine] 1 mL 31 gauge x 5/16 syringe See Rx Instructions .Route Qty: 100 0RF Rx Instructions: Use 1 syringe twice a day Lantus Solostar U-100 Insulin 100 unit/mL (3 mL) insulin pen 60 unit subcut BID 25 Days Qty: 30 0RF cyclobenzaprine 10 mg tablet 10 mg PO TID PRN (Reason: muscle spasm) Qty: 14 0RF doxycycline hyclate 100 mg capsule 100 mg PO BID 7 Days Qty: 14 0RF metoprolol succinate [Toprol XL] 50 mg Tablet Extended Release 24 Hr 50 mg PO DAILY 0RF lisinopril 20 mg Tablet 20 mg PO DAILY 0RF sertraline 100 mg Tablet 100 mg PO DAILY 0RF hydroxyzine HCl 25 mg Tablet 25 mg PO DAILY PRN (Reason: Anxiety) 0RF omeprazole 40 mg Capsule,Delayed Release(Dr/Ec) 40 mg PO DAILY@0630 Qty: 30 0RF dexamethasone 4 mg tablet 4 mg PO DAILY Qty: 5 0RF Lantus U-100 Insulin 100 unit/mL solution 60 unit subcut BID Qty: 10 0RF Lantus U-100 Insulin 100 unit/mL solution 60 unit subcut BID Qty: 10 0RF naproxen 500 mg tablet 500 mg PO BID PRN (Reason: pain) 10 Days Qty: 20 0RF doxycycline hyclate 100 mg tablet 100 mg PO BID 7 Days Qty: 14 0RF ondansetron HCl 4 mg tablet 4 mg PO Q6H PRN (Reason: nausea and vomiting) Qty: 10 0RF ibuprofen 800 mg tablet 800 mg PO Q8H PRN (Reason: pain) Qty: 20 0RF Referrals: [place] [Primary Care Provider] - Stand Alone Forms: Work/School Release
[2021-12-01 08:25] VITALS: BP 124/88; PULSE 67; RESP 14; TEMP 36.6; O2SAT 95
[2021-12-01 09:36] LABS: Glucose, Whole Blood 82 mg/dL (60-115)
--- NOTE | 2021-12-01 10:03 | ECG_ITS ---
Test Reason : REPEAT Blood Pressure : / mmHG Vent. Rate : 075 BPM Atrial Rate : 075 BPM P-R Int : 196 ms QRS Dur : 088 ms QT Int : 364 ms P-R-T Axes : 037 017 011 degrees QTc Int : 406 ms Normal sinus rhythm Normal ECG When compared to the previous EKG of No significant changes seen Referred By: Bridget Boyce Electronically Signed By:Waqar Mcclelland
[2021-12-01 10:27] LABS: Troponin-I High Sensitivity < 3.5 ng/L (<3.5-35.0)
[2021-12-01 11:23] VITALS: BP 120/84; PULSE 70; RESP 21; TEMP 36.8; O2SAT 97
== END 2021-12-01 12:33 | disposition home or self-care (01) ==
PROVIDERS: Emergency Provider Emergency Medicine
DX: R07.89 Other chest pain (principal); E11.9 Type 2 diabetes mellitus without complications; I10 Essential (primary) hypertension; Z79.899 Other long term (current) drug therapy; Z79.4 Long term (current) use of insulin
CPT/HCPCS: 36415; 80053; 82947; 84484; 85027; 93005; 99283; 99284

== ENCOUNTER 2021-12-31 12:45 | Emergency (ER) | payer MEDICAID, SELFPAY ==
--- NOTE | ~2021-12-31 | XR_ITS ---
EXAMINATION: XR ANKLE, LEFT CLINICAL INFORMATION: Left ankle pain. Injury. COMPARISON: None TECHNIQUE: AP, lateral, and mortise views of the left ankle. FINDINGS: The bones and soft tissues are normal. No fracture. Alignment is anatomic. Joint spaces are maintained. No joint effusion. XR/XR ankle LT min 3V IMPRESSION: Unremarkable left ankle exam.
--- NOTE | 2021-12-31 13:17 | ED_ITS ---
HPI - General Adult General Chief complaint: General Medical Stated complaint: L Ankle Injury 12/30/21 Time Seen by Provider: 12/31/21 13:17 Source: patient Mode of arrival: ambulatory Limitations: no limitations History of Present Illness HPI narrative: Patient is a 36 year old male presenting to the emergency department today with left ankle pain and penile discharge. Patient states that he tripped and rolled his left ankle yesterday and has also been having some penile discharge. Patient denies any dizziness, lightheadedness, abdominal pain, nausea, vomiting, fever, chills, blurry vision, double vision, loss of vision, chest pain, difficulty breathing, shortness of breath, back pain, night sweats, pain with urination, increased urinary frequency, increased urinary urgency, blood in his urine or stool, syncope or a near syncopal episode, bowel incontinence, bladder incontinence, bowel retention, bladder retention, or any other complaints at this time. Onset (ago): day(s) (1) Location: left and lower extremity (ankle) Radiation: non-radiation Severity: mild Severity scale (1-10): 1 Quality: aching and dull Pain Consistency: constant Relieving factors: none Exacerbating factors: movement Associated symptoms: denies other symptoms Treatments prior to arrival: none Related Data Home Medications Medication Instructions Recorded Confirmed hydroxyzine HCl 25 mg tablet 25 mg PO DAILY PRN Anxiety 08/02/20 08/02/20 lisinopril 20 mg tablet 20 mg PO DAILY 08/02/20 08/02/20 metoprolol succinate 50 mg 50 mg PO DAILY 08/02/20 08/02/20 tablet,extended release 24 hr (Toprol XL) sertraline 100 mg tablet 100 mg PO DAILY 08/02/20 08/02/20 Previous Rx's Medication Instructions Recorded omeprazole 40 mg capsule,delayed 40 mg PO DAILY@0630 #30 caps 08/07/20 release insulin glargine 100 unit/mL 60 unit (0.6 mL) subcut BID 30 05/31/21 subcutaneous solution (Lantus days #36 mL U-100 Insulin) insulin syringe-needle U-100 1 mL #100 ea 05/31/21 31 gauge x 5/16 (BD Insulin Syringe Ultra-Fine) ibuprofen 800 mg tablet 800 mg PO Q8H PRN pain #20 tabs 07/01/21 insulin glargine 100 unit/mL (3 60 unit (0.6 mL) subcut BID 25 11/10/21 mL) subcutaneous pen (Lantus days #30 mL Solostar U-100 Insulin) doxycycline hyclate 150 mg tablet 150 mg PO BID 7 days #14 tabs 12/31/21 fluconazole 150 mg tablet 150 mg PO Q3D 2 doses #2 tabs 12/31/21 (Diflucan) Allergies Allergy/AdvReac Type Severity Reaction Status Date / Time No Known Allergies Allergy Verified 08/04/21 15:52 [No Known Allergies*] Review of Systems Constitutional: Constitutional: Reports no additional constitutional complaints, Denies chills, Denies fever(s) and Denies night sweats Eyes: Eyes: Reports no additional eye complaints, Denies blurry vision, Denies change in vision, Denies diplopia, Denies eye discharge, Denies loss of vision and Denies eye pain ENT: Denies dizziness Cardiovascular: Cardiovascular: Reports no additional cardiovascular complaints, Denies chest pain, Denies lightheadedness, Denies Loss of Consciousness and Denies dyspnea Respiratory: Respiratory: Reports no additional respiratory complaints and Denies dyspnea Gastrointestinal: Gastrointestinal: Reports no additional gastrointestinal complaints, Denies abdominal pain, Denies melena, Denies hematochezia, Denies change in bowel habits and Denies change in stool character Genitourinary: Genitourinary: Reports no additional male genitourinary complaints, Denies hematuria, Denies oliguria, Denies difficulty urinating, Denies dysuria, Reports penile discharge, Denies urinary frequency, Denies urinary hesitancy, Denies urinary incontinence and Denies urinary urgency Musculoskeletal: Musculoskeletal: Reports no additional musculoskeletal complaints, Denies numbness and Denies tingling Comments: left ankle pain Neurologic: Denies dizziness, Denies loss of vision, Denies numbness and Denies tingling Psychiatric: Psychiatric: Reports no additional psychiatric complaints Endocrine: Endocrine: Reports no additional endocrine complaints Hematologic/Lymphatic: Hematologic/Lymphatic: Reports no additional hematologic/lymphatic complaints Allergic/Immunologic: Allergic/Immunologic: Reports no additional allergic/immunologic complaints PMFSH Past Medical History Attestation statement: The following information was validated with the patient. Source: old records reviewed Medical History Diabetes HTN (hypertension) Social History Social History Household Members: Significant Other Household Members Other:: GIRLFRIEND Do you presently have visiting nurse or other home services: No Alcohol intake: never Patient Tobacco Use Status: Never used Tobacco Second Hand Smoke Exposure: No Advance Directives: No Advance Directives Information Provided: No service: No Current occupational status: unemployed Physical Exam ED Vital Signs: Vital Signs - 24 hr 12/31/21 13:22 Temperature 98.4 F Pulse Rate 104 H Respiratory Rate 18 Blood Pressure 139/84 Pulse Oximetry 96 Oxygen Delivery Method Room Air BMI result Body Mass Index 39.5 Const General: cooperative, no acute distress, alert and awake Nutritional Appearance: well nourished Orientation/consciousness: patient oriented x3 Limitations: no limitations HENMT Head: Yes normal to inspection and Yes atraumatic Ears: hearing grossly normal bilaterally and external ears normal General nose exam: Normal external nose present, no nasal discharge noted and no epistaxis Face and sinus: Yes normal facial exam, No abrasion and No laceration Mouth: Normal oral and palatal mucosa present, no drooling and no muffled voice Eyes General: appearance normal, both eyes and all related structures Periorbital: periorbital findings normal Eyelids: Yes eyelids normal Conjunctivae: conjunctivae normal Pupils: Equal, round and reactive pupils present EOM: EOMs intact bilaterally Neck Neck: Yes normal visual inspection, Yes full ROM and Yes no lymphadenopathy Chest Chest palpation & inspection: normal inspection of the chest Resp Effort & Inspection: normal respiratory effort and able to speak in complete sentences Auscultation: clear to auscultation bilaterally Cardio Rate: regular rate Rhythm: regular rhythm GI Inspection: Yes normal to inspection Penis: normal penis Neuro General: patient oriented x3 and moves all extremities Cranial nerves: Yes Equal, round and reactive pupils present Cognition (Neuro): normal cognition Motor exam (neuro): 5/5 motor strength present throughout Sensory Exam: Normal double simultaneous stimulation for sensation Coordination: [id number] test normal Extrem General: Yes normal to inspection, Yes full ROM and Yes capillary refill normal Psych Appearance: grossly normal Mental Status: mental status grossly normal Affect: normal affect Attitude: cooperative Thought process: Normal thought process present Thought content: Normal thought content present Insight: Good insight present (Psych) Procedures Orthopedic Splinting/Casting Injury #1: Side: left Lower Extremity Injury Location: ankle Other Orthopedic Equipment: crutches Medical Decision Making MDM Narrative Medical decision making narrative: Patient is a 36 year old male presenting to the emergency department today with left ankle pain and penile discharge. Patient's physical exam was unremarkable. Patient's urine showed no acute process. Patient's left ankle x-ray showed no acute process. I explained my physical exam findings as well as all test results to the patient. I answered all questions asked by the patient. Patient received crutches with crutch training and IM Ceftriaxone. I stressed the importance of the patient taking his medication as prescribed. I stressed the importance of the patient following up with his primary care provider and if the pain persists, an orthopedic provider. I stressed the importance of the patient returning to the emergency department immediately if his symptoms were to worsen or if he were to develop any dizziness, shortness of breath, difficulty breathing, chest pain, blurry vision, loss of vision, nausea, vomiting, abdominal pain, fever, chills, back pain, or any other complaints. Patient verbalized agreement and understanding with this treatment plan and discharge. Differential Diagnosis Differential Diagnosis: left ankle sprain, left ankle strain, STI exposure Medical Records Medical records reviewed: Yes I reviewed the patient's medical records. Lab Data Lab results reviewed: Yes I reviewed the patient's lab results. Labs: Lab Results 12/31/21 Range/Units 13:36 Urine Color YELLOW Urine Appearance CLEAR Urine pH 6.0 (5.0-8.0) Ur Specific Ernul 1.025 (1.005-1.025) Urine Protein NEG (NEG-TRACE) MG/DL Urine Glucose (UA) NEG (NEG) MG/DL Urine Ketones NEG (NEG) MG/DL Urine Blood 1+ H (NEG) Urine Nitrite NEG (NEG) Ur Leukocyte Esterase 1+ H (NEG) Urine RBC 1-4 (0) /HPF Urine WBC 1-4 (0-4) /HPF Ur Squamous Epith Cells TRACE /LPF Urine Bacteria NONE /LPF Imaging Data Left ankle x-ray: Attestation: I personally reviewed and interpreted this imaging study as follows: My impression: No acute process. Radiologist's impression: EXAMINATION: XR ANKLE, LEFT CLINICAL INFORMATION: Left ankle pain. Injury.? COMPARISON: None? TECHNIQUE: AP, lateral, and mortise views of the left ankle. FINDINGS: The bones and soft tissues are normal. No fracture. Alignment is anatomic. Joint spaces are maintained. No joint effusion.? XR/XR ankle LT min 3V IMPRESSION: Unremarkable left ankle exam. Dictated By: Rudy Elkins MD Signed By: Electronically signed by Rudy Elkins MD 12/31/21 9411 Discharge Plan Discharge Clinical Impression: Ankle sprain, Concern about STD in male without diagnosis Patient Disposition: Home, Self-Care Instructions: Male Condom Use (ED), Safe Sex Practices (ED), Ankle Sprain (ED), Crutch Instructions (ED) Additional Instructions: Follow up with your primary care provider and if the pain persists, an orthopedic provider. Return to the emergency department immediately if your symptoms worsen or if you develop any dizziness, shortness of breath, difficulty breathing, chest pain, blurry vision, loss of vision, nausea, vomiting, abdominal pain, fever, chills, back pain, or any other complaints. Prescriptions: New doxycycline hyclate 150 mg tablet 150 mg PO BID 7 Days Qty: 14 0RF fluconazole [Diflucan] 150 mg tablet 150 mg PO Q3D Qty: 2 0RF Rx Instructions: may repeat second dose 72 hrs after first dose if symptoms persist Continued Lantus U-100 Insulin 100 unit/mL solution 60 unit subcut BID 30 Days Qty: 36 0RF (DME) insulin syringe-needle U-100 [BD Insulin Syringe Ultra-Fine] 1 mL 31 gauge x 5/16 syringe See Rx Instructions .Route Qty: 100 0RF Rx Instructions: Use 1 syringe twice a day Lantus Solostar U-100 Insulin 100 unit/mL (3 mL) insulin pen 60 unit subcut BID 25 Days Qty: 30 0RF metoprolol succinate [Toprol XL] 50 mg Tablet Extended Release 24 Hr 50 mg PO DAILY lisinopril 20 mg Tablet 20 mg PO DAILY sertraline 100 mg Tablet 100 mg PO DAILY hydroxyzine HCl 25 mg Tablet 25 mg PO DAILY PRN (Reason: Anxiety) omeprazole 40 mg Capsule,Delayed Release(Dr/Ec) 40 mg PO DAILY@0630 Qty: 30 0RF ibuprofen 800 mg tablet 800 mg PO Q8H PRN (Reason: pain) Qty: 20 0RF Discontinued insulin lispro [Humalog U-100 Insulin] 100 unit/mL solution 1 unit subcut QIDACHS Qty: 10 0RF Protocol: Insulin Correction Scale Less than or equal to 110 ---- Give (units): 0 111 to 150 Give (units): 0 151 to 200 Give (units): 2 201 to 250 Give (units): 4 251 to 300 Give (units): 6 301 to 350 Give (units): 10 Greater than 350 Give (units): 12 Call MD if Blood Glucose > : 350 cyclobenzaprine 10 mg tablet 10 mg PO TID PRN (Reason: muscle spasm) Qty: 14 0RF doxycycline hyclate 100 mg capsule 100 mg PO BID 7 Days Qty: 14 0RF dexamethasone 4 mg tablet 4 mg PO DAILY Qty: 5 0RF insulin glargine [Lantus U-100 Insulin] 100 unit/mL solution 60 unit subcut BID Qty: 10 0RF insulin glargine [Lantus U-100 Insulin] 100 unit/mL solution 60 unit subcut BID Qty: 10 0RF naproxen 500 mg tablet 500 mg PO BID PRN (Reason: pain) 10 Days Qty: 20 0RF doxycycline hyclate 100 mg tablet 100 mg PO BID 7 Days Qty: 14 0RF ondansetron HCl 4 mg tablet 4 mg PO Q6H PRN (Reason: nausea and vomiting) Qty: 10 0RF Referrals: [facility] [place] [facility] [Provider Group] (If pain persists, follow up with an orthopedic provider. ) Marita Mccartney NP [Primary Care Provider] - Stand Alone Forms: Work/School Release Interventions: ED Discharge Assessment Last Done: 12/31/21 14:54 Discharge Date/Time: 12/31/21 14:57 Print Language: Belgian
[2021-12-31 13:22] VITALS: BP 139/84; PULSE 104; RESP 18; TEMP 36.9; O2SAT 96; BMI 39.5
[2021-12-31 13:45] LABS: Appearance Urine CLEAR; Color Urine YELLOW; Glucose Urine UA NEG (NEG); Leukocyte Esterase Urine 1+ (NEG); Nitrite Urine NEG (NEG); Specific Gravity - Urine 1.025 (1.005-1.025); UACC Culture Trigger YES; Urine Blood 1+ (NEG); Urine Ketones NEG (NEG); Urine Protein NEG (NEG-TRACE)
[2021-12-31 13:55] LABS: Squamous Epithelial Cell Urine TRACE /LPF
[2021-12-31] MEDS: cefTRIAXone sodium 500 MG, Lidocaine HCl 1 % MPF 1 ML IM (13:57)
[2021-12-31 15:20] LABS: CT PCR NOT DETECTED (Not Detect.); NG PCR DETECTED (Not Detect.)
== END 2021-12-31 14:57 | disposition home or self-care (01) ==
PROVIDERS: Physician Assistant Medical; Emergency Provider Emergency Medicine; PCP Nurse Practitioner Primary Care
DX: S93.402A Sprain of unspecified ligament of left ankle, initial encounter (principal); R36.9 Urethral discharge, unspecified; X50.1XXA Overexertion from prolonged static or awkward postures, initial encounter; Y93.9 Activity, unspecified; Y92.9 Unspecified place or not applicable; Y99.9 Unspecified external cause status; Z20.2 Contact with and (suspected) exposure to infections with a predominantly sexual mode of transmission; Z79.899 Other long term (current) drug therapy
CPT/HCPCS: 29515; 73610; 81001; 87086; 87491; 87591; 96372; 99283; 99284; J0696

== ENCOUNTER 2022-01-22 13:53 | Outpatient (REF) | payer MEDICAID, SELFPAY ==
--- NOTE | ~2022-01-22 | US_ITS ---
EXAMINATION: US RETROPERITONEAL COMPLETE (RENAL) CLINICAL INFORMATION: Gross hematuria, left flank pain, dysuria, ? nephrolithiasis. COMPARISON: None TECHNIQUE: Real-time imaging of the kidneys and bladder. FINDINGS: RIGHT KIDNEY: 12.6 x 5.7 x 6.5 cm (SAG x AP x TRV). The kidney is normal in size, contour, and echogenicity. Renal cortical thickness is normal. No calculi or focal parenchymal lesions. No hydronephrosis. LEFT KIDNEY: 12.7 x 6.2 x 5.9 cm (SAG x AP x TRV). The kidney is normal in size, contour, and echogenicity. Renal cortical thickness is normal. No calculi or focal parenchymal lesions. No hydronephrosis. BLADDER: Well distended and normal. Bilateral ureteral jets are demonstrated. Prevoid bladder volume is 201 mL. Postvoid bladder volume is 4 mL. OTHER: Prostate dimensions are 4.1 x 3.6 x 3.5 cm (126.7 mL).. US/US retroperitoneal comp IMPRESSION: Unremarkable examination..
== END 2022-01-22 13:54 | disposition home or self-care (01) ==
LOC: HO.HMGCX 13:53
PROVIDERS: Visit Provider Internal Medicine
DX: R30.0 Dysuria (principal); R31.0 Gross hematuria
CPT/HCPCS: 76770

== ENCOUNTER 2022-02-02 11:58 | Emergency (ER) | payer MEDICAID, SELFPAY ==
--- NOTE | 2022-02-02 12:02 | ECG_ITS ---
Test Reason : dizziness Blood Pressure : / mmHG Vent. Rate : 093 BPM Atrial Rate : 093 BPM P-R Int : 130 ms QRS Dur : 076 ms QT Int : 336 ms P-R-T Axes : 043 011 015 degrees QTc Int : 417 ms Normal sinus rhythm Normal ECG When compared with ECG of 01-DEC-2021 10:03, No significant change was found Referred By: Generic ED Physician Electronically Signed By:BRENNAN MCCORMICK
[2022-02-02 12:11] VITALS: BP 128/72; PULSE 94; RESP 18; TEMP 37.2; O2SAT 95; BMI 39.5
[2022-02-02 12:39] LABS: MANUAL DIFF FLAG NO
[2022-02-02 12:44] LABS: Basophils Absolute Auto 0.1 X10*3/uL (0.0-0.2); Basophils Percent Auto 0.6 % (0-2); Eosinophils Absolute Auto 0.2 X10*3/uL (0.0-0.4); Eosinophils Percent Auto 1.9 % (0-4); Hematocrit 41.2 % (42.0-52.0); Hemoglobin 13.3 g/dl (14.0-18.0); Imm Gran Abs Auto 0.06 X10*3/uL (0.00-0.03); Imm Gran Pct Auto 0.7 % (0.0-0.4); Lymphocytes Absolute Auto 3.3 X10*3/uL (1.2-4.9); Lymphocytes Percent Auto 37.8 % (20-40); Mean Corpuscular HGB Conc 32.3 g/dl (31.0-36.0); Mean Corpuscular Volume 80.6 fL (80.0-98.0); Monocytes Absolute Auto 0.7 X10*3/uL (0.1-1.2); Monocytes Percent Auto 8.6 % (2-11); Neutrophils Absolute Auto 4.4 x10*3/uL (2.0-8.3); Neutrophils Percent Auto 50.4 % (45-73); Platelet Count 243 X10*3/uL (160-400); Red Blood Count 5.11 X10*6/uL (4.60-5.80); Red Cell Distribution Width 14.2 % (11.0-16.0); White Blood Count 8.6 X10*3/uL (4.8-10.8)
[2022-02-02 13:12] LABS: Troponin-I High Sensitivity < 3.5 ng/L (<3.5-35.0)
[2022-02-02 13:16] LABS: Alanine Aminotransferase 21 U/L (0-40); Albumin Level 4.4 g/dL (3.5-5.0); Alkaline Phosphatase 72 U/L (39-117); Anion Gap 13 (12-20); Aspartate Amino Transferase 17 U/L (5-37); Bilirubin Total < 0.2 mg/dL (0.0-1.0); Blood Urea Nitrogen 18 mg/dL (9-16); Calcium 9.1 mg/dL (8.4-10.2); Carbon Dioxide 26 mmol/L (22-29); Chloride 105 mmol/L (96-108); Creatinine Clr Calc Pharmacy 157.7; Estimated Glomerular Filt Rate > 60; Glucose Random 104 mg/dL (60-115); Potassium 4.3 mmol/L (3.3-5.1); Sodium 140 mmol/L (135-145); Total Protein 7.8 g/dL (6.5-8.0)
--- NOTE | 2022-02-02 15:27 | ED_ITS ---
HPI - Dizziness General Chief Complaint: Dizziness Stated Complaint: dizziness/lightheadedness Time Seen by Provider: 02/02/22 15:13 Source: patient and RN notes reviewed Mode of arrival: ambulatory Limitations: no limitations History of Present Illness HPI Narrative: This is a [id number]-male, with a past medical history of diabetes, who presents today with complaints of one episode of dizziness which occurred at 11:30AM today. Patient states that he was getting up from his vehicle when he suddenly felt as if he was spinning and he sat back down in his car, and his symptoms resolved after several seconds. He denies losing consciousness or hitting his head. He states that he currently has a mild headache, but otherwise feels well and is no longer feeling dizzy. He denies any chest pain, palpitations, shortness of breath, fevers, chills, nausea, vomiting, dysuria, or hematuria. He denies history of similar symptoms in the past. He states that he tries to stay hydrated, however reports that his work has been very warm lately with the weather. No other complaints or concerns at this time. MD elicited complaint: dizziness Onset (ago): hour(s) Severity: mild Description: room spinning Context: change in body position History of similar symptoms: No Exacerbating factors: nothing Relieving factors: remaining still Associated symptoms: denies other symptoms Related Data Home Medications Medication Instructions Recorded Confirmed hydroxyzine HCl 25 mg tablet 25 mg PO DAILY PRN Anxiety 08/02/20 08/02/20 lisinopril 20 mg tablet 20 mg PO DAILY 08/02/20 08/02/20 metoprolol succinate 50 mg 50 mg PO DAILY 08/02/20 08/02/20 tablet,extended release 24 hr (Toprol XL) sertraline 100 mg tablet 100 mg PO DAILY 08/02/20 08/02/20 Previous Rx's Medication Instructions Recorded omeprazole 40 mg capsule,delayed 40 mg PO DAILY@0630 #30 caps 08/07/20 release insulin glargine 100 unit/mL 60 unit (0.6 mL) subcut BID 30 05/31/21 subcutaneous solution (Lantus days #36 mL U-100 Insulin) insulin syringe-needle U-100 1 mL #100 ea 05/31/21 31 gauge x 5/16 (BD Insulin Syringe Ultra-Fine) ibuprofen 800 mg tablet 800 mg PO Q8H PRN pain #20 tabs 07/01/21 doxycycline hyclate 150 mg tablet 150 mg PO BID 7 days #14 tabs 12/31/21 fluconazole 150 mg tablet 150 mg PO Q3D 2 doses #2 tabs 12/31/21 (Diflucan) insulin glargine 100 unit/mL (3 60 unit (0.6 mL) subcut BID 01/13/22 mL) subcutaneous pen (Lantus days #30 mL Solostar U-100 Insulin) Allergies Allergy/AdvReac Type Severity Reaction Status Date / Time No Known Allergies Allergy Verified 08/04/21 15:52 [No Known Allergies*] Review of Systems Review of Systems: Constitutional: No Fever, No Chills ENT/Mouth: No sore throat, No Rhinorrhea, No Swallowing Difficulty Eyes: No Eye Pain, No Swelling, No Redness Cardiovascular: No Chest Pain, No SOB, No Orthopnea, No Edema Respiratory: No Cough, No Sputum, No Wheezing, No dyspnea Gastrointestinal: No Nausea, No Vomiting, No Diarrhea, No abdominal Pain, No Hematochezia, No Melena Genitourinary: No Dysuria, No Urinary Frequency, No Hematuria Musculoskeletal: No joint pain, No Myalgias Skin: No Skin Lesions, No rash Neuro: +dizziness, resolved. +headache No Weakness, No Numbness Psych: No Anxiety/Panic, No Depression Heme/Lymph: No Bruising, No Lymphadenopathy Endocrine: No Polyuria, No Polydipsia PMFSH Past Medical History Medical History Diabetes Diabetes mellitus HTN (hypertension) Social History Social History Household Members: Significant Other Household Members Other:: GIRLFRIEND Do you presently have visiting nurse or other home services: No Alcohol intake: never Patient Tobacco Use Status: Never used Tobacco Second Hand Smoke Exposure: No Advance Directives: No Advance Directives Information Provided: No service: No Current occupational status: unemployed Physical Exam Vital Signs: Vital Signs: Last Vital Signs Temp 98.9 F 02/02/22 12:11 Pulse 94 02/02/22 12:11 Resp 18 02/02/22 12:11 BP 128/72 02/02/22 12:11 Pulse Ox 95 02/02/22 12:11 O2 Del Method 02/02/22 12:11 BMI result Body Mass Index 39.5 Appearance: Alert. Oriented X3. No acute distress. Eyes: Pupils equal, round and reactive to light. EOMI ENT: Pharynx normal. Tonsils are nonerythematous, nonedematous, nonexudative, uvula is midline. Tolerating secretions well. Neck: Normal inspection. Neck supple. CVS: S1S2 regular. Normal heart rate and rhythm. Pulses normal. Respiratory: Lungs clear to auscultation bilaterally, no wheezes, rhonchi or rales. No respiratory distress. Breath sounds normal. Abdomen: Soft and nontender. +BS x4 Skin: Skin warm and dry. Normal skin color. Normal skin turgor. No rashes. Extremities: No lower extremity edema. Neuro: Oriented X 3. No motor deficit. No sensory deficit. Negative Romberg test. 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 Strength 5/5 in lower extremities. CNII- XII intact. Course Course Course Narrative: This is a [id number]-male, with a past medical history of diabetes, who presents today with complaints of one episode of dizziness which occurred at 11:30AM today. Patient reports mild headache, otherwise patient is asymptomatic at this time. Vital signs are within normal limits. Patient has no neurologic findings. Labs, EKG, Orthostatics ordered. Reevaluation(s) Reevaluation #1: CBC within normal limits. BUN mildly elevated at 18, and glucose 104. Orthostatics performed and are negative. EKG is reassuring. Patient has no current symptoms and would like to be discharged home. Advised patient that his symptoms may be due to dehydration or transient hypoglycemia. Patient educated to drink plenty of fluids and continue taking his blood sugars as directed by his PCP. Patient understands and agrees with this plan. Time: 16:35 [facility] - Dizziness Lab Data Result diagrams: 02/02/22 12:36 02/02/22 12:36 Labs: Lab Results 02/02/22 02/02/22 02/02/22 Range/Units 12:36 12:36 12:36 WBC 8.6 (4.8-10.8) X10*3/uL RBC 5.11 (4.60-5.80) X10*6/uL Hgb 13.3 L (14.0-18.0) g/dl Hct 41.2 L (42.0-52.0) % MCV 80.6 (80.0-98.0) fL MCH 26.0 L (27.0-33.0) pg MCHC 32.3 (31.0-36.0) g/dl RDW 14.2 (11.0-16.0) % Plt Count 243 (160-400) X10*3/uL MPV 10.0 (9.4-12.4) fL Immature Gran % (Auto) 0.7 H (0.0-0.4) % Neut % (Auto) 50.4 (45-73) % Lymph % (Auto) 37.8 (20-40) % [place] % (Auto) 8.6 (2-11) % Eos % (Auto) 1.9 (0-4) % Baso % (Auto) 0.6 (0-2) % Lymph # (Auto) 3.3 (1.2-4.9) X10*3/uL [place] # (Auto) 0.7 (0.1-1.2) X10*3/uL Eos # (Auto) 0.2 (0.0-0.4) X10*3/uL Baso # (Auto) 0.1 (0.0-0.2) X10*3/uL Abs Immat Gran (auto) 0.06 H (0.00-0.03) X10*3/uL Absolute Neuts (auto) 4.4 (2.0-8.3) x10*3/uL Absolute Nucleated RBC 0.000 (0.0-0.012) X10*3/uL Nucleated RBC % (auto) 0.0 (0.0-0.2) /100WBC Sodium 140 (135-145) mmol/L Potassium 4.3 (3.3-5.1) mmol/L Chloride 105 (96-108) mmol/L Carbon Dioxide 26 (22-29) mmol/L Anion Gap 13 (12-20) BUN 18 H (9-16) mg/dL Creatinine 0.80 (0.5-1.4) mg/dL Estim Creat Clear Calc 157.7 Estimated GFR > 60 Random Glucose 104 (60-115) mg/dL Calcium 9.1 (8.4-10.2) mg/dL Total Bilirubin < 0.2 (0.0-1.0) mg/dL AST 17 (5-37) U/L ALT 21 (0-40) U/L Alkaline Phosphatase 72 (39-117) U/L Troponin I High Sens < 3.5 (<3.5-35.0) ng/L Total Protein 7.8 (6.5-8.0) g/dL Albumin 4.4 (3.5-5.0) g/dL ECG Data Attestation: I personally reviewed and interpreted this ECG as follows: ECG interpretation date: 02/02/22 ECG interpretation time: 12:09 Prior ECG tracings: available for review Interpretation: Normal Sinus rhythm at 93bpm, AL interval 130ms, QTC 417. No ST elevation or depression. No acute ischemic changes. Critical Care Time Critical Care Time Critical Care Time: No Discharge Plan Discharge Clinical Impression: Dizziness Patient Disposition: Home, Self-Care Instructions: Dizziness (ED) Additional Instructions: Your x-ray, labs, and chest x-ray were all normal today. Stay hydrated, make sure you are drinking plenty of water. Monitor your glucose before meals and at bedtime. If you develop new or worsening symptoms call 911 or come back to the ER for further evaluation. Prescriptions: No Action Lantus U-100 Insulin 100 unit/mL solution 60 unit subcut BID 30 Days Qty: 36 0RF (DME) insulin syringe-needle U-100 [BD Insulin Syringe Ultra-Fine] 1 mL 31 gauge x 5/16 syringe See Rx Instructions .Route Qty: 100 0RF Rx Instructions: Use 1 syringe twice a day insulin glargine [Lantus Solostar U-100 Insulin] 100 unit/mL (3 mL) insulin pen 60 unit subcut BID 25 Days Qty: 30 0RF metoprolol succinate [Toprol XL] 50 mg Tablet Extended Release 24 Hr 50 mg PO DAILY lisinopril 20 mg Tablet 20 mg PO DAILY sertraline 100 mg Tablet 100 mg PO DAILY hydroxyzine HCl 25 mg Tablet 25 mg PO DAILY PRN (Reason: Anxiety) omeprazole 40 mg Capsule,Delayed Release(Dr/Ec) 40 mg PO DAILY@0630 Qty: 30 0RF doxycycline hyclate 150 mg tablet 150 mg PO BID 7 Days Qty: 14 0RF fluconazole [Diflucan] 150 mg tablet 150 mg PO Q3D Qty: 2 0RF Rx Instructions: may repeat second dose 72 hrs after first dose if symptoms persist ibuprofen 800 mg tablet 800 mg PO Q8H PRN (Reason: pain) Qty: 20 0RF Referrals: [place] [Primary Care Provider] - Stand Alone Forms: Work/School Release
== END 2022-02-02 16:44 | disposition home or self-care (01) ==
PROVIDERS: Emergency Provider Emergency Medicine
DX: R42 Dizziness and giddiness (principal); Z79.899 Other long term (current) drug therapy
CPT/HCPCS: 36415; 80053; 84484; 85025; 93005; 99283

== ENCOUNTER 2022-02-11 08:49 | Emergency (ER) | payer MEDICAID, SELFPAY ==
--- NOTE | ~2022-02-11 | XR_ITS ---
EXAMINATION: XR CHEST CLINICAL INFORMATION: Chest pain COMPARISON: CXR from 10/07/2021 TECHNIQUE: Frontal view of the chest was obtained. FINDINGS: Lungs are well expanded and clear with exception of minimal linear opacity of scar or atelectasis of the lingula. No pulmonary edema, airspace disease or pleural effusion. No pneumothorax. Cardiac silhouette has normal size and contour. The right diaphragm is chronically, mildly elevated. The visualized bones, and upper abdomen, are unremarkable. XR/XR chest 1V IMPRESSION: No acute cardiopulmonary abnormality.
[2022-02-11 09:14] VITALS: BP 126/74; PULSE 90; RESP 18; TEMP 36.7; O2SAT 95; BMI 39.5
--- NOTE | 2022-02-11 09:16 | ECG_ITS ---
Test Reason : cp Blood Pressure : / mmHG Vent. Rate : 087 BPM Atrial Rate : 087 BPM P-R Int : 124 ms QRS Dur : 084 ms QT Int : 328 ms P-R-T Axes : 039 011 023 degrees QTc Int : 394 ms Normal sinus rhythm Normal ECG When compared with ECG of 02-FEB-2022 12:09, No significant change was found Referred By: Generic ED Physician Electronically Signed By:HELENA RASMUSSEN MD
[2022-02-11 09:42] LABS: MANUAL DIFF FLAG NO
[2022-02-11 09:49] LABS: Basophils Percent Auto 0.5 % (0-2); Eosinophils Absolute Auto 0.1 X10*3/uL (0.0-0.4); Eosinophils Percent Auto 1.2 % (0-4); Hematocrit 42.5 % (42.0-52.0); Hemoglobin 13.6 g/dl (14.0-18.0); Imm Gran Abs Auto 0.05 X10*3/uL (0.00-0.03); Imm Gran Pct Auto 0.6 % (0.0-0.4); Lymphocytes Absolute Auto 2.7 X10*3/uL (1.2-4.9); Lymphocytes Percent Auto 33.8 % (20-40); Mean Corpuscular Hemoglobin 25.8 pg (27.0-33.0); Mean Corpuscular Volume 80.6 fL (80.0-98.0); Mean Platelet Volume 9.6 fL (9.4-12.4); Monocytes Absolute Auto 0.7 X10*3/uL (0.1-1.2); Monocytes Percent Auto 8.7 % (2-11); Neutrophils Absolute Auto 4.4 x10*3/uL (2.0-8.3); Neutrophils Percent Auto 55.2 % (45-73); Platelet Count 255 X10*3/uL (160-400); Red Blood Count 5.27 X10*6/uL (4.60-5.80); Red Cell Distribution Width 14.2 % (11.0-16.0)
[2022-02-11 10:05] LABS: Troponin-I High Sensitivity < 3.5 ng/L (<3.5-35.0)
[2022-02-11 11:58] VITALS: BP 128/78; PULSE 80; RESP 16; O2SAT 97
--- NOTE | 2022-02-11 12:22 | ED.CHESTPAIN ---
HPI - Chest Pain General Chief Complaint: Chest Pain Stated Complaint: chest pain, headache Time Seen by Provider: 02/11/22 12:22 Source: patient Mode of arrival: ambulatory Limitations: no limitations History of Present Illness HPI narrative: 36-year-old male who presents emergency department for evaluation of right arm pain and chest pain. The patient states that last night at 21:00 hours while he was lying down in bed he had a gradual onset of right forearm pain. Describes his pain is a pressure-like pain which was 5/10. He then fell asleep and woke up this morning the pain was gone. States that he got radiated go to work and when he when out the door around 05:20 hours he felt a left-sided chest pain. He describes the pain as a pinching sensation which is intermittent, 4-10 at its worst. He states that will last minutes go away and then come back. He states he has been having them continually since he has been here in the emergency department. The patient denies any associated neck pain, jaw pain, arm pain or back pain associated with this chest pain. He states that he has similar pain in the past and had blood work proximal your prior without a clear etiology for his pain. The patient denied fever, chills, rhinorrhea, sore throat, cough, shortness of breath, dyspnea exertion, nausea, vomiting, diarrhea. MD complaint: chest pain Onset (ago): hour(s) (6) Timing of current episode: episodic Prior episodes: Yes Onset: during exertion Pain location: left chest Pain radiation: none Severity: moderate Pain scale (0-10): 5 Quality: other (Pinching) Relieving factors: nothing Exacerbating factors: nothing Treatment prior to arrival: none Risk Factors Coronary artery disease risk factors: diabetes and hypertension Related Data Home Medications Medication Instructions Recorded Confirmed hydroxyzine HCl 25 mg tablet 25 mg PO DAILY PRN Anxiety 08/02/20 08/02/20 lisinopril 20 mg tablet 20 mg PO DAILY 08/02/20 08/02/20 metoprolol succinate 50 mg 50 mg PO DAILY 08/02/20 08/02/20 tablet,extended release 24 hr (Toprol XL) sertraline 100 mg tablet 100 mg PO DAILY 08/02/20 08/02/20 Previous Rx's Medication Instructions Recorded omeprazole 40 mg capsule,delayed 40 mg PO DAILY@0630 #30 caps 08/07/20 release insulin glargine 100 unit/mL 60 unit (0.6 mL) subcut BID 30 05/31/21 subcutaneous solution (Lantus days #36 mL U-100 Insulin) insulin syringe-needle U-100 1 mL #100 ea 05/31/21 31 gauge x 5/16 (BD Insulin Syringe Ultra-Fine) ibuprofen 800 mg tablet 800 mg PO Q8H PRN pain #20 tabs 07/01/21 doxycycline hyclate 150 mg tablet 150 mg PO BID 7 days #14 tabs 12/31/21 fluconazole 150 mg tablet 150 mg PO Q3D 2 doses #2 tabs 12/31/21 (Diflucan) insulin glargine 100 unit/mL (3 60 unit (0.6 mL) subcut BID 25 01/13/22 mL) subcutaneous pen (Lantus days #30 mL Solostar U-100 Insulin) Allergies Allergy/AdvReac Type Severity Reaction Status Date / Time No Known Allergies Allergy Verified 08/04/21 15:52 [No Known Allergies*] Review of Systems Review of Systems: Yes all other systems are reviewed and are negative [facility] Past Medical History [facility] Narrative: Social history: Patient is a former cigarette smoker, the patient stop smoking 2017, he smoked for 10 years. He denies alcohol use. He states that he used to smoke marijuana daily but no longer uses marijuana. He denies any other drug use. Medical History Diabetes Diabetes mellitus HTN (hypertension) Social History Social History Household Members: Significant Other Household Members Other:: GIRLFRIEND Do you presently have visiting nurse or other home services: No Alcohol intake: never Patient Tobacco Use Status: Never used Tobacco Second Hand Smoke Exposure: No Advance Directives: No Advance Directives Information Provided: No service: No Current occupational status: unemployed Physical Exam Vital Signs: Vital Signs: Last Vital Signs Temp 98.0 F 02/11/22 09:14 Pulse 80 02/11/22 11:58 Resp 16 02/11/22 11:58 BP 128/78 02/11/22 11:58 Pulse Ox 97 02/11/22 11:58 O2 Del Method 02/11/22 11:58 BMI result Body Mass Index 39.5 Const: General: cooperative and no acute distress Orientation/consciousness: oriented to person and oriented to place Limitations: no limitations HEENT: Head: Yes normal to inspection, Yes normocephalic and Yes atraumatic Ears: external ears normal General nose exam: Normal external nose present Face and sinus: Yes normal facial exam Mouth: Normal oral and palatal mucosa present Throat: Yes posterior oropharynx normal Eyes: General: appearance normal, both eyes and all related structures Pupils: Equal, round and reactive pupils present Neck: Neck: Yes normal visual inspection, Yes no lymphadenopathy, Yes trachea midline and Yes supple Chest: Chest palpation & inspection: normal inspection of the chest and tenderness (Left chest) Resp: Effort & Inspection: normal respiratory effort and able to speak in complete sentences Auscultation: clear to auscultation bilaterally Cardio: Rate: regular rate Rhythm: regular rhythm Heart sounds: S1 normal heart sound present, S2 normal heart sound present and no murmurs GI: Inspection: Yes normal to inspection Palpation (GI): Soft to palpation, nontender and no guarding Auscultation: normal bowel sounds : General: Yes no CVA tenderness Back/Spine/Pelvis: Back: no CVA tenderness Skin: General skin exam: no rashes or lesions noted Neuro: General: oriented to person and oriented to place Cranial nerves: Yes CN's II-XII intact bilaterally and Yes Equal, round and reactive pupils present Cognition (Neuro): normal cognition Motor exam (neuro): 5/5 motor strength present throughout Extrem: General: Yes normal to inspection Psych: Appearance: grossly normal Speech and movement: Normal speech and movement present Affect: normal affect Attitude: cooperative Thought process: Normal thought process present Thought content: Normal thought content present Course Course Course Narrative: 36-year-old male who presents emergency department for evaluation of right forearm pain x1 episode last night that came on at rest and left-sided chest pain that started this morning at 05:30 hours. The chest pain last minutes, resolved and then would return. Patient had similar pain 1 year prior. Vital signs were normal. The patient's physical examination did reveal left-sided tenderness. Patient's with EKG was normal. The patient's CBC was normal. Troponin was below detectable limits. Chemistry panel is pending since the laboratory services down at this point and it is unclear when the lab will be able to results. Chest x-ray was normal. The patient's pain and physical findings are consistent with costochondritis. I did discuss this with the patient. The patient will be discharged home advised to take Tylenol ibuprofen. He was given printed and verbal instructions. MDM - Chest Pain Medical Records Data Attestation: I reviewed the patient's medical records. Lab Data Attestation: I reviewed the patient's lab results. Result diagrams: 02/11/22 09:33 02/11/22 09:33 Labs: Lab Results 02/11/22 02/11/22 Range/Units 09:33 09:33 WBC 8.0 (4.8-10.8) X10*3/uL RBC 5.27 (4.60-5.80) X10*6/uL Hgb 13.6 L (14.0-18.0) g/dl Hct 42.5 (42.0-52.0) % MCV 80.6 (80.0-98.0) fL MCH 25.8 L (27.0-33.0) pg MCHC 32.0 (31.0-36.0) g/dl RDW 14.2 (11.0-16.0) % Plt Count 255 (160-400) X10*3/uL MPV 9.6 (9.4-12.4) fL Immature Gran % (Auto) 0.6 H (0.0-0.4) % Neut % (Auto) 55.2 (45-73) % Lymph % (Auto) 33.8 (20-40) % [place] % (Auto) 8.7 (2-11) % Eos % (Auto) 1.2 (0-4) % Baso % (Auto) 0.5 (0-2) % Lymph # (Auto) 2.7 (1.2-4.9) X10*3/uL [place] # (Auto) 0.7 (0.1-1.2) X10*3/uL Eos # (Auto) 0.1 (0.0-0.4) X10*3/uL Baso # (Auto) 0.0 (0.0-0.2) X10*3/uL Abs Immat Gran (auto) 0.05 H (0.00-0.03) X10*3/uL Absolute Neuts (auto) 4.4 (2.0-8.3) x10*3/uL Absolute Nucleated RBC 0.000 (0.0-0.012) X10*3/uL Nucleated RBC % (auto) 0.0 (0.0-0.2) /100WBC Troponin I High Sens < 3.5 (<3.5-35.0) ng/L ECG Data ECG #1: Attestation: I personally reviewed and interpreted this ECG as follows: Interpretation: 0921: Normal sinus rhythm rate of 87, normal VT interval, normal QRS duration, normal QTC interval, no T-wave abnormalities no ST segment elevation, no ST segment depression, no PACs, no PVCs. This is a normal EKG. Discharge Plan Discharge Clinical Impression: Acute costochondritis Patient Disposition: Home, Self-Care Instructions: Costochondritis (ED) Additional Instructions: Your EKG was normal. Your chest x-ray was unremarkable. Your troponin (marker of heart damage/heart attack) was below detectable limits which is reassuring. At this time, I believe that your pain is caused by inflammation of the joints and muscles of your chest. Take ibuprofen 200 mg pills, 3 pills every 6 hours as needed for pain. Take Tylenol (acetaminophen) 500 mg pills, 2 pills every 4 to 6 hours as needed for pain. Follow-up with your doctor in 2 days. Please return to the emergency department if your symptoms get worse or if you develop any symptoms that are concerning to you. Please see work note Prescriptions: No Action Lantus U-100 Insulin 100 unit/mL solution 60 unit subcut BID 30 Days Qty: 36 0RF (DME) insulin syringe-needle U-100 [BD Insulin Syringe Ultra-Fine] 1 mL 31 gauge x 5/16 syringe See Rx Instructions .Route Qty: 100 0RF Rx Instructions: Use 1 syringe twice a day insulin glargine [Lantus Solostar U-100 Insulin] 100 unit/mL (3 mL) insulin pen 60 unit subcut BID 25 Days Qty: 30 0RF metoprolol succinate [Toprol XL] 50 mg Tablet Extended Release 24 Hr 50 mg PO DAILY lisinopril 20 mg Tablet 20 mg PO DAILY sertraline 100 mg Tablet 100 mg PO DAILY hydroxyzine HCl 25 mg Tablet 25 mg PO DAILY PRN (Reason: Anxiety) omeprazole 40 mg Capsule,Delayed Release(Dr/Ec) 40 mg PO DAILY@0630 Qty: 30 0RF doxycycline hyclate 150 mg tablet 150 mg PO BID 7 Days Qty: 14 0RF fluconazole [Diflucan] 150 mg tablet 150 mg PO Q3D Qty: 2 0RF Rx Instructions: may repeat second dose 72 hrs after first dose if symptoms persist ibuprofen 800 mg tablet 800 mg PO Q8H PRN (Reason: pain) Qty: 20 0RF Stand Alone Forms: Work/School Release
[2022-02-11 13:43] LABS: Anion Gap 14 (12-20); Blood Urea Nitrogen 17 mg/dL (9-16); Calcium 9.6 mg/dL (8.4-10.2); Carbon Dioxide 29 mmol/L (22-29); Chloride 104 mmol/L (96-108); Creatinine Clr Calc Pharmacy 137.1; Estimated Glomerular Filt Rate > 60; Glucose Random 88 mg/dL (60-115); Potassium 4.7 mmol/L (3.3-5.1); Sodium 142 mmol/L (135-145)
== END 2022-02-11 13:37 | disposition home or self-care (01) ==
PROVIDERS: Emergency Provider Emergency Medicine Emergency Medical Services
DX: M94.0 Chondrocostal junction syndrome [Tietze] (principal); R07.89 Other chest pain; R51.9 Headache, unspecified; Z79.899 Other long term (current) drug therapy
CPT/HCPCS: 36415; 71045; 80048; 84484; 85025; 93005; 99283; 99284

== ENCOUNTER 2022-05-25 09:28 | Emergency (ER) | payer MEDICAID, SELFPAY ==
--- NOTE | ~2022-05-25 | XR_ITS ---
EXAMINATION: XR CHEST CLINICAL INFORMATION: Chest wall pain COMPARISON: Previous chest x-ray most recent February 2022 TECHNIQUE: 2 views of the chest were obtained. FINDINGS: The cardiac and mediastinal contours are normal. The lungs are clear. There is no pleural effusion or pneumothorax. There is slight elevation of the right hemidiaphragm similar to previous exam. Bony structures are unremarkable. XR/XR chest 2V IMPRESSION: No evidence for acute disease in the chest.
[2022-05-25 09:37] VITALS: BP 140/85; PULSE 100; RESP 19; TEMP 36.6; O2SAT 98; BMI 39.5
--- NOTE | 2022-05-25 09:39 | ECG_ITS ---
Test Reason : Chest pain Blood Pressure : / mmHG Vent. Rate : 100 BPM Atrial Rate : 100 BPM P-R Int : 126 ms QRS Dur : 082 ms QT Int : 326 ms P-R-T Axes : 040 009 029 degrees QTc Int : 420 ms Sinus tachycardia Normal ECG When compared with ECG of 11-FEB-2022 09:21, No significant change was found Referred By: Generic ED Physician Electronically Signed By:SHANTI MEDEL MD
[2022-05-25 10:24] LABS: Anion Gap 16 (12-20); Blood Urea Nitrogen 16 mg/dL (9-16); Calcium 9.7 mg/dL (8.4-10.2); Carbon Dioxide 28 mmol/L (22-29); Chloride 102 mmol/L (96-108); Creatinine Clr Calc Pharmacy 148.4; Estimated Glomerular Filt Rate > 60; Glucose Random 87 mg/dL (60-115); Potassium 4.4 mmol/L (3.3-5.1); Sodium 142 mmol/L (135-145)
--- NOTE | 2022-05-25 10:26 | ED_ITS ---
HPI - General Adult General Chief complaint: General Medical Stated complaint: Chest pain Time Seen by Provider: 05/25/22 10:16 Source: patient Mode of arrival: ambulatory Limitations: no limitations History of Present Illness HPI narrative: Patient is a 36-year-old male who presents to the emergency department today for evaluation of left-sided chest pain. Chest pain is left anterior, felt below the nipple line. He states that he awoke at 06:00 with the pain. He states that is intermittent, lasting a few minutes at a time and then self-resolving. He took ibuprofen 400 mg at work without any significant change. Pain does seem worse at times with particular movements. He reports a history of diabetes and hypertension. He denies any personal history of heart attack or heart attack at a young age in family members. He does also note that he was moving heavy objects yesterday with his brother. Denies fevers, chills, headache, dizziness, lightheadedness, neck pain, jaw pain, shortness of breath, difficulty breathing, nausea, vomiting, abdominal pain, numbness or tingling of the extremities. He a dditionally reports that he has had similar pain in the past, for which she has been evaluated in the emergency department and had blood work done, was advised no clear etiology for his pain. Related Data Home Medications Medication Instructions Recorded Confirmed hydroxyzine HCl 25 mg tablet 25 mg PO DAILY PRN Anxiety 08/02/20 08/02/20 lisinopril 20 mg tablet 20 mg PO DAILY 08/02/20 08/02/20 metoprolol succinate 50 mg 50 mg PO DAILY 08/02/20 08/02/20 tablet,extended release 24 hr (Toprol XL) sertraline 100 mg tablet 100 mg PO DAILY 08/02/20 08/02/20 Previous Rx's Medication Instructions Recorded omeprazole 40 mg capsule,delayed 40 mg PO DAILY@0630 #30 caps 08/07/20 release insulin glargine 100 unit/mL 60 unit (0.6 mL) subcut BID 30 05/31/21 subcutaneous solution (Lantus days #36 mL U-100 Insulin) insulin syringe-needle U-100 1 mL #100 ea 05/31/21 31 gauge x 5/16 (BD Insulin Syringe Ultra-Fine) ibuprofen 800 mg tablet 800 mg PO Q8H PRN pain #20 tabs 07/01/21 doxycycline hyclate 150 mg tablet 150 mg PO BID 7 days #14 tabs 12/31/21 fluconazole 150 mg tablet 150 mg PO Q3D 2 doses #2 tabs 12/31/21 (Diflucan) insulin glargine 100 unit/mL (3 60 unit (0.6 mL) subcut BID 25 04/13/22 mL) subcutaneous pen (Lantus days #30 mL Solostar U-100 Insulin) Allergies Allergy/AdvReac Type Severity Reaction Status Date / Time No Known Allergies Allergy Verified 08/04/21 15:52 [No Known Allergies*] Review of Systems Review of Systems: Constitutional : No Weight loss, No Fever, No Chills ENT/Mouth :? No sore throat, No Rhinorrhea Eyes: No Eye Pain, No Swelling Cardiovascular : pos Chest Pain, no SOB, no Dyspnea on Exertion, No Orthopnea, No Edema, No Palpitations Respiratory : No Cough, No Sputum Gastrointestinal : No Nausea, No Vomiting, No Diarrhea, No abdominal Pain, No Hematochezia, No Melena Genitourinary : No Dysuria, No Urinary Frequency Musculoskeletal : No joint pain, No Myalgias, No Joint Swelling Skin : No Skin Lesions, No rash Neuro : No Weakness, No Numbness, No Dizziness, No Headache Psych : No Anxiety/Panic, No Depression Heme/Lymph: No Bruising, No Lymphadenopathy Endocrine : No Polyuria, No Polydipsia Yes all other systems are reviewed and are negative [facility] Past Medical History Attestation statement: The following information was validated with the patient. Source: old records reviewed Medical History Diabetes Diabetes mellitus HTN (hypertension) Social History Social History Household Members: Significant Other Household Members Other:: GIRLFRIEND Do you presently have visiting nurse or other home services: No Alcohol intake: never Patient Tobacco Use Status: Never used Tobacco Second Hand Smoke Exposure: No Advance Directives: No Advance Directives Information Provided: No service: No Current occupational status: unemployed Physical Exam ED Vital Signs: Vital Signs - 24 hr 05/25/22 09:37 Temperature 98 F Pulse Rate 100 Respiratory Rate 19 Blood Pressure 140/85 H Pulse Oximetry 98 Oxygen Delivery Method Room Air BMI result Body Mass Index 39.5 Appearance: Alert.?Oriented to person, place and time. No acute distress.?Normal affect. Eyes: Pupils equal, round and reactive to light.? ENT: Pharynx normal.?? Neck: Normal inspection.? Neck supple.?? CVS: Heart sounds normal. Normal heart rate and rhythm.? Pulses normal.?? Respiratory: No respiratory distress.? Lung sounds clear to auscultation bilaterally. Left anterior chest wall tenderness upon palpation. No crepitus. No deformities.?? Abdomen: Soft and non-tender. Normoactive bowel sounds. ? Skin: Skin warm and dry.? Normal skin color.? ? Extremities: No lower extremity edema.? No calf ttp? Neuro: Moves all extremities spontaneously. Sensation intact bilaterally. CN II- XII intact. No focal neuro deficits. Ambulates with normal steady gait. Course Course Course Narrative: Patient is a 36-year-old male with a past medical history of hypertension and type 2 diabetes who presents emergency department for evaluation of left anterior chest pain. At the time examination he is overall well-appearing. Vital signs overall within normal limits, mildly hypertensive. Pain is reproducible to palpation and movement. Speaking clear full sentences. Will obtain CBC to evaluate for leukocytosis/ anemia, BMP to evaluate for abnormal electrolytes /abnormal renal function, EKG and troponin to evaluate for ischemia/ACS. Chest x-ray to evaluate for consolidation/ infiltrate/ mass/ pulmonary congestion. Reevaluation(s) Reevaluation #1: CBC overall unremarkable. BMP unremarkable. Troponin <3.5, EKG reveals normal sinus rhythm with no acute ischemic findings. Chest x-ray reveals no acute cardiopulmonary process. Has had prior workups in the past with unremarkable findings for similar symptoms. Unlikely ACS, not consistent with pneumonia. PERC negative, unlikely PE. At this time given history and physical examination suspect pain may be secondary to acute costochondritis discussed plan of care for discharge home, acetaminophen/ibuprofen as needed for pain, worsening signs symptoms to return back to emergency department for, outpatient follow-up with primary care provider within 2 days. All questions were answered. Patient was discharged home in stable condition. Medical Decision Making Medical Records Medical records reviewed: Yes I reviewed the patient's medical records. Lab Data Lab results reviewed: Yes I reviewed the patient's lab results. Result diagrams: 05/25/22 11:12 05/25/22 10:04 Labs: Lab Results 05/25/22 05/25/22 05/25/22 Range/Units 10:04 10:04 11:12 WBC 9.0 (4.8-10.8) X10*3/uL RBC 5.42 (4.60-5.80) X10*6/uL Hgb 14.2 (14.0-18.0) g/dl Hct 43.5 (42.0-52.0) % MCV 80.3 (80.0-98.0) fL MCH 26.2 L (27.0-33.0) pg MCHC 32.6 (31.0-36.0) g/dl RDW 13.7 (11.0-16.0) % Plt Count 277 (160-400) X10*3/uL MPV 9.7 (9.4-12.4) fL Immature Gran % (Auto) 0.2 (0.0-0.4) % Neut % (Auto) 51.6 (45-73) % Lymph % (Auto) 37.1 (20-40) % [place] % (Auto) 9.2 (2-11) % Eos % (Auto) 1.5 (0-4) % Baso % (Auto) 0.4 (0-2) % Lymph # (Auto) 3.3 (1.2-4.9) X10*3/uL [place] # (Auto) 0.8 (0.1-1.2) X10*3/uL Eos # (Auto) 0.1 (0.0-0.4) X10*3/uL Baso # (Auto) 0.0 (0.0-0.2) X10*3/uL Abs Immat Gran (auto) 0.02 (0.00-0.03) X10*3/uL Absolute Neuts (auto) 4.6 (2.0-8.3) x10*3/uL Absolute Nucleated RBC 0.000 (0.0-0.012) X10*3/uL Nucleated RBC % (auto) 0.0 (0.0-0.2) /100WBC Sodium 142 (135-145) mmol/L Potassium 4.4 (3.3-5.1) mmol/L Chloride 102 (96-108) mmol/L Carbon Dioxide 28 (22-29) mmol/L Anion Gap 16 (12-20) BUN 16 (9-16) mg/dL Creatinine 0.85 (0.5-1.4) mg/dL Estim Creat Clear Calc 148.4 Estimated GFR > 60 Random Glucose 87 (60-115) mg/dL Calcium 9.7 (8.4-10.2) mg/dL Troponin I High Sens < 3.5 (<3.5-35.0) ng/L Imaging Data Chest x-ray: Radiologist's impression: XR/XR chest 2V IMPRESSION: No evidence for acute disease in the chest. ECG Data Attestation: I personally reviewed and interpreted this ECG as follows: Prior ECG tracings: available for review Interpretation: Rate: 100 Rhythm:? Normal sinus rhythm [place]:? Normal Normal P waves.? Normal [place].?? Normal QRS complex.?? ST T wave :??No ST elevation, ST depression, no T-wave inversion qTC: 420 prior studies:? February 2022 The study has been interpreted contemporaneously by me. Discharge Plan Discharge Clinical Impression: Acute costochondritis Patient Disposition: Home, Self-Care Instructions: Costochondritis (ED) Additional Instructions: As we discussed your blood work today was normal, your EKG was normal, your chest x-ray was unremarkable. Your pain is most likely due to inflammation of the muscles within your chest wall, particularly after moving heavy furniture yesterday. You can take ibuprofen 200 mg, 3 tablets (600mg) every 6-8 hours as needed for pain, in addition to Tylenol 500 mg, 2 tablets (1,000mg) every 4-6 hours as needed for pain, but not to exceed 3 doses daily (3,000mg).? Contact your primary care provider and arrange for a follow-up visit within the next 2 days Return back to emergency department any new or worsening symptoms or concerns. Prescriptions: No Action Lantus U-100 Insulin 100 unit/mL solution 60 unit subcut BID 30 Days Qty: 36 0RF (DME) insulin syringe-needle U-100 [BD Insulin Syringe Ultra-Fine] 1 mL 31 gauge x 5/16 syringe See Rx Instructions .Route Qty: 100 0RF Rx Instructions: Use 1 syringe twice a day insulin glargine [Lantus Solostar U-100 Insulin] 100 unit/mL (3 mL) insulin pen 60 unit subcut BID 25 Days Qty: 30 6RF metoprolol succinate [Toprol XL] 50 mg Tablet Extended Release 24 Hr 50 mg PO DAILY lisinopril 20 mg Tablet 20 mg PO DAILY sertraline 100 mg Tablet 100 mg PO DAILY hydroxyzine HCl 25 mg Tablet 25 mg PO DAILY PRN (Reason: Anxiety) omeprazole 40 mg Capsule,Delayed Release(Dr/Ec) 40 mg PO DAILY@0630 Qty: 30 0RF doxycycline hyclate 150 mg tablet 150 mg PO BID 7 Days Qty: 14 0RF fluconazole [Diflucan] 150 mg tablet 150 mg PO Q3D Qty: 2 0RF Rx Instructions: may repeat second dose 72 hrs after first dose if symptoms persist ibuprofen 800 mg tablet 800 mg PO Q8H PRN (Reason: pain) Qty: 20 0RF Referrals: Marita Mccartney, [employer]ICE TECHNICIAN [Primary Care Provider] - Stand Alone Forms: Work/School Release Interventions: ED Discharge Assessment Last Done: 05/25/22 12:01 Discharge Date/Time: 05/25/22 12:02
[2022-05-25 10:34] LABS: Troponin-I High Sensitivity < 3.5 ng/L (<3.5-35.0)
[2022-05-25 11:20] LABS: Basophils Percent Auto 0.4 % (0-2); Eosinophils Absolute Auto 0.1 X10*3/uL (0.0-0.4); Eosinophils Percent Auto 1.5 % (0-4); Hematocrit 43.5 % (42.0-52.0); Hemoglobin 14.2 g/dl (14.0-18.0); Imm Gran Abs Auto 0.02 X10*3/uL (0.00-0.03); Imm Gran Pct Auto 0.2 % (0.0-0.4); Lymphocytes Absolute Auto 3.3 X10*3/uL (1.2-4.9); Lymphocytes Percent Auto 37.1 % (20-40); Mean Corpuscular HGB Conc 32.6 g/dl (31.0-36.0); Mean Corpuscular Hemoglobin 26.2 pg (27.0-33.0); Mean Corpuscular Volume 80.3 fL (80.0-98.0); Mean Platelet Volume 9.7 fL (9.4-12.4); Monocytes Absolute Auto 0.8 X10*3/uL (0.1-1.2); Monocytes Percent Auto 9.2 % (2-11); Neutrophils Absolute Auto 4.6 x10*3/uL (2.0-8.3); Neutrophils Percent Auto 51.6 % (45-73); Platelet Count 277 X10*3/uL (160-400); Red Blood Count 5.42 X10*6/uL (4.60-5.80); Red Cell Distribution Width 13.7 % (11.0-16.0)
[2022-05-25 11:24] LABS: MANUAL DIFF FLAG NO
== END 2022-05-25 12:02 | disposition home or self-care (01) ==
PROVIDERS: Emergency Provider Emergency Medicine Emergency Medical Services; PCP Nurse Practitioner Primary Care
DX: M94.0 Chondrocostal junction syndrome [Tietze] (principal); E11.9 Type 2 diabetes mellitus without complications; I10 Essential (primary) hypertension; Z79.4 Long term (current) use of insulin; Z79.899 Other long term (current) drug therapy
CPT/HCPCS: 36415; 71046; 80048; 84484; 85025; 93005; 99283; 99284

== ENCOUNTER 2022-07-15 16:03 | Emergency (ER) | payer MEDICAID, SELFPAY ==
--- NOTE | ~2022-07-15 | XR_ITS ---
EXAMINATION: XR CHEST CLINICAL INFORMATION: Chest wall pain COMPARISON: Chest x-ray 05/25/2022 TECHNIQUE: 2 views of the chest were obtained. FINDINGS: No significant abnormality is noted involving the heart, lungs, mediastinum, bony thorax or soft tissues. XR/XR chest 2V IMPRESSION: Unremarkable examination.
--- NOTE | 2022-07-15 16:40 | ED.GENADULT ---
HPI - General Adult General Chief complaint: General Medical <MADAN Shah - Last Filed: 07/15/22 16:45> Stated complaint: R sided back/ side pain, SOB <MADAN Shah Last Filed: 07/15/22 16:45> Time Seen by Provider: 07/16/22 00:34 <MADAN Shah Last Filed: 07/15/22 16:45> Source: patient <MADAN Cortes Last Filed: 07/16/22 01:16> Mode of arrival: ambulatory <MADAN Cortes Last Filed: 07/16/22 01:16> Limitations: no limitations <MADAN Cortes Last Filed: 07/16/22 01:16> History of Present Illness HPI narrative: This is a 36 year presenting to the emergency department with complaints of 2 weeks of left pain, intermittent, dull, nonradiating and intermittent shortness of breath x2 weeks.? Patient tells me that he came in today because his girlfriend had similar symptoms and ended up having a kidney infection.? Tells me other than his left flank pain fine denies chest pain, lower extremity edema, nausea, vomiting, diarrhea fevers, chills, headache, dizziness, vision changes, changes in bowel habits, weakness wheezing, recent sick contacts, blunt trauma.? No history of PE or DVT. <MADAN Cortes Last Filed: 07/16/22 01:16> Related Data Home medications: Home Medications Medication Instructions Recorded Confirmed hydroxyzine HCl 25 mg tablet 25 mg PO DAILY PRN Anxiety 08/02/20 08/02/20 lisinopril 20 mg tablet 20 mg PO DAILY 08/02/20 08/02/20 metoprolol succinate 50 mg 50 mg PO DAILY 08/02/20 08/02/20 tablet,extended release 24 hr (Toprol XL) sertraline 100 mg tablet 100 mg PO DAILY 08/02/20 08/02/20 Previous Rx's Medication Instructions Recorded omeprazole 40 mg capsule,delayed 40 mg PO DAILY@0630 #30 caps 08/07/20 release insulin glargine 100 unit/mL 60 unit (0.6 mL) subcut BID 30 05/31/21 subcutaneous solution (Lantus days #36 mL U-100 Insulin) insulin syringe-needle U-100 1 mL #100 ea 05/31/21 31 gauge x 5/16 (BD Insulin Syringe Ultra-Fine) ibuprofen 800 mg tablet 800 mg PO Q8H PRN pain #20 tabs 07/01/21 doxycycline hyclate 150 mg tablet 150 mg PO BID 7 days #14 tabs 12/31/21 fluconazole 150 mg tablet 150 mg PO Q3D 2 doses #2 tabs 12/31/21 (Diflucan) insulin glargine 100 unit/mL (3 60 unit (0.6 mL) subcut BID 25 04/13/22 mL) subcutaneous pen (tus #30 mL Solostar U-100 Insulin) cyclobenzaprine 10 mg tablet 10 mg PO BEDTIME PRN muscle spasm 07/16/22 #7 tabs ketorolac 10 mg tablet 10 mg PO TID PRN pain 5 days #15 07/16/22 tabs lidocaine 5 % topical patch 1 patch topical DAILY PRN pain #15 07/16/22 ea <MADAN Shah - Last Filed: 07/15/22 16:45> Allergies/adverse reactions: Allergies Allergy/AdvReac Type Severity Reaction Status Date / Time No Known Allergies Allergy Verified 08/04/21 15:52 [No Known Allergies*] <MADAN Shah Last Filed: 07/15/22 16:45> Review of Systems Review of Systems: Constitutional : No Weight loss, No Fever, No Chills, No Fatigue, No Malaise ENT/Mouth : No sore throat, No Rhinorrhea Eyes: No Eye Pain, No Swelling, No Redness Cardiovascular : No Chest Pain, + SOB, No Dyspnea on Exertion, No Orthopnea, No Edema, No Palpitations Respiratory : No Cough, No Sputum, No Wheezing Gastrointestinal : No Nausea, No Vomiting, No Diarrhea, No Constipation, No abdominal Pain, No Hematochezia, No Melena Genitourinary : No Dysuria, No Urinary Frequency, No Hematuria, Musculoskeletal : No joint pain, No Myalgias, No Joint Swelling, + left flank pain Skin : No Skin Lesions, No rash Neuro : No Weakness, No Numbness, No Dizziness, No Headache Psych : No Anxiety/Panic, No Depression <MADAN Cortes - Last Filed: 07/16/22 01:16> Yes all other systems are reviewed and are negative <MADAN Cortes - Last Filed: 07/16/22 01:16> FOR[facility]LY [facility] Past Medical History Attestation statement: The following information was validated with the patient. <MADAN Cortes - Last Filed: 07/16/22 01:16> Source: old records reviewed and nursing notes reviewed <MADAN Cortes - Last Filed: 07/16/22 01:16> Medical History: Medical History Diabetes Diabetes mellitus HTN (hypertension) <MADAN Shah - Last Filed: 07/15/22 16:45> Social History Social History: Social History Household Members: Significant Other Household Members Other:: GIRLFRIEND Do you presently have visiting nurse or other home services: No Alcohol intake: never Patient Tobacco Use Status: Never used Tobacco Second Hand Smoke Exposure: No Advance Directives: No Advance Directives Information Provided: No service: No Current occupational status: unemployed <MADAN Shah - Last Filed: 07/15/22 16:45> Physical Exam ED Vital Signs: Vital Signs - 24 hr 07/15/22 16:41 07/16/22 00:59 Temperature 98.4 F 97.4 F Pulse Rate 102 H 94 Respiratory Rate 20 18 Blood Pressure 144/85 H 136/79 Pulse Oximetry 96 95 Oxygen Delivery Method Room Air Room Air BMI result Body Mass Index 39.5 <MADAN Shah - Last Filed: 07/15/22 16:45> Vital Signs - 24 hr 07/15/22 16:41 07/16/22 00:59 Temperature 98.4 F 97.4 F Pulse Rate 102 H 94 Respiratory Rate 20 18 Blood Pressure 144/85 H 136/79 Pulse Oximetry 96 95 Oxygen Delivery Method Room Air Room Air BMI result Body Mass Index 39.5 vss <MADAN Cortes - Last Filed: 07/16/22 01:16> Appearance: Alert.? Oriented X3.? No acute distress.? Patient appears comfortable Head:? Normocephalic, atraumatic, no step-offs or deformities Eyes: Pupils equal, round and reactive to light.? Neck: Normal inspection.? Neck supple.? CVS: Normal heart rate and rhythm.? Pulses normal.? Respiratory: No respiratory distress.? Breath sounds normal.? No stridor or wheezing Abdomen: Soft and nontender.? Skin: Skin warm and dry.? Normal skin color.? Normal skin turgor.? Extremities: No lower extremity edema.? No calf ttp, negative Joseluis.? 5/5 strength to bilateral upper and lower extremities Back:? No midline tenderness, no C-spine tenderness, full range of motion, NO CVA tenderness bilaterally.? However, slight discomfort with palpation overlying left flank region Neuro: Oriented X 3.? No motor deficit.? No sensory deficit. CN 2-12 intact .? Ambulating with steady gait normal coordination.? No saddle paresthesias. <MADAN Cortes - Last Filed: 07/16/22 01:16> Course Course Course Narrative: RME --36-year-old male with a past medical history of diabetes, HTN, HLD, presenting to the ED complaining of left-sided chest wall/flank pain with associated SOB worse when lying flat. Reports mild cough. Denies chest pain, hematuria/dysuria, abdominal pain Tachycardic in triage. Left posterolateral chest wall tenderness reproducible on exam, abdomen soft/nontender, no CVAT. EKG, labs including D-dimer, UA, COVID/flu testing ordered <MADAN Shah - Last Filed: 07/15/22 16:45> Reevaluation(s) Reevaluation #1: CBC appears to be within normal limits.? Chemistry with no acute findings requiring intervention.? Troponin negative, BNP normal.? UA clean without infection.? D-dimer negative.? COVID/influenza negative.? Chest x-ray unremarkable.? Again favoring that this is unlikely pyelonephritis or PE, no signs of UTI. Patient will be discharged home with supportive measures.? Will give Toradol here.? Will discharge home on cyclobenzaprine, Lidoderm patches, Toradol.? Educated patient on diagnosis and treatment plan, answered all question, patient verbalizes understanding.? At this time patient will be discharged home, advised to return with new or worsening symptoms.? Educated on worrisome signs and symptoms and when to return.? At this time I feel comfortable discharge home. <MADAN Cortes - Last Filed: 07/16/22 01:16> Time: 01:10 <MADAN Cortes - Last Filed: 07/16/22 01:16> Medications Administered Discontinued Medications Generic Name Dose Route Start Last Admin Trade Name Freq PRN Reason Stop Dose Admin Ketorolac Tromethamine 30 mg 07/16/22 00:58 07/16/22 01:10 Ketorolac Tromethamine 30 Mg/Ml Vial IM 07/16/22 00:59 30 mg ONCE ONE Administration <MADAN Shah - Last Filed: 07/15/22 16:45> Medications Administered Discontinued Medications Generic Name Dose Route Start Last Admin Trade Name Freq PRN Reason Stop Dose Admin Ketorolac Tromethamine 30 mg 07/16/22 00:58 07/16/22 01:10 Ketorolac Tromethamine 30 Mg/Ml Vial IM 07/16/22 00:59 30 mg ONCE ONE Administration <MADAN Cortes - Last Filed: 07/16/22 01:16> Medical Decision Making Medical Decision Making MDM Narrative: This is a 36-year-old male presenting with intermittent left flank pain and intermittent shortness of breath x2 weeks.? Was encouraged to come in by his girlfriend because when she had these symptoms she had a kidney infection. Physical examination with slight discomfort with palpation of left flank region.. Likely left flank pain musculoskeletal in nature /spasm, shortness of breath likely viral.? I do not suspect pylo, UTI, PE, pneumonia, ACS, DVT. Plan-labs, imaging, D-dimer, chest x-ray, viral testing <MADAN Cortes Last Filed: 07/16/22 01:16> Differential Diagnosis Differential Diagnoses: The differential diagnosis associated with the presentation includes <MADAN Cortes Last Filed: 07/16/22 01:16> Likely left flank pain musculoskeletal in nature /spasm, shortness of breath likely viral.? I do not suspect pylo, UTI, PE, pneumonia, ACS, DVT. <MADAN Cortes Last Filed: 07/16/22 01:16> Admission/Observation Consideration of admission/observation: Escalation of care including admission/observation considered <MADAN Cortes - Last Filed: 07/16/22 01:16> Not indicated <MADAN Cortes - Last Filed: 07/16/22 01:16> Lab Data MDM Lab Attestation statement: I reviewed the patient's lab results. <MADAN Cortes - Last Filed: 07/16/22 01:16> Result Diagrams: : 07/15/22 18:17 07/15/22 18:17 <MADAN Shah - Last Filed: 07/15/22 16:45> Labs: Lab Results 07/15/22 07/15/22 07/15/22 Range/Units 18:17 18:17 18:17 WBC 10.6 (4.8-10.8) X10*3/uL RBC 5.45 (4.60-5.80) X10*6/uL Hgb 14.1 (14.0-18.0) g/dl Hct 43.6 (42.0-52.0) % MCV 80.0 (80.0-98.0) fL MCH 25.9 L (27.0-33.0) pg MCHC 32.3 (31.0-36.0) g/dl RDW 13.7 (11.0-16.0) % Plt Count 277 (160-400) X10*3/uL MPV 9.6 (9.4-12.4) fL Immature Gran % (Auto) 0.5 H (0.0-0.4) % Neut % (Auto) 55.0 (45-73) % Lymph % (Auto) 34.3 (20-40) % [place] % (Auto) 8.5 (2-11) % Eos % (Auto) 1.1 (0-4) % Baso % (Auto) 0.6 (0-2) % Lymph # (Auto) 3.6 (1.2-4.9) X10*3/uL [place] # (Auto) 0.9 (0.1-1.2) X10*3/uL Eos # (Auto) 0.1 (0.0-0.4) X10*3/uL Baso # (Auto) 0.1 (0.0-0.2) X10*3/uL Abs Immat Gran (auto) 0.05 H (0.00-0.03) X10*3/uL Absolute Neuts (auto) 5.8 (2.0-8.3) x10*3/uL Absolute Nucleated RBC 0.000 (0.0-0.012) X10*3/uL Nucleated RBC % (auto) 0.0 (0.0-0.2) /100WBC D-Dimer High Sensitivty 153 NG/ML Sodium (135-145) mmol/L Potassium (3.3-5.1) mmol/L Chloride (96-108) mmol/L Carbon Dioxide (22-29) mmol/L Anion Gap (12-20) BUN (9-16) mg/dL Creatinine (0.5-1.4) mg/dL Estim Creat Clear Calc Estimated GFR Random Glucose (60-115) mg/dL Calcium (8.4-10.2) mg/dL Total Bilirubin (0.0-1.0) mg/dL Direct Bilirubin (0.0-0.5) mg/dL AST (5-37) U/L ALT (0-40) U/L Alkaline Phosphatase (39-117) U/L Troponin I High Sens (<3.5-35.0) ng/L B-Natriuretic Peptide (<100) pg/mL Total Protein (6.5-8.0) g/dL Albumin (3.5-5.0) g/dL Urine Color Urine Appearance Urine pH (5.0-9.0) Ur Specific [employer] [place] (1.005-1.025) Urine Protein (Neg-Trace) mg/dL Urine Glucose (UA) (Negative) mg/dL Urine Ketones (Negative) mg/dL Urine Blood (Negative) Urine Nitrite (Negative) Ur Leukocyte Esterase (Negative) Urine RBC (0-2) /HPF Urine WBC (0-5) /HPF Ur Squamous Epith Cells (0-2) /HPF Urine Bacteria (None Seen) Hyaline Casts (0-2) /LPF COVID-19 (ENE) (Negative) COVID-19 Clin Com Influenza Type A (TORRI) Negative (Negative) Influenza Type B (TORRI) Negative (Negative) Influenza A & B Note See Note 07/15/22 07/15/22 07/15/22 Range/Units 18:17 18:17 18:17 WBC (4.8-10.8) X10*3/uL RBC (4.60-5.80) X10*6/uL Hgb (14.0-18.0) g/dl Hct (42.0-52.0) % MCV (80.0-98.0) fL MCH (27.0-33.0) pg MCHC (31.0-36.0) g/dl RDW (11.0-16.0) % Plt Count (160-400) X10*3/uL MPV (9.4-12.4) fL Immature Gran % (Auto) (0.0-0.4) % Neut % (Auto) (45-73) % Lymph % (Auto) (20-40) % [place] % (Auto) (2-11) % Eos % (Auto) (0-4) % Baso % (Auto) (0-2) % Lymph # (Auto) (1.2-4.9) X10*3/uL [place] # (Auto) (0.1-1.2) X10*3/uL Eos # (Auto) (0.0-0.4) X10*3/uL Baso # (Auto) (0.0-0.2) X10*3/uL Abs Immat Gran (auto) (0.00-0.03) X10*3/uL Absolute Neuts (auto) (2.0-8.3) x10*3/uL Absolute Nucleated RBC (0.0-0.012) X10*3/uL Nucleated RBC % (auto) (0.0-0.2) /100WBC D-Dimer High Sensitivty NG/ML Sodium 139 (135-145) mmol/L Potassium 4.4 (3.3-5.1) mmol/L Chloride 102 (96-108) mmol/L Carbon Dioxide 26 (22-29) mmol/L Anion Gap 12 (12-20) BUN 17 H (9-16) mg/dL Creatinine 0.86 (0.5-1.4) mg/dL Estim Creat Clear Calc 146.7 Estimated GFR > 60 Random Glucose 87 (60-115) mg/dL Calcium 9.9 (8.4-10.2) mg/dL Total Bilirubin 0.2 (0.0-1.0) mg/dL Direct Bilirubin < 0.2 (0.0-0.5) mg/dL AST 21 (5-37) U/L ALT 27 (0-40) U/L Alkaline Phosphatase 72 (39-117) U/L Troponin I High Sens < 3.5 (<3.5-35.0) ng/L B-Natriuretic Peptide < 10 (<100) pg/mL Total Protein 8.1 H (6.5-8.0) g/dL Albumin 4.7 (3.5-5.0) g/dL Urine Color Urine Appearance Urine pH (5.0-9.0) Ur Specific [employer] [place] (1.005-1.025) Urine Protein (Neg-Trace) mg/dL Urine Glucose (UA) (Negative) mg/dL Urine Ketones (Negative) mg/dL Urine Blood (Negative) Urine Nitrite (Negative) Ur Leukocyte Esterase (Negative) Urine RBC (0-2) /HPF Urine WBC (0-5) /HPF Ur Squamous Epith Cells (0-2) /HPF Urine Bacteria (None Seen) Hyaline Casts (0-2) /LPF COVID-19 (ENE) (Negative) COVID-19 Clin Com Influenza Type A (TORRI) (Negative) Influenza Type B (TORRI) (Negative) Influenza A & B Note 07/15/22 07/15/22 Range/Units 18:17 18:17 WBC (4.8-10.8) X10*3/uL RBC (4.60-5.80) X10*6/uL Hgb (14.0-18.0) g/dl Hct (42.0-52.0) % MCV (80.0-98.0) fL MCH (27.0-33.0) pg MCHC (31.0-36.0) g/dl RDW (11.0-16.0) % Plt Count (160-400) X10*3/uL MPV (9.4-12.4) fL Immature Gran % (Auto) (0.0-0.4) % Neut % (Auto) (45-73) % Lymph % (Auto) (20-40) % [place] % (Auto) (2-11) % Eos % (Auto) (0-4) % Baso % (Auto) (0-2) % Lymph # (Auto) (1.2-4.9) X10*3/uL [place] # (Auto) (0.1-1.2) X10*3/uL Eos # (Auto) (0.0-0.4) X10*3/uL Baso # (Auto) (0.0-0.2) X10*3/uL Abs Immat Gran (auto) (0.00-0.03) X10*3/uL Absolute Neuts (auto) (2.0-8.3) x10*3/uL Absolute Nucleated RBC (0.0-0.012) X10*3/uL Nucleated RBC % (auto) (0.0-0.2) /100WBC D-Dimer High Sensitivty NG/ML Sodium (135-145) mmol/L Potassium (3.3-5.1) mmol/L Chloride (96-108) mmol/L Carbon Dioxide (22-29) mmol/L Anion Gap (12-20) BUN (9-16) mg/dL Creatinine (0.5-1.4) mg/dL Estim Creat Clear Calc Estimated GFR Random Glucose (60-115) mg/dL Calcium (8.4-10.2) mg/dL Total Bilirubin (0.0-1.0) mg/dL Direct Bilirubin (0.0-0.5) mg/dL AST (5-37) U/L ALT (0-40) U/L Alkaline Phosphatase (39-117) U/L Troponin I High Sens (<3.5-35.0) ng/L B-Natriuretic Peptide (<100) pg/mL Total Protein (6.5-8.0) g/dL Albumin (3.5-5.0) g/dL Urine Color Yellow Urine Appearance Clear Urine pH 5.5 (5.0-9.0) Ur Specific [employer] [place] 1.020 (1.005-1.025) Urine Protein 30 (1+) H (Neg-Trace) mg/dL Urine Glucose (UA) Negative (Negative) mg/dL Urine Ketones Negative (Negative) mg/dL Urine Blood Negative (Negative) Urine Nitrite Negative (Negative) Ur Leukocyte Esterase Negative (Negative) Urine RBC 0-2 (0-2) /HPF Urine WBC 0-5 (0-5) /HPF Ur Squamous Epith Cells 0-2 (0-2) /HPF Urine Bacteria None Seen (None Seen) Hyaline Casts 0-2 (0-2) /LPF COVID-19 (ENE) Negative (Negative) COVID-19 Clin Com See Note Influenza Type A (TORRI) (Negative) Influenza Type B (TORRI) (Negative) Influenza A & B Note <MADAN Shah - Last Filed: 07/15/22 16:45> Lab Results 07/15/22 07/15/22 07/15/22 Range/Units 18:17 18:17 18:17 WBC 10.6 (4.8-10.8) X10*3/uL RBC 5.45 (4.60-5.80) X10*6/uL Hgb 14.1 (14.0-18.0) g/dl Hct 43.6 (42.0-52.0) % MCV 80.0 (80.0-98.0) fL MCH 25.9 L (27.0-33.0) pg MCHC 32.3 (31.0-36.0) g/dl RDW 13.7 (11.0-16.0) % Plt Count 277 (160-400) X10*3/uL MPV 9.6 (9.4-12.4) fL Immature Gran % (Auto) 0.5 H (0.0-0.4) % Neut % (Auto) 55.0 (45-73) % Lymph % (Auto) 34.3 (20-40) % [place] % (Auto) 8.5 (2-11) % Eos % (Auto) 1.1 (0-4) % Baso % (Auto) 0.6 (0-2) % Lymph # (Auto) 3.6 (1.2-4.9) X10*3/uL [place] # (Auto) 0.9 (0.1-1.2) X10*3/uL Eos # (Auto) 0.1 (0.0-0.4) X10*3/uL Baso # (Auto) 0.1 (0.0-0.2) X10*3/uL Abs Immat Gran (auto) 0.05 H (0.00-0.03) X10*3/uL Absolute Neuts (auto) 5.8 (2.0-8.3) x10*3/uL Absolute Nucleated RBC 0.000 (0.0-0.012) X10*3/uL Nucleated RBC % (auto) 0.0 (0.0-0.2) /100WBC D-Dimer High Sensitivty 153 NG/ML Sodium (135-145) mmol/L Potassium (3.3-5.1) mmol/L Chloride (96-108) mmol/L Carbon Dioxide (22-29) mmol/L Anion Gap (12-20) BUN (9-16) mg/dL Creatinine (0.5-1.4) mg/dL Estim Creat Clear Calc Estimated GFR Random Glucose (60-115) mg/dL Calcium (8.4-10.2) mg/dL Total Bilirubin (0.0-1.0) mg/dL Direct Bilirubin (0.0-0.5) mg/dL AST (5-37) U/L ALT (0-40) U/L Alkaline Phosphatase (39-117) U/L Troponin I High Sens (<3.5-35.0) ng/L B-Natriuretic Peptide (<100) pg/mL Total Protein (6.5-8.0) g/dL Albumin (3.5-5.0) g/dL Urine Color Urine Appearance Urine pH (5.0-9.0) Ur Specific [place] (1.005-1.025) Urine Protein (Neg-Trace) mg/dL Urine Glucose (UA) (Negative) mg/dL Urine Ketones (Negative) mg/dL Urine Blood (Negative) Urine Nitrite (Negative) Ur Leukocyte Esterase (Negative) Urine RBC (0-2) /HPF Urine WBC (0-5) /HPF Ur Squamous Epith Cells (0-2) /HPF Urine Bacteria (None Seen) Hyaline Casts (0-2) /LPF COVID-19 (ENE) (Negative) COVID-19 Clin Com Influenza Type A (TORRI) Negative (Negative) Influenza Type B (TORRI) Negative (Negative) Influenza A & B Note See Note 07/15/22 07/15/22 07/15/22 Range/Units 18:17 18:17 18:17 WBC (4.8-10.8) X10*3/uL RBC (4.60-5.80) X10*6/uL Hgb (14.0-18.0) g/dl Hct (42.0-52.0) % MCV (80.0-98.0) fL MCH (27.0-33.0) pg MCHC (31.0-36.0) g/dl RDW (11.0-16.0) % Plt Count (160-400) X10*3/uL MPV (9.4-12.4) fL Immature Gran % (Auto) (0.0-0.4) % Neut % (Auto) (45-73) % Lymph % (Auto) (20-40) % [place] % (Auto) (2-11) % Eos % (Auto) (0-4) % Baso % (Auto) (0-2) % Lymph # (Auto) (1.2-4.9) X10*3/uL [place] # (Auto) (0.1-1.2) X10*3/uL Eos # (Auto) (0.0-0.4) X10*3/uL Baso # (Auto) (0.0-0.2) X10*3/uL Abs Immat Gran (auto) (0.00-0.03) X10*3/uL Absolute Neuts (auto) (2.0-8.3) x10*3/uL Absolute Nucleated RBC (0.0-0.012) X10*3/uL Nucleated RBC % (auto) (0.0-0.2) /100WBC D-Dimer High Sensitivty NG/ML Sodium 139 (135-145) mmol/L Potassium 4.4 (3.3-5.1) mmol/L Chloride 102 (96-108) mmol/L Carbon Dioxide 26 (22-29) mmol/L Anion Gap 12 (12-20) BUN 17 H (9-16) mg/dL Creatinine 0.86 (0.5-1.4) mg/dL Estim Creat Clear Calc 146.7 Estimated GFR > 60 Random Glucose 87 (60-115) mg/dL Calcium 9.9 (8.4-10.2) mg/dL Total Bilirubin 0.2 (0.0-1.0) mg/dL Direct Bilirubin < 0.2 (0.0-0.5) mg/dL AST 21 (5-37) U/L ALT 27 (0-40) U/L Alkaline Phosphatase 72 (39-117) U/L Troponin I High Sens < 3.5 (<3.5-35.0) ng/L B-Natriuretic Peptide < 10 (<100) pg/mL Total Protein 8.1 H (6.5-8.0) g/dL Albumin 4.7 (3.5-5.0) g/dL Urine Color Urine Appearance Urine pH (5.0-9.0) Ur Specific [place] (1.005-1.025) Urine Protein (Neg-Trace) mg/dL Urine Glucose (UA) (Negative) mg/dL Urine Ketones (Negative) mg/dL Urine Blood (Negative) Urine Nitrite (Negative) Ur Leukocyte Esterase (Negative) Urine RBC (0-2) /HPF Urine WBC (0-5) /HPF Ur Squamous Epith Cells (0-2) /HPF Urine Bacteria (None Seen) Hyaline Casts (0-2) /LPF COVID-19 (ENE) (Negative) COVID-19 Clin Com Influenza Type A (TORRI) (Negative) Influenza Type B (TORRI) (Negative) Influenza A & B Note 07/15/22 07/15/22 Range/Units 18:17 18:17 WBC (4.8-10.8) X10*3/uL RBC (4.60-5.80) X10*6/uL Hgb (14.0-18.0) g/dl Hct (42.0-52.0) % MCV (80.0-98.0) fL MCH (27.0-33.0) pg MCHC (31.0-36.0) g/dl RDW (11.0-16.0) % Plt Count (160-400) X10*3/uL MPV (9.4-12.4) fL Immature Gran % (Auto) (0.0-0.4) % Neut % (Auto) (45-73) % Lymph % (Auto) (20-40) % [place] % (Auto) (2-11) % Eos % (Auto) (0-4) % Baso % (Auto) (0-2) % Lymph # (Auto) (1.2-4.9) X10*3/uL [place] # (Auto) (0.1-1.2) X10*3/uL Eos # (Auto) (0.0-0.4) X10*3/uL Baso # (Auto) (0.0-0.2) X10*3/uL Abs Immat Gran (auto) (0.00-0.03) X10*3/uL Absolute Neuts (auto) (2.0-8.3) x10*3/uL Absolute Nucleated RBC (0.0-0.012) X10*3/uL Nucleated RBC % (auto) (0.0-0.2) /100WBC D-Dimer High Sensitivty NG/ML Sodium (135-145) mmol/L Potassium (3.3-5.1) mmol/L Chloride (96-108) mmol/L Carbon Dioxide (22-29) mmol/L Anion Gap (12-20) BUN (9-16) mg/dL Creatinine (0.5-1.4) mg/dL Estim Creat Clear Calc Estimated GFR Random Glucose (60-115) mg/dL Calcium (8.4-10.2) mg/dL Total Bilirubin (0.0-1.0) mg/dL Direct Bilirubin (0.0-0.5) mg/dL AST (5-37) U/L ALT (0-40) U/L Alkaline Phosphatase (39-117) U/L Troponin I High Sens (<3.5-35.0) ng/L B-Natriuretic Peptide (<100) pg/mL Total Protein (6.5-8.0) g/dL Albumin (3.5-5.0) g/dL Urine Color Yellow Urine Appearance Clear Urine pH 5.5 (5.0-9.0) Ur Specific [place] 1.020 (1.005-1.025) Urine Protein 30 (1+) H (Neg-Trace) mg/dL Urine Glucose (UA) Negative (Negative) mg/dL Urine Ketones Negative (Negative) mg/dL Urine Blood Negative (Negative) Urine Nitrite Negative (Negative) Ur Leukocyte Esterase Negative (Negative) Urine RBC 0-2 (0-2) /HPF Urine WBC 0-5 (0-5) /HPF Ur Squamous Epith Cells 0-2 (0-2) /HPF Urine Bacteria None Seen (None Seen) Hyaline Casts 0-2 (0-2) /LPF COVID-19 (ENE) Negative (Negative) COVID-19 Clin Com See Note Influenza Type A (TORRI) (Negative) Influenza Type B (TORRI) (Negative) Influenza A & B Note <MADAN Cortes - Last Filed: 07/16/22 01:16> Independent Interpretation I performed an independent interpretation of an: Plain X-Ray <MADAN Cortes - Last Filed: 07/16/22 01:16> Radiology Impression Discussion of test interpretation with radiology: I have reviewed the radiologist's reading. <MADAN Cortes - Last Filed: 07/16/22 01:16> Core Measures AMI core measures followed: Yes <MADAN Cortes - Last Filed: 07/16/22 01:16> Measure exclusions: not indicated <MADAN Cortes - Last Filed: 07/16/22 01:16> Discharge Plan Discharge Clinical Impression: Left flank pain, Shortness of breath <MADAN Shah - Last Filed: 07/15/22 16:45> Patient Disposition: Home, Self-Care <MADAN Shah - Last Filed: 07/15/22 16:45> Instructions: Flank Pain (ED), Shortness of Breath (ED) <MADAN Shah - Last Filed: 07/15/22 16:45> Additional Instructions: Take your medications as prescribed. If you were prescribed antibiotics today, it is important that you take your medication to their entirety, do not skip any doses, do not finish them early. Follow-up with your primary care provider this week. Return to the emergency department with new or worsening symptoms. Such as fevers, chills, chest pain, shortness of breath, nausea, vomiting, dizziness, headache, vision changes, lethargy, issues with urination In case of emergency call 911 She Toradol has been sent to pharmacy, do not take this with ibuprofen, other NSAIDs or alcohol. Possible side effects include kidney injury and increased risk for bleeding. Cyclobenzaprine muscle relaxers been sent to her pharmacy, do not take this while driving or operating machinery can make you drowsy. Do not mix with alcohol. <MADAN Shah - Last Filed: 07/15/22 16:45> Prescriptions: New cyclobenzaprine 10 mg tablet 10 mg PO BEDTIME PRN (Reason: muscle spasm) Qty: 7 0RF ketorolac 10 mg tablet 10 mg PO TID PRN (Reason: pain) 5 Days Qty: 15 0RF Rx Instructions: Tolerated IM in the department lidocaine 5 % adhesive patch,medicated 1 patch topical DAILY PRN (Reason: pain) Qty: 15 0RF Rx Instructions: leave on most painful area for up to 12 hrs No Action Lantus U-100 Insulin 100 unit/mL solution 60 unit subcut BID 30 Days Qty: 36 0RF (DME) insulin syringe-needle U-100 [BD Insulin Syringe Ultra-Fine] 1 mL 31 gauge x 5/16 syringe See Rx Instructions .Route Qty: 100 0RF Rx Instructions: Use 1 syringe twice a day insulin glargine [Lantus Solostar U-100 Insulin] 100 unit/mL (3 mL) insulin pen 60 unit subcut BID 25 Days Qty: 30 6RF metoprolol succinate [Toprol XL] 50 mg Tablet Extended Release 24 Hr 50 mg PO DAILY lisinopril 20 mg Tablet 20 mg PO DAILY sertraline 100 mg Tablet 100 mg PO DAILY hydroxyzine HCl 25 mg Tablet 25 mg PO DAILY PRN (Reason: Anxiety) omeprazole 40 mg Capsule,Delayed Release(Dr/Ec) 40 mg PO DAILY@0630 Qty: 30 0RF doxycycline hyclate 150 mg tablet 150 mg PO BID 7 Days Qty: 14 0RF fluconazole [Diflucan] 150 mg tablet 150 mg PO Q3D Qty: 2 0RF Rx Instructions: may repeat second dose 72 hrs after first dose if symptoms persist ibuprofen 800 mg tablet 800 mg PO Q8H PRN (Reason: pain) Qty: 20 0RF <MADAN Shah - Last Filed: 07/15/22 16:45> Referrals: Marita Mccartney, COVERING MACHINE OPERATOR HELPER [Primary Care Provider] - 2 days <MADAN Shah - Last Filed: 07/15/22 16:45> Stand Alone Forms: Work/School Release <MADAN Shah - Last Filed: 07/15/22 16:45>
[2022-07-15 16:41] VITALS: BP 144/85; PULSE 102; RESP 20; TEMP 36.9; O2SAT 96; BMI 39.5
--- NOTE | 2022-07-15 16:42 | ECG_ITS ---
Test Reason : SOB Blood Pressure : / mmHG Vent. Rate : 091 BPM Atrial Rate : 091 BPM P-R Int : 138 ms QRS Dur : 086 ms QT Int : 342 ms P-R-T Axes : 035 007 019 degrees QTc Int : 420 ms Normal sinus rhythm Minimal voltage criteria for LVH, may be normal variant ( R in aVL ) Borderline ECG When compared with ECG of 25-MAY-2022 09:51, No significant changes seen Referred By: Demetra Cortez Electronically Signed By:BRENNAN MCCORMICK
[2022-07-15 18:21] LABS: MANUAL DIFF FLAG NO
[2022-07-15 18:26] LABS: Appearance Urine Clear; Color Urine Yellow; Glucose Urine UA Negative (Negative); Leukocyte Esterase Urine Negative (Negative); Nitrite Urine Negative (Negative); PH 5.5 (5.0-9.0); UMIC TRIGGER UACC YES; Urine Blood Negative (Negative); Urine Ketones Negative (Negative); Urine Protein 30 (1+) mg/dL (Neg-Trace)
[2022-07-15 18:31] LABS: Bacteria Urine None Seen (None Seen); Hyaline Casts Urine 0-2 /LPF (0-2); RBC Urine 0-2 /HPF (0-2); Squamous Epithelial Cell Urine 0-2 /HPF (0-2); WBC Urine 0-5 /HPF (0-5)
[2022-07-15 18:32] LABS: Basophils Absolute Auto 0.1 X10*3/uL (0.0-0.2); Basophils Percent Auto 0.6 % (0-2); Eosinophils Absolute Auto 0.1 X10*3/uL (0.0-0.4); Eosinophils Percent Auto 1.1 % (0-4); Hematocrit 43.6 % (42.0-52.0); Hemoglobin 14.1 g/dl (14.0-18.0); Imm Gran Abs Auto 0.05 X10*3/uL (0.00-0.03); Imm Gran Pct Auto 0.5 % (0.0-0.4); Lymphocytes Absolute Auto 3.6 X10*3/uL (1.2-4.9); Lymphocytes Percent Auto 34.3 % (20-40); Mean Corpuscular HGB Conc 32.3 g/dl (31.0-36.0); Mean Corpuscular Hemoglobin 25.9 pg (27.0-33.0); Mean Platelet Volume 9.6 fL (9.4-12.4); Monocytes Absolute Auto 0.9 X10*3/uL (0.1-1.2); Monocytes Percent Auto 8.5 % (2-11); Neutrophils Absolute Auto 5.8 x10*3/uL (2.0-8.3); Platelet Count 277 X10*3/uL (160-400); Red Blood Count 5.45 X10*6/uL (4.60-5.80); Red Cell Distribution Width 13.7 % (11.0-16.0); White Blood Count 10.6 X10*3/uL (4.8-10.8)
[2022-07-15 18:34] LABS: D Dimer High Sensitivity 153 NG/ML
[2022-07-15 18:37] LABS: COVID-19 Test Negative (Negative); IDNOW Serial# 16C4AD1C; IDNOW Serial# BCCEAD1C; Influenza A Negative (Negative); Influenza B2 Negative (Negative)
[2022-07-15 18:58] LABS: B Type Natriuretic Peptide < 10 pg/mL (<100)
[2022-07-15 18:59] LABS: Anion Gap 12 (12-20); Chloride 102 mmol/L (96-108); Potassium 4.4 mmol/L (3.3-5.1); Sodium 139 mmol/L (135-145)
[2022-07-15 19:01] LABS: Alanine Aminotransferase 27 U/L (0-40); Albumin Level 4.7 g/dL (3.5-5.0); Alkaline Phosphatase 72 U/L (39-117); Aspartate Amino Transferase 21 U/L (5-37); Bilirubin Direct < 0.2 mg/dL (0.0-0.5); Bilirubin Total 0.2 mg/dL (0.0-1.0); Blood Urea Nitrogen 17 mg/dL (9-16); Calcium 9.9 mg/dL (8.4-10.2); Carbon Dioxide 26 mmol/L (22-29); Creatinine Clr Calc Pharmacy 146.7; Estimated Glomerular Filt Rate > 60; Glucose Random 87 mg/dL (60-115); Total Protein 8.1 g/dL (6.5-8.0)
[2022-07-15 19:05] LABS: Troponin-I High Sensitivity < 3.5 ng/L (<3.5-35.0)
[2022-07-16 00:59] VITALS: BP 136/79; PULSE 94; RESP 18; TEMP 36.3; O2SAT 95
--- NOTE | 2022-07-16 01:04 | ED_ITS ---
HPI - General Adult General Chief complaint: General Medical Stated complaint: R sided back/ side pain, SOB Time Seen by Provider: 07/16/22 00:34 Source: patient Mode of arrival: ambulatory Limitations: no limitations History of Present Illness HPI narrative: This is a 36 year presenting to the emergency department with complaints of 2 weeks of left pain, intermittent, dull, nonradiating and intermittent shortness of breath x2 weeks. Patient tells me that he came in today because his girlfriend had similar symptoms and ended up having a kidney infection. Tells me other than his left flank pain fine denies chest pain, lower extremity edema, nausea, vomiting, diarrhea fevers, chills, headache, dizziness, vision changes, changes in bowel habits, weakness wheezing, recent sick contacts, blunt trauma. No history of PE or DVT. Related Data Home Medications Medication Instructions Recorded Confirmed hydroxyzine HCl 25 mg tablet 25 mg PO DAILY PRN Anxiety 08/02/20 08/02/20 lisinopril 20 mg tablet 20 mg PO DAILY 08/02/20 08/02/20 metoprolol succinate 50 mg 50 mg PO DAILY 08/02/20 08/02/20 tablet,extended release 24 hr (Toprol XL) sertraline 100 mg tablet 100 mg PO DAILY 08/02/20 08/02/20 Previous Rx's Medication Instructions Recorded omeprazole 40 mg capsule,delayed 40 mg PO DAILY@0630 #30 caps 08/07/20 release insulin glargine 100 unit/mL 60 unit (0.6 mL) subcut BID 30 05/31/21 subcutaneous solution (Lantus days #36 mL U-100 Insulin) insulin syringe-needle U-100 1 mL #100 ea 05/31/21 31 gauge x 5/16 (BD Insulin Syringe Ultra-Fine) ibuprofen 800 mg tablet 800 mg PO Q8H PRN pain #20 tabs 07/01/21 doxycycline hyclate 150 mg tablet 150 mg PO BID 7 days #14 tabs 12/31/21 fluconazole 150 mg tablet 150 mg PO Q3D 2 doses #2 tabs 12/31/21 (Diflucan) insulin glargine 100 unit/mL (3 60 unit (0.6 mL) subcut BID 25 04/13/22 mL) subcutaneous pen (Lantus days #30 mL Solostar U-100 Insulin) cyclobenzaprine 10 mg tablet 10 mg PO BEDTIME PRN muscle spasm 07/16/22 #7 tabs ketorolac 10 mg tablet 10 mg PO TID PRN pain 5 days #15 07/16/22 tabs lidocaine 5 % topical patch 1 patch topical DAILY PRN pain #15 07/16/22 ea Allergies Allergy/AdvReac Type Severity Reaction Status Date / Time No Known Allergies Allergy Verified 08/04/21 15:52 [No Known Allergies*] Review of Systems Review of Systems: Constitutional : No Weight loss, No Fever, No Chills, No Fatigue, No Malaise ENT/Mouth : No sore throat, No Rhinorrhea Eyes: No Eye Pain, No Swelling, No Redness Cardiovascular : No Chest Pain, + SOB, No Dyspnea on Exertion, No Orthopnea, No Edema, No Palpitations Respiratory : No Cough, No Sputum, No Wheezing Gastrointestinal : No Nausea, No Vomiting, No Diarrhea, No Constipation, No abdominal Pain, No Hematochezia, No Melena Genitourinary : No Dysuria, No Urinary Frequency, No Hematuria, Musculoskeletal : No joint pain, No Myalgias, No Joint Swelling, + left flank pain Skin : No Skin Lesions, No rash Neuro : No Weakness, No Numbness, No Dizziness, No Headache Psych : No Anxiety/Panic, No Depression All other systems reviewed and are negative Yes all other systems are reviewed and are negative [facility] Past Medical History Attestation statement: The following information was validated with the patient. Source: old records reviewed and nursing notes reviewed Medical History Diabetes Diabetes mellitus HTN (hypertension) Social History Social History Household Members: Significant Other Household Members Other:: GIRLFRIEND Do you presently have visiting nurse or other home services: No Alcohol intake: never Patient Tobacco Use Status: Never used Tobacco Second Hand Smoke Exposure: No Advance Directives: No Advance Directives Information Provided: No service: No Current occupational status: unemployed Physical Exam ED Vital Signs: Vital Signs - 24 hr 07/15/22 16:41 07/16/22 00:59 Temperature 98.4 F 97.4 F Pulse Rate 102 H 94 Respiratory Rate 20 18 Blood Pressure 144/85 H 136/79 Pulse Oximetry 96 95 Oxygen Delivery Method Room Air Room Air BMI result Body Mass Index 39.5 Vital signs stable. Appearance: Alert.? Oriented X3.? No acute distress.? Patient appears comfortable Head: Normocephalic, atraumatic, no step-offs or deformities Eyes: Pupils equal, round and reactive to light.? Neck: Normal inspection.? Neck supple.? CVS: Normal heart rate and rhythm.? Pulses normal.? Respiratory: No respiratory distress.? Breath sounds normal.? No stridor or wheezing Abdomen: Soft and nontender.? Skin: Skin warm and dry.? Normal skin color.? Normal skin turgor.? Extremities: No lower extremity edema.? No calf ttp, negative Joseluis. 5/5 strength to bilateral upper and lower extremities Back: No midline tenderness, no C-spine tenderness, full range of motion, NO CVA tenderness bilaterally. However, slight discomfort with palpation overlying left flank region Neuro: Oriented X 3.? No motor deficit.? No sensory deficit. CN 2-12 intact . Ambulating with steady gait normal coordination. No saddle paresthesias. Course Reevaluation(s) Reevaluation #1: CBC appears to be within normal limits. Chemistry with no acute findings requiring intervention. Troponin negative, BNP normal. UA clean without infection. D-dimer negative. COVID/influenza negative. Chest x-ray unremarkable. Again favoring that this is unlikely pyelonephritis or PE, no signs of UTI. Patient will be discharged home with supportive measures. Will give Toradol here. Will discharge home on cyclobenzaprine, Lidoderm patches, Toradol. Educated patient on diagnosis and treatment plan, answered all question, patient verbalizes understanding. At this time patient will be discharged home, advised to return with new or worsening symptoms. Educated on worrisome signs and symptoms and when to return. At this time I feel comfortable discharge home. Time: 01:10 Medical Decision Making Medical Decision Making MDM Narrative: This is a 36-year-old male presenting with intermittent left flank pain and intermittent shortness of breath x2 weeks. Was encouraged to come in by his girlfriend because when she had these symptoms she had a kidney infection. Physical examination with slight discomfort with palpation of left flank region.. Likely left flank pain musculoskeletal in nature /spasm, shortness of breath likely viral. I do not suspect pylo, UTI, PE, pneumonia, ACS, DVT. Plan-labs, imaging, D-dimer, chest x-ray, viral testing Differential Diagnosis Differential Diagnoses: The differential diagnosis associated with the presentation includes Likely left flank pain musculoskeletal in nature /spasm, shortness of breath likely viral. I do not suspect pylo, UTI, PE, pneumonia, ACS, DVT. Admission/Observation Consideration of admission/observation: Escalation of care including admission/observation considered Not indicated Lab Data Result Diagrams: 07/15/22 18:17 07/15/22 18:17 Labs: Lab Results 07/15/22 07/15/22 07/15/22 Range/Units 18:17 18:17 18:17 WBC 10.6 (4.8-10.8) X10*3/uL RBC 5.45 (4.60-5.80) X10*6/uL Hgb 14.1 (14.0-18.0) g/dl Hct 43.6 (42.0-52.0) % MCV 80.0 (80.0-98.0) fL MCH 25.9 L (27.0-33.0) pg MCHC 32.3 (31.0-36.0) g/dl RDW 13.7 (11.0-16.0) % Plt Count 277 (160-400) X10*3/uL MPV 9.6 (9.4-12.4) fL Immature Gran % (Auto) 0.5 H (0.0-0.4) % Neut % (Auto) 55.0 (45-73) % Lymph % (Auto) 34.3 (20-40) % [place] % (Auto) 8.5 (2-11) % Eos % (Auto) 1.1 (0-4) % Baso % (Auto) 0.6 (0-2) % Lymph # (Auto) 3.6 (1.2-4.9) X10*3/uL [place] # (Auto) 0.9 (0.1-1.2) X10*3/uL Eos # (Auto) 0.1 (0.0-0.4) X10*3/uL Baso # (Auto) 0.1 (0.0-0.2) X10*3/uL Abs Immat Gran (auto) 0.05 H (0.00-0.03) X10*3/uL Absolute Neuts (auto) 5.8 (2.0-8.3) x10*3/uL Absolute Nucleated RBC 0.000 (0.0-0.012) X10*3/uL Nucleated RBC % (auto) 0.0 (0.0-0.2) /100WBC D-Dimer High Sensitivty 153 NG/ML Sodium (135-145) mmol/L Potassium (3.3-5.1) mmol/L Chloride (96-108) mmol/L Carbon Dioxide (22-29) mmol/L Anion Gap (12-20) BUN (9-16) mg/dL Creatinine (0.5-1.4) mg/dL Estim Creat Clear Calc Estimated GFR Random Glucose (60-115) mg/dL Calcium (8.4-10.2) mg/dL Total Bilirubin (0.0-1.0) mg/dL Direct Bilirubin (0.0-0.5) mg/dL AST (5-37) U/L ALT (0-40) U/L Alkaline Phosphatase (39-117) U/L Troponin I High Sens (<3.5-35.0) ng/L B-Natriuretic Peptide (<100) pg/mL Total Protein (6.5-8.0) g/dL Albumin (3.5-5.0) g/dL Urine Color Urine Appearance Urine pH (5.0-9.0) Ur Specific [place] (1.005-1.025) Urine Protein (Neg-Trace) mg/dL Urine Glucose (UA) (Negative) mg/dL Urine Ketones (Negative) mg/dL Urine Blood (Negative) Urine Nitrite (Negative) Ur Leukocyte Esterase (Negative) Urine RBC (0-2) /HPF Urine WBC (0-5) /HPF Ur Squamous Epith Cells (0-2) /HPF Urine Bacteria (None Seen) Hyaline Casts (0-2) /LPF COVID-19 (ENE) (Negative) COVID-19 Clin Com Influenza Type A (TORRI) Negative (Negative) Influenza Type B (TORRI) Negative (Negative) Influenza A & B Note See Note 07/15/22 07/15/22 07/15/22 Range/Units 18:17 18:17 18:17 WBC (4.8-10.8) X10*3/uL RBC (4.60-5.80) X10*6/uL Hgb (14.0-18.0) g/dl Hct (42.0-52.0) % MCV (80.0-98.0) fL MCH (27.0-33.0) pg MCHC (31.0-36.0) g/dl RDW (11.0-16.0) % Plt Count (160-400) X10*3/uL MPV (9.4-12.4) fL Immature Gran % (Auto) (0.0-0.4) % Neut % (Auto) (45-73) % Lymph % (Auto) (20-40) % [place] % (Auto) (2-11) % Eos % (Auto) (0-4) % Baso % (Auto) (0-2) % Lymph # (Auto) (1.2-4.9) X10*3/uL [place] # (Auto) (0.1-1.2) X10*3/uL Eos # (Auto) (0.0-0.4) X10*3/uL Baso # (Auto) (0.0-0.2) X10*3/uL Abs Immat Gran (auto) (0.00-0.03) X10*3/uL Absolute Neuts (auto) (2.0-8.3) x10*3/uL Absolute Nucleated RBC (0.0-0.012) X10*3/uL Nucleated RBC % (auto) (0.0-0.2) /100WBC D-Dimer High Sensitivty NG/ML Sodium 139 (135-145) mmol/L Potassium 4.4 (3.3-5.1) mmol/L Chloride 102 (96-108) mmol/L Carbon Dioxide 26 (22-29) mmol/L Anion Gap 12 (12-20) BUN 17 H (9-16) mg/dL Creatinine 0.86 (0.5-1.4) mg/dL Estim Creat Clear Calc 146.7 Estimated GFR > 60 Random Glucose 87 (60-115) mg/dL Calcium 9.9 (8.4-10.2) mg/dL Total Bilirubin 0.2 (0.0-1.0) mg/dL Direct Bilirubin < 0.2 (0.0-0.5) mg/dL AST 21 (5-37) U/L ALT 27 (0-40) U/L Alkaline Phosphatase 72 (39-117) U/L Troponin I High Sens < 3.5 (<3.5-35.0) ng/L B-Natriuretic Peptide < 10 (<100) pg/mL Total Protein 8.1 H (6.5-8.0) g/dL Albumin 4.7 (3.5-5.0) g/dL Urine Color Urine Appearance Urine pH (5.0-9.0) Ur Specific [place] (1.005-1.025) Urine Protein (Neg-Trace) mg/dL Urine Glucose (UA) (Negative) mg/dL Urine Ketones (Negative) mg/dL Urine Blood (Negative) Urine Nitrite (Negative) Ur Leukocyte Esterase (Negative) Urine RBC (0-2) /HPF Urine WBC (0-5) /HPF Ur Squamous Epith Cells (0-2) /HPF Urine Bacteria (None Seen) Hyaline Casts (0-2) /LPF COVID-19 (ENE) (Negative) COVID-19 Clin Com Influenza Type A (TORRI) (Negative) Influenza Type B (TORRI) (Negative) Influenza A & B Note 07/15/22 07/15/22 Range/Units 18:17 18:17 WBC (4.8-10.8) X10*3/uL RBC (4.60-5.80) X10*6/uL Hgb (14.0-18.0) g/dl Hct (42.0-52.0) % MCV (80.0-98.0) fL MCH (27.0-33.0) pg MCHC (31.0-36.0) g/dl RDW (11.0-16.0) % Plt Count (160-400) X10*3/uL MPV (9.4-12.4) fL Immature Gran % (Auto) (0.0-0.4) % Neut % (Auto) (45-73) % Lymph % (Auto) (20-40) % [place] % (Auto) (2-11) % Eos % (Auto) (0-4) % Baso % (Auto) (0-2) % Lymph # (Auto) (1.2-4.9) X10*3/uL [place] # (Auto) (0.1-1.2) X10*3/uL Eos # (Auto) (0.0-0.4) X10*3/uL Baso # (Auto) (0.0-0.2) X10*3/uL Abs Immat Gran (auto) (0.00-0.03) X10*3/uL Absolute Neuts (auto) (2.0-8.3) x10*3/uL Absolute Nucleated RBC (0.0-0.012) X10*3/uL Nucleated RBC % (auto) (0.0-0.2) /100WBC D-Dimer High Sensitivty NG/ML Sodium (135-145) mmol/L Potassium (3.3-5.1) mmol/L Chloride (96-108) mmol/L Carbon Dioxide (22-29) mmol/L Anion Gap (12-20) BUN (9-16) mg/dL Creatinine (0.5-1.4) mg/dL Estim Creat Clear Calc Estimated GFR Random Glucose (60-115) mg/dL Calcium (8.4-10.2) mg/dL Total Bilirubin (0.0-1.0) mg/dL Direct Bilirubin (0.0-0.5) mg/dL AST (5-37) U/L ALT (0-40) U/L Alkaline Phosphatase (39-117) U/L Troponin I High Sens (<3.5-35.0) ng/L B-Natriuretic Peptide (<100) pg/mL Total Protein (6.5-8.0) g/dL Albumin (3.5-5.0) g/dL Urine Color Yellow Urine Appearance Clear Urine pH 5.5 (5.0-9.0) Ur Specific [place] 1.020 (1.005-1.025) Urine Protein 30 (1+) H (Neg-Trace) mg/dL Urine Glucose (UA) Negative (Negative) mg/dL Urine Ketones Negative (Negative) mg/dL Urine Blood Negative (Negative) Urine Nitrite Negative (Negative) Ur Leukocyte Esterase Negative (Negative) Urine RBC 0-2 (0-2) /HPF Urine WBC 0-5 (0-5) /HPF Ur Squamous Epith Cells 0-2 (0-2) /HPF Urine Bacteria None Seen (None Seen) Hyaline Casts 0-2 (0-2) /LPF COVID-19 (ENE) Negative (Negative) COVID-19 Clin Com See Note Influenza Type A (TORRI) (Negative) Influenza Type B (TORRI) (Negative) Influenza A & B Note Discharge Plan Discharge Clinical Impression: Left flank pain, Shortness of breath Patient Disposition: Home, Self-Care Instructions: Flank Pain (ED), Shortness of Breath (ED) Additional Instructions: Take your medications as prescribed. If you were prescribed antibiotics today, it is important that you take your medication to their entirety, do not skip any doses, do not finish them early. Follow-up with your primary care provider this week. Return to the emergency department with new or worsening symptoms. Such as fevers, chills, chest pain, shortness of breath, nausea, vomiting, dizziness, headache, vision changes, lethargy, issues with urination In case of emergency call 911 She Toradol has been sent to pharmacy, do not take this with ibuprofen, other NSAIDs or alcohol. Possible side effects include kidney injury and increased risk for bleeding. Cyclobenzaprine muscle relaxers been sent to her pharmacy, do not take this while driving or operating machinery can make you drowsy. Do not mix with alcohol. Prescriptions: New cyclobenzaprine 10 mg tablet 10 mg PO BEDTIME PRN (Reason: muscle spasm) Qty: 7 0RF ketorolac 10 mg tablet 10 mg PO TID PRN (Reason: pain) 5 Days Qty: 15 0RF Rx Instructions: Tolerated IM in the department lidocaine 5 % adhesive patch,medicated 1 patch topical DAILY PRN (Reason: pain) Qty: 15 0RF Rx Instructions: leave on most painful area for up to 12 hrs No Action Lantus U-100 Insulin 100 unit/mL solution 60 unit subcut BID 30 Days Qty: 36 0RF (DME) insulin syringe-needle U-100 [BD Insulin Syringe Ultra-Fine] 1 mL 31 gauge x 5/16 syringe See Rx Instructions .Route Qty: 100 0RF Rx Instructions: Use 1 syringe twice a day insulin glargine [Lantus Solostar U-100 Insulin] 100 unit/mL (3 mL) insulin pen 60 unit subcut BID 25 Days Qty: 30 6RF metoprolol succinate [Toprol XL] 50 mg Tablet Extended Release 24 Hr 50 mg PO DAILY lisinopril 20 mg Tablet 20 mg PO DAILY sertraline 100 mg Tablet 100 mg PO DAILY hydroxyzine HCl 25 mg Tablet 25 mg PO DAILY PRN (Reason: Anxiety) omeprazole 40 mg Capsule,Delayed Release(Dr/Ec) 40 mg PO DAILY@0630 Qty: 30 0RF doxycycline hyclate 150 mg tablet 150 mg PO BID 7 Days Qty: 14 0RF fluconazole [Diflucan] 150 mg tablet 150 mg PO Q3D Qty: 2 0RF Rx Instructions: may repeat second dose 72 hrs after first dose if symptoms persist ibuprofen 800 mg tablet 800 mg PO Q8H PRN (Reason: pain) Qty: 20 0RF Referrals: Marita Mccartney VISITOR INFORMATION ASSISTANT [Primary Care Provider] - 2 days Stand Alone Forms: Work/School Release
[2022-07-16] MEDS: Ketorolac Tromethamine 30 MG/ML VIAL IM (01:10)
== END 2022-07-16 01:31 | disposition home or self-care (01) ==
PROVIDERS: Physician Assistant; Emergency Provider Internal Medicine; PCP Nurse Practitioner Primary Care
DX: R10.9 Unspecified abdominal pain (principal); R06.02 Shortness of breath; Z20.822 Contact with and (suspected) exposure to COVID-19; E11.9 Type 2 diabetes mellitus without complications; I10 Essential (primary) hypertension; Z79.4 Long term (current) use of insulin
CPT/HCPCS: 71046; 80048; 80076; 81001; 83880; 84484; 85025; 85379; 87502; 87635; 93005; 96372; 99284; J1885

== ENCOUNTER 2023-02-10 11:19 | Outpatient (REF) | payer MEDICAID, SELFPAY | END 2023-02-10 11:20 | disposition home or self-care (01) | LOC: HO.HHCLNP 11:19 | PROVIDERS: Visit Provider Emergency Medicine | DX: Z13.89 Encounter for screening for other disorder (principal) | CPT/HCPCS: 87661 ==

== ENCOUNTER 2023-02-11 11:24 | Outpatient (REF) | payer MEDICAID, SELFPAY ==
[2023-02-11 18:06] LABS: CT PCR NOT DETECTED (Not Detect.); NG PCR NOT DETECTED (Not Detect.)
== END 2023-02-11 11:25 | disposition home or self-care (01) ==
LOC: HO.HHCLNP 11:24
PROVIDERS: Emergency Medicine; Visit Provider Internal Medicine
DX: N34.2 Other urethritis (principal)
CPT/HCPCS: 0353U

== ENCOUNTER 2023-02-23 11:32 | Emergency (ER) | payer MEDICAID, SELFPAY ==
--- NOTE | ~2023-02-23 | XR_ITS ---
EXAMINATION: XR HAND, LEFT CLINICAL INFORMATION: Pain COMPARISON: None available at the time of this dictation. TECHNIQUE: 3 views frontal lateral oblique views of the hand were obtained. FINDINGS: Small osseous density anterior medial to the head of the first metacarpal, which could be an accessory ossicles, cannot rule out chip fractures. Mild degenerative osteoarthritic changes of the first carpometacarpal joint.. Radiocarpal, intercarpal, carpometacarpal, metacarpophalangeal and interphalangeal joints are intact. There are no osteolytic or osteoblastic lesions. There are no bone erosions. Surrounding soft tissue unremarkable. XR/XR hand LT min 3V IMPRESSION: * Small osseous density anterior medial to the head of the first metacarpal, which could be an accessory ossicles, cannot rule out chip fractures. Please correlate with patient history and area of tenderness. * Mild degenerative osteoarthritis first carpometacarpal.
[2023-02-23 12:26] VITALS: BP 135/90; PULSE 85; RESP 17; TEMP 36.4; O2SAT 96; BMI 39.8
--- NOTE | 2023-02-23 12:29 | ED_ITS ---
HPI - General Adult General Chief complaint: Extremity Injury, Upper Stated complaint: L thumb inj Time Seen by Provider: 02/23/23 13:39 Source: patient and RN notes reviewed Mode of arrival: ambulatory Limitations: no limitations History of Present Illness HPI narrative: This is a 37-year-old male, with a past medical history of diabetes and hypertension, presenting to the emergency department for evaluation of left thumb and hand pain since yesterday. Patient states that while he was playing basketball the basketball hit him in the thumb and he ultimately jammed his thumb. He immediately had pain. He has noticed some increased swelling and bruising to his hand. He has been taking ibuprofen at home for his pain. No other complaints or concerns at this time. MD complaint: Thumb injury Onset (ago): day(s) Location: upper extremity Radiation: non-radiation Quality: aching Pain Consistency: constant Relieving factors: none Exacerbating factors: none Associated symptoms: denies other symptoms Treatments prior to arrival: none Related Data Home Medications Medication Instructions Recorded Confirmed hydroxyzine HCl 25 mg tablet 25 mg PO DAILY PRN Anxiety 08/02/20 08/02/20 lisinopril 20 mg tablet 20 mg PO DAILY 08/02/20 08/02/20 metoprolol succinate 50 mg 50 mg PO DAILY 08/02/20 08/02/20 tablet,extended release 24 hr (Toprol XL) sertraline 100 mg tablet 100 mg PO DAILY 08/02/20 08/02/20 Previous Rx's Medication Instructions Recorded omeprazole 40 mg capsule,delayed 40 mg PO DAILY@0630 #30 caps 08/07/20 release insulin glargine 100 unit/mL 60 unit (0.6 mL) subcut BID 30 05/31/21 subcutaneous solution (Lantus days #36 mL U-100 Insulin) insulin syringe-needle U-100 1 mL #100 ea 05/31/21 31 gauge x 5/16 (BD Insulin Syringe Ultra-Fine) ibuprofen 800 mg tablet 800 mg PO Q8H PRN pain #20 tabs 07/01/21 doxycycline hyclate 150 mg tablet 150 mg PO BID 7 days #14 tabs 12/31/21 fluconazole 150 mg tablet 150 mg PO Q3D 2 doses #2 tabs 12/31/21 (Diflucan) albuterol sulfate 90 mcg/actuation 2 inh inhalation Q4-6H PRN 07/16/22 breath activated powder inhaler shortness of breath or wheezing #1 ea cyclobenzaprine 10 mg tablet 10 mg PO BEDTIME PRN muscle spasm 07/16/22 #7 tabs ketorolac 10 mg tablet 10 mg PO TID PRN pain 5 days #15 07/16/22 tabs lidocaine 5 % topical patch 1 patch topical DAILY PRN pain #15 07/16/22 ea prednisone 20 mg tablet 40 mg PO DAILY 5 days #10 tabs 07/16/22 insulin glargine 100 unit/mL (3 60 unit (0.6 mL) subcut BID 25 01/12/23 mL) subcutaneous pen (Lantus days #30 mL Solostar U-100 Insulin) Allergies Allergy/AdvReac Type Severity Reaction Status Date / Time No Known Allergies Allergy Verified 08/04/21 15:52 [No Known Allergies*] Review of Systems Review of Systems: Yes all other systems are reviewed and are negative [facility] Past Medical History Attestation statement: The following information was validated with the patient. Medical History Diabetes Diabetes mellitus HTN (hypertension) Social History Social History Household Members: Significant Other Household Members Other:: GIRLFRIEND Do you presently have visiting nurse or other home services: No Alcohol intake: never Patient Tobacco Use Status: Never used Tobacco Second Hand Smoke Exposure: No service: No Current occupational status: unemployed Physical Exam ED Vital Signs: Vital Signs - 24 hr 02/23/23 12:26 Temperature 97.6 F Pulse Rate 85 Respiratory Rate 17 Blood Pressure 135/90 H Pulse Oximetry 96 Oxygen Delivery Method Room Air BMI result Body Mass Index 39.8 Const Other: General: Awake, alert, and oriented X3. No acute distress. HEENT: Normal inspection CVS: Normal heart rate and rhythm. Pulses normal. Respiratory: No respiratory distress Skin: Warm, dry, no rashes noted to exposed skin. Normal skin color. Normal skin turgor. Extremities: Left hand palmar aspect there is edema and ecchymosis over the 1st MCP. No tenderness along the 1st DIP, there is tenderness at the head of the 1st MCP. Range of motion is full and intact however with tenderness. Radial pulse 2+. No wrist tenderness. Full ROM of the wrist. Neuro: Oriented X 3. No motor deficit. No sensory deficit. Course Course Course Narrative: This is an RME: Additional HPI, ROS, PE not included below will be deferred to primary provider. Patient is a 37 year old male who presents after jamming his left thumb last night when playing basketball. Plan: imaging Procedures Orthopedic Splinting/Casting Injury #1: Side: left Upper Extremity Injury Location: wrist and hand Upper Extremity Immobilizer: thumb spica Medical Decision Making Medical Decision Making MDM Narrative: 37-year-old male presenting to the emergency department for evaluation of left thumb pain since yesterday. Patient injured his thumb while playing basketball. On examination, ecchymosis and edema and tenderness noted to the palmar surface of the hand without any surrounding erythema. Clinical suspicion for fracture. X-rays reviewed as small osseous density anterior medial to the head of the 1st MCP. Given patient has tenderness in this area, will treat as a fracture. Discussed case with orthopedic PA who recommends thumb spica splint. Will place patient in thumb spica splint. Patient's pain well controlled, will discharge with instructions to take Tylenol and ibuprofen at home. He declines prescription for pain medication today. Advised to return if any new or worsening symptoms occur. Given orthopedic number for follow-up. Patient understands and agrees with plan. Patient stable for discharge. Differential Diagnosis Differential Diagnoses: The differential diagnosis associated with the presentation includes Fracture, strain, sprain, contusion Radiology Impression Discussion of test interpretation with radiology: I have reviewed the radiologist's reading. Radiologist Impression: EXAMINATION: XR HAND, LEFT CLINICAL INFORMATION: Pain COMPARISON: None available at the time of this dictation. TECHNIQUE: 3 views frontal lateral oblique views of the hand were obtained. FINDINGS: Small osseous density anterior medial to the head of the first metacarpal, which could be an accessory ossicles, cannot rule out chip fractures. Mild degenerative osteoarthritic changes of the first carpometacarpal joint.. Radiocarpal, intercarpal, carpometacarpal, metacarpophalangeal and interphalangeal joints are intact. There are no osteolytic or osteoblastic lesions. There are no bone erosions. Surrounding soft tissue unremarkable. XR/XR hand LT min 3V IMPRESSION: ? *? Small osseous density anterior medial to the head of the first metacarpal, which could be an accessory ossicles, cannot rule out chip fractures. Please correlate with patient history and area of tenderness. ? *? Mild degenerative osteoarthritis first carpometacarpal. ? Dictated By: Sanjay Benton MD Discharge Plan Discharge Clinical Impression: Fracture of first metacarpal bone Patient Disposition: Home, Self-Care Instructions: Hand Fracture (ED) Additional Instructions: Please rest, ice, and wear splint until you are seen by Orthopedics. Elevating your hand will also help with your symptoms. Call orthopedic doctor today to make an appointment. Do not get splint wet. Take ibuprofen or Tylenol as needed for pain. If any new or worsening symptoms occur including but not limited to numbness or tingling into your fingers, worsening pain, please return for re-evaluation. Prescriptions: No Action Lantus U-100 Insulin 100 unit/mL solution 60 unit subcut BID 30 Days Qty: 36 0RF (DME) insulin syringe-needle U-100 [BD Insulin Syringe Ultra-Fine] 1 mL 31 gauge x 5/16 syringe See Rx Instructions .Route Qty: 100 0RF Rx Instructions: Use 1 syringe twice a day insulin glargine [Lantus Solostar U-100 Insulin] 100 unit/mL (3 mL) insulin pen 60 unit subcut BID 25 Days Qty: 30 6RF metoprolol succinate [Toprol XL] 50 mg Tablet Extended Release 24 Hr 50 mg PO DAILY lisinopril 20 mg Tablet 20 mg PO DAILY sertraline 100 mg Tablet 100 mg PO DAILY hydroxyzine HCl 25 mg Tablet 25 mg PO DAILY PRN (Reason: Anxiety) omeprazole 40 mg Capsule,Delayed Release(Dr/Ec) 40 mg PO DAILY@0630 Qty: 30 0RF doxycycline hyclate 150 mg tablet 150 mg PO BID 7 Days Qty: 14 0RF fluconazole [Diflucan] 150 mg tablet 150 mg PO Q3D Qty: 2 0RF Rx Instructions: may repeat second dose 72 hrs after first dose if symptoms persist ibuprofen 800 mg tablet 800 mg PO Q8H PRN (Reason: pain) Qty: 20 0RF cyclobenzaprine 10 mg tablet 10 mg PO BEDTIME PRN (Reason: muscle spasm) Qty: 7 0RF ketorolac 10 mg tablet 10 mg PO TID PRN (Reason: pain) 5 Days Qty: 15 0RF Rx Instructions: Tolerated IM in the department lidocaine 5 % adhesive patch,medicated 1 patch topical DAILY PRN (Reason: pain) Qty: 15 0RF Rx Instructions: leave on most painful area for up to 12 hrs albuterol sulfate 90 mcg/actuation aerosol powdr breath activated 2 inh inhalation Q4-6H PRN (Reason: shortness of breath or wheezing) Qty: 1 0RF prednisone 20 mg tablet 40 mg PO DAILY 5 Days Qty: 10 0RF Referrals: [facility] [Provider Group] Stand Alone Forms: Work/School Release Interventions: ED Discharge Assessment Last Done: 02/23/23 15:18 Discharge Date/Time: 02/23/23 15:19
== END 2023-02-23 15:19 | disposition home or self-care (01) ==
PROVIDERS: Emergency Provider Emergency Medicine; PCP Nurse Practitioner Primary Care
DX: S62.292A Other fracture of first metacarpal bone, left hand, initial encounter for closed fracture (principal); W21.05XA Struck by basketball, initial encounter; M79.645 Pain in left finger(s); E11.9 Type 2 diabetes mellitus without complications; I10 Essential (primary) hypertension; Z79.4 Long term (current) use of insulin; Z79.899 Other long term (current) drug therapy; Y93.67 Activity, basketball; Y92.310 Basketball court as the place of occurrence of the external cause; Y99.9 Unspecified external cause status
CPT/HCPCS: 29125; 73130; 99282; 99283

== ENCOUNTER 2023-02-25 11:25 | Outpatient (AMB) | payer MEDICAID, SELFPAY ==
--- NOTE | 2023-02-25 11:31 | MHC.OFFVIS ---
Intake Vital Signs 02/25/23 11:39 Height 5 ft 8 in Weight 261 lb BMI 39.7 Intake Visit Reasons: FC-LT FX of first metacarpal bone Intake Note: Maria Luisa a 37 year old right hand dominant male who presents today for an ER follow up of left fx of first MC bone, DOI 02/22/23. Patient reports while he was playing basketball the basketball hit him in the thumb causing him to jam his thumb. He immediately had pain, swelling and bruising, he presented to [facility] ED following day where xrays were taken and placed in a splint. Currently has little pain with movement of thumb. Denies numbness or tingling. Allergies No Known Allergies [No Known Allergies*] Allergy (Verified 02/25/23 11:33) HPI FC-LT FX of first metacarpal bone HPI Details 37-year-old right hand dominant male who presents to the office today for an ER follow-up of left 1st metacarpal injury s/p getting hit and jamming of his thumb by a basketball while playing, 02/22/23. He was seen at ER where x-rays were performed and he was placed in a splint. He states he has mild pain with ROM of thumb. He denies any numbness or tingling. [facility] Medical History Diabetes Diabetes mellitus HTN (hypertension) Social History (Updated 02/25/23 @ 11:34 by Winnie Leon Alix) Household Members: Significant Other Household Members Other:: GIRLFRIEND Do you presently have visiting nurse or other home services: No Alcohol intake: never Patient Tobacco Use Status: Never used Tobacco Second Hand Smoke Exposure: No service: No Current occupational status: employed Current occupation: [employer], right hand dominant Review of Systems Const All systems reviewed & are unremarkable except as noted in HPI and below Physical Exam Vital Signs: BMI result Body Mass Index 39.7 Extrem Other: Left thumb: Normal to inspection. No swelling or abrasion. He has mild tenderness over the IP joint with stress loading. There is no laxity. He can make a full fist and extend all his digits. Results Reviewed Results Reviewed: IMPRESSION: * Small osseous density anterior medial to the head of the first metacarpal, which could be an accessory ossicles, cannot rule out chip fractures. Please correlate with patient history and area of tenderness. * Mild degenerative osteoarthritis first carpometacarpal. Assessment & Plan Assessment & Plan (1) Sprain of ulnar collateral ligament of metacarpophalangeal (MCP) joint of thumb: Code(s): S63.649A - Sprain of metacarpophalangeal joint of unspecified thumb, initial encounter Plan He was given an off the shelf thumb spica brace which he will wear with activities and with sleeping. He can remove the brace for hygiene and while working on ROM exercises. He will return to work without restrictions and see me back in 3 weeks, sooner if needed. Patient Instructions: Scribed for Peter Rudd PA-C, by Milton Couch medical equipment technician, on 02/25/2023 at 11:30 AM EST. IPeter PA-C, have personally reviewed and agree with the information entered by the scribe. Coding Level of Care Code New Pt Level 3 (24038) Diagnoses Sprain of ulnar collateral ligament of metacarpophalangeal (MCP) joint of thumb S63.649A
[2023-02-25 11:39] VITALS: BMI 39.7
== END 2023-02-25 13:56 | disposition home or self-care (01) ==
PROVIDERS: PCP Nurse Practitioner Primary Care; Visit Provider Physician Assistant
DX: S63.649A Sprain of metacarpophalangeal joint of unspecified thumb, initial encounter (principal)
CPT/HCPCS: 99203

== ENCOUNTER → 2023-02-25 11:25 | Outpatient (BNVA) | payer MEDICAID, SELFPAY | PROVIDERS: PCP Nurse Practitioner Primary Care; Visit Provider Physician Assistant | DX: S63.642A Sprain of metacarpophalangeal joint of left thumb, initial encounter (principal) | CPT/HCPCS: 99203 ==

== ENCOUNTER 2023-06-28 09:37 | Emergency (ER) | payer MEDICAID, SELFPAY ==
--- NOTE | ~2023-06-28 | XR_ITS ---
EXAMINATION: XR CHEST CLINICAL INFORMATION: Chest pain COMPARISON: Previous chest x-ray July 2022 TECHNIQUE: 2 views of the chest were obtained. FINDINGS: No significant abnormality is noted involving the heart, lungs, mediastinum, bony thorax or soft tissues. XR/XR chest 2V IMPRESSION: Unremarkable examination.
--- NOTE | 2023-06-28 09:38 | ECG_ITS ---
Test Reason : chest pain Blood Pressure : / mmHG Vent. Rate : 106 BPM Atrial Rate : 106 BPM P-R Int : 122 ms QRS Dur : 086 ms QT Int : 314 ms P-R-T Axes : 035 010 025 degrees QTc Int : 417 ms Sinus tachycardia Minimal voltage criteria for LVH, may be normal variant ( R in aVL ) Borderline ECG When compared with ECG of 15-JUL-2022 18:20, No significant change was found Referred By: Generic ED Physician Electronically Signed By:HELENA RASMUSSEN MD
[2023-06-28 09:47] VITALS: BP 122/91; PULSE 112; RESP 20; TEMP 36.6; O2SAT 95; BMI 39.5
[2023-06-28 10:03] LABS: MANUAL DIFF FLAG NO
[2023-06-28 10:06] LABS: Basophils Absolute Auto 0.1 X10*3/uL (0.0-0.2); Basophils Percent Auto 0.6 % (0-2); Eosinophils Absolute Auto 0.1 X10*3/uL (0.0-0.4); Eosinophils Percent Auto 0.7 % (0-4); Hematocrit 42.6 % (42.0-52.0); Hemoglobin 14.1 g/dl (14.0-18.0); Imm Gran Abs Auto 0.04 X10*3/uL (0.00-0.03); Imm Gran Pct Auto 0.5 % (0.0-0.4); Lymphocytes Absolute Auto 2.9 X10*3/uL (1.2-4.9); Lymphocytes Percent Auto 34.5 % (20-40); Mean Corpuscular HGB Conc 33.1 g/dl (31.0-36.0); Mean Corpuscular Hemoglobin 26.4 pg (27.0-33.0); Mean Corpuscular Volume 79.8 fL (80.0-98.0); Mean Platelet Volume 9.9 fL (9.4-12.4); Monocytes Absolute Auto 0.8 X10*3/uL (0.1-1.2); Neutrophils Absolute Auto 4.6 x10*3/uL (2.0-8.3); Neutrophils Percent Auto 54.7 % (45-73); Platelet Count 252 X10*3/uL (160-400); Red Blood Count 5.34 X10*6/uL (4.60-5.80); Red Cell Distribution Width 13.6 % (11.0-16.0); White Blood Count 8.3 X10*3/uL (4.8-10.8)
[2023-06-28 10:31] LABS: Anion Gap 15 (12-20); Blood Urea Nitrogen 12 mg/dL (9-16); Calcium 9.4 mg/dL (8.4-10.2); Carbon Dioxide 23 mmol/L (22-29); Chloride 104 mmol/L (96-108); Creatinine Clr Calc Pharmacy 143.6; Estimated Glomerular Filt Rate > 60; Glucose Random 132 mg/dL (60-115); Sodium 138 mmol/L (135-145)
[2023-06-28 10:50] LABS: Influenza A PCR NEGATIVE (Negative); Influenza B PCR NEGATIVE (Negative); Resp Syncy Virus RNA Qual PCR NEGATIVE (Negative); SARS COV2 PCR INHOUSE NEGATIVE (Negative); Troponin-I High Sensitivity < 2.7 ng/L (<3.5-35.0)
[2023-06-28 16:28] VITALS: BP 146/86; PULSE 86; RESP 18; TEMP 37.1; O2SAT 100
[2023-06-28 16:45] VITALS: BP 146/86; PULSE 86; RESP 18; TEMP 37.1; O2SAT 98
--- NOTE | 2023-06-28 19:22 | ED.CHESTPAIN ---
HPI - Chest Pain General Chief Complaint: Chest Pain Stated Complaint: chest pain Time Seen by Provider: 06/28/23 19:19 Source: patient Mode of arrival: ambulatory Limitations: no limitations History of Present Illness HPI narrative: Patient history of diabetes no known coronary artery disease complaining of pain in the right side of the chest for last 2-3 days increases on palpation sharp in character, also complaining of body pain no shortness of breath no fever no chills no leg swelling or pain Related Data Home Medications Medication Instructions Recorded Confirmed hydroxyzine HCl 25 mg tablet 25 mg PO DAILY PRN Anxiety 08/02/20 08/02/20 lisinopril 20 mg tablet 20 mg PO DAILY 08/02/20 08/02/20 metoprolol succinate 50 mg 50 mg PO DAILY 08/02/20 08/02/20 tablet,extended release 24 hr (Toprol XL) sertraline 100 mg tablet 100 mg PO DAILY 08/02/20 08/02/20 dulaglutide 1.5 mg/0.5 mL 1.5 mg subcut QWEEK 02/25/23 subcutaneous [facility] metformin 500 mg tablet 1,000 mg PO 02/25/23 Previous Rx's Medication Instructions Recorded omeprazole 40 mg capsule,delayed 40 mg PO DAILY@0630 #30 caps 08/07/20 release insulin glargine 100 unit/mL 60 unit (0.6 mL) subcut BID 30 05/31/21 subcutaneous solution (Lantus days #36 mL U-100 Insulin) insulin syringe-needle U-100 1 mL #100 ea 05/31/21 31 gauge x 5/16 (BD Insulin Syringe Ultra-Fine) ibuprofen 800 mg tablet 800 mg PO Q8H PRN pain #20 tabs 07/01/21 albuterol sulfate 90 mcg/actuation 2 inh inhalation Q4-6H PRN 07/16/22 breath activated powder inhaler shortness of breath or wheezing #1 ea cyclobenzaprine 10 mg tablet 10 mg PO BEDTIME PRN muscle spasm 07/16/22 #7 tabs insulin glargine 100 unit/mL (3 60 unit (0.6 mL) subcut BID 25 01/12/23 mL) subcutaneous pen (Lantus days #30 mL Solostar U-100 Insulin) aspirin 81 mg chewable tablet 81 mg PO DAILY #90 tabs 06/28/23 Allergies Allergy/AdvReac Type Severity Reaction Status Date / Time No Known Allergies Allergy Verified 02/25/23 11:33 [No Known Allergies*] Review of Systems Review of Systems: Yes all other systems are reviewed and are negative [facility] Past Medical History Medical History Diabetes mellitus Diabetes HTN (hypertension) Social History Social History Household Members: Significant Other Household Members Other:: GIRLFRIEND Do you presently have visiting nurse or other home services: No Alcohol intake: never Patient Tobacco Use Status: Never used Tobacco Smoked in Last 30 Days: No Second Hand Smoke Exposure: No Use of substances other than those prescribed or required for medical reasons: No Advance Directives: No Advance Directives Information Provided: No service: No Current occupational status: employed Current occupation: [employer], right hand dominant Physical Exam Vital Signs: Vital Signs: Last Vital Signs Temp 98.7 F 06/28/23 16:45 Pulse 91 06/28/23 19:36 Resp 16 06/28/23 19:36 BP 137/91 H 06/28/23 19:36 Pulse Ox 95 06/28/23 19:36 O2 Del Method Room Air 06/28/23 19:36 BMI result Body Mass Index 39.5 Appearance: Alert. Oriented X3. No acute distress. ENT: Pharynx normal. Oral Mucosa moist Neck: Normal inspection. Neck supple. CVS: Normal heart rate and rhythm. Pulses normal. Respiratory: No respiratory distress. Equal air entry bilateral, no wheezing/rales/rhonchi right chest wall tenderness+ Abdomen: Soft and nontender. Bowel sounds are present, no mass palpable, no CVA tenderness Skin: Skin warm and dry. Normal skin color. Normal skin turgor. Extremities: No lower extremity edema. No calf tenderness Neuro: Oriented X 3. No motor deficit. No sensory deficit.No cerebellar signs , cranial nerves II-XII intact Medications Administered Discontinued Medications Generic Name Dose Route Start Last Admin Trade Name Freq PRN Reason Stop Dose Admin Aspirin 81 mg 06/28/23 20:10 06/28/23 20:22 Aspirin 81 Mg Tab.Chew PO 06/28/23 20:11 81 mg ONCE ONE Administration Medical Decision Making Medical Decision Making MDM Narrative: Patient atypical right-sided chest pain for more than 2 days EKG without any ischemic changes high sensitive troponin negative will discharge patient home likely skeletal pain Differential Diagnosis Differential Diagnoses: The differential diagnosis associated with the presentation includes ACS/musculoskeletal/pneumonia/pleurisy/pleural effusion Admission/Observation Consideration of admission/observation: Escalation of care including admission/observation considered Lab Data [facility] Lab Attestation statement: I reviewed the patient's lab results. 06/28/23 09:58 06/28/23 09:58 Labs: Lab Results 06/28/23 Range/Units 09:58 WBC 8.3 (4.8-10.8) X10*3/uL RBC 5.34 (4.60-5.80) X10*6/uL Hgb 14.1 (14.0-18.0) g/dl Hct 42.6 (42.0-52.0) % MCV 79.8 L (80.0-98.0) fL MCH 26.4 L (27.0-33.0) pg MCHC 33.1 (31.0-36.0) g/dl RDW 13.6 (11.0-16.0) % Plt Count 252 (160-400) X10*3/uL MPV 9.9 (9.4-12.4) fL Immature Gran % (Auto) 0.5 H (0.0-0.4) % Neut % (Auto) 54.7 (45-73) % Lymph % (Auto) 34.5 (20-40) % [place] % (Auto) 9.0 (2-11) % Eos % (Auto) 0.7 (0-4) % Baso % (Auto) 0.6 (0-2) % Lymph # (Auto) 2.9 (1.2-4.9) X10*3/uL [place] # (Auto) 0.8 (0.1-1.2) X10*3/uL Eos # (Auto) 0.1 (0.0-0.4) X10*3/uL Baso # (Auto) 0.1 (0.0-0.2) X10*3/uL Abs Immat Gran (auto) 0.04 H (0.00-0.03) X10*3/uL Absolute Neuts (auto) 4.6 (2.0-8.3) x10*3/uL Absolute Nucleated RBC 0.000 (0.0-0.012) X10*3/uL Nucleated RBC % (auto) 0.0 (0.0-0.2) /100WBC Sodium 138 (135-145) mmol/L Potassium 4.0 (3.3-5.1) mmol/L Chloride 104 (96-108) mmol/L Carbon Dioxide 23 (22-29) mmol/L Anion Gap 15 (12-20) BUN 12 (9-16) mg/dL Creatinine 0.87 (0.5-1.4) mg/dL Estim Creat Clear Calc 143.6 Estimated GFR > 60 Random Glucose 132 H (60-115) mg/dL Calcium 9.4 (8.4-10.2) mg/dL Troponin I High Sens < 2.7 (<3.5-35.0) ng/L Influenza Type A (PCR) NEGATIVE (Negative) Influenza Type B (PCR) NEGATIVE (Negative) RSV RNA Qual (PCR) NEGATIVE (Negative) SARS-CoV-2 RNA (RT-PCR) NEGATIVE (Negative) Independent Interpretation I performed an independent interpretation of an: EKG and Plain X-Ray Interpretation: Sinus tachycardia heart rate 106 beats per minute LVH normal interval normal axis no acute ST T wave changes no acute ischemia Radiology Impression Discussion of test interpretation with radiology: I have reviewed the radiologist's reading. Discharge Plan Discharge Clinical Impression: Chest pain Patient Disposition: Home, Self-Care Instructions: Chest Pain (ED) Additional Instructions: Your chest pain is likely musculoskeletal Ibuprofen for pain Take baby aspirin daily Follow-up with booking clerk for further evaluation Prescriptions: New aspirin 81 mg tablet,chewable 81 mg PO DAILY Qty: 90 0RF No Action Lantus U-100 Insulin 100 unit/mL solution 60 unit subcut BID 30 Days Qty: 36 0RF (DME) insulin syringe-needle U-100 [BD Insulin Syringe Ultra-Fine] 1 mL 31 gauge x 5/16 syringe See Rx Instructions .Route Qty: 100 0RF Rx Instructions: Use 1 syringe twice a day insulin glargine [Lantus Solostar U-100 Insulin] 100 unit/mL (3 mL) insulin pen 60 unit subcut BID 25 Days Qty: 30 6RF metoprolol succinate [Toprol XL] 50 mg Tablet Extended Release 24 Hr 50 mg PO DAILY lisinopril 20 mg Tablet 20 mg PO DAILY sertraline 100 mg Tablet 100 mg PO DAILY hydroxyzine HCl 25 mg Tablet 25 mg PO DAILY PRN (Reason: Anxiety) omeprazole 40 mg Capsule,Delayed Release(Dr/Ec) 40 mg PO DAILY@0630 Qty: 30 0RF ibuprofen 800 mg tablet 800 mg PO Q8H PRN (Reason: pain) Qty: 20 0RF cyclobenzaprine 10 mg tablet 10 mg PO BEDTIME PRN (Reason: muscle spasm) Qty: 7 0RF albuterol sulfate 90 mcg/actuation aerosol powdr breath activated 2 inh inhalation Q4-6H PRN (Reason: shortness of breath or wheezing) Qty: 1 0RF Trulicity 1.5 mg/0.5 mL pen injector 1.5 mg subcut QWEEK metformin 500 mg tablet 1,000 mg PO Stand Alone Forms: Work/School Release Interventions: ED Discharge Assessment Last Done: 06/28/23 20:26 Discharge Date/Time: 06/28/23 20:26
[2023-06-28 19:36] VITALS: BP 137/91; PULSE 91; RESP 16; O2SAT 95
--- NOTE | 2023-06-28 19:38 | PC.NURSE ---
Pt presents to ED with chest pain starting two days ago. Pt denies nausea/vomiting. reports a headache. Pt is A&Ox4, GCS 15, no apparent distress or SOB. Pt reports he normally takes metoprolol and lisinopril daily but has not had his metoprolol in 5 days, stated he thinks he threw it out by accident. Pt BP 137/91. Negative trop, covid, flu, RSV. Pt was attached to playground monitor. Labs and EKG obtained in triage. Pt waiting ED provider at this time.
[2023-06-28] MEDS: Aspirin 81 MG TAB.CHEW PO (20:22)
== END 2023-06-28 20:26 | disposition home or self-care (01) ==
PROVIDERS: Emergency Provider Internal Medicine; PCP Nurse Practitioner Primary Care
DX: R07.89 Other chest pain (principal); Z20.822 Contact with and (suspected) exposure to COVID-19; Z20.828 Contact with and (suspected) exposure to other viral communicable diseases; Z79.899 Other long term (current) drug therapy
CPT/HCPCS: 0241U; 71046; 80048; 84484; 85025; 93005; 99283; 99285

== ENCOUNTER → 2023-06-28 09:38 | Outpatient (BNV) | payer MEDICAID, SELFPAY | PROVIDERS: PCP Nurse Practitioner Primary Care; Visit Provider Internal Medicine Cardiovascular Disease | DX: R00.0 Tachycardia, unspecified (principal) | CPT/HCPCS: 93010 ==

== ENCOUNTER 2024-01-17 09:19 | Outpatient (REF) | payer MEDICAID, SELFPAY ==
[2024-01-17 11:36] LABS: Creatinine Urine 280.91 mg/dL; Microalbum/Creatinine Ratio Ur 5.3 ug/mg cr (<30)
[2024-01-17 11:37] LABS: Vitamin B12 727 pg/mL (200-900)
[2024-01-17 12:09] LABS: Anion Gap 14 (12-20); Blood Urea Nitrogen 11 mg/dL (9-16); Calcium 9.8 mg/dL (8.4-10.2); Carbon Dioxide 28 mmol/L (22-29); Chloride 103 mmol/L (96-108); Cholesterol 174 mg/dL (<200); Estimated Glomerular Filt Rate > 60; Glucose Random 153 mg/dL (60-115); HDL Cholesterol 39 mg/dL (>40); LDL Cholesterol Calculated 107 mg/dL (<100); Potassium 4.7 mmol/L (3.3-5.1); Sodium 140 mmol/L (135-145); Triglycerides 144 mg/dL (<150)
[2024-01-17 13:05] LABS: HIV AB/AG Nonreactive (Nonreactive); HIV Num 1 0.11 S/CO (0.00-0.99); ~HepC Num1 0.16 S/CO (0.00-0.79); ~Hepatitis C Antibody Nonreactive (Nonreactive)
[2024-01-19 08:43] LABS: RPR Rapid Plasma Reagin NON-REACTIVE (NON-REACTIVE)
== END 2024-01-17 09:20 | disposition home or self-care (01) ==
LOC: HO.HHCL 09:19
PROVIDERS: Visit Provider Nurse Practitioner Primary Care
DX: E11.69 Type 2 diabetes mellitus with other specified complication (principal); E78.5 Hyperlipidemia, unspecified; Z11.3 Encounter for screening for infections with a predominantly sexual mode of transmission
CPT/HCPCS: 36415; 80048; 80061; 82043; 82570; 82607; 86592; 86803; 87389

== ENCOUNTER 2024-06-14 09:48 | Outpatient (REF) | payer MEDICAID, SELFPAY | END 2024-06-14 09:49 | disposition home or self-care (01) | LOC: HO.HOSX 09:48 | DX: Z13.89 Encounter for screening for other disorder (principal) ==

== ENCOUNTER 2024-08-04 13:54 | Outpatient (AMB) | payer MEDICAID, SELFPAY ==
[2024-08-04 13:59] VITALS: BMI 39.5
--- NOTE | 2024-08-04 13:59 | MHC.OFFVIS ---
Vital Signs 08/04/24 13:59 Height 5 ft 8 in Weight 260 lb BMI 39.5 Handedness Right Intake Visit Reasons: New Prob: LT thumb pain, DOI 02/22/23 Intake Note: Joo is a 38 year old right hand dominant male who presents today for a new problem visit for evaluation of left thumb pain. Hx of left thumb fracture, DOI: 02/22/23. He states he had a follow up appointment for this fracture however he never made it. He expresses the cold weather exacerbates his pain, heavy lifting and squeezing with force. He states he feels a hard lump on the volar aspect of his 1st left MCP joint. Denies numbness and tingling. Denies finger locking. Hx of diabetes. Allergies No Known Allergies [No Known Allergies*] Allergy (Verified 08/04/24 14:00) HPI HPI New Prob: LT thumb pain, DOI 02/22/23: Details: Patient is a 38-year-old male who presents for evaluation of left thumb pain and limited range of motion. The patient reports that he had a thumb sprain with associated small avulsion fracture on 02/22/2023, but did not come to any of his follow-up appointments. The patient states that he does not have the same pain he had when he had the fracture and sprain, but states that he does have discomfort when attempting to fully extend his left thumb. Patient also reports occasional numbness and tingling in the left thumb that has been ongoing for many months. Denies locking and catching. No other acute complaints or concerns at this time. 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 Neuro: Normal sensation of the tips of all digits of the left hand at this time Vascular: Cap refill brisk Pain: Patient reports pain with attempted extension of the left thumb No tenderness to palpation anywhere in the left hand or thumb ROM: Patient was able to flex and extend all digits of the left hand fully, does report discomfort in the thumb on extension Skin: No lacerations or abrasions. General: No ecchymosis, erythema, or evidence of infection. Psych: Appears grossly normal Affect normal Attitude cooperative Assessment & Plan Assessment & Plan (1) Sprain of ulnar collateral ligament of metacarpophalangeal (MCP) joint of thumb: Code(s): S63.649A - Sprain of metacarpophalangeal joint of unspecified thumb, initial encounter Category: Medical (2) Numbness and tingling in left hand: Code(s): R20.0 - Anesthesia of skin; R20.2 - Paresthesia of skin Category: Medical Plan 1. Stiffness of joint of left thumb Patient is educated about this condition Patient is educated about the treatment options available At this time, patient was referred to occupational therapy for range of motion and strengthening of the left hand in the setting of stiffness of the left thumb Patient is educated that if he continues to experience significant symptoms 6-8 weeks after beginning OT, he should call us for repeat evaluation Patient was amenable to this plan 2. Numbness and tingling of left thumb Intermittent, daily, worse at night Patient is educated about this condition At this time, patient was referred for EMG and nerve conduction study of the left hand in order to assess the health of the nerves of the left upper extremity Patient was amenable to this plan Patient will follow-up after EMG and NCS for results review and discussion of further treatment options if indicated, sooner with any acute concerns Orders: Orders OT Evaluation and Treatment Today S63.640U - Sprain of metacarpophalangeal joint of unspecified thumb, initial encounter NE electromyogram (EMG) Today R20.0 - Anesthesia of skin, R20.2 - Paresthesia of skin NE nerve conduction velocity Today R20.0 - Anesthesia of skin, R20.2 - Paresthesia of skin Coding Level of Care Code Est Pt Level 3 (61512) Diagnoses Sprain of ulnar collateral ligament of metacarpophalangeal (MCP) joint of thumb S63.648G Numbness and tingling in left hand R20.0; R20.2
--- OUTSIDE RECORDS SUMMARY | 2024-08-04 15:35 | XMS_ITS | Encounter Summary ---
Author Organization [employer] Address [address] [facility] 7t [place] [address] Care Team Providers Care Antenna Installer Name Role Phone Marita Mccartney Primary Care Provider [phone] Encounter Details Date Type Department Care Team (Late Contact Info) Description 11/17/2022 Orders Only [facility] [address] [place] [address] Jeanna Miner LPN Social History Tobacco Use Types Packs/Day Years Used Date Smoking Tobacco: Former Cigarettes Q uit: 2018 Smokeless Tobacco: Never Alcohol Use Standard Drinks/Week Comments Not Currently 0 (1 standard drink = 0.6 oz pur e alcohol) Sex and Gender Information Value Date Recorded Sex Assigned at Male 05/11/2022 10:14 AM EDT Legal Sex Male 10:14 AM EDT Gender Identity Male 05/11/2022 10:14 AM EDT Sexual Orientation Straight 05/11/2022 10 :14 AM EDT documented as of this encounter Plan of Treatment Upcoming Encounters Date Type Department Care Team (Late st Contact Info) Description 08/21/2024 3:30 PM EST Office Visit [facility] [address] [place] [address] Marita Mccartney ANP [address] [place] [address] documented as of this encounter Visit Diagnoses Not on filedocumented in this encounter Care Teams Antenna Installer Relationship Specialty Start Date End Date Marita Mccartney ANP [address] [place] [address] PCP - General Family Medicine 02/28/21 documented as of this encounter
--- OUTSIDE RECORDS SUMMARY | 2024-08-04 15:35 | XMS_ITS | Encounter Summary ---
Author Organization [employer] Address [address] [facility] 7t [place] [address] Care Team Providers Care Education And Training Manager Name Role Phone Marita Mccartney Primary Care Provider [phone] Reason for Visit * Reason Onset Date Comments Med Refill 02/23/2024 Encounter Details Date Type Department Care Team (Late st Contact Info) Description 02/23/2024 Refill [facility] [address] [place] [address] Name, MD Richard [address] [place] [address] Social History Tobacco Use Types Packs/Day Years Used Date Smoking Tobacco: Former Cigarettes Q uit: 2018 Passive Smoke Exposure: Past Smokeless Tobacco: Never Alcohol Use Standard Drinks/Week Comments Not Currently 0 (1 standard drink = 0.6 oz pur e alcohol) Depression Answer Date Recorded Patient Health Questionnaire-9 Score 0 12/21/2022 Housing Stability Answer Date Recorded What is your housing situation today? I have dotty martinez 05/17/[address] you li ve. Do you have problems with any of the following? None of the above 05/17/2023 Food Insecurity Answer Date Recorded Within the past 12 months, y ou worried that your food would run out before you got money to buy more: Never True 05/17/2023 Within the past 12 months,th e food you bought just didn't last and you didn't have enough money to get more: Never True 12/2022 Transportation Answer Date Recorded In the past 12 months, has l ack of transportation kept you from medical appts, meetings, work or from getting things needed for daily living? No 05/17/2023 Utilities Answer Date Recorded In the past 12 months, has t he electric, gas, oil or water company threatened to shut off services in your home? No 05/17/2023 Depression Answer Date Recorded Patient Health Questionnaire-2 Score 0 12/21/2022 Sex and Gender Information Value Date Recorded Sex Assigned at Male 05/11/2022 10:14 AM EDT Legal Sex Male 10:14 AM EDT Gender Identity Male 05/11/2022 10:14 AM EDT Sexual Orientation Straight 05/11/2022 10 :14 AM EDT documented as of this encounter Plan of Treatment Upcoming Encounters Date Type Department Care Team (Late st Contact Info) Description 08/21/2024 3:30 PM EST Office Visit [facility] [address] [place] [address] Marita Mccartney ANP [address] [place] [address] documented as of this encounter Visit Diagnoses Not on filedocumented in this encounter Additional Health Concerns Assessment Noted Time PHQ-9 Depression Total Score: 0 12/22/19 23 4:04 PM EDT documented as of this encounter Care Teams Education And Training Manager Relationship Specialty Start Date End Date Marita Mccartney ANP [address] [place] [address] PCP - General Family Medicine 02/28/21 documented as of this encounter
--- OUTSIDE RECORDS SUMMARY | 2024-08-04 15:35 | XMS_ITS | Encounter Summary ---
Author Organization [employer] Address [address] [facility] 7t [place] [address] Care Team Providers Care Dirt Shoveler Name Role Phone Marita Mccartney Primary Care Provider [phone] Reason for Visit * Reason Onset Date Comments Med Refill 02/23/2024 Encounter Details Date Type Department Care Team ([facility] st Contact Info) Description 02/23/2024 Refill [facility] [address] [place], [place] [phone] Radha Weaver FNP [address] [place] [address] Social History Tobacco Use Types Packs/Day Years [...] Description 08/21/2024 3:30 PM EST Office Visit [facility] [address] [place] [address] Marita Mccartney ANP [address] [place] [address] documented as of this encounter Visit Diagnoses Not on filedocumented in this encounter Additional Health Concerns Assessment Noted Time PHQ-9 Depression Total Score: 0 12/22/19 23 4:04 PM EDT documented as of this encounter Care Teams Dirt Shoveler Relationship Specialty Start Date End Date Marita Mccartney ANP [address] [place] [address] PCP - General Family Medicine 02/28/21 documented as of this encounter
--- OUTSIDE RECORDS SUMMARY | 2024-08-04 15:35 | XMS_ITS | Encounter Summary ---
Author Organization [employer] Address [address] [facility] 7t [place] [address] Care Team Providers Care Desk Reporter Name Role Phone Marita Mccartney Primary Care Provider [phone] Reason for Visit * Reason Onset Date Comments Med Refill 02/23/2024 Encounter Details Date Type Department Care Team (Late st Contact Info) Description 02/23/2024 Refill [facility] [address] [place] [address] Marita Mccartney ANP 230 [place] [address] Type 2 diabetes mellitus with hyperlipidemia (CMS/HCC) ([facility]); Type 2 diabetes mellitus with other specified complication, with long-term current use of insulin ([facility]); Gastroesophageal reflux disease, unspecified whether esophagitis present; Anxiety; Primary hypertension Social History Tobacco Use Types Packs/Day Years [...] Description 08/21/2024 3:30 PM EST Office Visit [facility] [address] [place] [address] Marita Mccartney ANP [address] [place] [address] documented as of this encounter Visit Diagnoses Diagnosis Type 2 diabetes mellitus with hyperlipidemia ([facility]) ([facility]) Type 2 diabetes mellitus with other specified complication, with long-term current use of insulin ([facility]) Gastroesophageal reflux disease, unspecified whether esophagitis present Anxiety Anxiety state, unspecified Primary hypertension Unspecified essential hypertension documented in this encounter Additional Health Concerns Assessment Noted Time PHQ-9 Depression Total Score: 0 12/22/19 23 4:04 PM EDT documented as of this encounter Care Teams Desk Reporter Relationship Specialty Start Date End Date Marita Mccartney ANP [address] [place] [address] PCP - General Family Medicine 02/28/21 documented as of this encounter
--- OUTSIDE RECORDS SUMMARY | 2024-08-04 15:35 | XMS_ITS | Encounter Summary ---
Author Organization [employer] Address [address] [facility] 7t [place] [address] Care Team Providers Care Cycle Touring Guide Name Role Phone Marita Mccartney Primary Care Provider [phone] Reason for Visit * Reason Comments Med Refill Encounter Details Date Type Department Care Team ([facility] st Contact Info) Description 07/12/2023 Refill [facility] [address] [place], [place] [phone] Marita Mccartney ANP [address] [place] [address] Social History Tobacco Use Types Packs/Day Years Used Date Smoking Tobacco: Former Cigarettes Q uit: 2018 Smokeless Tobacco: Never Alcohol Use Standard Drinks/Week Comments Not Currently 0 (1 standard drink = 0.6 oz pur e alcohol) Depression Answer Date Recorded Patient Health Questionnaire-9 Score 0 12/21/2022 Housing Stability Answer Date Recorded What is your housing situation today? I have dottyjoselin martinez 05/17/[address] you [...] Description 08/21/2024 3:30 PM EST Office Visit [facility] [address] [place] [address] Marita Mccartney ANP [address] [place] [address] documented as of this encounter Visit Diagnoses Not on filedocumented in this encounter Additional Health Concerns Assessment Noted Time PHQ-9 Depression Total Score: 0 12/22/19 23 4:04 PM EDT documented as of this encounter Care Teams Cycle Touring Guide Relationship Specialty Start Date End Date Marita Mccartney ANP [address] [place] [address] PCP - General Family Medicine 02/28/21 documented as of this encounter
--- OUTSIDE RECORDS SUMMARY | 2024-08-04 15:35 | XMS_ITS | Encounter Summary ---
Demographics Address [address] [facility] [place] [address] Mobile Phone Preferred Language en Marital Status Single Amish Affiliation Unknown Race Other Race Ethnic Group or Author Organization [employer] Address [address] [facility] 7t [place] [address] Care Team Providers Care Cloth Cutting Inspector Name Role Phone Marita Mccartney Primary Care Provider [phone] Reason for Visit * Reason Comments Med Refill Encounter Details Date Type Department Care Team ([facility] st Contact Info) Description 02/23/2024 Refill [facility] 230 [place], [place] [phone] Maddie Escobedo MD [address] [place] [address] Social History Tobacco Use Types Packs/Day Years [...] Description 08/21/2024 3:30 PM EST Office Visit [facility] [address] [place] [address] Marita Mccartney ANP [address] [place] [address] documented as of this encounter Visit Diagnoses Not on filedocumented in this encounter Additional Health Concerns Assessment Noted Time PHQ-9 Depression Total Score: 0 12/22/19 23 4:04 PM EDT documented as of this encounter Care Teams Cloth Cutting Inspector Relationship Specialty Start Date End Date Marita Mccartney ANP [address] [place] [address] PCP - General Family Medicine 02/28/21 documented as of this encounter
--- OUTSIDE RECORDS SUMMARY | 2024-08-04 15:35 | XMS_ITS | Encounter Summary ---
Author Organization [employer] Address [address] [facility] 7t [place] [address] Care Team Providers Care Shank Threader Name Role Phone Marita Mccartney Primary Care Provider [phone] Reason for Visit * Reason Onset Date Comments Med Refill 02/28/2024 Encounter Details Date Type Department Care Team (Late st Contact Info) Description 02/28/2024 Refill [facility] 230 [place] [address] Marita Mccartney ANP [address] [place] [address] Hypertension associated with diabetes (CMS/HCC) ([facility]) Social History Tobacco Use Types Packs/Day Years [...] Description 08/21/2024 3:30 PM EST Office Visit [facility] 230 [place] [address] Marita Mccartney ANP [address] [place] [address] documented as of this encounter Visit Diagnoses Diagnosis Hypertension associated with diabetes (CMS/HCC) (CMS/HCC) Unspecified essential hypertension documented in this encounter Additional Health Concerns Assessment Noted Time PHQ-9 Depression Total Score: 0 12/22/19 23 4:04 PM EDT documented as of this encounter Care Teams Shank Threader Relationship Specialty Start Date End Date Marita Mccartney ANP [address] [place] [address] PCP - General Family Medicine 02/28/21 documented as of this encounter
--- OUTSIDE RECORDS SUMMARY | 2024-08-04 15:35 | XMS_ITS | Encounter Summary ---
Author Organization [employer] Address [address] [facility] 7t [place] [address] Care Team Providers Care Flour Blender Helper Name Role Phone Marita Mccartney Primary Care Provider [phone] Encounter Details Date Type Department Care Team (Late st Contact Info) Description 12/04/2022 Orders Only [facility] [address] [place] [address] Jeanna Miner LPN Social History Tobacco Use [...] Description 08/21/2024 3:30 PM EST Office Visit [facility] [address] [place] [address] Marita Mccartney ANP [address] [place] [address] documented as of this encounter Visit Diagnoses Not on filedocumented in this encounter Care Teams Flour Blender Helper Relationship Specialty Start Date End Date Marita Mccartney ANP [address] [place] [address] PCP - General Family Medicine 02/28/21 documented as of this encounter
--- OUTSIDE RECORDS SUMMARY | 2024-08-04 15:35 | XMS_ITS | Encounter Summary ---
Author Organization [employer] Address [address] [facility] 7t [place] [address] Care Team Providers Care Training Associate Name Role Phone Marita Mccartney Primary Care Provider [phone] Reason for Visit * Reason Onset Date Comments Prior Authorization 09/10/2023 Encounter Details Date Type Department Care Team (Late st Contact Info) Description 09/10/2023 Refill [facility] 230 [place] [address] Marita Mccartney ANP [address] [place] [address] Social History Tobacco Use Types Packs/Day Years [...] AM EDT documented as of this encounter Miscellaneous Notes * Telephone Encounter - Pat Tanner - 09/24/2023 10:37 AM EDT PA NEEDED FOR TRULICITY PA IS NOT NEEDED FOR : FARXIGA JANUVIA LANTUS [facility] [facility] CONTINUE WITH PA FOR TRULICITY OR CHANGE TO ONE OF THE OPTION ABOVE THAT DOES NOT NEED A PA? PLEASE ADVICE documented in this encounter Plan of Treatment Upcoming Encounters Date Type Department Care Team (Late st Contact Info) Description 08/21/2024 3:30 PM EST Office Visit [facility] [address] [place] [address] Marita Mccartney ANP [address] [place] [address] documented as of this encounter Visit Diagnoses Not on filedocumented in this encounter Additional Health Concerns Assessment Noted Time PHQ-9 Depression Total Score: 0 12/22/19 23 4:04 PM EDT documented as of this encounter Care Teams Training Associate Relationship Specialty Start Date End Date Marita Mccartney ANP [address] [place] [address] PCP - General Family Medicine 02/28/21 documented as of this encounter
--- OUTSIDE RECORDS SUMMARY | 2024-08-04 15:35 | XMS_ITS | Encounter Summary ---
Author Organization [employer] Address [address] [facility] 7t [place] [address] Care Team Providers Care Fountain Attendant Name Role Phone Marita Mccartney Primary Care Provider [phone] Reason for Visit * Reason Comments Med Refill Encounter Details Date Type Department Care Team (Late st Contact Info) Description 08/04/2024 Refill [facility] PEDS [address] [place], [place] [phone] Marita Mccartney ANP [address] [place], [place] [phone] Primary hypertension Social History Tobacco Use Types Packs/Day Years Used Date Smoking Tobacco: Former Cigarettes Q uit: 2018 Passive Smoke Exposure: Past Smokeless Tobacco: Never Alcohol Use Standard Drinks/Week Comments Not Currently 0 (1 standard drink = 0.6 oz pur e alcohol) Depression Answer Date Recorded Patient Health Questionnaire-9 Score 0 04/03/2024 Patient Health Questionnaire-9 Score 0 04/03/2024 Last PHQ-9: Questionnaire Data Not on file 0 04/03/2024 Housing Stability Answer Date Recorded What is your housing situation today? I have dotty martinez 04/03/[address] you li ve. Do you have problems with any of the following? None of the above 04/03/2024 Food Insecurity Answer Date Recorded Within the past 12 months, y ou worried that your food would run out before you got money to buy more: Never True 04/03/2024 Within the past 12 months,th e food you bought just didn't last and you didn't have enough money to get more: Never True Transportation Answer Date Recorded In the past 12 months, has l ack of transportation kept you from medical appts, meetings, work or from getting things needed for daily living? No 04/03/2024 Utilities Answer Date Recorded In the past 12 months, has t he electric, gas, oil or water company threatened to shut off services in your home? I am not sure 04/03/2024 Depression Answer Date Recorded Patient Health Questionnaire-2 Score 0 04/03/2024 Internet Access Answer Date Recorded Internet Access Q1 Yes 04/03/2024 Internet Access Q2 Not on file 04/03/2024 Sex and Gender Information Value Date Recorded Sex Assigned at Male 05/11/2022 10:14 AM EDT Legal Sex Male 10:14 AM EDT Gender Identity Male 05/11/2022 10:14 AM EDT Sexual Orientation Straight 05/11/2022 10 :14 AM EDT documented as of this encounter Plan of Treatment Upcoming Encounters Date Type Department Care Team (Late st Contact Info) Description 08/21/2024 3:30 PM EST Office Visit [facility] MEDICINE [address] [place] [address] Marita Mccartney ANP [address] [place] [address] documented as of this encounter Visit Diagnoses Diagnosis Primary hypertension Unspecified essential hypertension documented in this encounter Additional Health Concerns Assessment Noted Time PHQ-9 Depression Total Score: 0 04/03/20 24 3:49 PM EDT documented as of this encounter Care Teams Fountain Attendant Relationship Specialty Start Date End Date Marita Mccartney ANP [address] [place] [phone] PCP - General Family Medicine 02/28/21 documented as of this encounter
--- OUTSIDE RECORDS SUMMARY | 2024-08-04 15:35 | XMS_ITS | Encounter Summary ---
Author Organization [employer] Address [address] [facility] 7t [place] [address] Care Team Providers Care It Security Administrator Name Role Phone Marita Mccartney Primary Care Provider [phone] Reason for Visit * Reason Comments Med Refill Encounter Details Date Type Department Care Team ([facility] st Contact Info) Description 02/23/2024 Refill [facility] MED[facility] [address] [place], [place] [phone] Marita Mccartney ANP 230 [place] [address] Type 2 diabetes mellitus with other specified complication, with long-term current use of insulin ([facility]) Social History Tobacco Use Types Packs/Day Years [...] Description 08/21/2024 3:30 PM EST Office Visit [facility] [address] [place] [address] Marita Mccartney ANP 230 [place] [address] documented as of this encounter Visit Diagnoses Diagnosis Type 2 diabetes mellitus with other specified complication, with long-term current use of insulin ([facility]) documented in this encounter Additional Health Concerns Assessment Noted Time PHQ-9 Depression Total Score: 0 12/22/19 23 4:04 PM EDT documented as of this encounter Care Teams It Security Administrator Relationship Specialty Start Date End Date Marita Mccartney ANP 230 [place] [address] PCP - General Family Medicine 02/28/21 documented as of this encounter
--- OUTSIDE RECORDS SUMMARY | 2024-08-04 15:35 | XMS_ITS | Encounter Summary ---
Author Organization [employer] Address [address] [facility] [address]t [place] [address] Care Team Providers Care Care Director Name Role Phone Marita Mccartney Primary Care Provider [phone] Reason for Visit * Reason Comments Med Refill Encounter Details Date Type Department Care Team ([facility] st Contact Info) Description 08/23/2023 Refill [facility] [address] [place], [place] [phone] Marita Mccartney ANP [address] [place] [address] Social History Tobacco Use Types Packs/Day Years [...] Description 08/21/2024 3:30 PM EST Office Visit [facility] [address] [place] [phone] Marita Mccartney ANP [address] [place] [address] documented as of this encounter Visit Diagnoses Not on filedocumented in this encounter Additional Health Concerns Assessment Noted Time PHQ-9 Depression Total Score: 0 12/22/19 23 4:04 PM EDT documented as of this encounter Care Teams Care Director Relationship Specialty Start Date End Date Marita Mccartney ANP [address] [place] [phone] PCP - General Family Medicine 02/28/21 documented as of this encounter
--- OUTSIDE RECORDS SUMMARY | 2024-08-04 15:35 | XMS_ITS | Encounter Summary ---
Author Organization [employer] Address [address] [facility] 7t [place] [address] Care Team Providers Care Bridge Repair Crew Person Name Role Phone Marita Mccartney Primary Care Provider Encounter Details Date Type Department Care Team ([facility] Contact Info) Description 08/03/2022 Orders Only [facility] [address] [place] [phone] Ronda Norton LPN Social History Tobacco Use Types Packs/Day Years Used Date Smoking Tobacco: Never Assessed Sex and Gender Information Value Date Recorded Sex Assigned at Male 05/11/2022 10:14 AM EDT Legal Sex Male 10:14 AM EDT Gender Identity Male 05/11/2022 10:14 AM EDT Sexual Orientation Straight 05/11/2022 10 :14 AM EDT COVID-19 Exposure Response Date Recorded In the last 10 days, have yo u been in contact with someone who was confirmed or suspected to have Coronavirus/COVID-19? No / Unsure 08/04/2022 3:01 PM EST documented as of this encounter Plan of Treatment Upcoming Encounters Date Type Department Care Team (Late st Contact Info) Description 08/21/2024 3:30 PM EST Office Visit [facility] [address] [place] [phone] Marita Mccartney ANP [address] [place] [address] documented as of this encounter Visit Diagnoses Not on filedocumented in this encounter Care Teams Bridge Repair Crew Person Relationship Specialty Start Date End Date Marita Mccartney ANP [address] [place] [phone] PCP - General Family Medicine 02/28/21 documented as of this encounter
--- OUTSIDE RECORDS SUMMARY | 2024-08-04 15:35 | XMS_ITS | Encounter Summary ---
Author Organization [employer] Address [address] [facility] 7[address] [place] [address] Care Team Providers Care Bankruptcy Legal Assistant Name Role Phone Marita Mccartney Primary Care Provider [phone] Reason for Visit * Reason Comments Med Refill Encounter Details Date Type Department Care Team ([facility] st Contact Info) Description 07/04/2024 Refill [facility] [address] [place], [place] [phone] Marita Mccartney ANP [address] [place] [address] Nonintractable episodic headache, unspecified headache type; Anxiety; Hypertension associated with diabetes (CMS/HCC) ([facility]) Social History Tobacco Use Types Packs/Day Years [...] Description 08/21/2024 3:30 PM EST Office Visit [facility] [address] [place] [phone] Marita Mccartney ANP [address] [place] [phone] documented as of this encounter Visit Diagnoses Diagnosis Nonintractable episodic headache, unspecified headache type Anxiety Anxiety state, unspecified Hypertension associated with diabetes (CMS/HCC) (CMS/HCC) Unspecified essential hypertension documented in this encounter Additional Health Concerns Assessment Noted Time PHQ-9 Depression Total Score: 0 04/03/20 24 3:49 PM EDT documented as of this encounter Care Teams Bankruptcy Legal Assistant Relationship Specialty Start Date End Date Marita Mccartney ANP [address] [place] [phone] PCP - General Family Medicine 02/28/21 documented as of this encounter
--- OUTSIDE RECORDS SUMMARY | 2024-08-04 15:35 | XMS_ITS | Encounter Summary ---
Author Organization [employer] Address [address] [facility] 7t [place] [address] Care Team Providers Care Broadband Technician Name Role Phone Marita Mccartney Primary Care Provider [phone] Reason for Visit * Reason Onset Date Comments Med Refill 07/06/2024 Encounter Details Date Type Department Care Team (Late st Contact Info) Description 07/06/2024 Refill [facility] [address] [place], [place] [phone] Marita Mccartney ANP [address] [place], [place] [phone] Anxiety Social History Tobacco Use Types Packs/Day Years [...] encounter Miscellaneous Notes * Telephone Encounter - Jeanna Miner LPN - 07/06/2024 10:27 AM EST Last seen 06/13/24. documented in this encounter Plan of Treatment Upcoming Encounters Date Type Department Care Team (Late st Contact Info) Description 08/21/2024 3:30 PM EST Office Visit [facility] [address] [place] [phone] Marita Mccartney ANP [address] [place] [address] documented as of this encounter Visit Diagnoses Diagnosis Anxiety Anxiety state, unspecified documented in this encounter Additional Health Concerns Assessment Noted Time PHQ-9 Depression Total Score: 0 04/03/20 24 3:49 PM EDT documented as of this encounter Care Teams Broadband Technician Relationship Specialty Start Date End Date Marita Mccartney ANP [address] [place] [phone] PCP - General Family Medicine 02/28/21 documented as of this encounter
--- OUTSIDE RECORDS SUMMARY | 2024-08-04 15:35 | XMS_ITS | Encounter Summary ---
Author Organization [employer] Address [address] [facility] 7t [place] [address] Care Team Providers Care Drill Operator Automatic Name Role Phone Marita Mccartney Primary Care Provider [phone] Encounter Details Date Type Department Care Team ([facility] Contact Info) Description 12/20/2022 Abstract [facility] [address] [place] [phone] Eliseo Childs, PharmD Social History Tobacco Use Types Packs/Day Years Used Date Smoking Tobacco: Former Cigarettes Q uit: 2018 Smokeless Tobacco: Never Alcohol Use Standard Drinks/Week Comments Not Currently 0 (1 standard drink = 0.6 oz pur e alcohol) Depression Answer Date Recorded Patient Health Questionnaire-9 Score 0 12/21/2022 Depression Answer Date Recorded Patient Health Questionnaire-2 [...] suspected to have Coronavirus/COVID-19? No / Unsure 12/23/2022 1:42 PM EDT documented as of this encounter Plan of Treatment Upcoming Encounters Date Type Department Care Team ([facility] Contact Info) Description 08/21/2024 3:30 PM EST Office Visit [facility] [address] [place] [phone] Marita Mccartney ANP [address] [place], [place] [phone] documented as of this encounter Visit Diagnoses Not on filedocumented in this encounter Care Teams Drill Operator Automatic Relationship Specialty Start Date End Date Marita Mccartney ANP [address] [place] [address] PCP - General Family Medicine 02/28/21 documented as of this encounter
--- OUTSIDE RECORDS SUMMARY | 2024-08-04 15:35 | XMS_ITS | Clinical Summary ---
Author Organization [employer] Address [address] [facility] [address] [place] [address] Care Team Providers Care Pulvi Mixer Operator Name Role Phone Marita Mccartney Primary Care Provider Allergies No known active allergies Medications Ventolin HFA 108 (90 Base) MCG/ACT inhaler INHALE 2 PUFFS BY MOUTH EVERY 4 TO 6 HOURS NEEDED FOR SHORTNESS OF BREATH OR WHEEZING 023 Active cyclobenzaprine (Flexeril) 10 MG tablet TAKE 1 TABLET (10 MG) BY MOUTH BEDTIME NEEDED FOR MUSCLE SPASM 023 Active glucose-vitamin C 4-6 GM-MG oral gel take 4 tabs by oral route for bs less than 60, may repeat every 15 min until bs is above 70 021 Active Lidoderm 5 % patch APPLY 1 PATCH TOPICALLY DAILY NEEDED FOR PAIN LEAVE ON MOST PAINFUL AREA FOR UP TO 12 HRS 023 Active GaviLAX 17 GM/SCOOP powder take 1 scoop by Oral route 1 - 2 times every day mixed with water or juice, as needed for constipation 022 Active fluticasone (Flonase) 50 MCG/ACT nasal spray INSTILL 2 SPRAYS IN EACH NOSTRIL ONCE DAILY IN THE MORNING 16 g 2 024 Active BD Pen Needle Silva 2nd Gen 32G X 4 MM miscIndications:T ype 2 diabetes mellitus with other specified complication, with long-term current use of insulin ([facility]) Use as directed daily for insulin 100 each 024 Active glucose blood (FREESTYLE LITE) test stripIndications: Type 2 diabetes mellitus with other specified complication, with long-term current use of insulin ([facility]) USE 4 strips to check BS readings 4 times every day 100 each Active omeprazole (PriLOSEC) [address] capsuleIndication s:Gastroesophagea l reflux disease, unspecified whether esophagitis present Take 1 capsule (40 mg) by mouth before breakfast. Do not crush or chew. 90 capsule 3 Active sertraline (Zoloft) 100 MG tabletIndications :Anxiety TAKE 1 TABLET BY MOUTH EVERY DAY 90 tablet 1 Active metoprolol succinate XL (Toprol-XL) 50 MG 24 hr tabletIndications :Primary hypertension Take 1 tablet (50 mg) by mouth Once per day. Do not crush or chew. 90 tablet 1 Active metFORMIN (Glucophage) 500 MG tabletIndications :Type 2 diabetes mellitus with hyperlipidemia (CMS/HCC) ([facility]) TAKE 2 TABLETS BY MOUTH TWICE A DAY WITH MORNING AND EVENING MEALS 360 tablet 1 Active Alcohol Swabs ([employer]S Prep) 70 % pads USE DIRECTED EVERY DAY FOUR TIMES DAILY 100 each Active lisinopril 40 MG tabletIndications :Primary hypertension Take 1 tablet (40 mg) by mouth Once per day. 30 tablet 024 2024 Active Blood Pressure Monitoring (Blood Pressure Cuff) miscIndications:P rimary hypertension 1 each Once daily. 1 each Active dulaglutide (Trulicity) 1.5 MG/0.5ML solution pen-injectorIndic ations:Hypertensi on associated with diabetes (CMS/HCC) ([facility]) Inject 1.5 mg under the skin 1 (one) time per week. 4 each Active insulin glargine (Lantus SoloStar) 100 UNIT/ML penIndications:Hy pertension associated with diabetes (CMS/HCC) ([facility]) Inject 20 Units under the skin Once daily. 6 mL 5 Active Continuous Glucose Sensor (FreeStyle Apollo 2 Sensor) miscIndications:H ypertension associated with diabetes (CMS/HCC) ([facility]) Apply 1 sensor every 14 days 2 each Active glucose blood (FreeStyle Precision Tristan Test) test stripIndications: Hypertension associated with diabetes (CMS/HCC) ([facility]) Use to test blood sugar 3 times daily 100 each 12 024 2024 Active Continuous Glucose Railway Signal Operator (Pet ReadyStyle Apollo 2 Fenton) deviceIndications :Hypertension associated with diabetes ([facility]/HCC) ([facility]) SCAN SENSOR EVERY 8 HOURS 1 each 024 Active hydrOXYzine HCl (Atarax) 25 MG tabletIndications :Anxiety TAKE 1 TABLET BY MOUTH EVERY DAY NEEDED FOR ANXIETY OR SLEEP 30 tablet 1 Active hydrOXYzine HCl (Atarax) 25 MG tabletIndications :Anxiety TAKE 1 TABLET BY MOUTH EVERY DAY NEEDED FOR ANXIETY OR SLEEP 30 tablet 1 024 2023 Discontinued(R eorder (will not trigger notification to Pharmacy)) naproxen (Naprosyn) 500 MG tablet Take 1 tablet (500 mg) by mouth 2 times daily. 10 tablet 024 2024 Active Problems Problem Noted Date Diagnosed Date Nonintractable episodic headache 02/28/2024 Assessment & Plan (02/28/2024 10:57 AM EDT): Migraines? Uncontrolled HTN? Tension headache? I advise to avoid migraine triggers like red wine, chocolate, cheese, strong perfumes Acetaminophen PRN prescribed ED precautions reviewed Change in vision 02/28/2024 Primary hypertension 02/28/2024 Assessment & Plan (02/28/2024 10:57 AM EDT): Today elevated I decided to go up on lisinopril (from 20mg to 40mg) I advise low Na diet and weight reduction BP cuff prescribed I advise to log BP for next appointment with PCP Diabetes mellitus 02/18/2022 Depressive disorder 08/27/2015 Hypertension associated with diabetes ([facility]) 08/27/2015 Overview (04/03/2024): Lab Results Component Value Date HGBA1C 6.1 (A) 02/28/2024 HGBA1C 6.4 (A) 09/20/2023 HGBA1C 5.9 12/21/2022 HGBA1C 5.5 09/16/2021 Metformin 500mg 2 tabs BID Ozempic 0.5mg wkly Lisinopril 40mg Encounters Date Type Department Care Team Description 08/04/2024 Refill [facility] [address] [place] [address] Marita Mccartney ANP Primary hypertension 07/06/2024 Refill [facility] [address] [place] [address] Marita Mccartney ANP Anxiety 07/04/2024 Refill [facility] [address] [place] [address] Marita Mccartney ANP Nonintractable episodic headache, unspecified headache type; Anxiety; Hypertension associated with diabetes (CMS/HCC) (CMS/HCC) 06/22/2024 Patient Outreach [facility] [address] [place] [address] Marita Mccartney ANP Pre-visit Planning (SDOH screening was completed on 04/03/2024) 06/13/2024 1:00 PM EST Office Visit [facility] [address] [place] [address] NameRichard MD Sore throat (Primary Dx); Acute nonintractable headache, unspecified headache type; Myalgia 06/13/2024 Travel 06/01/2024 Refill [facility] [address] [place] [address] Marita Mccartney ANP Nonintractable episodic headache, unspecified headache type (Primary Dx); Hypertension associated with diabetes (CMS/HCC) (CMS/HCC) 05/11/2024 Refill [facility] [address] [place] [address] Marita Mccartney ANP from Last 3 Months Immunizations Name Administration Dates Next Due Hep B, adult 12/21/2022,01/20/2018,12/10/2017 Influenza injectable quadriv alent IIV4 with preservative 05/22/2016,08/27/2015 Influenza injectable quadriv alent preservative free 06/17/2021 Influenza, seasonal, injecta ble, preservative free 04/03/2024 Pfizer Covid-19 Vaccine 12+ 04/03/2024, Pneumococcal Conjugate PCV 20 09/20/2023 Tdap 06/17/2021,02/09/2020 Social History Tobacco Use Types Packs/Day Years Used Date Smoking Tobacco: Former Cigarettes Q uit: 2018 Passive Smoke Exposure: Past Smokeless Tobacco: Never Tobacco Cessation:Counseling Given: Not Answered Alcohol Use Standard Drinks/Week Comments Not Currently 0 (1 standard drink = 0.6 oz pur e alcohol) Depression Answer Date Recorded Patient Health Questionnaire-9 Score 0 04/03/2024 Patient Health Questionnaire-9 Score 0 04/03/2024 Last PHQ-9: Questionnaire Data Not on file 0 04/03/2024 Housing Stability Answer Date Recorded What is your housing situation today? I have dotty michelle 04/03/[address] you li [...] Orientation Straight 05/11/2022 10 :14 AM EDT Last Filed Vital Signs Vital Sign Reading Time Taken Comments Blood Pressure 152/97 06/13/2024 1:08 PM EST Pulse 112 06/13/2024 1:08 PM EST Temperature 36.8 ??C (98.2 ??F) 06/13/2024 1:08 PM ES T Respiratory Rate 21 06/13/2024 1:08 PM EST Oxygen Saturation 94% 06/13/2024 1:08 PM EST Inhaled Oxygen Concentration - - Weight 121 kg (267 lb 9.6 oz) 06/13/2024 1:08 PM EST Height 172.7 cm (5' 8 ) 06/13/2024 1:08 PM EST Body Mass Index 40.69 06/13/2024 1:08 PM EST Plan of Treatment Upcoming Encounters Date Type Department Care Team (Late st Contact Info) Description 08/21/2024 3:30 PM EST Office Visit [facility] [address] [place], [place] [phone] Marita Mccartney, ANP [address] [place], [place] [phone] Health Maintenance Due Date Last Done Comments Dental Prophylaxis 1984 Eye Exam 1994 Alcohol/Substance Use Screening 1996 Family Planning (PISQ) 10/17/1999 Dental Oral Exam 05/02/2021 10/30/2020 Dental X-Ray: Bitewings 10/31/2021 10/30/2020 Dental X-Ray: Full Mouth 11/01/2023 10/30/2020 Diabetes: Foot Exam 09/19/2024 09/20/2023, 09/20/2023, 09/20/2023, Additional history exists Diabetes: Hemoglobin A1C 10/01/2024 024, 02/28/2024, 09/20/2023, Additional history exists Diabetes: Urine Protein Screening 01/16/2025 01/17/2024, 09/16/2021 Lipid Panel 01/16/2025 01/17/2024, 09/16/2021 Depression Screening 04/03/2025 04/03/2024, 04/03/20 24 SDOH Screening 04/03/2025 04/03/2024 Tobacco Screening 06/13/2025 06/13/2024 DTaP/Tdap/Td Vaccines (3 - Td or Tdap) 06/17/2031 06/17/2021, 02/09/2020 Zoster Vaccines (1 of 2) 2034 RSV Patients and Patients Aged 60 years or older (1 - 1-dose 75+ series) 10/17/2059 Hepatitis B Vaccines Completed 12/21/2022, 01/20/2018, 12/10/2017 Pneumococcal Vaccine: Pediatrics (0 to 5 Years) and At-Risk Patients (6 to 64 Years) Completed 09/20/2023 HIV Screening Completed 01/17/2024, 08/12, 04/06/2022 Hepatitis C Screening Completed 01/17/2024 , 08/24/2022, 04/06/2022 COVID-19 Vaccine Completed 04/03/2024, 05/2024, 12/10/2020, Additional history exists Influenza Vaccine Completed 04/03/2024, , 05/22/2016, Additional history exists HIB Vaccines Aged Out No longer eligi ble based on patient's age to complete this topic HPV Vaccines Aged Out No longer eligi ble based on patient's age to complete this topic Hepatitis A Vaccines Aged Out No long er eligible based on patient's age to complete this topic IPV Vaccines Aged Out No longer eligi ble based on patient's age to complete this topic Meningococcal Vaccine Aged Out No haritha nisreen eligible based on patient's age to complete this topic RSV under 20 months Aged Out No longe r eligible based on patient's age to complete this topic Rotavirus Vaccines Aged Out No longer eligible based on patient's age to complete this topic Procedures Procedure Name Priority Date/Time Associated Diagnosis Comments POC LAY ID NOW STREP A Routine 06/13/2024 1:20 PM EST Sore throat POCT INFLUENZA B (ID NOW RAPID MOLECULAR) Routine 06/13/2024 1:20 PM EST Sore throat POCT INFLUENZA A (ID NOW RAPID MOLECULAR) Routine 06/13/2024 1:20 PM EST Sore throat POCT RAPID COVID ANTIGEN Routine 06/13/2024 1:20 PM EST Sore throat POCT GLYCATED HEMOGLOBIN, TOTAL Routine 04/03/2024 3:44 PM EDT Hypertension associated with diabetes (CMS/HCC) (CMS/HCC) HEPATITIS C AB W/REFL TO HCV RNA, QN, PCR Routine 01/17/2024 9:21 AM EDT Routine screening for STI (sexually transmitted infection) HIV 1/2 ANTIGEN/ANTIBODY, FOURTH GENERATION W/RFL Routine 01/17/2024 9:21 AM EDT Routine screening for STI (sexually transmitted infection) ALBUMIN, RANDOM URINE W/CREATININE Routine 01/17/2024 9:21 AM EDT Type 2 diabetes mellitus with hyperlipidemia (CMS/HCC) (CMS/HCC) LIPID PANEL, STANDARD Routine 01/17/2024 9:21 AM EDT Type 2 diabetes mellitus with hyperlipidemia (CMS/HCC) (CMS/HCC) DIAGNOSTIC - DIAGNOSTIC IMAGING - INTRAORAL - COMPREHENSIVE SERIES OF RADIOGRAPHIC IMAGES Routine 10/30/2020 12:00 AM EDT COMPREHENSIVE ORAL EVALUATION - NEW OR ESTABLISHED PATIENT Routine 10/30/2020 12:00 AM EDT from Last 3 Months or Most Recently Relevant to Health Maintenance Results * POCT Rapid Influenza B LAY ID NOW (06/13/2024 1:20 PM EST) Influenza B Negative Negative, Indeterminate [facility] QC Media Lot # [id number] [facility] Lot# Expiration Date [facility] Swab 06/13/2024 1:20 PM EST us Richard Name POINT OF CARE TEST ENTER/EDIT OR DERABLES Final Result [facility] [address] [place] [phone] * POCT Rapid Influenza A LAY ID NOW (06/13/2024 1:20 PM EST) Influenza A Negative Negative, Indeterminate [facility] QC Media Lot # [id number] [facility] Lot# Expiration Date [facility] Swab 06/13/2024 1:20 PM EST Result [facility] us Richard Hull MD POINT OF CARE TEST ENTER/EDIT OR DERABLES Final Result Performing Organization Address [facility] de Phone Number [facility] [address] [place] [phone] * (ABNORMAL) POCT Rapid Strep A LAY ID NOW (06/13/2024 1:20 PM EST) [facility] Rapid Strep A Screen Positive( A) Negative, None Detected QC Media Lot # [id number] Lot# Expiration Date ,025 Swab 06/13/2024 1:20 PM EST Result [facility] Richard Hull MD POINT OF CARE TEST ENTER/EDIT OR DERABLES Final Result * POCT Rapid Covid-19 BinaxNOW (06/13/2024 1:20 PM EST) [facility] Rapid COVID Ag Negative [facility] QC Media Lot # [id number] [facility] Lot# Expiration Date [facility] Swab 06/13/2024 1:20 PM EST Result [facility] Richard Hull MD POINT OF CARE TEST ENTER/EDIT OR DERABLES Final Result Performing Organization Address [facility] Co de Phone Number [facility] [address] [place] [phone] * POCT HGB A1C (04/03/2024 3:44 PM EDT) [facility] Hemoglobin A1C 5.8 4.0 - 6.0 % QC Media Lot # [id number] Lot# Expiration Date ,026 Blood 04/03/2024 3:44 PM EDT Result [facility] Marita MOORE POINT OF CARE TEST ENTER/EDIT OR DERABLES Final Result * Albumin, Random Urine W/Creatinine (01/17/2024 9:21 AM EDT) Creatinine, Urine 280.91 mg/dL [facility] Microalbumin Urine 15.0 mg/L [facility] Microalbum Creatinine Ratio Ur 5.3 <30 ug/mg cr [facility] Comment:Albumin/Creatinine R atio Reference Ranges: Normal: < 30 ug/mg creatinine Microalbuminuria: 30 - 300 ug/mg creatinineClinical Albuminuria: > 300 ug/mg creatinine Urine 01/17/2024 9:21 AM EDT 01/17/2024 10:49 AM EDT Marita Mccartney [facility] URINE ORDERABLES Final Resul t Performing Organization Address [facility] de Phone Number [facility] [address] [place] [phone] * Hepatitis C Antibody with Reflex to HCV, RNA, Quantitative, Real-Time PCR (01/17/2024 9:21 AM EDT) Pathologist [facility] Hepatitis C Antibody Nonreactive Nonreactive [facility] Comment:Antibodies to HCV no t detected; does not exclude early acuteHCV infection. Blood Venous blood specimen / Unknown 01/17/2024 9:21 AM EDT 01/17/2024 10:51 AM EDT Marita Mccartney [facility] BLOOD ORDERABLES Final Resul t Performing Organization Address [facility] de Phone Number [facility] [address] [place] [phone] * HIV-1/2 Antigen and Antibodies, Fourth Generation, with Reflexes (01/17/2024 9:21 AM EDT) HIV AB/AG Nonreactive Nonreactive [facility] Comment:HIV-1 p24 Ag and/or HIV-1/HIV-2 Ab not detected.A test result that is nonreactive does not exclude thepossibility of exposure to or infection with HIV-1 and/orHIV-2. Nonreactive results in this assay for individualswith prior exposure to HIV-1 and/or HIV-2 may be due toantigen and antibody levels that are below the limit ofdetection of this assay.The [employer] Al[employer] HIV Ag/Ab Combo assay result andsupplemental assay results should be interpreted inconjunction with the patient's clinical presentation,history and other laboratory results. If the results areinconsistent with clinical evidence, additional testing issuggested to confirm the result. Blood Venous blood specimen / Unknown 01/17/2024 9:21 AM EDT 01/17/2024 10:51 AM EDT [facility] LAB BLOOD ORDERABLES Final Resul t [facility] [address] [place] [address] [phone] * (ABNORMAL) Lipid Panel, Standard (01/17/2024 9:21 AM EDT) Triglycerides 144 <150 mg/dL [facility] Comment:Desirable Triglyceri de: less than 150 mg/dLBorderline High Triglyceride 150-199 mg/dLHigh Triglyceride: 200-499 mg/dLVery High Triglyceride: greater than or equal to 5OO mg/dL Cholesterol 174 <200 mg/dL [facility] Comment:Desirable Cholestero l: less than 200 mg/dLBorderline High Cholesterol: 200-239 mg/dLHigh Cholesterol: greater than 239 mg/dL LDL Cholesterol Calculated 107(H) <100 mg/dL [facility] Comment:Desirable LDL: less than 100 mg/dLNear Optimal/Above Optimal LDL: 110- 129 mg/dLBorderline High LDL: 130-159 mg/dLHigh LDL: 160-189 mg/dLVery High LDL: greater than or equal to 190 mg/dL HDL Cholesterol 39(L) >40 mg/dL [facility] Comment:Desirable HDL: great er than 40 mg/dL Note: This HDL assay may give artificially low results in patients with liver disease. Blood Venous blood specimen / Unknown 01/17/2024 9:21 AM EDT 01/17/2024 10:51 AM EDT Marita Mccartney [facility] BLOOD ORDERABLES Final Resul t [facility] [address] [place] [phone] from Last 3 Months or Most Recently Relevant to Health Maintenance Insurance [place] [id number] MEDICAID STAND ADULT . [address] [place] [id number] Care Teams Pulvi Mixer Operator Relationship Specialty Start Date End Date Marita Mccartney ANP [address] [place] [phone] PCP - General Family Medicine 02/28/21
== END 2024-08-04 14:19 | disposition home or self-care (01) ==
PROVIDERS: PCP Nurse Practitioner Primary Care
DX: S63.649A Sprain of metacarpophalangeal joint of unspecified thumb, initial encounter (principal); R20.0 Anesthesia of skin; R20.2 Paresthesia of skin
CPT/HCPCS: 99213

== ENCOUNTER → 2024-08-04 13:54 | Outpatient (BNVA) | payer MEDICAID, SELFPAY | PROVIDERS: PCP Nurse Practitioner Primary Care | DX: S63.642A Sprain of metacarpophalangeal joint of left thumb, initial encounter (principal); R20.0 Anesthesia of skin; R20.2 Paresthesia of skin | CPT/HCPCS: 99212 ==

== ENCOUNTER 2025-03-19 15:07 | Outpatient (REF) | payer MEDICAID, SELFPAY ==
[2025-03-19 16:33] LABS: Anion Gap 16 (12-20); Blood Urea Nitrogen 20 mg/dL (9-16); Calcium 10.1 mg/dL (8.4-10.2); Carbon Dioxide 27 mmol/L (22-29); Chloride 105 mmol/L (96-108); Estimated Glomerular Filt Rate > 60; Potassium 4.2 mmol/L (3.3-5.1); Sodium 144 mmol/L (135-145)
== END 2025-03-19 15:08 | disposition home or self-care (01) ==
LOC: HO.HHCL 15:07
PROVIDERS: PCP Nurse Practitioner Primary Care; Visit Provider Internal Medicine
DX: I15.2 Hypertension secondary to endocrine disorders (principal); E11.59 Type 2 diabetes mellitus with other circulatory complications; R00.0 Tachycardia, unspecified
CPT/HCPCS: 36415; 80048; 84443

== ENCOUNTER 2025-04-30 12:21 | Outpatient (REF) | payer MEDICAID, SELFPAY ==
[2025-04-30 13:44] LABS: Alanine Aminotransferase 20 U/L (0-40); Albumin Level 4.6 g/dL (3.5-5.0); Alkaline Phosphatase 57 U/L (39-117); Anion Gap 12 (12-20); Aspartate Amino Transferase 22 U/L (5-37); Blood Urea Nitrogen 13 mg/dL (9-16); Calcium 9.4 mg/dL (8.4-10.2); Carbon Dioxide 29 mmol/L (22-29); Chloride 103 mmol/L (96-108); Cholesterol 155 mg/dL (<200); Estimated Glomerular Filt Rate > 60; HDL Cholesterol 38 mg/dL (>40); Potassium 4.3 mmol/L (3.3-5.1); Sodium 140 mmol/L (135-145); Total Protein 7.8 g/dL (6.5-8.0); Triglycerides 155 mg/dL (<150)
[2025-04-30 14:08] LABS: Vitamin B12 617 pg/mL (200-900)
[2025-04-30 14:51] LABS: Microalbum/Creatinine Ratio Ur 4.4 ug/mg cr (<30)
== END 2025-04-30 12:22 | disposition home or self-care (01) ==
LOC: HO.LAB 12:21
PROVIDERS: PCP Nurse Practitioner Primary Care; Visit Provider Nurse Practitioner Primary Care
DX: E11.69 Type 2 diabetes mellitus with other specified complication (principal); E78.5 Hyperlipidemia, unspecified; E11.59 Type 2 diabetes mellitus with other circulatory complications; I15.2 Hypertension secondary to endocrine disorders
CPT/HCPCS: 36415; 80053; 80061; 82043; 82570; 82607